=== PATIENT | male | born 1965 | race Caucasian/White ===

== ENCOUNTER 2018-08-15 11:42 | Inpatient (IN) ==
[2018-08-15] MEDS ORDERED: 0.9 % Sodium Chloride 1,000 ML IVC ONE ×3 (12:03→14:17)
[2018-08-15 13:15] LABS: Hematocrit 31.9 % (37.5-50.1); Hemoglobin 10.9 g/dL (12.9-16.9); Immature Platelets 2.4 % (1.1-6.1); Mean Corpuscular HGB Conc 34.2 g/dL (31.6-35.5); Mean Corpuscular Hemoglobin 30.7 pg (28.0-33.3); Mean Corpuscular Volume 89.9 fL (83.0-100.0); Mean Platelet Volume 9.6 fL (9.4-12.4); Platelet Count 105 K/mcL (140-400); Red Blood Count 3.55 M/mcL (4.19-5.50); Red Cell Distribution Width 13.9 % (11.5-14.5)
[2018-08-15 13:25] LABS: INR 1.1; Prothrombin Time 12.7 Seconds (9.4-12.1)
[2018-08-15 13:28] LABS: Activated Partial Thrombo Time 27.2 Seconds (26.0-36.0)
[2018-08-15 14:13] LABS: Alanine Aminotransferase 22 Units/L (7-52); Albumin 3.8 g/dL (3.5-5.7); Albumin/Globulin Ratio 1.4 (1.1-2.2); Alkaline Phosphatase 72 Units/L (34-104); Aspartate Amino Transferase 79 Units/L (13-39); BUN/Creatinine Ratio 25 (6-26); Bilirubin,Direct 0.1 mg/dL (0.0-0.2); Bilirubin,Indirect 0.3 mg/dL (0.0-1.2); Bilirubin,Total 0.4 mg/dL (0.3-1.0); Blood Urea Nitrogen 37 mg/dL (6-20); Calcium 8.8 mg/dL (8.6-10.3); Carbon Dioxide 23 mEq/L (23-29); Chloride 94 mEq/L (98-107); Creatine Kinase 2552 Units/L (30-223); Ethanol < 10 mg/dL (Less than 10); Globulin 2.7 g/dL (2.4-3.5); Glucose 90 mg/dL (70-105); Osmolality,Calculated 274 (280-300); Potassium 4.5 mEq/L (3.5-5.1); Sodium 128 mEq/L (136-145); Total Protein 6.5 g/dL (6.4-8.9); Troponin I 0.03 ng/mL (< 0.04); eGFR For Non-African Americans 50 (> 60)
[2018-08-15 14:19] LABS: Bilirubin,Urine Negative (Negative); Blood,Urine Large (Negative); Clarity,Urine Clear (Clear); Color,Urine Yellow (Yellow); Glucose,Urine (UA) Normal (Normal); Ketones,Urine 15 mg/dL (Negative); Leukocyte Esterase,Urine Negative (Negative); Nitrite,Urine Negative (Negative); PH,Urine 5.5 pH Units (5.0-8.0); Protein,Urine 30 mg/dL (Neg-Trace); Specific Gravity,Urine 1.014 (1.010-1.025); Urobilinogen,Urine Normal (Normal)
[2018-08-15 14:21] LABS: Bacteria,Urine None Seen per hpf (None-Few); Hyaline Casts,Urine None Seen per lpf (None-Few); RBC,Urine 0-3 per hpf (0-3); Squamous Epithelial Cell,Urine Many per lpf (None-Few); WBC,Urine 0-3 per hpf (0-3)
[2018-08-15 14:29] LABS: Amphetamine Screen,Urine Negative ng/mL (Cutoff=1000); Barbiturate Screen,Urine Negative ng/mL (Cutoff=200); Benzodiazepines Screen,Urine Negative ng/mL (Cutoff=200); Cannabinoid Screen,Urine Negative ng/mL (Cutoff = 50); Cocaine Screen,Urine Negative ng/mL (Cutoff= 300); Opiate Screen,Urine Negative ng/mL (Cutoff=300); Phencyclidine Screen,Urine Negative ng/mL (Cutoff=25)
[2018-08-15 14:48] LABS: Lymphocytes # 0.4 K/mcL (0.6-4.6); Monocytes # 0.2 K/mcL (0.0-1.3); Neutrophils # 9.5 K/mcL (1.6-8.9); Platelet Estimate Decreased (Normal)
[2018-08-15] MEDS ORDERED: Naloxone 0.4 MG/ML INJ IVP PRN (16:05)
[2018-08-15] MEDS ORDERED: Acetaminophen 325 MG TABLET PO PRN (16:05)
[2018-08-15] MEDS ORDERED: Ondansetron 4 MG/2 ML VIAL IVP PRN (16:05)
--- NOTE | 2018-08-15 16:08 | Internal Med History&Physical ---
Date of Encounter: 08/15/18 Time of Encounter: 15:59 Internal Medicine - H&P: HPI Chief complaint: Acute metabolic encephalopathy Admitted From: Emergency Dept History of present illness: Gino Dougherty is a 52 M w hx HTN, HLD, DM2, COPD, remote prescription drug abuse, who p/w AMS. Pt's stepmother last saw patient on Tuesday in usual state of health (normal functioning). She went to stay with her daughter for a few days, but this morning realized she had forgotten socks and so drove back to her home that she shares with her , the patient's father, who is on a trip visiting family at the moment. When stepmother got home, she found the patient lying naked on the bathroom floor, and the house was a mess. Several boxes of shoes were open and strewn about, a bottle of fingernail portuguese decorated the floor and pt's clothes, the sink's hot water knob was broken and thus the faucet was running, and several other abnormalities. This is unlike him, and stepmother, who is new to family since january 2018, called her and the patient's brother, both of whom reportedly state he has never had an episode like this. She found him lying on the ground moaning, not responding to any commands. She called EMS. She says he has well controlled diabetes and does not take insulin, unknown other history except for chronic neck and back pain for which he was previously addicted to PO narcotics and has been weaned down to percocet and bee n doing much better. She does report a white powder found on the patient's bed which she thought was baby powder, but is unsure. In the ED, pt HR 110, RR 20s, SBP 160s. Labs remarkable for Hb 11, Plt 110, Na 128, Cl 94, Cr 1.5, BUN 37, AST 80, CK 2500, UA w blood and ketones but no RBCs. CXR and CT head both without any acute changes. Past medical, surgical, social, and family histories reviewed and updated as below. Past Med Surg Social Fam HX - Past Medical History Medical history: diabetes, hyperlipidemia, hypertension Psychiatric history: depression, schizophrenia - Past Surgical History Surgical History: orthopedic, other Additional surgical history: neck surgery - Social History Smoking Status: Never smoker Smokeless Tobacco Status: No Alcohol use: none Drug use: none Internal Medicine - H&P: Meds Albuterol Sulfate [Albuterol Inhaler] 2 puff IH Q4HR PRN 08/15/18 [History] Alogliptin Benzoate [Alogliptin] 25 mg PO DAILY 08/15/18 [History] Atorvastatin [Lipitor] 20 mg PO HS 08/15/18 [History] Buspirone HCl [Buspar] 10 mg PO TID 08/15/18 [History] Cholecalciferol (Vitamin D3) [Vitamin D] 400 unit PO BID 08/15/18 [History] Cyclobenzaprine [Flexeril] 10 mg PO TID 08/15/18 [History] Divalproex (24 HR) [Depakote ER (24 HR)] 750 mg PO HS 08/15/18 [History] Docusate Sodium [Dulcolax Stool Softener] 100 mg PO DAILY 08/15/18 [History] FLUoxetine HCl [Fluoxetine HCl] 40 mg PO DAILY 08/15/18 [History] Ferrous Sulfate [Iron] 325 mg PO BID 08/15/18 [History] Glimepiride [Amaryl] 1 mg PO DAILY 08/15/18 [History] Haloperidol 15 mg PO DAILY 08/15/18 [History] Ipratropium/Albuterol Neb [Duoneb] 3 ml IH Q4HR PRN 08/15/18 [History] Loratadine [Allergy Relief] 10 mg PO DAILY 08/15/18 [History] Losartan [Cozaar] 50 mg PO DAILY 08/15/18 [History] Melatonin 10 mg PO HS 08/15/18 [History] Metaxalone [Skelaxin] 800 mg PO TID 08/15/18 [History] Metoprolol [Lopressor] 50 mg PO BID 08/15/18 [History] Mometasone/Formoterol [Dulera 100 Mcg/5 Mcg Inhaler] 2 inh IH BID 08/15/18 [History] Omeprazole [PriLOSEC] 40 mg PO DAILY 08/15/18 [History] Oxycodone HCl 10 mg PO Q8H PRN 08/15/18 [History] Prazosin HCl [Minipress] 5 mg PO HS 08/15/18 [History] Pregabalin [Lyrica] 150 mg PO BID 08/15/18 [History] RisperiDONE [Risperdal] 0.5 mg PO DAILY 08/15/18 [History] amLODIPine [Norvasc] 10 mg PO DAILY 08/15/18 [History] metFORMIN [Glucophage] 1,000 mg PO BIDWM 08/15/18 [History] Allergy/AdvReac Type Severity Reaction Status Date / Time NSAIDS (Non-Steroidal Allergy See Verified 05/10/17 13:26 Anti-Inflamma Comments Penicillins Allergy See Verified 05/10/17 13:26 Comments All Systems PM: A 10-system review of systems was performed and is negative for pertinent findings except as documented above in the HPI. - Constitutional Vitals: Temp Pulse Resp BP Pulse Ox 97.8 F 112 26 165/91 95 08/15/18 11:45 08/15/18 13:49 08/15/18 13:49 08/15/18 13:49 08/15/18 13:49 Exam: General: lying in bed mumbling/moaning same sound repetitively without intention. Forehead with mild sweat Head: Atraumatic, normocephalic. Face symmetric Eyes: EOMI, sclerae anicteric ENT: Mucous membranes dry. Normal oral mucosa and poor dentition. Trachea midline. Thoracic: No visible chest wall deformities. Normal breath sounds b/l, no wheezing or crackles Cardio: Normal S1 and S2, regular rhythm, tachycardic Abdomen: Soft, nontender, nondistended. Bowel sounds present. Extremities: Warm, well perfused. DP pulses 2+ b/l. Does have mild pitting edema in b/l legs to knees Skin: Intact. No rashes, bruises, or ulcers Neuro: Awake, completely disoriented, continuously moaning but does not appear in pain, does not follow commands, will look and reach slowly in direction of my voice, moving all extremities spontaneously Internal Med - H&P Results - Labs CBC & Chem 7: 08/15/18 13:00 08/15/18 13:00 Labs: Short CBC 08/15/18 Range/Units 13:00 WBC 10.1 (4.3-11.1) K/mcL Hgb 10.9 L (12.9-16.9) g/dL Hct 31.9 L (37.5-50.1) % Plt Count 105 L (140-400) K/mcL Neutrophils # 9.5 H (1.6-8.9) K/mcL BMP 08/15/18 13:00 Sodium 128 L Potassium 4.5 Chloride 94 L Carbon Dioxide 23 BUN 37 H Creatinine 1.48 H Glucose 90 Calcium 8.8 Cardiac Enzymes 08/15/18 Range/Units 13:00 Troponin I 0.03 (< 0.04) ng/mL Liver Function 08/15/18 Range/Units 13:00 Total Bilirubin 0.4 (0.3-1.0) mg/dL Direct Bilirubin 0.1 (0.0-0.2) mg/dL AST 79 H (13-39) Units/L ALT 22 (7-52) Units/L Alkaline Phosphatase 72 (34-104) Units/L Albumin 3.8 (3.5-5.7) g/dL Urine 08/15/18 Range/Units 14:05 Urine Color Yellow (Yellow) Urine Clarity Clear (Clear) Urine pH 5.5 (5.0-8.0) pH Units Ur Specific [place] 1.014 (1.010-1.025) Urine Protein 30 H (Neg-Trace) mg/dL Urine Glucose (UA) Normal (Normal) mg/dL - Impressions ITS Impressions Chest X-Ray 08/15/18 12:03 IMPRESSION: COPD with no acute cardiopulmonary process seen. D/ / 08/15/2018 13:58:06 Juan Pablo Bullock MD / [facility] Interpreting Provider: Juan Pablo Bullock MD Head CT 08/15/18 12:04 IMPRESSION: No acute intracranial abnormality. D/ / 08/15/2018 13:06:35 Akira Waddell MD / [facility] Interpreting Provider: Akira Waddell MD - Summary of Assessment and Plan Summary of Assessment and Plan: Gino dougherty is a 52 M w hx HTN, HLD, DM2, COPD, who p/w AMS, tachycardia and hypertension but negative Utox, sodium 128, CK 2500 and UA w blood but no RBC, concerning for acute metabolic encephalopathy 2/2 hypovolemic hyponatremia and complicated by rhabdomyolysis. Acute encephalopathy: at this time it is unclear; very possibly due to dehydration and hyponatremia. Head CT unremarkable. However, is very suspicious that this could be tox-related despite negative Utox. Does have JERMAIN and gabapentin could build up in system. Could have also ingested or snorted something, and with hx drug abuse and both parents taking mini-vacation could have used something; tachycardia and tachypnea and elevated SBP suggest stimulant, and does have pupils wider than expected in bright ED exam room that don't respond as well as should. ECG sinus tachy, read as minimal ST depression inferiorly but not significant and trop undetectable. - precautions - treat underlying causes as below - fluids and supportive care - close monitoring of blood glucose - check ketones, lactic acid Hypovolemic hyponatremia: w hypochloremia and JERMAIN, fluids and monitor - if does not improve w fluids, check Uosm and Ulytes Rhabdomyolysis: CK 2500, UA w blood but no RBCs, elevated AST. S/p NS 3L in ED. - trend CK daily - MIVF NS@150 - pain control w tylenol JERMAIN: baseline Cr ~0.9, likely 2/2 dehydration and rhabdo, fluids as above and monitor HTN: awaiting med rec, will use labetalol prn HLD: awaiting med rec DM2: glucose 90s here, will keep above 100 due to altered mental status, holding gabapentin COPD: CXR showing emphysematous changes bilaterally Obesity: BMI 31 PPx: lovenox FEN: NPO while still confused and if improves can have regular diet, MIVF as above Lines: PIV Consults: Code: Full Dispo: patient requires inpatient eval and management at this time. Anticipate 2-3 days. Will be homegoing
[2018-08-15] MEDS ORDERED: Dextrose Gel 15 GM/37.5 ML TUBE PO PRN ×2 (16:11)
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
[2018-08-15] MEDS: 0.9 % Sodium Chloride 1,000 ML IVC SCH (17:51)
[2018-08-15 17:54] LABS: Magnesium 2.1 mg/dL (1.6-2.6); Phosphorous 3.1 mg/dL (2.7-4.5)
[2018-08-16] MEDS: *HR* Dextrose 50 % in Water (Syg) 50 ML SYRINGE IVP PRN (00:05)
[2018-08-16] MEDS: 0.9 % Sodium Chloride 1,000 ML IVC SCH (00:07)
[2018-08-16] MEDS: D5% in Water 1,000 ML IVC PRN ×2 (06:08→15:50)
[2018-08-16] MEDS: *HR* Enoxaparin 40 MG/0.4 ML SYRINGE SQ SCH (06:08)
[2018-08-16 06:54] LABS: Mean Corpuscular HGB Conc 33.6 g/dL (31.6-35.5); Mean Platelet Volume 9.9 fL (9.4-12.4)
[2018-08-16 06:56] LABS: Hematocrit 30.7 % (37.5-50.1); Hemoglobin 10.3 g/dL (12.9-16.9); Immature Platelets 2.4 % (1.1-6.1); Mean Corpuscular Hemoglobin 30.3 pg (28.0-33.3); Mean Corpuscular Volume 90.3 fL (83.0-100.0); Red Blood Count 3.4 M/mcL (4.19-5.50); Red Cell Distribution Width 14.1 % (11.5-14.5)
[2018-08-16 07:34] LABS: BUN/Creatinine Ratio 22 (6-26); Blood Urea Nitrogen 24 mg/dL (6-20); Calcium 7.7 mg/dL (8.6-10.3); Carbon Dioxide 16 mEq/L (23-29); Chloride 101 mEq/L (98-107); Creatine Kinase 3986 Units/L (30-223); Glucose 61 mg/dL (70-105); Osmolality,Calculated 278 (280-300); Phosphorous 3.2 mg/dL (2.7-4.5); Potassium 4.3 mEq/L (3.5-5.1); Sodium 133 mEq/L (136-145); eGFR For Non-African Americans > 60 (> 60)
--- NOTE | 2018-08-16 10:15 | Internal Med Progress Note ---
Hospitalist Progress Note - Encounter Date of Encounter: 08/16/18 Time of Encounter: 10:10 - Subjective Interval History: Patient was seen and examined. Continues to be encephalopathic. Not following commands. He has had hypoglycemic episodes overnight and started on D5W. Admitted with altered mental status of unclear etiology. CT head unremarkable on admission. - Exam Vitals: Temp Pulse Resp BP Pulse Ox 98.4 F 122 16 176/94 92 08/16/18 09:58 08/16/18 09:58 08/16/18 09:58 08/16/18 09:58 08/16/18 09:58 Exam: GEN: NAD CVS: RRR. S1, S2, No m/r/g RESP: CTAB ABD: Soft, NT, ND, +BS EXT: No edema. 2+ DP. No rashes NEURO: Moves extremities spontaneously. Not following commands. Pupils dilated and reactive. - Assessment and Plan (1) Altered mental status Current Visit: Yes Status: Acute Assessment and Plan: see below (2) Metabolic encephalopathy Current Visit: Yes Status: Acute Assessment and Plan: Unclear if he ingested something with history of drug abuse in the past or if due to hypoglycemia (unlikely). His glucose was not low on admission ad it is improving now. CT head neg. Takes flexeril, buspar, fluoxetine, haldol, met axalone, lyrica, and oxycodone. will hold for now and I think some of those drugs needs to be looked at as they all can cause mental status issues. Will ask neurology to see. (3) Rhabdomyolysis Current Visit: Yes Status: Acute Assessment and Plan: c/w IV fluids. (4) JERMAIN (acute kidney injury) Current Visit: Yes Status: Acute Assessment and Plan: Improving with IV fluids. Avoid nephrotoxins (5) Diabetes mellitus Current Visit: Yes Status: Acute Assessment and Plan: Has hypoglycemia. will place on SSI. c/w accucheks. check A1c (6) Hypoglycemia Current Visit: Yes Status: Acute Assessment and Plan: c/w D5W. c/w accucheks. A1c Pending (7) HTN (hypertension) Current Visit: Yes Status: Acute Assessment and Plan: c/w home meds (8) HLD (hyperlipidemia) Current Visit: Yes Status: Acute Assessment and Plan: c/w home meds (9) DVT prophylaxis Current Visit: Yes Status: Acute Assessment and Plan: lovenox SQ - Time Spent with Patient Total time spent is greater than 50% in coordination of care (as documented) at patient's floor/unit and/or counseling patient: Internal Medicine: Result - Labs CBC & Chem 7: 08/16/18 06:05 08/16/18 06:05 Labs: Short CBC 08/15/18 08/16/18 Range/Units 13:00 06:05 WBC 10.1 11.0 (4.3-11.1) K/mcL Hgb 10.9 L 10.3 L (12.9-16.9) g/dL Hct 31.9 L 30.7 L (37.5-50.1) % Plt Count 105 L 91 L (140-400) K/mcL Neutrophils # 9.5 H (1.6-8.9) K/mcL BMP 08/15/18 08/16/18 13:00 06:05 Sodium 128 L 133 L Potassium 4.5 4.3 Chloride 94 L 101 Carbon Dioxide 23 16 L BUN 37 H 24 H Creatinine 1.48 H 1.07 Glucose 90 61 L Calcium 8.8 7.7 L Cardiac Enzymes 08/15/18 Range/Units 13:00 Troponin I 0.03 (< 0.04) ng/mL Liver Function 08/15/18 Range/Units 13:00 Total Bilirubin 0.4 (0.3-1.0) mg/dL Direct Bilirubin 0.1 (0.0-0.2) mg/dL AST 79 H (13-39) Units/L ALT 22 (7-52) Units/L Alkaline Phosphatase 72 (34-104) Units/L Albumin 3.8 (3.5-5.7) g/dL Urine 08/15/18 Range/Units 14:05 Urine Color Yellow (Yellow) Urine Clarity Clear (Clear) Urine pH 5.5 (5.0-8.0) pH Units Ur Specific [place] 1.014 (1.010-1.025) Urine Protein 30 H (Neg-Trace) mg/dL Urine Glucose (UA) Normal (Normal) mg/dL - ABG Interpretation ABG results: PT/INR, D-dimer PT 12.7 Seconds (9.4-12.1) H 08/15/18 13:00 - Impressions Impressions Chest X-Ray 08/15/18 12:03 IMPRESSION: COPD with no acute cardiopulmonary process seen. D/ / 08/15/2018 13:58:06 Juan Pablo Bullock MD / [facility] Interpreting Provider: Juan Pablo Bullock MD Head CT 08/15/18 12:04 IMPRESSION: No acute intracranial abnormality. 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
[2018-08-16 10:53] LABS: Estimated Average Glucose 131 mg/dl; Hemoglobin A1C 6.2 %
[2018-08-16] MEDS ORDERED: amLODIPine 5 MG TABLET PO SCH (11:30)
[2018-08-16] MEDS: Loratadine 10 MG TABLET PO SCH (11:59)
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
[2018-08-16 13:45] LABS: Alanine Aminotransferase 36 Units/L (7-52); Albumin 3.4 g/dL (3.5-5.7); Albumin/Globulin Ratio 1.3 (1.1-2.2); Alkaline Phosphatase 68 Units/L (34-104); Aspartate Amino Transferase 132 Units/L (13-39); Bilirubin,Direct 0.1 mg/dL (0.0-0.2); Bilirubin,Indirect 0.3 mg/dL (0.0-1.2); Bilirubin,Total 0.4 mg/dL (0.3-1.0); Globulin 2.6 g/dL (2.4-3.5)
[2018-08-16] MEDS ORDERED: DANTROLENE SODIUM IVP ONE ×2 (17:00→17:30)
[2018-08-16] MEDS ORDERED: WATER FOR INJ IVP ONE ×2 (17:00→17:30)
[2018-08-16] MEDS ORDERED: *HR* LORazepam 2 MG/ML VIAL IVP ONE (17:59)
--- NOTE | 2018-08-16 17:59 | Electrocardiograph Report ---
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
[2018-08-16] MEDS ORDERED: Furosemide 20 MG/2 ML VIAL IVP ONE (19:08)
[2018-08-16] MEDS: Budesonide/Formoterol 80/4.5 MDI IH SCH (20:41)
[2018-08-16] MEDS: Divalproex (24 HR) 250 MG TABLET PO SCH (21:36)
[2018-08-17] MEDS ORDERED: Furosemide 20 MG/2 ML VIAL IVP ONE ×2 (00:45→08:56)
[2018-08-17] MEDS: DANTROLENE SODIUM IVPB SCH ×5 (00:59→23:33)
[2018-08-17] MEDS: D5% in Water 1,000 ML IVC PRN (05:46)
[2018-08-17 06:10] LABS: Basophils # 0.1 K/mcL (0.0-0.2); Basophils % 0.5 %; Eosinophils # 0.1 K/mcL (0.0-0.6); Eosinophils % 0.4 %; Hematocrit 36.5 % (37.5-50.1); Immature Granulocytes % 2.1 % (0-4); Lymphocytes # 1.3 K/mcL (0.6-4.6); Lymphocytes % 9.8 %; Mean Corpuscular Hemoglobin 30.2 pg (28.0-33.3); Mean Corpuscular Volume 88.8 fL (83.0-100.0); Mean Platelet Volume 9.5 fL (9.4-12.4); Monocytes # 1.1 K/mcL (0.0-1.3); Monocytes % 8.8 %; Platelet Count 114 K/mcL (140-400); Red Blood Count 4.11 M/mcL (4.19-5.50); Red Cell Distribution Width 14.6 % (11.5-14.5); Segmented Neutrophils % 78.4 %
[2018-08-17 06:12] LABS: Hemoglobin 12.4 g/dL (12.9-16.9)
[2018-08-17 06:27] LABS: BUN/Creatinine Ratio 15 (6-26); Blood Urea Nitrogen 17 mg/dL (6-20); Calcium 8.7 mg/dL (8.6-10.3); Carbon Dioxide 20 mEq/L (23-29); Chloride 94 mEq/L (98-107); Creatine Kinase 1632 Units/L (30-223); Glucose 120 mg/dL (70-105); Magnesium 1.9 mg/dL (1.6-2.6); Osmolality,Calculated 271 (280-300); Potassium 4.6 mEq/L (3.5-5.1); Sodium 129 mEq/L (136-145); eGFR For Non-African Americans > 60 (> 60)
[2018-08-17] MEDS: *HR* Enoxaparin 40 MG/0.4 ML SYRINGE SQ SCH (06:37)
[2018-08-17] MEDS: Budesonide/Formoterol 80/4.5 MDI IH SCH ×3 (08:01→20:18)
[2018-08-17] MEDS: Loratadine 10 MG TABLET PO SCH (08:29)
--- NOTE | 2018-08-17 08:40 | EEG/EMG/Oth Biometrics Report ---
EEG Procedure Report Date of procedure: 08/17/18 EEG Procedure: Routine EEG Procedure Note: This is a report of a 21 channel bipolar and referential montage EEG. From the outset there is significant technical and myogenic artifact present. This presides throughout the entire recording. Occasionally 6 Hz to 7 Hz theta frequencies are identified in the frontal and occipital regions symmetrically. However overall the study is poorly organized and poorly sustained. There is no normal sleep architecture present. Hyperventilation is not performed in recording. Photic stimulations performed and no photic response is identified. The EKG rhythm strip is technically marred and I am unable to interpret. Impressions: Difficult technical study. There is significant myogenic and technical artifact present throughout the entirety of the recording. I am able to identify theta frequencies bilaterally. This suggests a mild to moderate generalized encephalopathy. There is no evidence of seizure activity identified during the study however again it is a study marred by technical and muscle artifact. Please correlate clinically.
--- NOTE | 2018-08-17 08:46 | Internal Med Progress Note ---
Hospitalist Progress Note - Encounter Date of Encounter: 08/17/18 Time of Encounter: 08:44 - Subjective Interval History: Patient was seen and examined. Yesterday I asked neurology to see him and they believe his presentation is consistent with neuroleptic malignant syndrome. Patient was started on dantrolene and bromocriptine. Psych were consulted and have not seen the patient. He underwent an EEG which was a difficult study yesterday. Yesterday also I was called by his nurse stating that he is requiring 2 L of oxygen mask oxygen order a chest x-ray which showed mild interstitial edema I gave her 20 mg of IV Lasix. He remains on 2 L this mor [place]. He remains on D5W due to hypoglycemic episodes but this seems to be improving. Still encephalopathic. - Exam Vitals: Temp Pulse Resp BP Pulse Ox 98.5 F 114 28 159/99 97 08/17/18 07:14 08/17/18 07:14 08/17/18 07:14 08/17/18 07:14 08/17/18 07:14 Exam: GEN: NAD CVS: RRR. S1, S2, No m/r/g RESP: Crackles bibasilar ABD: Soft, NT, ND, +BS EXT: No edema. 2+ DP. No rashes NEURO: Moves extremities spontaneously but rigidity is felt throughout extremities. Not following commands. Pupils dilated and reactive. - Assessment and Plan (1) Altered mental status Current Visit: Yes Status: Acute Assessment and Plan: see below (2) Metabolic encephalopathy Current Visit: Yes Status: Acute Assessment and Plan: I have asked neurology to see him and they believed that the patient is encep halopathic due to neuroleptic malignant syndrome. He was started on dantrolene and bromocriptine. EEG was done and was difficult study. He is to be seen by psychiatry regarding his multiple psychiatric meds as those need to be adjusted. Hypoglycemia is improving and unlikely to be the cause of his encephalopathy. CT head neg. Takes flexeril, buspar, fluoxetine, haldol, metaxalone, lyrica, and oxycodone. will continue to hold for now and I think some of those drugs needs to be looked at before discharge. (3) Rhabdomyolysis Current Visit: Yes Status: Acute Assessment and Plan: c/w IV fluids. Improving (4) Acute hypoxemic respiratory failure Current Visit: Yes Status: Acute Assessment and Plan: Repeat chest x-rays morning. He is only on about 2 L of oxygen. I would rather not stop his IV fluids given his rhabdomyolysis, tachycardia, jermain, hyponatremia, but I hear crackles on exam. Will stop IV fluids and get a chest x-ray. Will dose another 20 mg IV lasix. (5) JERMAIN (acute kidney injury) Current Visit: Yes Status: Acute Assessment and Plan: Stable. Improved since admission. Avoid nephrotoxins (6) Diabetes mellitus Current Visit: Yes Status: Acute Assessment and Plan: Has hypoglycemia which improved. During the with SSI. c/w accucheks. A1c 6.2 (7) Hypoglycemia Current Visit: Yes Status: Acute Assessment and Plan: We will stop D5 W in place were normal saline. c/w accucheks (8) HTN (hypertension) Current Visit: Yes Status: Acute Assessment and Plan: c/w home meds (9) HLD (hyperlipidemia) Current Visit: Yes Status: Acute Assessment and Plan: c/w home meds (10) DVT prophylaxis Current Visit: Yes Status: Acute Assessment and Plan: lovenox SQ - Time Spent with Patient Total time spent is greater than 50% in coordination of care (as documented) at patient's floor/unit and/or counseling patient: Internal Medicine: Result - Labs CBC & Chem 7: 08/17/18 05:29 08/17/18 05:29 Labs: Short CBC 08/17/18 Range/Units 05:29 WBC 12.8 H (4.3-11.1) K/mcL Hgb 12.4 L D (12.9-16.9) g/dL Hct 36.5 L (37.5-50.1) % Plt Count 114 L (140-400) K/mcL Neutrophils # 10.0 H (1.6-8.9) K/mcL BMP 08/16/18 08/17/18 06:05 05:29 Sodium 133 L 129 L Potassium 4.3 4.6 Chloride 101 94 L Carbon Dioxide 16 L 20 L BUN 24 H 17 Creatinine 1.07 1.15 Glucose 61 L 120 H Calcium 7.7 L 8.7 Liver Function 08/16/18 Range/Units 06:05 Total Bilirubin 0.4 (0.3-1.0) mg/dL Direct Bilirubin 0.1 (0.0-0.2) mg/dL AST 132 H (13-39) Units/L ALT 36 (7-52) Units/L Alkaline Phosphatase 68 (34-104) Units/L Albumin 3.4 L (3.5-5.7) g/dL - ABG Interpretation ABG results: PT/INR, D-dimer PT 12.7 Seconds (9.4-12.1) H 08/15/18 13:00 - Impressions Impressions Chest X-Ray 08/15/18 12:03 IMPRESSION: COPD with no acute cardiopulmonary process seen. D/ / 08/15/2018 13:58:06 Juan Pablo Bullock MD / [facility] Interpreting Provider: Juan Pablo Bullock MD Head CT 08/15/18 12:04 IMPRESSION: No acute intracranial abnormality. D/ / 08/15/2018 13:06:35 Akira Waddell MD / [facility] Interpreting Provider: Akira Waddell MD Chest X-Ray 08/16/18 18:06 IMPRESSION: 1. No lines or tubes. 2. Stable cardiopulmonary status with COPD and reticular opacities which may represent mild interstitial edema. D/ / 08/16/2018 18:39:07 Ivanna Cruz MD / [facility] Interpreting Provider: Ivanna Cruz MD Consult Discharge Plan - Plan Referrals: Gabriella Simon [Advanced Practice Nurse] - 09/06/18 9:00 am __ (1) Altered mental status Qualifiers: Altered mental status type: unspecified Qualified Code(s): R41.82 - Altered mental status, unspecified (3) Rhabdomyolysis Qualifiers: Rhabdomyolysis type: traumatic Encounter type: initial encounter Qualified Code(s): T79.6XXA - Traumatic ischemia of muscle, initial encounter (6) Diabetes mellitus Qualifiers: Diabetes mellitus type: type 2 Diabetes mellitus terminal gauger insulin use: [facility] terminal gauger use Diabetes mellitus complication status: without complication Qualified Code(s): E11.9 - Type 2 diabetes mellitus without complications (8) HTN (hypertension) Qualifiers: Hypertension type: essential hypertension Qualified Code(s): I10 - Essential (primary) hypertension (9) HLD (hyperlipidemia) Qualifiers: Hyperlipidemia type: unspecified Qualified Code(s): E78.5 - Hyperlipidemia, unspecified
[2018-08-17] MEDS ORDERED: *HR* Etomidate 40 MG/20 ML VIAL IVP ONE (09:17)
--- NOTE | 2018-08-17 10:47 | Neurology Progress Note ---
<Elias Quintero - Last Filed: 08/17/18 10:44> Date of Encounter: 08/17/18 Time of Encounter: 10:44 Assessment and Plan (1) Rhabdomyolysis Current Visit: Yes Status: Acute Qualifiers: Rhabdomyolysis type: traumatic Encounter type: initial encounter Qualified Code(s): T79.6XXA - Traumatic ischemia of muscle, initial encounter (2) JERMAIN (acute kidney injury) Current Visit: Yes Status: Acute (3) Metabolic encephalopathy Current Visit: Yes Status: Acute Patient continues to be encephalopathic today. Multiple etiologies for encephalopathy including metabolic, concerns for toxic, medication induced, other Given her presentation, we strongly feel the patient has neuroleptic malignant syndrome. Yesterday he was started on dantrolene IV at 2.5 mg/kg with a max 10 MG/kg daily dose CT HEAD 08/15- unremarkable EEG- mild to moderate generalized encephalopathy, no evidence of seizure activity; technically limited study CXR 08/15- COPD no acute process; 08/16-stable no acute process, 08/17-prominent peribronchial thickening; suspect bronchitis UA negative for acute infection Clinically, again as noted above the patient continues to be encephalopathic today. However, he does not P her to be as anxious or in acute distress when evaluating him yesterday. Yesterday on exam the patient was extremely rigid in all 4 extremities and neck. It should be noted that the rigidity today has improved. Overnight he does not appear to have had any significant temperature elevations and his blood pressure while remaining high is also improved. Serial creatinine kinase trending down at 1632 PLAN: Recommend repeat CK in the morning C/S Psych with concerns for NMS and acute AMS; recommendations appreciated Frequent neurological assessments Start Bromocriptine 2.5mg PO when patient able to take and discontinue dantrolene. However we will continue dantrolene in the interim Recommend Lorazepam 2mg IV Q6hrs Recommend closely monitoring renal function, electrolytes and replete as necessary, rehydrate, continue tele, continue seizure precautions Continuing holding CCB d/t risks associated with dantrolene and CCB use. Consider blood cultures with meeting SIRS criteria Given findings of bronchitis on todays repeat CXR consider adding ABX; defer to IM team Continue medical and supportive care Subjective Principal diagnosis: Patient seen in/U for AMS and Susp. Neuroleptic malignant syndrome Interval history: The patient was seen in follow-up this morning. Neurology was consulted for altered mental state. Exam findings yesterday reveal a diagnosis of neuroleptic malignant syndrome. Today, the patient continues to be encephalopathic and is not conversational or engaging when this provider is present. Clinically, he does not appear to have had any declining condition overnight. In regards to his rigidity this appears to have improved. I did not see any significant temperature elevation and hemodynamically he is hypertensive but stable. There is no family present to further discuss plan of care. Objective - Constitutional Vitals: Temp Pulse Resp BP Pulse Ox 98.5 F 114 28 159/99 97 08/17/18 07:14 08/17/18 07:14 08/17/18 07:14 08/17/18 07:14 08/17/18 07:14 Exam: Examination: General Examination: *CONSTITUTIONAL: He does not appear anxious or agitated or in any acute distress this morning. He is alert to self and it does appear he will make eye contact when addressing in by his name. *GENERAL APPEARANCE OF PATIENT ill appearing male, appears older than stated age *EYES: pupils equal, round, reactive to light and accommodation, conjunctiva clear *CARDIOVASCULAR tachycardic, no peripheral edema, distal temperature normal, dorsalis pedis pulses normal. see vital signs Musculoskeletal: *GAIT AND STATION no assessed *ASSESSMENT OF MUSCLE STRENGTH IN THE UPPER AND LOWER EXTREMITIES he continues to move all four limbs spontaneously *MUSCLE TONE IN THE UPPER AND LOWER EXTREMITIES are rigid x4 extremities however the rigidity is improving. Continues to have neck rigidity *ORIENTATION to person, disoriented otherwise *RECURRENT AND REMOTE MEMORY mentally altered, unable to assess *ATTENTION AND CONCENTRATION altered *LANGUAGE FUNCTION he is not verbalizing *FUND OF KNOWLEDGE is difficult to assess given mental status changes *MENTAL attention span and concentration abnormal 2/2 mental status alterations, episodes of inattention and does not follow commands *CN II optic fundi were normal, no papilledema noted. *CN III,IV, PERRLA but are large 4mm , no dolls eyes, no nystagmus and no ptosis noted. He does make eye contact when addressed by anemia and follows this provider to each side of the bed when spoken to. *CN V does not follow commands *CN VII unable to assess, does not follow commands *CN VIII shows no significant hearing loss on exam; will respond basic yes and no answers to questioning *CN IX,,X unable to assess d/t altered mental state *CN XI he is not moving his head today *CN XII unable to assess *SENSORY EXAMINATION difficult to assess but moves extremities to noxious stimuli *REFLEXES: deep tendon reflexes were normal and symmetrical , grade 1/4 diffusely, no pathological reflexes were noted. *CEREBELLAR TESTING not assessed *PAIN LEVEL not assessed Results - Laboratory Findings CBC and BMP: 08/17/18 05:29 08/17/18 05:29 Abnormal lab findings: Abnormal lab results WBC 12.8 K/mcL (4.3-11.1) H 08/17/18 05:29 RBC 4.11 M/mcL (4.19-5.50) L 08/17/18 05:29 Hgb 12.4 g/dL (12.9-16.9) L D 08/17/18 05:29 Hct 36.5 % (37.5-50.1) L 08/17/18 05:29 RDW 14.6 % (11.5-14.5) H 08/17/18 05:29 Plt Count 114 K/mcL (140-400) L 08/17/18 05:29 Neutrophils # 10.0 K/mcL (1.6-8.9) H 08/17/18 05:29 Platelet Estimate Decreased (Normal) L 08/15/18 13:00 PT 12.7 Seconds (9.4-12.1) H 08/15/18 13:00 Sodium 129 mEq/L (136-145) L 08/17/18 05:29 Chloride 94 mEq/L (98-107) L 08/17/18 05:29 Carbon Dioxide 20 mEq/L (23-29) L 08/17/18 05:29 Glucose 120 mg/dL (70-105) H 08/17/18 05:29 POC Glucose 110 mg/dL (70-99) H 08/17/18 07:17 Hemoglobin A1c 6.2 % (-5.6) H 08/16/18 06:05 Calculated Osmolality 271 (280-300) L 08/17/18 05:29 AST 132 Units/L (13-39) H 08/16/18 06:05 Creatine Kinase 1632 Units/L (30-223) H 08/17/18 05:29 Serum Total Protein 6.0 g/dL (6.4-8.9) L 08/16/18 06:05 Albumin 3.4 g/dL (3.5-5.7) L 08/16/18 06:05 Beta-Hydroxybutyric Acd > 2.00 mmol/L (0.02-0.27) H 08/15/18 13:00 Urine Protein 30 mg/dL (Neg-Trace) H 08/15/18 14:05 Urine Ketones 15 mg/dL (Negative) H 08/15/18 14:05 Urine Blood Large (Negative) H 08/15/18 14:05 Ur Squamous Epith Cells Many per lpf (None-Few) H 08/15/18 14:05 Consult Discharge Plan - Plan Referrals: Gabriella Simon [Advanced Practice Nurse] - 09/06/18 9:00 am <Neftali Oropeza - Last Filed: 08/17/18 12:21> Date of Encounter: 08/17/18 Assessment and Plan (1) Rhabdomyolysis Current Visit: Yes Status: Acute Qualifiers: Rhabdomyolysis type: traumatic Encounter type: initial encounter Qualified Code(s): T79.6XXA - Traumatic ischemia of muscle, initial encounter (2) JERMAIN (acute kidney injury) Current Visit: Yes Status: Acute (3) Metabolic encephalopathy Current Visit: Yes Status: Acute I have personally performed a [id number] assessment of the patient and have reviewed the PA/UNIX ADMINISTRATOR note. My impressions are as follows: Patient was seen and examined independently. The case was discussed with the DISTRICT ATTORNEY. I agree with his assessment as stated above. At the moment I am highly suspicious of neuroleptic malignant syndrome. We will anticipate continuing to dantrolene at least until midday tomorrow at which time she received a total of 10 mg/kg. If he is improved clinically may discontinue however. We will likely continue to dantrolene. Psychiatry's assessment was seen and appreciated. We will continue to follow. We will need to check daily electrolyte panel and CPK levels. Subjective Interval history: The chart was reviewed, the patient was seen and examined independently. The case was discussed with the DISTRICT ATTORNEY.I have personally performed a [id number] assessment of the patient and have reviewed the PA/UNIX ADMINISTRATOR note. My impressions are as follows: I agree with the DISTRICT ATTORNEY's documentation as stated above. Since withholding the neuroleptic since starting dantrolene CPK levels are trending downward. He also has less muscle rigidity today. However his mental status is unchanged he remains encephalopathic. Objective - Constitutional Vitals: Temp Pulse Resp BP Pulse Ox 98.5 F 113 20 153/95 94 08/17/18 11:53 08/17/18 11:53 08/17/18 11:53 08/17/18 11:53 08/17/18 11:53 Exam: I did perform a complete independent neurologic examination of this patient.I have personally performed a [id number] assessment of the patient and have reviewed the PA/UNIX ADMINISTRATOR note. My impressions are as follows: I agree with the neurologic examination documented by the DISTRICT ATTORNEY above. Results - Laboratory Findings CBC and BMP: 08/17/18 05:29 08/17/18 05:29 Abnormal lab findings: Abnormal lab results WBC 12.8 K/mcL (4.3-11.1) H 08/17/18 05:29 RBC 4.11 M/mcL (4.19-5.50) L 08/17/18 05:29 Hgb 12.4 g/dL (12.9-16.9) L D 08/17/18 05:29 Hct 36.5 % (37.5-50.1) L 08/17/18 05:29 RDW 14.6 % (11.5-14.5) H 08/17/18 05:29 Plt Count 114 K/mcL (140-400) L 08/17/18 05:29 Neutrophils # 10.0 K/mcL (1.6-8.9) H 08/17/18 05:29 Platelet Estimate Decreased (Normal) L 08/15/18 13:00 PT 12.7 Seconds (9.4-12.1) H 08/15/18 13:00 Sodium 129 mEq/L (136-145) L 08/17/18 05:29 Chloride 94 mEq/L (98-107) L 08/17/18 05:29 Carbon Dioxide 20 mEq/L (23-29) L 08/17/18 05:29 Glucose 120 mg/dL (70-105) H 08/17/18 05:29 POC Glucose 110 mg/dL (70-99) H 08/17/18 07:17 Hemoglobin A1c 6.2 % (-5.6) H 08/16/18 06:05 Calculated Osmolality 271 (280-300) L 08/17/18 05:29 AST 132 Units/L (13-39) H 08/16/18 06:05 Creatine Kinase 1632 Units/L (30-223) H 08/17/18 05:29 Serum Total Protein 6.0 g/dL (6.4-8.9) L 08/16/18 06:05 Albumin 3.4 g/dL (3.5-5.7) L 08/16/18 06:05 Beta-Hydroxybutyric Acd > 2.00 mmol/L (0.02-0.27) H 08/15/18 13:00 Urine Protein 30 mg/dL (Neg-Trace) H 08/15/18 14:05 Urine Ketones 15 mg/dL (Negative) H 08/15/18 14:05 Urine Blood Large (Negative) H 08/15/18 14:05 Ur Squamous Epith Cells Many per lpf (None-Few) H 08/15/18 14:05
--- NOTE | 2018-08-17 11:47 | Consult Note ---
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 08/15/18 14:05 Urine Blood Large (Negative) H 08/15/18 14:05 Urine Nitrite Negative (Negative) 08/15/18 14:05 Urine Bilirubin Negative (Negative) 08/15/18 14:05 Urine Urobilinogen Normal mg/dL (Normal) 08/15/18 14:05 Ur Leukocyte Esterase Negative (Negative) 08/15/18 14:05 Urine Microscopic RBC 0-3 per hpf (0-3) 08/15/18 14:05 Urine Microscopic WBC 0-3 per hpf (0-3) 08/15/18 14:05 Ur Squamous Epith Cells Many per lpf (None-Few) H 08/15/18 14:05 Urine Bacteria None Seen per hpf (None-Few) 08/15/18 14:05 Hyaline Casts None Seen per lpf (None-Few) 08/15/18 14:05 Ur Culture Indicated? NO (NO) 08/15/18 14:05 Urine Opiates Screen Negative ng/mL (Pcqsfl=219) 08/15/18 14:05 Ur Barbiturates Screen Negative ng/mL (Xfaotu=786) 08/15/18 14:05 Ur Phencyclidine Scrn Negative ng/mL (Cutoff=25) 08/15/18 14:05 Ur Amphetamines Screen Negative ng/mL (Zivygd=1329) 08/15/18 14:05 U Benzodiazepines Scrn Negative ng/mL (Tkgyzm=225) 08/15/18 14:05 Urine Cocaine Screen Negative ng/mL (Cutoff= 300) 08/15/18 14:05 U Marijuana (THC) Screen Negative ng/mL (Cutoff = 50) 08/15/18 14:05 Ur Drug Screen Interp See Below 08/15/18 14:05 Ethyl Alcohol < 10 mg/dL (Less than 10) 08/15/18 13:00 - Impressions Impressions Head CT 08/15/18 12:04 IMPRESSION: No acute intracranial abnormality. D/ / 08/15/2018 13:06:35 Akira Waddell MD / darrell Interpreting Provider: Akira Waddell MD Chest X-Ray 08/16/18 18:06 IMPRESSION: 1. No lines or tubes. 2. Stable cardiopulmonary status with COPD and reticular opacities which may represent mild interstitial edema. D/ / 08/16/2018 18:39:07 Ivanna Cruz MD / herbert Interpreting Provider: Ivanna Cruz MD Chest X-Ray 08/17/18 08:42 IMPRESSION: Prominent interstitium suspicious for underlying COPD, with prominent perihilar bronchial thickening more so on the left which may be related to superimposed acute bronchitis. Suspected minimal left basilar atelectasis. D/ / Deep Maravilla MD / Deep Maravilla MD Interpreting Provider: Deep Maravilla MD Consult Discharge Plan - Plan Referrals: Gabriella Simon [Advanced Practice Nurse] - 09/06/18 9:00 am
--- NOTE | 2018-08-17 14:44 | Event Note ---
Date of Encounter: 08/17/18 Time of Encounter: 14:40 Patient's respiratory status has deteriorated this afternoon. I went to evaluate him and he was on 15L via facemask. He was satting well on that but he was only on 2 L earlier. He is still very lethargic and not following commands. I did give him lasix 20 mg earlier and I stopped his IV fluids. I also started him on IV zosyn for his CXR findings as I could not start him on Levaquin or azithromax due to NMS. Due to significant tachypnea and shallow breathing, I elected to intubate him as I felt the patient was deteriorating fast. A 7.5 ET tube was placed with the help of respiratory. A laryngoscope was passed. A total of 30 mg of IV etomidate were given. The patient will be transferred to the ICU with a consult to pulmonary. The patient will be put on propofol for sedation. Discussed with pharmacy regarding with sedation we can give given the NMS diagnosis. Will get a CXR and ABG in 15-20 min. Patient is on lovenox for DVT ppx. Will get a CTA chest as well to rule out a PE as per H&P on admission was found on the floor in the bathroom and it is unknown for how long he was laying there. He has been on DVT ppx here, however.
[2018-08-17] MEDS ORDERED: Isovue-370 500 ML BOTTLE IVP ONE (14:48)
[2018-08-17 14:59] LABS: ABG Base Excess -6 mEq/L (-2 to 3); ABG HCO3 19 mEq/L (21-27); ABG Oxygen Saturation 98 % (95-98); ABG PCO2 36 mmHg (35-45); ABG PH 7.34 pH Units (7.32-7.45); ABG PO2 105 mmHg (85-104); ABG TCO2 21 mEq/L (20-26); Blood Gas Modality VC; Blood Gas PEEP 5 cm H2O; Blood Gas Respiration Rate 12; Blood Gas VT 550 cc
[2018-08-17] MEDS: Piperacillin/Tazobactam 3.375 GM in 0.9 % Sodium Chloride Mini Bag 100 ML IVPB SCH ×2 (15:28→23:05)
--- NOTE | 2018-08-17 16:13 | Pulmonology Consult Note ---
<Sophia Dinh - Last Filed: 08/17/18 16:13> Date of Encounter: 08/17/18 Time of Encounter: 16:13 Past Med Surg Social Fam HX - Past Medical History Medical history: diabetes, hyperlipidemia, hypertension Psychiatric history: schizophrenia - Past Surgical History Surgical History: orthopedic, other Additional surgical history: back and neck surgeries, plate in back - Social History Smoking Status: Never smoker Smokeless Tobacco Status: No Alcohol use: none Drug use: none Medications and Allergies Albuterol Sulfate [Albuterol Inhaler] 2 puff IH Q4HR PRN 08/15/18 [History] Alogliptin Benzoate [Alogliptin] 25 mg PO DAILY 08/15/18 [History] Atorvastatin [Lipitor] 20 mg PO HS 08/15/18 [History] Buspirone HCl [Buspar] 10 mg PO TID 08/15/18 [History] Cholecalciferol (Vitamin D3) [Vitamin D] 400 unit PO BID 08/15/18 [History] Cyclobenzaprine [Flexeril] 10 mg PO TID 08/15/18 [History] Divalproex (24 HR) [Depakote ER (24 HR)] 750 mg PO HS 08/15/18 [History] Docusate Sodium [Dulcolax Stool Softener] 100 mg PO DAILY 08/15/18 [History] FLUoxetine HCl [Fluoxetine HCl] 40 mg PO DAILY 08/15/18 [History] Ferrous Sulfate [Iron] 325 mg PO BID 08/15/18 [History] Glimepiride [Amaryl] 1 mg PO DAILY 08/15/18 [History] Haloperidol 15 mg PO DAILY 08/15/18 [History] Ipratropium/Albuterol Neb [Duoneb] 3 ml IH Q4HR PRN 08/15/18 [History] Loratadine [Allergy Relief] 10 mg PO DAILY 08/15/18 [History] Losartan [Cozaar] 50 mg PO DAILY 08/15/18 [History] Melatonin 10 mg PO HS 08/15/18 [History] Metaxalone [Skelaxin] 800 mg PO TID 08/15/18 [History] Metoprolol [Lopressor] 50 mg PO BID 08/15/18 [History] Mometasone/Formoterol [Dulera 100 Mcg/5 Mcg Inhaler] 2 inh IH BID 04/16/19 [History] Omeprazole [PriLOSEC] 40 mg PO DAILY 08/15/18 [History] Oxycodone HCl 10 mg PO Q8H PRN 08/15/18 [History] Prazosin HCl [Minipress] 5 mg PO HS 08/15/18 [History] Pregabalin [Lyrica] 150 mg PO BID 08/15/18 [History] RisperiDONE [Risperdal] 0.5 mg PO DAILY 08/15/18 [History] amLODIPine [Norvasc] 10 mg PO DAILY 08/15/18 [History] metFORMIN [Glucophage] 1,000 mg PO BIDWM 08/15/18 [History] Allergy/AdvReac Type Severity Reaction Status Date / Time NSAIDS (Non-Steroidal Allergy See Verified 05/10/17 13:26 Anti-Inflamma Comments Penicillins Allergy See Verified 05/10/17 13:26 Comments All Systems: The remainder of the systems were reviewed and are negative Physical Examination Vital Signs: Vital Signs, Last 4 Hours Resp BP Pulse Ox 08/17/18 14:30 25 146/81 92 Ventilator Settings Ventilator Settings: Ventilator Settings, Last 8 Hours Ventilator Tidal Volume 55 Setting Ventilator Respiratory Rate 12 Setting Actual Respiratory Rate 25 Positive End Expiratory 5 Pressure Peak Inspiratory Airway 31 Pressure Results - Laboratory Findings CBC and BMP: 08/17/18 05:29 08/17/18 05:29 ABG ABG pH 7.34 pH Units (7.32-7.45) 08/17/18 14:54 ABG pCO2 36 mmHg (35-45) 08/17/18 14:54 ABG pO2 105 mmHg (85-104) H 08/17/18 14:54 ABG O2 Saturation 98 % (95-98) 08/17/18 14:54 PT/INR, D-dimer PT 12.7 Seconds (9.4-12.1) H 08/15/18 13:00 Abnormal lab findings: Abnormal lab results WBC 12.8 K/mcL (4.3-11.1) H 08/17/18 05:29 RBC 4.11 M/mcL (4.19-5.50) L 08/17/18 05:29 Hgb 12.4 g/dL (12.9-16.9) L D 08/17/18 05:29 Hct 36.5 % (37.5-50.1) L 08/17/18 05:29 RDW 14.6 % (11.5-14.5) H 08/17/18 05:29 Plt Count 114 K/mcL (140-400) L 08/17/18 05:29 Neutrophils # 10.0 K/mcL (1.6-8.9) H 08/17/18 05:29 Platelet Estimate Decreased (Normal) L 08/15/18 13:00 PT 12.7 Seconds (9.4-12.1) H 08/15/18 13:00 ABG pO2 105 mmHg (85-104) H 08/17/18 14:54 ABG HCO3 19 mEq/L (21-27) L 08/17/18 14:54 ABG Base Excess -6 mEq/L (-2 to 3) L 08/17/18 14:54 Sodium 129 mEq/L (136-145) L 08/17/18 05:29 Chloride 94 mEq/L (98-107) L 08/17/18 05:29 Carbon Dioxide 20 mEq/L (23-29) L 08/17/18 05:29 Glucose 120 mg/dL (70-105) H 08/17/18 05:29 POC Glucose 116 mg/dL (70-99) H 08/17/18 15:11 Hemoglobin A1c 6.2 % (-5.6) H 08/16/18 06:05 Calculated Osmolality 271 (280-300) L 08/17/18 05:29 AST 132 Units/L (13-39) H 08/16/18 06:05 Creatine Kinase 1632 Units/L (30-223) H 08/17/18 05:29 Serum Total Protein 6.0 g/dL (6.4-8.9) L 08/16/18 06:05 Albumin 3.4 g/dL (3.5-5.7) L 08/16/18 06:05 Beta-Hydroxybutyric Acd > 2.00 mmol/L (0.02-0.27) H 08/15/18 13:00 Urine Protein 30 mg/dL (Neg-Trace) H 08/15/18 14:05 Urine Ketones 15 mg/dL (Negative) H 08/15/18 14:05 Urine Blood Large (Negative) H 08/15/18 14:05 Ur Squamous Epith Cells Many per lpf (None-Few) H 08/15/18 14:05 - Clinical Findings Intake & Output: Intake & Output 08/17/18 08/17/18 08/17/18 07:59 15:59 23:59 Intake Total 1000 / 1000 Balance 1000 / 1000 Weight 93.2 kg Consult Discharge Plan - Plan Referrals: Gabriella Simon [Advanced Practice Nurse] - 09/06/18 9:00 am <Zack Díaz - Last Filed: 08/17/18 16:49> Date of Encounter: 08/17/18 All Systems: The remainder of the systems were reviewed and are negative Physical Examination Vital Signs: Vital Signs, Last 4 Hours Temp Pulse Resp BP Pulse Ox 08/17/18 15:00 98.7 F 116 18 99/77 97 08/17/18 14:30 25 146/81 92 Ventilator Settings Ventilator Settings: Ventilator Settings, Last 8 Hours Ventilator Tidal Volume 55 Setting Ventilator Respiratory Rate 12 Setting Actual Respiratory Rate 25 Positive End Expiratory 5 Pressure Peak Inspiratory Airway 31 Pressure Results - Laboratory Findings CBC and BMP: 08/17/18 05:29 08/17/18 05:29 ABG ABG pH 7.34 pH Units (7.32-7.45) 08/17/18 14:54 ABG pCO2 36 mmHg (35-45) 08/17/18 14:54 ABG pO2 105 mmHg (85-104) H 08/17/18 14:54 ABG O2 Saturation 98 % (95-98) 08/17/18 14:54 PT/INR, D-dimer PT 12.7 Seconds (9.4-12.1) H 08/15/18 13:00 Abnormal lab findings: Abnormal lab results WBC 12.8 K/mcL (4.3-11.1) H 08/17/18 05:29 RBC 4.11 M/mcL (4.19-5.50) L 08/17/18 05:29 Hgb 12.4 g/dL (12.9-16.9) L D 08/17/18 05:29 Hct 36.5 % (37.5-50.1) L 08/17/18 05:29 RDW 14.6 % (11.5-14.5) H 08/17/18 05:29 Plt Count 114 K/mcL (140-400) L 08/17/18 05:29 Neutrophils # 10.0 K/mcL (1.6-8.9) H 08/17/18 05:29 Platelet Estimate Decreased (Normal) L 08/15/18 13:00 PT 12.7 Seconds (9.4-12.1) H 08/15/18 13:00 ABG pO2 105 mmHg (85-104) H 08/17/18 14:54 ABG HCO3 19 mEq/L (21-27) L 08/17/18 14:54 ABG Base Excess -6 mEq/L (-2 to 3) L 08/17/18 14:54 Sodium 129 mEq/L (136-145) L 08/17/18 05:29 Chloride 94 mEq/L (98-107) L 08/17/18 05:29 Carbon Dioxide 20 mEq/L (23-29) L 08/17/18 05:29 Glucose 120 mg/dL (70-105) H 08/17/18 05:29 POC Glucose 116 mg/dL (70-99) H 08/17/18 15:11 Hemoglobin A1c 6.2 % (-5.6) H 08/16/18 06:05 Calculated Osmolality 271 (280-300) L 08/17/18 05:29 AST 132 Units/L (13-39) H 08/16/18 06:05 Creatine Kinase 1632 Units/L (30-223) H 08/17/18 05:29 Serum Total Protein 6.0 g/dL (6.4-8.9) L 08/16/18 06:05 Albumin 3.4 g/dL (3.5-5.7) L 08/16/18 06:05 Beta-Hydroxybutyric Acd > 2.00 mmol/L (0.02-0.27) H 08/15/18 13:00 Urine Protein 30 mg/dL (Neg-Trace) H 08/15/18 14:05 Urine Ketones 15 mg/dL (Negative) H 08/15/18 14:05 Urine Blood Large (Negative) H 08/15/18 14:05 Ur Squamous Epith Cells Many per lpf (None-Few) H 08/15/18 14:05 - Clinical Findings Intake & Output: Intake & Output 08/17/18 08/17/18 08/17/18 07:59 15:59 23:59 Intake Total 1000 / 1000 Balance 1000 / 1000 Weight 93.2 kg - Attending Attestation I examined this patient and my medical decision-making was reviewed with the Resident Physician. I agree with the documented findings, disposition and treatment plan as described except to the extent set forth below. Patient seen and examined. Labs, radiology, chart personally reviewed. 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 I have changed vent setting Cardiovascular: stable GI: Nutrition per dietary and GI prophylaxis per routine Heme: DVT prophylaxis per routine ID: Continue antibiotics and plan to de-escalation Renal; urine out put and renal funtion reviewed Endorcine: blood glucose is monitored Lines: all lines checked and no evidence of infections Skin: skin care to prevent pressure ulcers per nursing routine care I spent 40 min of Critical Care time with this patient. It involved decision making of high complexity to assess, manipulate, and support vital organ system failure and/or to prevent further life threatening deterioration of the patient's condition. The time involved in the performance of separately reportable procedures was not counted toward critical care time.
[2018-08-17] MEDS: FentaNYL (PF) 1,000 MCG in 0.9 % Sodium Chloride 80 ML IVC SCH (16:28)
[2018-08-17] MEDS ORDERED: 0.9 % Sodium Chloride 1,000 ML IVC SCH (17:15)
[2018-08-17] MEDS ORDERED: 0.9 % Sodium Chloride 1,000 ML IVC ONE (17:21)
[2018-08-17] MEDS ORDERED: Ringers Solution, Lactated 1,000 ML IVC SCH (17:30)
[2018-08-17] MEDS ORDERED: 0.9 % Sodium Chloride 1,000 ML ONE (17:39)
[2018-08-17] MEDS ORDERED: Artificial Tears SOLN 15 ML BOTTLE BOTH EYES PRN (21:39)
[2018-08-17] MEDS: Divalproex (24 HR) 250 MG TABLET PO SCH (21:55)
[2018-08-17] MEDS: Ringers Solution, Lactated 1,000 ML IVC SCH (21:55)
[2018-08-17] MEDS: Artificial Tears SOLN 15 ML BOTTLE BOTH EYES SCH (23:05)
[2018-08-18] MEDS: FentaNYL (PF) 1,000 MCG in 0.9 % Sodium Chloride 80 ML IVC SCH ×3 (00:24→19:20)
[2018-08-18] MEDS: Ringers Solution, Lactated 1,000 ML IVC SCH ×4 (02:40→22:56)
[2018-08-18] MEDS: *HR* Enoxaparin 40 MG/0.4 ML SYRINGE SQ SCH (04:45)
[2018-08-18] MEDS: DANTROLENE SODIUM IVPB SCH ×2 (04:45→12:54)
[2018-08-18] MEDS: Artificial Tears SOLN 15 ML BOTTLE BOTH EYES SCH ×6 (04:45→23:32)
[2018-08-18 05:19] LABS: ABG Base Excess -2 mEq/L (-2 to 3); ABG HCO3 26 mEq/L (21-27); ABG Oxygen Saturation 85 % (95-98); ABG PCO2 57 mmHg (35-45); ABG PH 7.26 pH Units (7.32-7.45); ABG PO2 58 mmHg (85-104); ABG TCO2 27 mEq/L (20-26); Blood Gas PEEP 5 cm H2O; Blood Gas Respiration Rate 12; Blood Gas VT 550 cc
[2018-08-18 06:05] LABS: Immature Granulocytes % 1.6 % (0-4); Mean Corpuscular Volume 93.2 fL (83.0-100.0); Red Cell Distribution Width 15.1 % (11.5-14.5)
[2018-08-18 06:07] LABS: Hematocrit 32.9 % (37.5-50.1); Hemoglobin 10.5 g/dL (12.9-16.9); Immature Platelets 1.8 % (1.1-6.1); Lymphocytes % 12.2 %; Mean Corpuscular HGB Conc 31.9 g/dL (31.6-35.5); Mean Corpuscular Hemoglobin 29.7 pg (28.0-33.3); Mean Platelet Volume 8.8 fL (9.4-12.4); Monocytes % 7.7 %; Platelet Count 100 K/mcL (140-400); Red Blood Count 3.53 M/mcL (4.19-5.50); Segmented Neutrophils % 76.8 %
[2018-08-18 06:08] LABS: Basophils % 0.3 %; Eosinophils # 0.1 K/mcL (0.0-0.6); Eosinophils % 1.4 %; Lymphocytes # 1.2 K/mcL (0.6-4.6); Monocytes # 0.8 K/mcL (0.0-1.3); Neutrophils # 7.5 K/mcL (1.6-8.9)
[2018-08-18 06:31] LABS: Alanine Aminotransferase 32 Units/L (7-52); Albumin 2.9 g/dL (3.5-5.7); Albumin/Globulin Ratio 1.3 (1.1-2.2); Alkaline Phosphatase 62 Units/L (34-104); Aspartate Amino Transferase 35 Units/L (13-39); BUN/Creatinine Ratio 14 (6-26); Bilirubin,Total 0.6 mg/dL (0.3-1.0); Blood Urea Nitrogen 20 mg/dL (6-20); Calcium 8.2 mg/dL (8.6-10.3); Carbon Dioxide 23 mEq/L (23-29); Chloride 97 mEq/L (98-107); Creatine Kinase 305 Units/L (30-223); Globulin 2.3 g/dL (2.4-3.5); Glucose 105 mg/dL (70-105); Magnesium 1.8 mg/dL (1.6-2.6); Osmolality,Calculated 277 (280-300); Potassium 4.3 mEq/L (3.5-5.1); Sodium 132 mEq/L (136-145); Total Protein 5.2 g/dL (6.4-8.9); eGFR For Non-African Americans 54 (> 60)
[2018-08-18] MEDS: Loratadine 10 MG TABLET PO SCH (07:38)
[2018-08-18] MEDS: Piperacillin/Tazobactam 3.375 GM in 0.9 % Sodium Chloride Mini Bag 100 ML IVPB SCH ×3 (07:38→23:32)
[2018-08-18] MEDS: Chlorhexidine Rinse 15 ML MOUTHWASH MM SCH ×2 (07:38→21:23)
[2018-08-18] MEDS: Budesonide/Formoterol 80/4.5 MDI IH SCH ×2 (07:59→19:35)
--- NOTE | 2018-08-18 10:14 | Neurology Progress Note ---
<Elias Quintero - Last Filed: 08/18/18 10:11> Date of Encounter: 08/18/18 Time of Encounter: 10:11 Assessment and Plan (1) Metabolic encephalopathy Current Visit: Yes Status: Acute (2) Rhabdomyolysis Current Visit: Yes Status: Acute Qualifiers: Rhabdomyolysis type: traumatic Encounter type: initial encounter Qualified Code(s): T79.6XXA - Traumatic ischemia of muscle, initial encounter (3) JERMAIN (acute kidney injury) Current Visit: Yes Status: Acute (4) Neuroleptic malignant syndrome Current Visit: Yes Status: Acute Neurology is seeing in follow-up for neuroleptic malignant syndrome. Unfortunately, yesterday the patient decompensated and suffered acute respiratory failure secondary to complications of NMS with increased work of breathing and poor effort. Currently, he is sedated and requiring mechanical ventilatory support. His neurological exam is compromised due to this. However, in regards to his rigidity this appears to continue to improve overnight. At this juncture he is expected to receive 2 more doses of dantrolene. Given the improvements in his symptoms we recommend that this could be discontinued after these last 2 doses. We do not feel the need to transition to Bromocriptine upon discontinuation of dantrolene. I would continue with PRN Ativan however. Again, in the absence of meningeal signs, hyperthermia or leukocytosis do not feel that this is a ROLLED GOLD PLATER infection. Neurology will continue to follow. Currently receiving dantrolene IV at 2.5 mg/kg with a max 10 MG/kg daily dose; to receive #2 more doses total then D/C CT HEAD 08/15- unremarkable EEG- mild to moderate generalized encephalopathy, no evidence of seizure activity; technically limited study CXR 08/15- COPD no acute process; 08/16-stable no acute process, 08/17-prominent peribronchial thickening; suspect bronchitis UA negative for acute infection Subjective Principal diagnosis: Patient seen in F/U for Neuroleptic malignant syndrome Interval history: The patient was seen in follow-up this morning in the ICU for a diagnosis of neuroleptic malignant syndrome. He is currently sedated and intubated and unable to respond to questioning. His clinical course was uneventful overnight and he remains stable. No episodes of hyperthermia overnight per review of his vitalS trend. The lead pipe rigidity continues to improve. No family at bedside at this time to further discuss treatment plan. Objective - Constitutional Vitals: Temp Pulse Resp BP Pulse Ox 97.4 F L 105 18 76/64 96 08/18/18 08:30 08/18/18 09:00 08/18/18 09:00 08/18/18 09:00 08/18/18 09:00 Exam: Examination: Neurological exam is limited due to sedation and mechanical ventilation General Examination: *CONSTITUTIONAL: Sedated in no acute distress. *GENERAL APPEARANCE OF PATIENT ill appearing male, appears older than stated age *EYES: pupils equal, round, reactive to light and accommodation, conjunctiva clear *CARDIOVASCULAR tachycardic, no peripheral edema, distal temperature normal, dorsalis pedis pulses normal. see vital signs Musculoskeletal: *GAIT AND STATION no assessed; sedated on mechanical ventilation *ASSESSMENT OF MUSCLE STRENGTH IN THE UPPER AND LOWER EXTREMITIES he continues to move all four limbs spontaneously *MUSCLE TONE IN THE UPPER AND LOWER EXTREMITIES rigidity improving and all 4 extremities. Neck rigidity also improving. No pain with head or neck manipulation. *OTHER: No meningeal signs identified *MENTAL sedated on mechanical ventilation *CN II optic fundi were normal, no papilledema noted. *CN III,IV, PERRLA but are large 4mm , no dolls eyes *SENSORY EXAMINATION difficult to assess but moves extremities to noxious stimuli *REFLEXES: deep tendon reflexes were normal and symmetrical , grade 1/4 diffusely, no pathological reflexes were noted. *CEREBELLAR TESTING not assessed *PAIN LEVEL sedated; unable to assess Results - Laboratory Findings CBC and BMP: 08/18/18 05:38 08/18/18 05:38 Abnormal lab findings: Abnormal lab results RBC 3.53 M/mcL (4.19-5.50) L 08/18/18 05:38 Hgb 10.5 g/dL (12.9-16.9) L D 08/18/18 05:38 Hct 32.9 % (37.5-50.1) L 08/18/18 05:38 RDW 15.1 % (11.5-14.5) H 08/18/18 05:38 Plt Count 100 K/mcL (140-400) L 08/18/18 05:38 MPV 8.8 fL (9.4-12.4) L 08/18/18 05:38 Platelet Estimate Decreased (Normal) L 08/15/18 13:00 PT 12.7 Seconds (9.4-12.1) H 08/15/18 13:00 ABG pH 7.26 pH Units (7.32-7.45) L 08/18/18 05:15 ABG pCO2 57 mmHg (35-45) H 08/18/18 05:15 ABG pO2 58 mmHg (85-104) L 08/18/18 05:15 ABG Total CO2 27 mEq/L (20-26) H 08/18/18 05:15 ABG O2 Saturation 85 % (95-98) L 08/18/18 05:15 Sodium 132 mEq/L (136-145) L 08/18/18 05:38 Chloride 97 mEq/L (98-107) L 08/18/18 05:38 Creatinine 1.38 mg/dL (0.70-1.30) H 08/18/18 05:38 Est GFR (Non-Af Amer) 54 (> 60) L 08/18/18 05:38 POC Glucose 104 mg/dL (70-99) H 08/18/18 07:45 Hemoglobin A1c 6.2 % (-5.6) H 08/16/18 06:05 Calculated Osmolality 277 (280-300) L 08/18/18 05:38 Calcium 8.2 mg/dL (8.6-10.3) L 08/18/18 05:38 Creatine Kinase 305 Units/L (30-223) H 08/18/18 05:38 Serum Total Protein 5.2 g/dL (6.4-8.9) L 08/18/18 05:38 Albumin 2.9 g/dL (3.5-5.7) L 08/18/18 05:38 Globulin 2.3 g/dL (2.4-3.5) L 08/18/18 05:38 Beta-Hydroxybutyric Acd > 2.00 mmol/L (0.02-0.27) H 08/15/18 13:00 Urine Protein 30 mg/dL (Neg-Trace) H 08/15/18 14:05 Urine Ketones 15 mg/dL (Negative) H 08/15/18 14:05 Urine Blood Large (Negative) H 08/15/18 14:05 Ur Squamous Epith Cells Many per lpf (None-Few) H 08/15/18 14:05 Consult Discharge Plan - Plan Referrals: Aurora,Gabriella [Advanced Practice Nurse] - 09/06/18 9:00 am <Neftali Oropeza - Last Filed: 08/18/18 15:51> Date of Encounter: 08/18/18 Assessment and Plan (1) Rhabdomyolysis Current Visit: Yes Status: Acute Qualifiers: Rhabdomyolysis type: traumatic Encounter type: initial encounter Qualified Code(s): T79.6XXA - Traumatic ischemia of muscle, initial encounter (2) JERMAIN (acute kidney injury) Current Visit: Yes Status: Acute (3) Metabolic encephalopathy Current Visit: Yes Status: Acute (4) Neuroleptic malignant syndrome Current Visit: Yes Status: Acute I have personally performed a [id number] assessment of the patient and have r eviewed the PA/TOOLS AND PARTS ATTENDANT note. My impressions are as follows: I agree with the assessment and plan stated above by the NETWORK SUPPORT TECHNICIAN. Patient is clinically improved on the dantrolene and it can now be discontinued. His rigidity and CPK levels are improved. At this point however his respiratory status needs to be stabilized. We will continue to follow until he regains consciousness. Case was signed out to Dr. Tamayo. Subjective Interval history: Chart was reviewed, patient was seen and examined independently. Case was discussed with the NETWORK SUPPORT TECHNICIAN.I have personally performed a [id number] assessment of the patient and have reviewed the PA/TOOLS AND PARTS ATTENDANT note. My impressions are as follows: I agree with the assessment NETWORK SUPPORT TECHNICIAN as stated above. Patient although is not able to verbalize and follow commands, appears more comfortable, less agitated less diaphoretic. CPKs are down now to the low 300s, rigidity has decreased substantially. Objective - Constitutional Vitals: Temp Pulse Resp BP Pulse Ox 99.1 F 97 18 104/62 96 08/18/18 12:19 08/18/18 15:24 08/18/18 15:00 08/18/18 15:00 08/18/18 15:00 Exam: I have personally performed a [id number] assessment of the patient and have reviewed the PA/TOOLS AND PARTS ATTENDANT note. My impressions are as follows: I did perform a complete neurologic examination independently. I agree with the examination documented above by the NETWORK SUPPORT TECHNICIAN. Results - Laboratory Findings CBC and BMP: 08/18/18 05:38 08/18/18 05:38 Abnormal lab findings: Abnormal lab results RBC 3.53 M/mcL (4.19-5.50) L 08/18/18 05:38 Hgb 10.5 g/dL (12.9-16.9) L D 08/18/18 05:38 Hct 32.9 % (37.5-50.1) L 08/18/18 05:38 RDW 15.1 % (11.5-14.5) H 08/18/18 05:38 Plt Count 100 K/mcL (140-400) L 08/18/18 05:38 MPV 8.8 fL (9.4-12.4) L 08/18/18 05:38 Platelet Estimate Decreased (Normal) L 08/15/18 13:00 PT 12.7 Seconds (9.4-12.1) H 08/15/18 13:00 ABG pH 7.26 pH Units (7.32-7.45) L 08/18/18 05:15 ABG pCO2 57 mmHg (35-45) H 08/18/18 05:15 ABG pO2 58 mmHg (85-104) L 08/18/18 05:15 ABG Total CO2 27 mEq/L (20-26) H 08/18/18 05:15 ABG O2 Saturation 85 % (95-98) L 08/18/18 05:15 Sodium 132 mEq/L (136-145) L 08/18/18 05:38 Chloride 97 mEq/L (98-107) L 08/18/18 05:38 Creatinine 1.38 mg/dL (0.70-1.30) H 08/18/18 05:38 Est GFR (Non-Af Amer) 54 (> 60) L 08/18/18 05:38 Hemoglobin A1c 6.2 % (-5.6) H 08/16/18 06:05 Calculated Osmolality 277 (280-300) L 08/18/18 05:38 Calcium 8.2 mg/dL (8.6-10.3) L 08/18/18 05:38 Creatine Kinase 305 Units/L (30-223) H 08/18/18 05:38 Serum Total Protein 5.2 g/dL (6.4-8.9) L 08/18/18 05:38 Albumin 2.9 g/dL (3.5-5.7) L 08/18/18 05:38 Globulin 2.3 g/dL (2.4-3.5) L 08/18/18 05:38 Beta-Hydroxybutyric Acd > 2.00 mmol/L (0.02-0.27) H 08/15/18 13:00 Urine Protein 30 mg/dL (Neg-Trace) H 08/15/18 14:05 Urine Ketones 15 mg/dL (Negative) H 08/15/18 14:05 Urine Blood Large (Negative) H 08/15/18 14:05 Ur Squamous Epith Cells Many per lpf (None-Few) H 08/15/18 14:05
--- NOTE | 2018-08-18 12:45 | Pulmonology Progress Note ---
Date of Encounter: 08/18/18 Time of Encounter: 08:00 Assessment and Plan (1) Rhabdomyolysis Current Visit: Yes Status: Acute Patient presented with elevated creatinine kinase can be secondary to neuroleptic malignant syndrome creatinine kinase Trending down. Qualifiers: Rhabdomyolysis type: traumatic Encounter type: initial encounter Qualified Code(s): T79.6XXA - Traumatic ischemia of muscle, initial encounter (2) JERMAIN (acute kidney injury) Current Visit: Yes Status: Acute Patient acute kidney injury with some worsening creatinine continue trending to avoid nephrotoxins. (3) Metabolic encephalopathy Current Visit: Yes Status: Acute Patient has metabolic encephalopathy EEG one third was not a great study showed possible metabolic encephalopathy secondary to first initially diabetic ketoacidosis can be due to atypical neuroleptic malignant syndrome (4) Acute hypoxemic respiratory failure Current Visit: Yes Status: Acute Secondary to fluid resuscitation while he presented with DKA complicated by diastolic dysfunction. Patient blood pressure is borderline will not diuresis now we will give another 24 hours before we start diuresing. (5) Diabetes mellitus Current Visit: Yes Status: Acute Blood glucose adequate control. Qualifiers: Diabetes mellitus type: type 2 Diabetes mellitus termite control servicer insulin use: without termite control servicer use Diabetes mellitus complication status: without complication Qualified Code(s): E11.9 - Type 2 diabetes mellitus without complications (6) DVT prophylaxis Current Visit: Yes Status: Acute To continue the current regimen. 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 Since his creatinine kinase is trending down Dantrolene was stopped . Psychiatry recommended oral bromocriptine when he gets extubated. Subjective Principal diagnosis: Patient seen in F/U for Neuroleptic malignant syndrome Interval history: Patient did not have acute events overnight patient presently with atypical neurolept malignant syndrome Objective PUL Vital signs: Last Vital Signs Temp 99.1 F 08/18/18 12:19 Pulse 110 08/18/18 12:00 Resp 18 08/18/18 12:00 BP 97/62 08/18/18 12:00 Pulse Ox 96 08/18/18 12:00 General appearance: asleep, other (Waking up to commands) Auscultation: bilateral: diminished breath sounds (basilar diminished breadth sounds ) Cardiovascular: regular rate and rhythm Gastrointestinal: normoactive bowel sounds unable to assess due to mental status Ventilator Settings Ventilator Settings: Ventilator Settings, Last 8 Hours Ventilator Tidal Volume 550 Setting Ventilator Tidal Volume 550 Setting Ventilator Tidal Volume 550 Setting Ventilator Tidal Volume 550 Setting Ventilator Tidal Volume 550 Setting Ventilator Tidal Volume 550 Setting Ventilator Tidal Volume 550 Setting Ventilator Tidal Volume 550 Setting Ventilator Tidal Volume 550 Setting Ventilator Tidal Volume 550 Setting Ventilator Tidal Volume 550 Setting Ventilator Respiratory Rate 12 Setting Ventilator Respiratory Rate 12 Setting Ventilator Respiratory Rate 12 Setting Ventilator Respiratory Rate 12 Setting Ventilator Respiratory Rate 12 Setting Ventilator Respiratory Rate 18 Setting Ventilator Respiratory Rate 12 Setting Ventilator Respiratory Rate 12 Setting Ventilator Respiratory Rate 12 Setting Ventilator Respiratory Rate 12 Setting Ventilator Respiratory Rate 12 Setting Actual Respiratory Rate 12 Actual Respiratory Rate 18 Actual Respiratory Rate 12 Actual Respiratory Rate 12 Actual Respiratory Rate 12 Actual Respiratory Rate 18 Actual Respiratory Rate 12 Actual Respiratory Rate 12 Actual Respiratory Rate 12 Actual Respiratory Rate 12 Positive End Expiratory 5 Pressure Positive End Expiratory 5 Pressure Positive End Expiratory 5 Pressure Positive End Expiratory 5 Pressure Positive End Expiratory 5 Pressure Positive End Expiratory 5 Pressure Positive End Expiratory 5 Pressure Positive End Expiratory 5 Pressure Positive End Expiratory 5 Pressure Positive End Expiratory 5 Pressure Positive End Expiratory 5 Pressure Peak Inspiratory Airway 21 Pressure Peak Inspiratory Airway 25 Pressure Peak Inspiratory Airway 21 Pressure Peak Inspiratory Airway 21 Pressure Peak Inspiratory Airway 21 Pressure Peak Inspiratory Airway 27 Pressure Peak Inspiratory Airway 21 Pressure Peak Inspiratory Airway 24 Pressure Peak Inspiratory Airway 21 Pressure Peak Inspiratory Airway 22 Pressure Results - Laboratory Findings CBC and BMP: 08/18/18 05:38 08/18/18 05:38 ABG ABG pH 7.26 pH Units (7.32-7.45) L 08/18/18 05:15 ABG pCO2 57 mmHg (35-45) H 08/18/18 05:15 ABG pO2 58 mmHg (85-104) L 08/18/18 05:15 ABG O2 Saturation 85 % (95-98) L 08/18/18 05:15 PT/INR, D-dimer PT 12.7 Seconds (9.4-12.1) H 08/15/18 13:00 Abnormal lab findings: Abnormal lab results RBC 3.53 M/mcL (4.19-5.50) L 08/18/18 05:38 Hgb 10.5 g/dL (12.9-16.9) L D 08/18/18 05:38 Hct 32.9 % (37.5-50.1) L 08/18/18 05:38 RDW 15.1 % (11.5-14.5) H 08/18/18 05:38 Plt Count 100 K/mcL (140-400) L 08/18/18 05:38 MPV 8.8 fL (9.4-12.4) L 08/18/18 05:38 Platelet Estimate Decreased (Normal) L 08/15/18 13:00 PT 12.7 Seconds (9.4-12.1) H 08/15/18 13:00 ABG pH 7.26 pH Units (7.32-7.45) L 08/18/18 05:15 ABG pCO2 57 mmHg (35-45) H 08/18/18 05:15 ABG pO2 58 mmHg (85-104) L 08/18/18 05:15 ABG Total CO2 27 mEq/L (20-26) H 08/18/18 05:15 ABG O2 Saturation 85 % (95-98) L 08/18/18 05:15 Sodium 132 mEq/L (136-145) L 08/18/18 05:38 Chloride 97 mEq/L (98-107) L 08/18/18 05:38 Creatinine 1.38 mg/dL (0.70-1.30) H 08/18/18 05:38 Est GFR (Non-Af Amer) 54 (> 60) L 08/18/18 05:38 Hemoglobin A1c 6.2 % (-5.6) H 08/16/18 06:05 Calculated Osmolality 277 (280-300) L 08/18/18 05:38 Calcium 8.2 mg/dL (8.6-10.3) L 08/18/18 05:38 Creatine Kinase 305 Units/L (30-223) H 08/18/18 05:38 Serum Total Protein 5.2 g/dL (6.4-8.9) L 08/18/18 05:38 Albumin 2.9 g/dL (3.5-5.7) L 08/18/18 05:38 Globulin 2.3 g/dL (2.4-3.5) L 08/18/18 05:38 Beta-Hydroxybutyric Acd > 2.00 mmol/L (0.02-0.27) H 08/15/18 13:00 Urine Protein 30 mg/dL (Neg-Trace) H 08/15/18 14:05 Urine Ketones 15 mg/dL (Negative) H 08/15/18 14:05 Urine Blood Large (Negative) H 08/15/18 14:05 Ur Squamous Epith Cells Many per lpf (None-Few) H 08/15/18 14:05 - Clinical Findings Intake & Output: Intake & Output 08/17/18 08/18/18 08/18/18 23:59 07:59 15:59 Intake Total 205 / 205 1195 / 1195 1100 / 1100 Output Total 350 / 350 370 / 370 420 / 420 Balance -145 / -145 825 / 825 680 / 680 Weight 87.2 kg 88 kg Consult Discharge Plan - Plan Referrals: Gabriella Simon [Advanced Practice Nurse] - 09/06/18 9:00 am
[2018-08-18] MEDS: Divalproex (24 HR) 250 MG TABLET PO SCH (21:24)
[2018-08-18] MEDS: *HR* Dextrose 50 % in Water (Syg) 50 ML SYRINGE IVP PRN (23:41)
[2018-08-19] MEDS: Artificial Tears SOLN 15 ML BOTTLE BOTH EYES SCH ×6 (03:07→23:21)
[2018-08-19] MEDS: *HR* Dextrose 50 % in Water (Syg) 50 ML SYRINGE IVP PRN (04:09)
[2018-08-19] MEDS: *HR* Enoxaparin 40 MG/0.4 ML SYRINGE SQ SCH (05:05)
[2018-08-19] MEDS: Ringers Solution, Lactated 1,000 ML IVC SCH ×4 (05:05→23:21)
[2018-08-19] MEDS ORDERED: *HR* Metoprolol 5 MG/5 ML VIAL IVP ONE ×2 (05:37→05:42)
[2018-08-19 05:39] LABS: ABG Base Excess -1 mEq/L (-2 to 3); ABG HCO3 25 mEq/L (21-27); ABG Oxygen Saturation 98 % (95-98); ABG PCO2 42 mmHg (35-45); ABG PH 7.38 pH Units (7.32-7.45); ABG PO2 99 mmHg (85-104); ABG TCO2 26 mEq/L (20-26); Blood Gas PEEP 5 cm H2O; Blood Gas Respiration Rate 18; Blood Gas VT 550 cc
[2018-08-19] MEDS: FentaNYL (PF) 1,000 MCG in 0.9 % Sodium Chloride 80 ML IVC SCH ×3 (05:49→21:41)
[2018-08-19] MEDS: Budesonide/Formoterol 80/4.5 MDI IH SCH ×2 (07:43→19:38)
[2018-08-19] MEDS: Piperacillin/Tazobactam 3.375 GM in 0.9 % Sodium Chloride Mini Bag 100 ML IVPB SCH ×3 (08:51→23:20)
[2018-08-19] MEDS: Chlorhexidine Rinse 15 ML MOUTHWASH MM SCH ×2 (08:51→19:51)
[2018-08-19 08:57] LABS: VBG Ionized Calcium 1.19 mmol/L (1.15-1.35)
[2018-08-19 08:58] LABS: Hemoglobin 9.6 g/dL (12.9-16.9); Monocytes % 9.7 %; Red Cell Distribution Width 14.9 % (11.5-14.5)
[2018-08-19 09:00] LABS: Basophils % 0.4 %; Eosinophils # 0.1 K/mcL (0.0-0.6); Eosinophils % 1.1 %; Immature Granulocytes % 1.2 % (0-4); Immature Platelets 1.6 % (1.1-6.1); Lymphocytes # 1.4 K/mcL (0.6-4.6); Lymphocytes % 14.2 %; Mean Corpuscular HGB Conc 33.1 g/dL (31.6-35.5); Mean Corpuscular Hemoglobin 30.8 pg (28.0-33.3); Mean Corpuscular Volume 92.9 fL (83.0-100.0); Mean Platelet Volume 9.6 fL (9.4-12.4); Monocytes # 0.9 K/mcL (0.0-1.3); Neutrophils # 7.1 K/mcL (1.6-8.9); Red Blood Count 3.12 M/mcL (4.19-5.50); Segmented Neutrophils % 73.4 %
[2018-08-19 09:07] LABS: Platelet Count 89 K/mcL (140-400)
[2018-08-19 09:13] LABS: BUN/Creatinine Ratio 13 (6-26); Blood Urea Nitrogen 16 mg/dL (6-20); Calcium 8.4 mg/dL (8.6-10.3); Carbon Dioxide 23 mEq/L (23-29); Chloride 102 mEq/L (98-107); Glucose 92 mg/dL (70-105); Magnesium 1.7 mg/dL (1.6-2.6); Osmolality,Calculated 279 (280-300); Potassium 3.6 mEq/L (3.5-5.1); Sodium 134 mEq/L (136-145); eGFR For Non-African Americans > 60 (> 60)
--- NOTE | 2018-08-19 10:45 | Pulmonology Progress Note ---
Date of Encounter: 08/19/18 Time of Encounter: 10:00 Assessment and Plan (1) Rhabdomyolysis Current Visit: Yes Status: Acute Patient presented with elevated creatinine kinase can be secondary to neuroleptic malignant syndrome creatinine kinase Trending down to normal levels today Qualifiers: Rhabdomyolysis type: traumatic Encounter type: initial encounter Qualified Code(s): T79.6XXA - Traumatic ischemia of muscle, initial encounter (2) JERMAIN (acute kidney injury) Current Visit: Yes Status: Acute Patient acute kidney injury with improving creatinine to continue to monitor.. (3) Metabolic encephalopathy Current Visit: Yes Status: Acute Patient has metabolic encephalopathy EEG one third was not a great study showed possible metabolic encephalopathy secondary to first initially diabetic ketoacidosis can be due to atypical neuroleptic malignant syndrome (4) Acute hypoxemic respiratory failure Current Visit: Yes Status: Acute Secondary to fluid resuscitation while he presented with DKA complicated by diastolic dysfunction. Patient blood pressure is borderline will not diuresis now we will give another 24 hours before we start diuresing. 08/19 patient was complicated by atrial fibrillation with rapid ventricular response. Could not do diuresis. (5) Diabetes mellitus Current Visit: Yes Status: Acute Blood glucose adequate control. Qualifiers: Diabetes mellitus type: type 2 Diabetes mellitus nursing home insulin use: without nursing home use Diabetes mellitus complication status: without complica tion Qualified Code(s): E11.9 - Type 2 diabetes mellitus without complications (6) DVT prophylaxis Current Visit: Yes Status: Acute To continue the current regimen. 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 Since his creatinine kinase is trending down Dantrolene was stopped . Psychiatry recommended oral bromocriptine when he gets extubated. 08/19Looks like it is resolved now Subjective Principal diagnosis: Patient seen in F/U for Neuroleptic malignant syndrome Interval history: Patient did not have acute events overnight patient presently with atypical neurolept malignant syndrome . Now toxic/metabolic encephalopathy acute respiratory failure Objective PUL Vital signs: Last Vital Signs Temp 98.6 F 08/19/18 08:30 Pulse 142 08/19/18 08:03 Resp 18 08/19/18 09:51 BP 93/68 08/19/18 09:51 Pulse Ox 96 08/19/18 09:51 General appearance: lethargic (Follows commands) Auscultation: bilateral: diminished breath sounds, wheezes Cardiovascular: irregular rhythm Gastrointestinal: normoactive bowel sounds non-focal exam, pupils equal and round Ventilator Settings Ventilator Settings: Ventilator Settings, Last 8 Hours Ventilator Tidal Volume 550 Setting Ventilator Tidal Volume 550 Setting Ventilator Tidal Volume 550 Setting Ventilator Tidal Volume 550 Setting Ventilator Tidal Volume 550 Setting Ventilator Tidal Volume 550 Setting Ventilator Tidal Volume 550 Setting Ventilator Tidal Volume 550 Setting Ventilator Tidal Volume 550 Setting Ventilator Tidal Volume 550 Setting Ventilator Tidal Volume 550 Setting Ventilator Respiratory Rate 18 Setting Ventilator Respiratory Rate 18 Setting Ventilator Respiratory Rate 18 Setting Ventilator Respiratory Rate 18 Setting Ventilator Respiratory Rate 18 Setting Ventilator Respiratory Rate 18 Setting Ventilator Respiratory Rate 18 Setting Ventilator Respiratory Rate 18 Setting Ventilator Respiratory Rate 18 Setting Ventilator Respiratory Rate 18 Setting Ventilator Respiratory Rate 18 Setting Actual Respiratory Rate 18 Actual Respiratory Rate 18 Actual Respiratory Rate 18 Actual Respiratory Rate 18 Actual Respiratory Rate 18 Actual Respiratory Rate 18 Actual Respiratory Rate 18 Actual Respiratory Rate 18 Actual Respiratory Rate 18 Actual Respiratory Rate 21 Positive End Expiratory 5 Pressure Positive End Expiratory 5 Pressure Positive End Expiratory 5 Pressure Positive End Expiratory 5 Pressure Positive End Expiratory 5 Pressure Positive End Expiratory 5 Pressure Positive End Expiratory 5 Pressure Positive End Expiratory 5 Pressure Positive End Expiratory 5 Pressure Positive End Expiratory 5 Pressure Positive End Expiratory 5 Pressure Peak Inspiratory Airway 26 Pressure Peak Inspiratory Airway 35 Pressure Peak Inspiratory Airway 40 Pressure Peak Inspiratory Airway 37 Pressure Peak Inspiratory Airway 45 Pressure Peak Inspiratory Airway 36 Pressure Peak Inspiratory Airway 31 Pressure Peak Inspiratory Airway 31 Pressure Peak Inspiratory Airway 33 Pressure Peak Inspiratory Airway 28 Pressure Results - Laboratory Findings CBC and BMP: 08/19/18 08:42 08/19/18 08:42 ABG ABG pH 7.38 pH Units (7.32-7.45) 08/19/18 05:36 ABG pCO2 42 mmHg (35-45) 08/19/18 05:36 ABG pO2 99 mmHg (85-104) 08/19/18 05:36 ABG O2 Saturation 98 % (95-98) 08/19/18 05:36 PT/INR, D-dimer PT 12.7 Seconds (9.4-12.1) H 08/15/18 13:00 Abnormal lab findings: Abnormal lab results RBC 3.12 M/mcL (4.19-5.50) L 08/19/18 08:42 Hgb 9.6 g/dL (12.9-16.9) L 08/19/18 08:42 Hct 29.0 % (37.5-50.1) L 08/19/18 08:42 RDW 14.9 % (11.5-14.5) H 08/19/18 08:42 Plt Count 89 K/mcL (140-400) L 08/19/18 08:42 Platelet Estimate Decreased (Normal) L 08/15/18 13:00 PT 12.7 Seconds (9.4-12.1) H 08/15/18 13:00 Sodium 134 mEq/L (136-145) L 08/19/18 08:42 Hemoglobin A1c 6.2 % (-5.6) H 08/16/18 06:05 Calculated Osmolality 279 (280-300) L 08/19/18 08:42 Calcium 8.4 mg/dL (8.6-10.3) L 08/19/18 08:42 Creatine Kinase 305 Units/L (30-223) H 08/18/18 05:38 Serum Total Protein 5.2 g/dL (6.4-8.9) L 08/18/18 05:38 Albumin 2.9 g/dL (3.5-5.7) L 08/18/18 05:38 Globulin 2.3 g/dL (2.4-3.5) L 08/18/18 05:38 Beta-Hydroxybutyric Acd > 2.00 mmol/L (0.02-0.27) H 08/15/18 13:00 Urine Protein 30 mg/dL (Neg-Trace) H 08/15/18 14:05 Urine Ketones 15 mg/dL (Negative) H 08/15/18 14:05 Urine Blood Large (Negative) H 08/15/18 14:05 Ur Squamous Epith Cells Many per lpf (None-Few) H 08/15/18 14:05 - Clinical Findings Intake & Output: Intake & Output 08/18/18 08/19/18 08/19/18 23:59 07:59 15:59 Intake Total 1300 / 1300 1300 / 1300 Output Total 225 / 225 100 / 100 215 / 215 Balance 1075 / 1075 1200 / 1200 -215 / -215 Weight 95.4 kg Consult Discharge Plan - Plan Referrals: Gabriella Simon [Advanced Practice Nurse] - 09/06/18 9:00 am
[2018-08-19] MEDS ORDERED: Amiodarone Premix 150 MG/100 ML BAG IVPB ONE (11:24)
[2018-08-19] MEDS ORDERED: Amiodarone Premix 360 MG/200 ML BAG IVC ONE (11:24)
--- NOTE | 2018-08-19 11:33 | Neurology Progress Note ---
Date of Encounter: 08/19/18 Time of Encounter: 11:32 Assessment and Plan (1) Rhabdomyolysis Current Visit: Yes Status: Acute CK leve reduced significantly. However mental statu unable to assess due to sedation Qualifiers: Rhabdomyolysis type: traumatic Encounter type: initial encounter Qualified Code(s): T79.6XXA - Traumatic ischemia of muscle, initial encounter (2) JERMAIN (acute kidney injury) Current Visit: Yes Status: Acute Improving per medical treatment (3) Metabolic encephalopathy Current Visit: Yes Status: Acute Respiratory status, electrolyte imbalance and renal function all appear improving. However, mental status difficult to assess due to sedation. Please continue medical and supportive care (4) Neuroleptic malignant syndrome Current Visit: Yes Status: Acute Patient's CK serially improving and he no longer has significant muscle rigidity. Currently off dantrolene. Treatment is largely supportive at this time. Subjective Principal diagnosis: Patient seen in F/U for Neuroleptic malignant syndrome Interval history: Patient seen and examined. Patient is still on sedation and pain meds on propfol and fentanyl and mental status can not be assessed accurately. Nursing staff reported some spontaneous movements involving his right leg but patient is seen to be able to move both legs and feet withdrawal to painful stimuli. Patient overnight was found to have atrial fibrillation and currently being treated for that. No fever observed overnight. No seizure like activity. Muscle rigidity appears improved. Objective - Constitutional Vitals: Temp Pulse Resp BP Pulse Ox 98.6 F 125 18 88/65 97 08/19/18 08:30 08/19/18 10:00 08/19/18 10:00 08/19/18 10:00 08/19/18 10:00 - Neurological Exam Sensorimotor examination: Present: intact (Unable to assess due to reduced consciousness patient currently sedated) Motor Examination: Present: other (Arms restrained. Legs: some withdrawal both side when given painful stimuli) Sensation intact: Present: intact (Unable to assess due to reduced level of consciounsess) Posture: Present: other (None) Reflex and gait examination: other (Unable to assess) Reflexes: Biceps: 1+, Triceps: 1+, Brachioradialis: 1+, Patella: 1+, Achilles: 1+ Mental Status Examination: Present: coma (Patient currently sedated) Cranial nerve examination: Present: PERRL (size 4mm bilaterally, symmetrical. Brisk eyelid closing), visual rios intact (Unable to assess), corneal reflexes brisk symmetrically, sensory to face intact (Unable to assess), mastication intact (Unable to assess), no facial asymmetry is present, no dysarthria (Unable to assess), hearing is intact symmetrically (Unable to assess), soft palate elevates bilaterally upon phonation (Unable to assess), gag reflex intact, tongue protrudes midline (Unable to assess) Results - Laboratory Findings CBC and BMP: 08/19/18 08:42 08/19/18 08:42 Abnormal lab findings: Abnormal lab results RBC 3.12 M/mcL (4.19-5.50) L 08/19/18 08:42 Hgb 9.6 g/dL (12.9-16.9) L 08/19/18 08:42 Hct 29.0 % (37.5-50.1) L 08/19/18 08:42 RDW 14.9 % (11.5-14.5) H 08/19/18 08:42 Plt Count 89 K/mcL (140-400) L 08/19/18 08:42 Platelet Estimate Decreased (Normal) L 08/15/18 13:00 PT 12.7 Seconds (9.4-12.1) H 08/15/18 13:00 Sodium 134 mEq/L (136-145) L 08/19/18 08:42 Hemoglobin A1c 6.2 % (-5.6) H 08/16/18 06:05 Calculated Osmolality 279 (280-300) L 08/19/18 08:42 Calcium 8.4 mg/dL (8.6-10.3) L 08/19/18 08:42 Creatine Kinase 305 Units/L (30-223) H 08/18/18 05:38 Serum Total Protein 5.2 g/dL (6.4-8.9) L 08/18/18 05:38 Albumin 2.9 g/dL (3.5-5.7) L 08/18/18 05:38 Globulin 2.3 g/dL (2.4-3.5) L 08/18/18 05:38 Beta-Hydroxybutyric Acd > 2.00 mmol/L (0.02-0.27) H 08/15/18 13:00 Urine Protein 30 mg/dL (Neg-Trace) H 08/15/18 14:05 Urine Ketones 15 mg/dL (Negative) H 08/15/18 14:05 Urine Blood Large (Negative) H 08/15/18 14:05 Ur Squamous Epith Cells Many per lpf (None-Few) H 08/15/18 14:05 Consult Discharge Plan - Plan Referrals: Gabriella Simon [Advanced Practice Nurse] - 09/06/18 9:00 am
[2018-08-19] MEDS ORDERED: Perflutren Lipid Microsphere 1.3 ML in 0.9 % Sodium Chloride 8.7 ML IVP ONE (11:56)
[2018-08-19] MEDS ORDERED: Perflutren Lipid Microsphere 2 ML VIAL ONE (12:01)
[2018-08-19 12:02] LABS: Creatine Kinase 78 Units/L (30-223)
[2018-08-19] MEDS: Amiodarone Premix 360 MG/200 ML BAG IVC SCH (18:26)
[2018-08-19] MEDS: Loratadine 10 MG TABLET PO SCH (19:46)
[2018-08-20] MEDS: FentaNYL (PF) 1,000 MCG in 0.9 % Sodium Chloride 80 ML IVC SCH ×4 (01:26→19:38)
[2018-08-20] MEDS: Artificial Tears SOLN 15 ML BOTTLE BOTH EYES SCH ×6 (04:24→23:41)
[2018-08-20] MEDS: *HR* Enoxaparin 40 MG/0.4 ML SYRINGE SQ SCH (05:02)
[2018-08-20 05:11] LABS: ABG Base Excess -2 mEq/L (-2 to 3); ABG HCO3 23 mEq/L (21-27); ABG Oxygen Saturation 96 % (95-98); ABG PCO2 39 mmHg (35-45); ABG PH 7.38 pH Units (7.32-7.45); ABG PO2 82 mmHg (85-104); ABG TCO2 24 mEq/L (20-26); Blood Gas PEEP 5 cm H2O; Blood Gas Respiration Rate 18; Blood Gas VT 550 cc
[2018-08-20] MEDS: Amiodarone Premix 360 MG/200 ML BAG IVC SCH ×2 (05:24→16:30)
[2018-08-20] MEDS: Piperacillin/Tazobactam 3.375 GM in 0.9 % Sodium Chloride Mini Bag 100 ML IVPB SCH ×3 (08:04→23:44)
[2018-08-20] MEDS: Chlorhexidine Rinse 15 ML MOUTHWASH MM SCH ×2 (08:04→21:00)
[2018-08-20] MEDS: Budesonide/Formoterol 80/4.5 MDI IH SCH ×2 (08:08→20:27)
[2018-08-20 08:14] LABS: Basophils % 0.3 %; Mean Corpuscular HGB Conc 32.5 g/dL (31.6-35.5); Mean Corpuscular Hemoglobin 30.7 pg (28.0-33.3); Monocytes % 8.5 %
[2018-08-20] MEDS: Ringers Solution, Lactated 1,000 ML IVC SCH ×3 (08:14→23:41)
[2018-08-20 08:15] LABS: Eosinophils # 0.1 K/mcL (0.0-0.6); Eosinophils % 1.6 %; Hematocrit 27.7 % (37.5-50.1); Immature Granulocytes % 1.7 % (0-4); Immature Platelets 1.7 % (1.1-6.1); Lymphocytes % 13.5 %; Mean Corpuscular Volume 94.5 fL (83.0-100.0); Mean Platelet Volume 9.7 fL (9.4-12.4); Monocytes # 0.7 K/mcL (0.0-1.3); Neutrophils # 5.7 K/mcL (1.6-8.9); Red Blood Count 2.93 M/mcL (4.19-5.50); Red Cell Distribution Width 14.7 % (11.5-14.5); Segmented Neutrophils % 74.4 %
[2018-08-20 08:26] LABS: Platelet Count 96 K/mcL (140-400)
[2018-08-20 08:27] LABS: Platelet Estimate Decreased (Normal)
[2018-08-20 08:29] LABS: BUN/Creatinine Ratio 13 (6-26); Blood Urea Nitrogen 16 mg/dL (6-20); Calcium 8.4 mg/dL (8.6-10.3); Carbon Dioxide 22 mEq/L (23-29); Chloride 104 mEq/L (98-107); Glucose 92 mg/dL (70-105); Osmolality,Calculated 287 (280-300); Potassium 2.9 mEq/L (3.5-5.1); Sodium 138 mEq/L (136-145); eGFR For Non-African Americans > 60 (> 60)
--- NOTE | 2018-08-20 09:59 | Electrocardiograph Report ---
[address] [address] Test Date: 2018-08-19 Pat Name: Gino Means Department: 109 Room: [facility] Gender: M Tax Manager: : [id number] Requested By: Lam Murray Order Number: [id number] Reading MD: Kamlesh Meek Measurements Intervals [place] Rate: 170 P: [place]: 0 QRS: 59 QRSD: 89 T: 74 QT: 260 QTc: 352 Interpretive Statements ATRIAL FIBRILLATION WITH RAPID VENTRICULAR RESPONSE MODERATE VOLTAGE CRITERIA FOR LVH, CONSIDER NORMAL VARIANT NONSPECIFIC ST & T-WAVE ABNORMALITY ABNORMAL RHYTHM ECG Electronically Signed On 08-20-2018 9:57:38 EDT by Kamlesh Meek
[2018-08-20] MEDS ORDERED: Furosemide 20 MG/2 ML VIAL IVP ONE (11:39)
--- NOTE | 2018-08-20 12:33 | Pulmonology Progress Note ---
Date of Encounter: 08/20/18 Time of Encounter: 08:00 Assessment and Plan (1) Rhabdomyolysis Current Visit: Yes Status: Acute Patient presented with elevated creatinine kinase can be secondary to neuroleptic malignant syndrome creatinine kinase Trending down to normal levels today 08/20 rhabdomyolysis resolved Qualifiers: Rhabdomyolysis type: traumatic Encounter type: initial encounter Qualified Code(s): T79.6XXA - Traumatic ischemia of muscle, initial encounter (2) JERMAIN (acute kidney injury) Current Visit: Yes Status: Acute Patient acute kidney injury with improving creatinine to continue to monitor.. 08/20 creatinine has come into normal limits (3) Metabolic encephalopathy Current Visit: Yes Status: Acute Patient has metabolic encephalopathy EEG one third was not a great study showed possible metabolic encephalopathy secondary to first initially diabetic ketoacidosis can be due to atypical neuroleptic malignant syndrome 08/20 toxic/metabolic encephalopathy getting better (4) Acute hypoxemic respiratory failure Current Visit: Yes Status: Acute Secondary to fluid resuscitation while he presented with DKA complicated by diastolic dysfunction. Patient blood pressure is borderline will not diuresis now we will give another 24 hours before we start diuresing. 08/19 patient was complicated by atrial fibrillation with rapid ventricular response. Could not do diuresis. 08/20 patient V/Q mismatch stable we will continue diuresis most likely will be extubated tomorrow. (5) Diabetes mellitus Current Visit: Yes Status: Acute Blood glucose adequate control. Qualifiers: Diabetes mellitus type: type 2 Diabetes mellitus custodial insulin use: without custodial use Diabetes mellitus complication status: without complication Qualified Code(s): E11.9 - Type 2 diabetes mellitus without complications (6) DVT prophylaxis Current Visit: Yes Status: Acute To continue the current regimen. 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 Since his creatinine kinase is trending down Dantrolene was stopped . Psychiatry recommended oral bromocriptine when he gets extubated. 08/19Looks like it is resolved now Subjective Principal diagnosis: Patient seen in F/U for Neuroleptic malignant syndrome Interval history: Patient did not have acute events overnight patient presently with atypical neurolept malignant syndrome . Now toxic/metabolic encephalopathy acute respiratory failure Patient did not have any acute events overnight Objective PUL Vital signs: Last Vital Signs Temp 98.2 F 08/20/18 08:43 Pulse 83 08/20/18 09:00 Resp 21 08/20/18 11:26 BP 112/53 08/20/18 11:26 Pulse Ox 97 08/20/18 11:26 General appearance: other (awake following simple commands ) Auscultation: bilateral: diminished breath sounds (diminished basilar breadth sounds ) Cardiovascular: regular rate and rhythm Gastrointestinal: normoactive bowel sounds non-focal exam, other (following commands ) Ventilator Settings Ventilator Settings: Ventilator Settings, Last 8 Hours Ventilator Tidal Volume 550 Setting Ventilator Tidal Volume 550 Setting Ventilator Tidal Volume 550 Setting Ventilator Tidal Volume 550 Setting Ventilator Tidal Volume 550 Setting Ventilator Tidal Volume 550 Setting Ventilator Tidal Volume 550 Setting Ventilator Tidal Volume 550 Setting Ventilator Tidal Volume 550 Setting Ventilator Tidal Volume 550 Setting Ventilator Respiratory Rate 18 Setting Ventilator Respiratory Rate 18 Setting Ventilator Respiratory Rate 18 Setting Ventilator Respiratory Rate 18 Setting Ventilator Respiratory Rate 18 Setting Ventilator Respiratory Rate 18 Setting Ventilator Respiratory Rate 18 Setting Ventilator Respiratory Rate 18 Setting Ventilator Respiratory Rate 18 Setting Ventilator Respiratory Rate 18 Setting Actual Respiratory Rate 21 Actual Respiratory Rate 18 Actual Respiratory Rate 18 Actual Respiratory Rate 18 Actual Respiratory Rate 18 Actual Respiratory Rate 18 Actual Respiratory Rate 18 Actual Respiratory Rate 18 Actual Respiratory Rate 18 Positive End Expiratory 5 Pressure Positive End Expiratory 5 Pressure Positive End Expiratory 5 Pressure Positive End Expiratory 5 Pressure Positive End Expiratory 5 Pressure Positive End Expiratory 5 Pressure Positive End Expiratory 5 Pressure Positive End Expiratory 5 Pressure Positive End Expiratory 5 Pressure Positive End Expiratory 5 Pressure Peak Inspiratory Airway 30 Pressure Peak Inspiratory Airway 34 Pressure Peak Inspiratory Airway 31 Pressure Peak Inspiratory Airway 25 Pressure Peak Inspiratory Airway 29 Pressure Peak Inspiratory Airway 26 Pressure Peak Inspiratory Airway 25 Pressure Peak Inspiratory Airway 25 Pressure Peak Inspiratory Airway 25 Pressure Results - Laboratory Findings CBC and BMP: 08/20/18 07:58 08/20/18 20:51 ABG ABG pH 7.38 pH Units (7.32-7.45) 08/20/18 05:08 ABG pCO2 39 mmHg (35-45) 08/20/18 05:08 ABG pO2 82 mmHg (85-104) L 08/20/18 05:08 ABG O2 Saturation 96 % (95-98) 08/20/18 05:08 PT/INR, D-dimer PT 12.7 Seconds (9.4-12.1) H 08/15/18 13:00 Abnormal lab findings: Abnormal lab results RBC 2.93 M/mcL (4.19-5.50) L 08/20/18 07:58 Hgb 9.0 g/dL (12.9-16.9) L 08/20/18 07:58 Hct 27.7 % (37.5-50.1) L 08/20/18 07:58 RDW 14.7 % (11.5-14.5) H 08/20/18 07:58 Plt Count 96 K/mcL (140-400) L 08/20/18 07:58 Platelet Estimate Decreased (Normal) L 08/20/18 07:58 PT 12.7 Seconds (9.4-12.1) H 08/15/18 13:00 ABG pO2 82 mmHg (85-104) L 08/20/18 05:08 Potassium 2.9 mEq/L (3.5-5.1) L 08/20/18 07:58 Carbon Dioxide 22 mEq/L (23-29) L 08/20/18 07:58 Hemoglobin A1c 6.2 % (-5.6) H 08/16/18 06:05 Calcium 8.4 mg/dL (8.6-10.3) L 08/20/18 07:58 Serum Total Protein 5.2 g/dL (6.4-8.9) L 08/18/18 05:38 Albumin 2.9 g/dL (3.5-5.7) L 08/18/18 05:38 Globulin 2.3 g/dL (2.4-3.5) L 08/18/18 05:38 Beta-Hydroxybutyric Acd > 2.00 mmol/L (0.02-0.27) H 08/15/18 13:00 Urine Protein 30 mg/dL (Neg-Trace) H 08/15/18 14:05 Urine Ketones 15 mg/dL (Negative) H 08/15/18 14:05 Urine Blood Large (Negative) H 08/15/18 14:05 Ur Squamous Epith Cells Many per lpf (None-Few) H 08/15/18 14:05 - Clinical Findings Intake & Output: Intake & Output 08/19/18 08/20/18 08/20/18 23:59 07:59 15:59 Intake Total 595 / 595 700 / 700 160 / 160 Output Total 355 / 355 450 / 450 Balance 240 / 240 700 / 700 -290 / -290 Weight 96.4 kg 96.4 kg Consult Discharge Plan - Plan Referrals: Gabriella Simon [Advanced Practice Nurse] - 09/06/18 9:00 am Critical Care Time Critical Care Time: Yes Total Critical Care Time: 32 Attestation: I spent 32 of Critical Care time with this patient. It involved decision making of high complexity to assess, manipulate, and support vital organ system failure and/or to prevent further life threatening deterioration of the patient's condition. The time involved in the performance of separately reportable procedures was not counted toward critical care time.
--- NOTE | 2018-08-20 12:33 | Neurology Progress Note ---
Date of Encounter: 08/20/18 Time of Encounter: 12:30 Assessment and Plan (1) Rhabdomyolysis Current Visit: Yes Status: Acute CK level normalized. Qualifiers: Rhabdomyolysis type: traumatic Encounter type: initial encounter Qualified Code(s): T79.6XXA - Traumatic ischemia of muscle, initial encounter (2) JERMAIN (acute kidney injury) Current Visit: Yes Status: Acute Improved with current medical treatment (3) Metabolic encephalopathy Current Visit: Yes Status: Acute Patient's mental status has been improving. Initial CT of head was reported no acute intracranial abnormality. medical conditions are improving as evidenced by normalization of renal function, CK and no leukocytosis. If expecting his mental status continue to improve. If not, then repeat CT of head and MRI of brain can be considered. Will follow in AM (4) Neuroleptic malignant syndrome Current Visit: Yes Status: Acute Patient's clinical status and lab results related to NMS all appear improved. Treatment for NMS at this point is largely medical and supportive in nature. No fever and no longer having leukocytosis. Subjective Principal diagnosis: Patient seen in F/U for Neuroleptic malignant syndrome Interval history: Patient seen and examined. Patient is more alert and awake today than yesterday. overnight, no fever, no seizure like activity reported. He appears more alert a dn responsive in terms of his mental status. Arms still in restraint. No tremors but sill has increased muscle tone. Objective - Constitutional Vitals: Temp Pulse Resp BP Pulse Ox 98.2 F 83 21 112/53 97 08/20/18 08:43 08/20/18 09:00 08/20/18 11:26 08/20/18 11:26 08/20/18 11:26 - Neurological Exam Sensorimotor examination: Present: intact (Unable to assess due to reduced consciousness patient currently sedated) Motor Examination: Present: other (Arms restrained. Legs: some withdrawal both side when given painful stimuli) Sensation intact: Present: intact (Unable to assess due to reduced level of consciounsess) Posture: Present: other (None) Reflex and gait examination: other (Unable to assess) Reflexes: Biceps: 2+, Triceps: 2+, Brachioradialis: 2+, Patella: 2+, Achilles: 2+ Mental Status Examination: Present: coma (Patient is more responsive today although no purposeful movement noted withdrawal to painful stimuli) Cranial nerve examination: Present: PERRL (size 4mm bilaterally, symmetrical. Brisk eyelid closing), visual rios intact (Unable to assess), corneal reflexes brisk symmetrically, sensory to face intact (Unable to assess), mastication intact (Unable to assess), no facial asymmetry is present, no dysarthria (Unable to assess), hearing is intact symmetrically (Unable to assess), soft palate elevates bilaterally upon phonation (Unable to assess), gag reflex intact, tongue protrudes midline (Unable to assess) Results - Laboratory Findings CBC and BMP: 08/20/18 07:58 08/20/18 07:58 Abnormal lab findings: Abnormal lab results RBC 2.93 M/mcL (4.19-5.50) L 08/20/18 07:58 Hgb 9.0 g/dL (12.9-16.9) L 08/20/18 07:58 Hct 27.7 % (37.5-50.1) L 08/20/18 07:58 RDW 14.7 % (11.5-14.5) H 08/20/18 07:58 Plt Count 96 K/mcL (140-400) L 08/20/18 07:58 Platelet Estimate Decreased (Normal) L 08/20/18 07:58 PT 12.7 Seconds (9.4-12.1) H 08/15/18 13:00 ABG pO2 82 mmHg (85-104) L 08/20/18 05:08 Potassium 2.9 mEq/L (3.5-5.1) L 08/20/18 07:58 Carbon Dioxide 22 mEq/L (23-29) L 08/20/18 07:58 Hemoglobin A1c 6.2 % (-5.6) H 08/16/18 06:05 Calcium 8.4 mg/dL (8.6-10.3) L 08/20/18 07:58 Serum Total Protein 5.2 g/dL (6.4-8.9) L 08/18/18 05:38 Albumin 2.9 g/dL (3.5-5.7) L 08/18/18 05:38 Globulin 2.3 g/dL (2.4-3.5) L 08/18/18 05:38 Beta-Hydroxybutyric Acd > 2.00 mmol/L (0.02-0.27) H 08/15/18 13:00 Urine Protein 30 mg/dL (Neg-Trace) H 08/15/18 14:05 Urine Ketones 15 mg/dL (Negative) H 08/15/18 14:05 Urine Blood Large (Negative) H 08/15/18 14:05 Ur Squamous Epith Cells Many per lpf (None-Few) H 08/15/18 14:05 Consult Discharge Plan - Plan Referrals: Gabriella Simon [Advanced Practice Nurse] - 09/06/18 9:00 am
[2018-08-20 21:19] LABS: BUN/Creatinine Ratio 11 (6-26); Blood Urea Nitrogen 12 mg/dL (6-20); Calcium 8.5 mg/dL (8.6-10.3); Carbon Dioxide 21 mEq/L (23-29); Chloride 107 mEq/L (98-107); Glucose 109 mg/dL (70-105); Osmolality,Calculated 292 (280-300); Potassium 3.3 mEq/L (3.5-5.1); Sodium 141 mEq/L (136-145); eGFR For Non-African Americans > 60 (> 60)
[2018-08-21] MEDS: FentaNYL (PF) 2,500 MCG in EMPTY BAG 1 EACH IVC SCH ×3 (01:16→21:13)
[2018-08-21] MEDS: Artificial Tears SOLN 15 ML BOTTLE BOTH EYES SCH ×5 (03:19→20:21)
[2018-08-21] MEDS: *HR* Enoxaparin 40 MG/0.4 ML SYRINGE SQ SCH (06:17)
[2018-08-21] MEDS: Amiodarone Premix 360 MG/200 ML BAG IVC SCH ×2 (06:17→18:35)
[2018-08-21 06:26] LABS: ABG Base Excess 1 mEq/L (-2 to 3); ABG HCO3 28 mEq/L (21-27); ABG Oxygen Saturation 95 % (95-98); ABG PCO2 53 mmHg (35-45); ABG PH 7.33 pH Units (7.32-7.45); ABG PO2 82 mmHg (85-104); ABG TCO2 29 mEq/L (20-26); Blood Gas Modality ASSIST CONTROL; Blood Gas PEEP 5 cm H2O; Blood Gas Respiration Rate 18; Blood Gas VT 550 cc
[2018-08-21 07:36] LABS: Basophils % 0.3 %; Eosinophils # 0.1 K/mcL (0.0-0.6); Eosinophils % 1.4 %; Hematocrit 27.7 % (37.5-50.1); Hemoglobin 9.2 g/dL (12.9-16.9); Immature Granulocytes % 1.2 % (0-4); Lymphocytes # 1.5 K/mcL (0.6-4.6); Lymphocytes % 15.3 %; Mean Corpuscular HGB Conc 33.2 g/dL (31.6-35.5); Mean Corpuscular Hemoglobin 30.5 pg (28.0-33.3); Mean Corpuscular Volume 91.7 fL (83.0-100.0); Mean Platelet Volume 9.6 fL (9.4-12.4); Neutrophils # 6.9 K/mcL (1.6-8.9); Platelet Count 129 K/mcL (140-400); Red Blood Count 3.02 M/mcL (4.19-5.50); Segmented Neutrophils % 71.8 %
[2018-08-21 07:55] LABS: BUN/Creatinine Ratio 10 (6-26); Blood Urea Nitrogen 11 mg/dL (6-20); Calcium 8.7 mg/dL (8.6-10.3); Carbon Dioxide 25 mEq/L (23-29); Chloride 107 mEq/L (98-107); Glucose 88 mg/dL (70-105); Osmolality,Calculated 295 (280-300); Potassium 3.6 mEq/L (3.5-5.1); Sodium 143 mEq/L (136-145); eGFR For Non-African Americans > 60 (> 60)
[2018-08-21] MEDS: Budesonide/Formoterol 80/4.5 MDI IH SCH ×2 (07:57→20:30)
[2018-08-21] MEDS: Ringers Solution, Lactated 1,000 ML IVC SCH ×2 (08:05→08:52)
[2018-08-21] MEDS: Chlorhexidine Rinse 15 ML MOUTHWASH MM SCH ×2 (08:47→21:11)
[2018-08-21] MEDS: Piperacillin/Tazobactam 3.375 GM in 0.9 % Sodium Chloride Mini Bag 100 ML IVPB SCH ×2 (08:47→16:05)
--- NOTE | 2018-08-21 11:39 | Neurology Progress Note ---
Date of Encounter: 08/21/18 Time of Encounter: 11:39 Assessment and Plan (1) Rhabdomyolysis Current Visit: Yes Status: Acute CK level normalized. Qualifiers: Rhabdomyolysis type: traumatic Encounter type: initial encounter Qualified Code(s): T79.6XXA - Traumatic ischemia of muscle, initial encounter (2) JERMAIN (acute kidney injury) Current Visit: Yes Status: Acute Improved with current medical treatment (3) Metabolic encephalopathy Current Visit: Yes Status: Acute Patient's mental status has been improving. Initial CT of head was reported no acute intracranial abnormality. medical conditions are improving as evidenced by normalization of renal function, CK and no leukocytosis. Treatment at this time is largely medical and supportive. (4) Neuroleptic malignant syndrome Current Visit: Yes Status: Resolved Subjective Principal diagnosis: Patient seen in F/U for Neuroleptic malignant syndrome Interval history: Patient seen and examined. Patient is currently intubated and sedated therefore neurological examination cannot be accurately assessed. Overnight, no reports of fever, tremors, or seizure like activity. Laboratory studies show no evidence of leukocytosis, basic metabolic panel shows no significant abnormality. Patient's CK was already normalized yesterday. Objective - Constitutional Vitals: Temp Pulse Resp BP Pulse Ox 98.9 F 71 18 93/46 100 08/21/18 07:50 08/21/18 10:00 08/21/18 11:20 08/21/18 11:20 08/21/18 11:20 - Neurological Exam Sensorimotor examination: Present: intact (Unable to assess due to reduced consciousness patient currently sedated) Motor Examination: Present: other (Arms restrained. Legs: some withdrawal both side when given painful stimuli) Sensation intact: Present: intact (Unable to assess due to reduced level of consciounsess) Posture: Present: other (None) Reflex and gait examination: other (Unable to assess) Mental Status Examination: Present: coma (Patient is more responsive today although no purposeful movement noted withdrawal to painful stimuli) Cranial nerve examination: Present: PERRL (size 4mm bilaterally, symmetrical. Brisk eyelid closing), visual rios intact (Unable to assess), corneal reflexes brisk symmetrically, sensory to face intact (Unable to assess), mastication intact (Unable to assess), no facial asymmetry is present, no dysarthria (Unable to assess), hearing is intact symmetrically (Unable to assess), soft palate elevates bilaterally upon phonation (Unable to assess), gag reflex intact, tongue protrudes midline (Unable to assess) Results - Laboratory Findings CBC and BMP: 08/21/18 06:31 08/21/18 06:31 Abnormal lab findings: Abnormal lab results RBC 3.02 M/mcL (4.19-5.50) L 08/21/18 06:31 Hgb 9.2 g/dL (12.9-16.9) L 08/21/18 06:31 Hct 27.7 % (37.5-50.1) L 08/21/18 06:31 RDW 15.0 % (11.5-14.5) H 08/21/18 06:31 Plt Count 129 K/mcL (140-400) L 08/21/18 06:31 Platelet Estimate Decreased (Normal) L 08/20/18 07:58 PT 12.7 Seconds (9.4-12.1) H 08/15/18 13:00 ABG pCO2 53 mmHg (35-45) H 08/21/18 06:23 ABG pO2 82 mmHg (85-104) L 08/21/18 06:23 ABG HCO3 28 mEq/L (21-27) H 08/21/18 06:23 ABG Total CO2 29 mEq/L (20-26) H 08/21/18 06:23 Hemoglobin A1c 6.2 % (-5.6) H 08/16/18 06:05 Serum Total Protein 5.2 g/dL (6.4-8.9) L 08/18/18 05:38 Albumin 2.9 g/dL (3.5-5.7) L 08/18/18 05:38 Globulin 2.3 g/dL (2.4-3.5) L 08/18/18 05:38 Beta-Hydroxybutyric Acd > 2.00 mmol/L (0.02-0.27) H 08/15/18 13:00 Urine Protein 30 mg/dL (Neg-Trace) H 08/15/18 14:05 Urine Ketones 15 mg/dL (Negative) H 08/15/18 14:05 Urine Blood Large (Negative) H 08/15/18 14:05 Ur Squamous Epith Cells Many per lpf (None-Few) H 08/15/18 14:05 Consult Discharge Plan - Plan Referrals: Aurora,Gabriella [Advanced Practice Nurse] - 09/06/18 9:00 am
[2018-08-21] MEDS: Pantoprazole 40 MG VIAL IVP SCH (12:10)
--- NOTE | 2018-08-21 12:15 | Psychiatry Progress Note ---
Date of Encounter: 08/21/18 Time of Encounter: 10:00 Subjective Interval history: Patient was seen today sedated. He was responsive to verbal stimuli. Upon manipulation of his extremities, he did not move. He demonstrated moderate rigidity in his extremities. Inducible and ocular clonus were not present. Nursing staff and medical provider state that patient, when taken off sedation, will sit straight up and stare blankly. There report that he will not respond to verbal stimuli or follow commands at this time. They deny that he becomes agitated or pulls at lines at this time. They also report that his vitals will become unstable when sedated. Written reports in nursing reports both state that patient is high functioning at baseline. Review of Systems Respiratory: Reports: other (Using mechanical ventilation due to being currently sedated) Psychiatric: Reports: other (Currently sedated) Results - Vital Signs Vital Signs: Temp Pulse Resp BP Pulse Ox 97.8 F 71 18 93/46 100 08/21/18 11:52 08/21/18 10:00 08/21/18 11:20 08/21/18 11:20 08/21/18 11:20 - Drug Levels and Toxicology Drug Levels and Toxicology: None noted this a.m. - Labs Labs: Laboratory Results - last 24 hr 08/20/18 08/20/18 08/20/18 13:03 16:02 19:29 WBC RBC Hgb Hct MCV MCH MCHC RDW Plt Count MPV Immature Gran % Seg Neutrophils % Lymphocytes % Monocytes % Eosinophils % Basophils % Neutrophils # Lymphocytes # Monocytes # Eosinophils # Basophils # Sample Site ABG pH ABG pCO2 ABG pO2 ABG HCO3 ABG Total CO2 ABG O2 Saturation ABG Base Excess Reese Test Respiration Rate O2 Delivery Device Blood Gas Modality Inspired O2 Tidal Volume PEEP Sodium Potassium Chloride Carbon Dioxide BUN Creatinine Est GFR ( Amer) Est GFR (Non-Af Amer) BUN/Creatinine Ratio Glucose POC Glucose 102 H 93 104 H Calculated Osmolality Calcium 08/20/18 08/21/18 08/21/18 20:51 00:00 03:28 WBC RBC Hgb Hct MCV MCH MCHC RDW Plt Count MPV Immature Gran % Seg Neutrophils % Lymphocytes % Monocytes % Eosinophils % Basophils % Neutrophils # Lymphocytes # Monocytes # Eosinophils # Basophils # Sample Site ABG pH ABG pCO2 ABG pO2 ABG HCO3 ABG Total CO2 ABG O2 Saturation ABG Base Excess Reese Test Respiration Rate O2 Delivery Device Blood Gas Modality Inspired O2 Tidal Volume PEEP Sodium 141 Potassium 3.3 L Chloride 107 Carbon Dioxide 21 L BUN 12 Creatinine 1.08 Est GFR ( Amer) > 60 Est GFR (Non-Af Amer) > 60 BUN/Creatinine Ratio 11 Glucose 109 H POC Glucose 88 88 Calculated Osmolality 292 Calcium 8.5 L 08/21/18 08/21/18 08/21/18 06:23 06:31 06:31 WBC 9.6 RBC 3.02 L Hgb 9.2 L Hct 27.7 L MCV 91.7 MCH 30.5 MCHC 33.2 RDW 15.0 H Plt Count 129 L MPV 9.6 Immature Gran % 1.2 Seg Neutrophils % 71.8 Lymphocytes % 15.3 Monocytes % 10.0 Eosinophils % 1.4 Basophils % 0.3 Neutrophils # 6.9 Lymphocytes # 1.5 Monocytes # 1.0 Eosinophils # 0.1 Basophils # 0.0 Sample Site R Radial ABG pH 7.33 ABG pCO2 53 H ABG pO2 82 L ABG HCO3 28 H ABG Total CO2 29 H ABG O2 Saturation 95 ABG Base Excess 1 Reese Test N/A Respiration Rate 18 O2 Delivery Device Adult Vent Blood Gas Modality ASSIST CONTROL Inspired O2 40.0 Tidal Volume 550 PEEP 5 Sodium 143 Potassium 3.6 Chloride 107 Carbon Dioxide 25 BUN 11 Creatinine 1.10 Est GFR ( Amer) > 60 Est GFR (Non-Af Amer) > 60 BUN/Creatinine Ratio 10 Glucose 88 POC Glucose Calculated Osmolality 295 Calcium 8.7 08/21/18 08/21/18 07:24 11:42 WBC RBC Hgb Hct MCV MCH MCHC RDW Plt Count MPV Immature Gran % Seg Neutrophils % Lymphocytes % Monocytes % Eosinophils % Basophils % Neutrophils # Lymphocytes # Monocytes # Eosinophils # Basophils # Sample Site ABG pH ABG pCO2 ABG pO2 ABG HCO3 ABG Total CO2 ABG O2 Saturation ABG Base Excess Reese Test Respiration Rate O2 Delivery Device Blood Gas Modality Inspired O2 Tidal Volume PEEP Sodium Potassium Chloride Carbon Dioxide BUN Creatinine Est GFR ( Amer) Est GFR (Non-Af Amer) BUN/Creatinine Ratio Glucose POC Glucose 76 70 Calculated Osmolality Calcium - Impressions ITS Impressions Chest X-Ray 08/15/18 12:03 IMPRESSION: COPD with no acute cardiopulmonary process seen. D/ / 08/15/2018 13:58:06 Juan Pablo Bullock MD / [facility] Interpreting Provider: Juan Pablo Bullock MD Head CT 08/15/18 12:04 IMPRESSION: No acute intracranial abnormality. D/ /15/2018 13:06:35 Akira Waddell MD / [facility] Interpreting Provider: Akira Waddell MD Chest X-Ray 08/16/18 18:06 IMPRESSION: 1. No lines or tubes. 2. Stable cardiopulmonary status with COPD and reticular opacities which may represent mild interstitial edema. D/ / 08/16/2018 18:39:07 Ivanna Cruz MD / [facility] Interpreting Provider: Ivanna Cruz MD Chest X-Ray 08/17/18 08:42 IMPRESSION: Prominent interstitium suspicious for underlying COPD, with prominent perihilar bronchial thickening more so on the left which may be related to superimposed acute bronchitis. Suspected minimal left basilar atelectasis. D/ / Deep Maravilla MD / Deep Maravilla MD Interpreting Provider: Deep Maravilla MD Chest X-Ray 08/17/18 14:31 IMPRESSION: There are two images provided, the 1st with time stamp 1440 hours and the second with time stamp 1444 hours, both on 08/17/2018. Initial image fails to demonstrate any lines or tubes. Second image demonstrates an endotracheal tube with tip 2.5 cm from the matt. No evidence for acute cardiopulmonary process is seen on either image. D/ / 08/17/2018 15:24:26 Dino Clinton MD / [facility] Interpreting Provider: Dino Clinton MD Echocardiogram 08/19/18 07:52 Impressions: Technically sub-optimal due to poor echocardiographic windows. LVEF 60-65%. Normal LV chamber size, wall thickness and function. Grossly normal right ventricular structure and function. Indeterminate diastolic function. Unable to estimate RVSP due to lack of adequate TR jet. No obvious significant valvular dysfunction. Left Ventricular Wall Motion: Rest Echo Findings All wall segments showed normal motion. Findings: Study Quality * Technically sub-optimal due to poor echocardiographic windows. ECG Findings * Atrial fibrillation. Left Ventricle * LVEF 60-65%. * Normal LV chamber size, wall thickness and function. * Indeterminate diastolic function. Right Ventricle * Grossly normal right ventricular structure and function. Left Atrium * Normal left atrial size. Right Atrium * Normal right atrial size. Aortic Valve * Aortic valve not well visualized. * No aortic regurgitation. * No aortic stenosis. Mitral Valve * Normal mitral valve structure and function. * No mitral regurgitation. * No mitral stenosis. Tricuspid Valve * Normal tricuspid valve structure and function. * Trace tricuspid regurgitation. * Unable to estimate RVSP due to lack of adequate TR jet. Pulmonic Valve * Pulmonic valve not well visualized. Aorta * Normally sized aortic root. Pericardium * The pericardium appears normal. IVC * Normal IVC dimensions and inspiratory collapse. Pulmonary Artery * Pulmonary artery not well visualized. Assessment and Plan (1) Neuroleptic malignant syndrome Current visit: Yes Status: Resolved Plan: Continue hospitalization, Close observation, Monitor sleep, Monitor appetite Additional Plan: -Due to patient's recent issue with neuroleptic malignant syndrome, it is not recommended to restart antipsychotics at this time. Due to patient's high functioning status prior to recent medical decompensation, it is unlikely that patient is suffering from severe psychotic symptoms upon discontinuation of sedation. However, if medical feels medication is needed, quetiapine would have the lowest risk of neuroleptic malignant syndrome. -Consider discontinuing risperidone permanently, as he is on a low dose and is at risk for increased side effects with multiple antipsychotic medications chronically -Continue holding other psychiatric medications -Will continue to follow while inpatient Risks, benefits, side effects, alternatives discussed w/pt: No (Patient is sedated) Consult Discharge Plan - Plan Referrals: Gabriella Simon [Advanced Practice Nurse] - 09/06/18 9:00 am - Attending Attestation I discussed this patient and my medical decision-making was reviewed with the Resident Physician. I agree with the documented findings, disposition and treatment plan as described. Psychiatry Exam - Constitutional Vitals: Temp Pulse Resp BP Pulse Ox 97.8 F 71 18 93/46 100 08/21/18 11:52 08/21/18 10:00 08/21/18 11:20 08/21/18 11:20 08/21/18 11:20 General appearance: well-groomed, well-nourished Additional observations: Sedated - Musculoskeletal Gait: other (Not assessed due to sedation) Station: stiff (Moderate stiffness noted) Strength & Tone: rigid (Moderately) - Psychiatric Patient Orientation: Yes Other (Could not be assessed due to sedation) Level of alertness: Sedated, Responds to painful stimuli Behavior: calm, other (Sedated) Psychomotor activity: Slowed (Due to sedation) Eye Contact: No Eye Contact (Due to sedation) Mood Description: Other (Not assessed due to sedation) Affect description: flat (Due to sedation) Speech Volume: No speech (Due to the sedation) Speech pattern: non-verbal Language & Vocabulary: other (Could not be assessed due to sedation) Thought Process: Intact (Could not be assessed due to sedation) Thought Content: Yes Intact (Cannot be assessed due to sedation) Perceptual Disturbances: No Reacting to internal stimuli Attention Span Ability: Unable to Focus, Unable to Sustain Attention Memory Description: Immediate Impaired, Recent Impaired, Remote Impaired Patient Reliability: Not Reliable Historian (Due to sedation) Fund of knowledge: No aware of current events (Due to sedation) Intelligence Estimate: Average Judgment: Poor Insight: None
--- NOTE | 2018-08-21 15:53 | EEG/EMG/Oth Biometrics Report ---
EEG Procedure Report Date of procedure: 08/21/18 EEG Procedure: Routine EEG Procedure Note: Report: This EEG was acquired with standard international 10-20 electrode placement system with EKG recording. The background activity during this EEG was replaced by a mixture of theta and delta activity with best frequency up to 6- 6.5Hz. The background activity was reactive. Sleep stages not definitively recognized. There are no electrographic seizures identified during this tracing. There are no epileptiform discharges or focal slowing noted during this recording. Photic stimulation produced no abnormalities. HV not performed during this study. EKG tracing showed no significant cardiac dysarrhythmia. Impression: This is an abnormal EEG due to presence of moderate to severe diffuse background slowing. No electrographic seizures, no EDs, no focal slowing. EEG activity was reactive. Clinical Correlation: This EEG is consistent with moderate to severe diffuse cerebral dysfunction that can be seen in patients with encephalopathy, metabolic/toxic, electrolyte derangements, ischemic/hypoxic or effects of sedatives. Clinical correlation suggested.
--- NOTE | 2018-08-21 16:59 | Pulmonology Progress Note ---
Date of Encounter: 08/21/18 Time of Encounter: 08:00 Assessment and Plan (1) Rhabdomyolysis Current Visit: Yes Status: Resolved Patient presented with elevated creatinine kinase can be secondary to neuroleptic malignant syndrome creatinine kinase Trending down to normal levels today 08/20 rhabdomyolysis resolved 08/21 resolved we will start back on some antipsychotics psychiatry recommended seroquel Qualifiers: Rhabdomyolysis type: traumatic Encounter type: initial encounter Qu alified Code(s): T79.6XXA - Traumatic ischemia of muscle, initial encounter (2) JERMAIN (acute kidney injury) Current Visit: Yes Status: Acute Patient acute kidney injury with improving creatinine to continue to monitor.. 08/20 creatinine has come into normal limits 08/21 labs and urine output were reviewed (3) Acute hypoxemic respiratory failure Current Visit: Yes Status: Acute Secondary to fluid resuscitation while he presented with DKA complicated by diastolic dysfunction. Patient blood pressure is borderline will not diuresis now we will give another 24 hours before we start diuresing. 08/19 patient was complicated by atrial fibrillation with rapid ventricular response. Could not do diuresis. 08/20 patient V/Q mismatch stable we will continue diuresis most likely will be extubated tomorrow. 08/21 tried spontaneous breathing trial. Patient got some agitation tachycardia will try after adequate antipsychotic regimen. (4) Metabolic encephalopathy Current Visit: Yes Status: Acute Patient has metabolic encephalopathy EEG one third was not a great study showed possible metabolic encephalopathy secondary to first initially diabetic ketoacidosis can be due to atypical neuroleptic malignant syndrome 08/20 toxic/metabolic encephalopathy getting better 08/21 got a new EEG which did not show any evidence of seizure activity suggestive of diffuse metabolic encephalopathy (5) Diabetes mellitus Current Visit: Yes Status: Acute Blood glucose adequate control. 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 Since his creatinine kinase is trending down Dantrolene was stopped . Psychiatry recommended oral bromocriptine when he gets extubated. 08/19Looks like it is resolved now 08/21 psychiatry recommended seroquel Subjective Principal diagnosis: Patient seen in F/U for Neuroleptic malignant syndrome Interval history: Patient did not have acute events overnight patient presently with atypical neurolept malignant syndrome . Now toxic/metabolic encephalopathy acute respiratory failure Patient did not have any acute events overnight 08/21 patient did not have any acute events overnight Objective PUL Vital signs: Last Vital Signs Temp 98.1 F 08/21/18 16:00 Pulse 76 08/21/18 16:12 Resp 18 08/21/18 16:00 BP 117/53 08/21/18 16:00 Pulse Ox 98 08/21/18 16:00 General appearance: lethargic Auscultation: bilateral: rales Cardiovascular: regular rate and rhythm Extremities: no edema unable to assess due to mental status Ventilator Settings Ventilator Settings: Ventilator Settings, Last 8 Hours Ventilator Tidal Volume 550 Setting Ventilator Tidal Volume 550 Setting Ventilator Tidal Volume 550 Setting Ventilator Tidal Volume 550 Setting Ventilator Tidal Volume 550 Setting Ventilator Tidal Volume 550 Setting Ventilator Respiratory Rate 18 Setting Ventilator Respiratory Rate 18 Setting Ventilator Respiratory Rate 18 Setting Ventilator Respiratory Rate 18 Setting Ventilator Respiratory Rate 18 Setting Ventilator Respiratory Rate 18 Setting Actual Respiratory Rate 18 Actual Respiratory Rate 19 Actual Respiratory Rate 18 Actual Respiratory Rate 18 Actual Respiratory Rate 18 Actual Respiratory Rate 18 Positive End Expiratory 5 Pressure Positive End Expiratory 5 Pressure Positive End Expiratory 5 Pressure Positive End Expiratory 5 Pressure Positive End Expiratory 5 Pressure Peak Inspiratory Airway 28 Pressure Peak Inspiratory Airway 27 Pressure Peak Inspiratory Airway 27 Pressure Peak Inspiratory Airway 28 Pressure Peak Inspiratory Airway 27 Pressure Peak Inspiratory Airway 28 Pressure Results - Laboratory Findings CBC and BMP: 08/21/18 06:31 08/21/18 06:31 ABG ABG pH 7.33 pH Units (7.32-7.45) 08/21/18 06:23 ABG pCO2 53 mmHg (35-45) H 08/21/18 06:23 ABG pO2 82 mmHg (85-104) L 08/21/18 06:23 ABG O2 Saturation 95 % (95-98) 08/21/18 06:23 PT/INR, D-dimer PT 12.7 Seconds (9.4-12.1) H 08/15/18 13:00 Abnormal lab findings: Abnormal lab results RBC 3.02 M/mcL (4.19-5.50) L 08/21/18 06:31 Hgb 9.2 g/dL (12.9-16.9) L 08/21/18 06:31 Hct 27.7 % (37.5-50.1) L 08/21/18 06:31 RDW 15.0 % (11.5-14.5) H 08/21/18 06:31 Plt Count 129 K/mcL (140-400) L 08/21/18 06:31 Platelet Estimate Decreased (Normal) L 08/20/18 07:58 PT 12.7 Seconds (9.4-12.1) H 08/15/18 13:00 ABG pCO2 53 mmHg (35-45) H 08/21/18 06:23 ABG pO2 82 mmHg (85-104) L 08/21/18 06:23 ABG HCO3 28 mEq/L (21-27) H 08/21/18 06:23 ABG Total CO2 29 mEq/L (20-26) H 08/21/18 06:23 Hemoglobin A1c 6.2 % (-5.6) H 08/16/18 06:05 Serum Total Protein 5.2 g/dL (6.4-8.9) L 08/18/18 05:38 Albumin 2.9 g/dL (3.5-5.7) L 08/18/18 05:38 Globulin 2.3 g/dL (2.4-3.5) L 08/18/18 05:38 Beta-Hydroxybutyric Acd > 2.00 mmol/L (0.02-0.27) H 08/15/18 13:00 Urine Protein 30 mg/dL (Neg-Trace) H 08/15/18 14:05 Urine Ketones 15 mg/dL (Negative) H 08/15/18 14:05 Urine Blood Large (Negative) H 08/15/18 14:05 Ur Squamous Epith Cells Many per lpf (None-Few) H 08/15/18 14:05 - Clinical Findings Intake & Output: Intake & Output 08/21/18 08/21/18 08/21/18 07:59 15:59 23:59 Intake Total 580 / 580 635 / 635 77 / 77 Output Total 950 / 950 225 / 225 200 / 200 Balance -370 / -370 410 / 410 -123 / -123 Weight 94.2 kg Consult Discharge Plan - Plan Referrals: Gabriella Simon [Advanced Practice Nurse] - 09/06/18 9:00 am
[2018-08-22] MEDS: Piperacillin/Tazobactam 3.375 GM in 0.9 % Sodium Chloride Mini Bag 100 ML IVPB SCH ×2 (00:04→07:48)
[2018-08-22] MEDS: Artificial Tears SOLN 15 ML BOTTLE BOTH EYES SCH ×6 (00:04→20:34)
[2018-08-22 05:36] LABS: ABG Base Excess 2 mEq/L (-2 to 3); ABG HCO3 26 mEq/L (21-27); ABG Oxygen Saturation 97 % (95-98); ABG PCO2 37 mmHg (35-45); ABG PH 7.45 pH Units (7.32-7.45); ABG PO2 91 mmHg (85-104); ABG TCO2 27 mEq/L (20-26); Blood Gas Modality ASSIST CONTROL; Blood Gas PEEP 5 cm H2O; Blood Gas Respiration Rate 18; Blood Gas VT 550 cc
[2018-08-22] MEDS: Pantoprazole 40 MG VIAL IVP SCH (05:45)
[2018-08-22] MEDS: *HR* Enoxaparin 40 MG/0.4 ML SYRINGE SQ SCH (05:45)
[2018-08-22 06:12] LABS: Basophils % 0.2 %; Eosinophils # 0.1 K/mcL (0.0-0.6); Eosinophils % 2.4 %; Hematocrit 24.4 % (37.5-50.1); Hemoglobin 8.1 g/dL (12.9-16.9); Immature Granulocytes % 1.7 % (0-4); Lymphocytes % 16.9 %; Mean Corpuscular HGB Conc 33.2 g/dL (31.6-35.5); Mean Corpuscular Hemoglobin 30.9 pg (28.0-33.3); Mean Corpuscular Volume 93.1 fL (83.0-100.0); Mean Platelet Volume 9.5 fL (9.4-12.4); Monocytes # 0.5 K/mcL (0.0-1.3); Monocytes % 7.6 %; Neutrophils # 4.2 K/mcL (1.6-8.9); Platelet Count 133 K/mcL (140-400); Red Blood Count 2.62 M/mcL (4.19-5.50); Red Cell Distribution Width 15.3 % (11.5-14.5); Segmented Neutrophils % 71.2 %
[2018-08-22 06:32] LABS: BUN/Creatinine Ratio 9 (6-26); Blood Urea Nitrogen 10 mg/dL (6-20); Calcium 8.2 mg/dL (8.6-10.3); Carbon Dioxide 23 mEq/L (23-29); Chloride 108 mEq/L (98-107); Glucose 116 mg/dL (70-105); Osmolality,Calculated 298 (280-300); Potassium 3.1 mEq/L (3.5-5.1); Sodium 144 mEq/L (136-145); eGFR For Non-African Americans > 60 (> 60)
[2018-08-22] MEDS: Budesonide/Formoterol 80/4.5 MDI IH SCH ×2 (07:31→20:08)
[2018-08-22] MEDS: Chlorhexidine Rinse 15 ML MOUTHWASH MM SCH ×2 (07:48→20:34)
[2018-08-22] MEDS: Amiodarone Premix 360 MG/200 ML BAG IVC SCH ×2 (08:15→21:21)
[2018-08-22] MEDS: FentaNYL (PF) 2,500 MCG in EMPTY BAG 1 EACH IVC SCH ×2 (09:48→22:31)
[2018-08-22] MEDS ORDERED: Potassium Phosphate 44 MEQ in 0.9 % Sodium Chloride 250 ML IVPB PRN (11:25)
[2018-08-22] MEDS: Furosemide 40 MG/4 ML VIAL IVP SCH (12:33)
[2018-08-22 12:37] LABS: VBG Ionized Calcium 1.15 mmol/L (1.15-1.35)
--- NOTE | 2018-08-22 12:57 | Psychiatry Progress Note ---
Addendum entered and electronically signed by Meena Coyne MD 08/23/18 09:22: I discussed this patient and my medical decision-making was reviewed with the Resident Physician. I agree with the documented findings, disposition and treatment plan as described. Addendum entered and electronically signed by Beatrice Vickers 08/22/18 15:59: Please see updated Recommendations: Additionally would recommend starting Lorazepam 2mg IV TID for 2-3 days to see if patient improves, as the initiation of response to his name is a positive indicator of response. Also recommend repeat Head CT Addendum entered and electronically signed by Beatrice Vickers 08/22/18 15:55: Additionally would recommend starting Lorazepam 2mg PO TID for 2-3 days to see if patient improves, as the initiation of response to his name is a positive indicator of response. Also recommend repeat Head CT Addendum entered and electronically signed by Beatrice Vickers 08/22/18 15:45: This provider witnessed the Ativan challenge test. Ativan was given at approximately 1435. This provider stayed with the patient for one hour. At 1443, patient started blinking his eyes to his name, which was reproducible approximately 75% of the time. This action was not seen previously by this provider. At 1510, patient appeared to be moving his head and body more than before. About this time, patient appeared to squeeze my hand on command, but this movement was not reproducible in any subsequent test. Patient eyes did not track this provider or move significantly throughout the witnessed time. Patient may improve after the 1 hour marked. Please continue to monitor for increased responsiveness or purposeful movements. If patient does improve and then declines after about 24 hours, catatonia is suspected. This service will continue to monitor while inpatient Original Note: Date of Encounter: 08/22/18 Time of Encounter: 09:50 Subjective Interval history: Patient was seen intubated today. He continues to be moderately rigid but mildly responsive when this provider would move his extremities. Inducible ocular clonus were not present today. When speaking with this patient's medical providers, they report no improvement with the addition of quetiapine. They explained that patient will sit up at times even on sedating medications and will stare forward. Reports also state that patient will also stare up. At this time, he will not be responsive to verbal stimuli and will not follow commands. Providers also report that in the emergency department, patient ap peared to be tremulous and appeared to be trying to speak but was not able to. Review of Systems Respiratory: Reports: other (Currently sedated and intubated) Psychiatric: Reports: other (Currently sedated) Results - Vital Signs Vital Signs: Temp Pulse Resp BP Pulse Ox 98.0 F 96 18 118/62 96 08/22/18 10:45 08/22/18 12:00 08/22/18 12:00 08/22/18 12:00 08/22/18 12:00 - Drug Levels and Toxicology Drug Levels and Toxicology: None noted this a.m. - Labs Labs: Laboratory Results - last 24 hr 08/21/18 08/21/18 08/21/18 15:41 19:55 23:48 WBC RBC Hgb Hct MCV MCH MCHC RDW Plt Count MPV Immature Gran % Seg Neutrophils % Lymphocytes % Monocytes % Eosinophils % Basophils % Neutrophils # Lymphocytes # Monocytes # Eosinophils # Basophils # Sample Site ABG pH ABG pCO2 ABG pO2 ABG HCO3 ABG Total CO2 ABG O2 Saturation ABG Base Excess Reese Test Respiration Rate O2 Delivery Device Blood Gas Modality Inspired O2 Tidal Volume PEEP Sodium Potassium Chloride Carbon Dioxide BUN Creatinine Est GFR ( Amer) Est GFR (Non-Af Amer) BUN/Creatinine Ratio Glucose POC Glucose 76 90 94 Calculated Osmolality Calcium Venous Ioniz Calcium 08/22/18 08/22/18 08/22/18 03:23 05:33 06:02 WBC 5.9 RBC 2.62 L Hgb 8.1 L Hct 24.4 L MCV 93.1 MCH 30.9 MCHC 33.2 RDW 15.3 H Plt Count 133 L MPV 9.5 Immature Gran % 1.7 Seg Neutrophils % 71.2 Lymphocytes % 16.9 Monocytes % 7.6 Eosinophils % 2.4 Basophils % 0.2 Neutrophils # 4.2 Lymphocytes # 1.0 Monocytes # 0.5 Eosinophils # 0.1 Basophils # 0.0 Sample Site R Radial ABG pH 7.45 ABG pCO2 37 ABG pO2 91 ABG HCO3 26 ABG Total CO2 27 H ABG O2 Saturation 97 ABG Base Excess 2 Reese Test N/A Respiration Rate 18 O2 Delivery Device Adult Vent Blood Gas Modality ASSIST CONTROL Inspired O2 40.0 Tidal Volume 550 PEEP 5 Sodium Potassium Chloride Carbon Dioxide BUN Creatinine Est GFR ( Amer) Est GFR (Non-Af Amer) BUN/Creatinine Ratio Glucose POC Glucose 113 H Calculated Osmolality Calcium Venous Ioniz Calcium 08/22/18 08/22/18 08/22/18 06:02 07:30 10:44 WBC RBC Hgb Hct MCV MCH MCHC RDW Plt Count MPV Immature Gran % Seg Neutrophils % Lymphocytes % Monocytes % Eosinophils % Basophils % Neutrophils # Lymphocytes # Monocytes # Eosinophils # Basophils # Sample Site ABG pH ABG pCO2 ABG pO2 ABG HCO3 ABG Total CO2 ABG O2 Saturation ABG Base Excess Reese Test Respiration Rate O2 Delivery Device Blood Gas Modality Inspired O2 Tidal Volume PEEP Sodium 144 Potassium 3.1 L Chloride 108 H Carbon Dioxide 23 BUN 10 Creatinine 1.06 Est GFR ( Amer) > 60 Est GFR (Non-Af Amer) > 60 BUN/Creatinine Ratio 9 Glucose 116 H POC Glucose 110 H 102 H Calculated Osmolality 298 Calcium 8.2 L Venous Ioniz Calcium 08/22/18 12:34 WBC RBC Hgb Hct MCV MCH MCHC RDW Plt Count MPV Immature Gran % Seg Neutrophils % Lymphocytes % Monocytes % Eosinophils % Basophils % Neutrophils # Lymphocytes # Monocytes # Eosinophils # Basophils # Sample Site ABG pH ABG pCO2 ABG pO2 ABG HCO3 ABG Total CO2 ABG O2 Saturation ABG Base Excess Reese Test Respiration Rate O2 Delivery Device Blood Gas Modality Inspired O2 Tidal Volume PEEP Sodium Potassium Chloride Carbon Dioxide BUN Creatinine Est GFR ( Amer) Est GFR (Non-Af Amer) BUN/Creatinine Ratio Glucose POC Glucose Calculated Osmolality Calcium Venous Ioniz Calcium 1.15 - Impressions ITS Impressions Chest X-Ray 08/15/18 12:03 IMPRESSION: COPD with no acute cardiopulmonary process seen. D/ / 08/15/2018 13:58:06 Juan Pablo Bullock MD / [facility] Interpreting Provider: Juan Pablo Bullock MD Head CT 08/15/18 12:04 IMPRESSION: No acute intracranial abnormality. D/ / 08/15/2018 13:06:35 Akira Waddell MD / formerly [facility] Interpreting Provider: Akira Waddell MD Chest X-Ray 08/16/18 18:06 IMPRESSION: 1. No lines or tubes. 2. Stable cardiopulmonary status with COPD and reticular opacities which may represent mild interstitial edema. D/ / 08/16/2018 18:39:07 Ivanna Cruz MD / [facility] Interpreting Provider: Ivanna Cruz MD Chest X-Ray 08/17/18 08:42 IMPRESSION: Prominent interstitium suspicious for underlying COPD, with prominent perihilar bronchial thickening more so on the left which may be related to superimposed acute bronchitis. Suspected minimal left basilar atelectasis. D/ / Deep Maravilla MD / Deep Mraavilla MD Interpreting Provider: Deep Maravilla MD Chest X-Ray 08/17/18 14:31 IMPRESSION: There are two images provided, the 1st with time stamp 1440 hours and the second with time stamp 1444 hours, both on 08/17/2018. Initial image fails to demonstrate any lines or tubes. Second image demonstrates an endotracheal tube with tip 2.5 cm from the matt. No evidence for acute cardiopulmonary process is seen on either image. D/ / 08/17/2018 15:24:26 Dino Clinton MD / [facility] Interpreting Provider: Dino Clinton MD Echocardiogram 08/19/18 07:52 Impressions: Technically sub-optimal due to poor echocardiographic windows. LVEF 60-65%. Normal LV chamber size, wall thickness and function. Grossly normal right ventricular structure and function. Indeterminate diastolic function. Unable to estimate RVSP due to lack of adequate TR jet. No obvious significant valvular dysfunction. Left Ventricular Wall Motion: Rest Echo Findings All wall segments showed normal motion. Findings: Study Quality * Technically sub-optimal due to poor echocardiographic windows. ECG Findings * Atrial fibrillation. Left Ventricle * LVEF 60-65%. * Normal LV chamber size, wall thickness and function. * Indeterminate diastolic function. Right Ventricle * Grossly normal right ventricular structure and function. Left Atrium * Normal left atrial size. Right Atrium * Normal right atrial size. Aortic Valve * Aortic valve not well visualized. * No aortic regurgitation. * No aortic stenosis. Mitral Valve * Normal mitral valve structure and function. * No mitral regurgitation. * No mitral stenosis. Tricuspid Valve * Normal tricuspid valve structure and function. * Trace tricuspid regurgitation. * Unable to estimate RVSP due to lack of adequate TR jet. Pulmonic Valve * Pulmonic valve not well visualized. Aorta * Normally sized aortic root. Pericardium * The pericardium appears normal. IVC * Normal IVC dimensions and inspiratory collapse. Pulmonary Artery * Pulmonary artery not well visualized. Assessment and Plan (1) Neuroleptic malignant syndrome Current visit: Yes Status: Resolved Plan: Continue hospitalization, Monitor sleep, Monitor appetite Additional Plan: -With the current nonresponse to commands and stimuli when awake, there is concern for possible catatonia, which can look like a neuroleptic malignant syndrome or can be associated with NMS. As such, we recommend an Ativan challenge test. While the patient is more awake, administered 2 mg Ativan IV. Monitor patient for increased responsiveness, which will be temporary in nature. If patient becomes more responsive with the Ativan administration, it is likely that patient has catatonia. -Recommend discontinuing quetiapine at this time -Consider discontinuing risperidone permanently, as he is on a low dose and is at risk for increased side effects with multiple antipsychotic medications chronically -Continue holding other psychiatric medications -Will continue to follow while inpatient Risks, benefits, side effects, alternatives discussed w/pt: No (Patient is sedated) Consult Discharge Plan - Plan Referrals: Gabriella Simon [Advanced Practice Nurse] - 09/06/18 9:00 am - Attending Attestation I discussed this patient and my medical decision-making was reviewed with the Resident Physician. I agree with the documented findings, disposition and treatment plan as described. Psychiatry Exam - Constitutional Vitals: Temp Pulse Resp BP Pulse Ox 98.0 F 96 18 118/62 96 08/22/18 10:45 08/22/18 12:00 08/22/18 12:00 08/22/18 12:08/22/18 12:00 General appearance: age & developmentally appropriate, well-groomed, well- nourished, average Additional observations: Currently intubated - Musculoskeletal Gait: other (Not assessed) Station: stiff (Current rigidity to all extremities noted, with ability for flexion) Strength & Tone: rigid - Psychiatric Patient Orientation: Yes Other (Cannot be assessed due to sedation) Level of alertness: Sedated Behavior: calm, other (Really sedated) Psychomotor activity: Normal Eye Contact: No Eye Contact (Due to sedation) Mood Description: Other (Cannot be assessed due to sedation) Affect description: flat (Due to sedation) Speech Volume: No speech Speech pattern: non-verbal Language & Vocabulary: other (Cannot be assessed due to sedation) Thought Process: Intact (Nonverbal at this time) Thought Content: Yes Intact (Nonverbal at this time) Perceptual Disturbances: No Reacting to internal stimuli (Due to sedation) Attention Span Ability: Unable to Focus, Unable to Sustain Attention Memory Description: Immediate Impaired, Recent Impaired, Remote Impaired Patient Reliability: Not Reliable Historian Fund of knowledge: Yes average (Cannot be assessed due to sedation) Intelligence Estimate: Average (Cannot be assessed due to sedation) Judgment: Limited (Cannot be fully assessed due to sedation) Insight: None
[2018-08-22 13:06] LABS: Magnesium 1.9 mg/dL (1.6-2.6); Phosphorous 4.5 mg/dL (2.7-4.5)
[2018-08-22] MEDS ORDERED: *HR* LORazepam 2 MG/ML VIAL IVP STA (13:40)
--- NOTE | 2018-08-22 15:18 | Neurology Progress Note ---
Date of Encounter: 08/22/18 Time of Encounter: 15:16 Assessment and Plan (1) Rhabdomyolysis Current Visit: Yes Status: Resolved Improved Qualifiers: Rhabdomyolysis type: traumatic Encounter type: subsequent encounter Qualified Code(s): T79.6XXD - Traumatic ischemia of muscle, subsequent encounter (2) JERMAIN (acute kidney injury) Current Visit: Yes Status: Acute Resolved (3) Metabolic encephalopathy Current Visit: Yes Status: Acute (4) Neuroleptic malignant syndrome Current Visit: Yes Status: Resolved Patient's clinical status and lab results related to NMS all appear improved. however, patient still has altered mental status and diffuse muscle rigidity but no tremors. Is able to maintain posture and looks catatonic, with perserved eye blinking to visual threat. Repeat EET reported mild background slowing consistent with encephalopathy Treatment for NMS at this point is largely medical and supportive in nature. No fever and no longer having leukocytosis. Subjective Principal diagnosis: Patient seen in F/U for Neuroleptic malignant syndrome Interval history: Patient seen and examined. Patient is now now on any sedatives except fentanyl and the patient is still not responding to verbal commands but he has his eye opening without scarce eye blinking. Responds to visual threat with eye blinking bilaterally. When holding his right hand into the air he is able to maintain his right arm in the air not dropping. No fever over night. no seizure activity. Psychiatry is doing ativan challenge test currently Objective - Constitutional Vitals: Temp Pulse Resp BP Pulse Ox 98.0 F 102 18 114/68 94 08/22/18 10:45 08/22/18 14:00 08/22/18 15:07 08/22/18 15:07 08/22/18 15:07 - Neurological Exam Sensorimotor examination: Present: intact (Unable to assess) Motor Examination: Present: other (Arms restrained. Legs: some withdrawal both side when given painful stimuli) Sensation intact: Present: intact (Unable to assess due to reduced level of consciounsess) Posture: Present: other (None) Reflex and gait examination: other (Unable to assess) Reflexes: Biceps: 2+, Triceps: 2+, Brachioradialis: 2+, Patella: 2+, Achilles: 2+ Mental Status Examination: Present: awake (Appears awake with eye opening wide with scarce eyeblinking but not responding to verbal commands. Respond to visual threat by rapid eye blinking), alert (Symptoms to be alert but not responding to verbal commands), does not follow commands Cranial nerve examination: Present: PERRL (size 4mm bilaterally, symmetrical. Brisk eyelid closing), visual rios intact (Unable to assess), corneal reflexes brisk symmetrically, sensory to face intact (Unable to assess), mastication intact (Unable to assess), no facial asymmetry is present, no dysarthria (Unable to assess), hearing is intact symmetrically (Unable to assess), soft palate elevates bilaterally upon phonation (Unable to assess), gag reflex intact, tongue protrudes midline (Unable to assess) Results - Laboratory Findings CBC and BMP: 08/22/18 06:02 08/22/18 06:02 Abnormal lab findings: Abnormal lab results RBC 2.62 M/mcL (4.19-5.50) L 08/22/18 06:02 Hgb 8.1 g/dL (12.9-16.9) L 08/22/18 06:02 Hct 24.4 % (37.5-50.1) L 08/22/18 06:02 RDW 15.3 % (11.5-14.5) H 08/22/18 06:02 Plt Count 133 K/mcL (140-400) L 08/22/18 06:02 Platelet Estimate Decreased (Normal) L 08/20/18 07:58 PT 12.7 Seconds (9.4-12.1) H 08/15/18 13:00 ABG Total CO2 27 mEq/L (20-26) H 08/22/18 05:33 Potassium 3.1 mEq/L (3.5-5.1) L 08/22/18 06:02 Chloride 108 mEq/L (98-107) H 08/22/18 06:02 Glucose 116 mg/dL (70-105) H 08/22/18 06:02 POC Glucose 102 mg/dL (70-99) H 08/22/18 10:44 Hemoglobin A1c 6.2 % (-5.6) H 08/16/18 06:05 Calcium 8.2 mg/dL (8.6-10.3) L 08/22/18 06:02 Serum Total Protein 5.2 g/dL (6.4-8.9) L 08/18/18 05:38 Albumin 2.9 g/dL (3.5-5.7) L 08/18/18 05:38 Globulin 2.3 g/dL (2.4-3.5) L 08/18/18 05:38 Beta-Hydroxybutyric Acd > 2.00 mmol/L (0.02-0.27) H 08/15/18 13:00 Urine Protein 30 mg/dL (Neg-Trace) H 08/15/18 14:05 Urine Ketones 15 mg/dL (Negative) H 08/15/18 14:05 Urine Blood Large (Negative) H 08/15/18 14:05 Ur Squamous Epith Cells Many per lpf (None-Few) H 08/15/18 14:05 Consult Discharge Plan - Plan Referrals: Gabriella Simon [Advanced Practice Nurse] - 09/06/18 9:00 am
[2018-08-22] MEDS ORDERED: Dexmedetomidine HCl 400 MCG/100 ML MLS IVC ONE (18:45)
[2018-08-22] MEDS: Dexmedetomidine HCl 400 MCG/100 ML MLS IVC SCH (18:53)
--- NOTE | 2018-08-22 19:09 | Pulmonology Progress Note ---
Date of Encounter: 08/22/18 Time of Encounter: 15:00 Assessment and Plan (1) Rhabdomyolysis Current Visit: Yes Status: Resolved Patient presented with elevated creatinine kinase can be secondary to neuroleptic malignant syndrome creatinine kinase Trending down to normal levels today 08/20 rhabdomyolysis resolved 08/21 resolved we will start back on some antipsychotics psychiatry recommended seroquel 08/22 we will check creatinine kinase. Qualifiers: Rhabdomyolysis type: traumatic Encounter type: subsequent encounter Qualified Code(s): T79.6XXD - Traumatic ischemia of muscle, subsequent encounter (2) JERMAIN (acute kidney injury) Current Visit: Yes Status: Acute Patient acute kidney injury with improving creatinine to continue to monitor.. 08/20 creatinine has come into normal limits 08/21 labs and urine output were reviewed 08/22 labs and output were reviewed (3) Acute hypoxemic respiratory failure Current Visit: Yes Status: Acute Secondary to fluid resuscitation while he presented with DKA complicated by diastolic dysfunction. Patient blood pressure is borderline will not diuresis now we will give another 24 hours before we start diuresing. 08/19 patient was complicated by atrial fibrillation with rapid ventricular response. Could not do diuresis. 08/20 patient V/Q mismatch stable we will continue diuresis most likely will be extubated tomorrow. 08/21 tried spontaneous breathing trial. Patient got some agitation tachycardia will try after adequate antipsychotic regimen. 08/22 patient still has encephalopathy secondary started on Symbicort. The spontaneous breathing trial patient increased work of breathing most likely due to was compliance of the lung. To keep diuresing. As tolerated (4) Metabolic encephalopathy Current Visit: Yes Status: Acute Patient has metabolic encephalopathy EEG one third was not a great study showed possible metabolic encephalopathy secondary to first initially diabetic ketoacidosis can be due to atypical neuroleptic malignant syndrome 08/20 toxic/metabolic encephalopathy getting better 08/21 got a new EEG which did not show any evidence of seizure activity suggestive of diffuse metabolic encephalopathy (5) Diabetes mellitus Current Visit: Yes Status: Acute Blood glucose adequate control. Qualifiers: Diabetes mellitus type: type 2 Diabetes mellitus usp insulin use: without usp use Diabetes mellitus complication status: without complication Qualified Code(s): E11.9 - Type 2 diabetes mellitus without complications (6) DVT prophylaxis Current Visit: Yes Status: Acute To continue the current regimen. 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 Since his creatinine kinase is trending down Dantrolene was stopped . Psychiatry recommended oral bromocriptine when he gets extubated. 08/19Looks like it is resolved now 08/21 psychiatry recommended seroquel Subjective Principal diagnosis: Patient seen in F/U for Neuroleptic malignant syndrome Interval history: Patient did not have acute events overnight patient presently with atypical neurolept malignant syndrome . Now toxic/metabolic encephalopathy acute respiratory failure Patient did not have any acute events overnight 08/21 patient did not have any acute events overnight 08/22 patient did not have any acute events overnight psychiatry following. Will retry ativan challenge and will help him Because of Family. Objective PUL Vital signs: Last Vital Signs Temp 98.8 F 08/22/18 16:00 Pulse 113 08/22/18 18:00 Resp 18 08/22/18 18:00 BP 116/71 08/22/18 18:00 Pulse Ox 91 08/22/18 18:00 General appearance: no acute distress Auscultation: bilateral: diminished breath sounds (The bases.) Extremities: no cyanosis unable to assess due to mental status Ventilator Settings Ventilator Settings: Ventilator Settings, Last 8 Hours Ventilator Tidal Volume 550 Setting Ventilator Tidal Volume 550 Setting Ventilator Tidal Volume 550 Setting Ventilator Tidal Volume 550 Setting Ventilator Tidal Volume 550 Setting Ventilator Respiratory Rate 18 Setting Ventilator Respiratory Rate 18 Setting Ventilator Respiratory Rate 18 Setting Ventilator Respiratory Rate 18 Setting Ventilator Respiratory Rate 18 Setting Actual Respiratory Rate 18 Actual Respiratory Rate 18 Actual Respiratory Rate 18 Actual Respiratory Rate 18 Actual Respiratory Rate 18 Positive End Expiratory 5 Pressure Positive End Expiratory 5 Pressure Positive End Expiratory 5 Pressure Positive End Expiratory 5 Pressure Positive End Expiratory 5 Pressure Peak Inspiratory Airway 33 Pressure Peak Inspiratory Airway 25 Pressure Peak Inspiratory Airway 27 Pressure Peak Inspiratory Airway 30 Pressure Peak Inspiratory Airway 28 Pressure Results - Laboratory Findings CBC and BMP: 08/22/18 06:02 08/22/18 22:00 ABG ABG pH 7.45 pH Units (7.32-7.45) 08/22/18 05:33 ABG pCO2 37 mmHg (35-45) 08/22/18 05:33 ABG pO2 91 mmHg (85-104) 08/22/18 05:33 ABG O2 Saturation 97 % (95-98) 08/22/18 05:33 PT/INR, D-dimer PT 12.7 Seconds (9.4-12.1) H 08/15/18 13:00 Abnormal lab findings: Abnormal lab results RBC 2.62 M/mcL (4.19-5.50) L 08/22/18 06:02 Hgb 8.1 g/dL (12.9-16.9) L 08/22/18 06:02 Hct 24.4 % (37.5-50.1) L 08/22/18 06:02 RDW 15.3 % (11.5-14.5) H 08/22/18 06:02 Plt Count 133 K/mcL (140-400) L 08/22/18 06:02 Platelet Estimate Decreased (Normal) L 08/20/18 07:58 PT 12.7 Seconds (9.4-12.1) H 08/15/18 13:00 ABG Total CO2 27 mEq/L (20-26) H 08/22/18 05:33 Potassium 3.1 mEq/L (3.5-5.1) L 08/22/18 06:02 Chloride 108 mEq/L (98-107) H 08/22/18 06:02 Glucose 116 mg/dL (70-105) H 08/22/18 06:02 POC Glucose 102 mg/dL (70-99) H 08/22/18 10:44 Hemoglobin A1c 6.2 % (-5.6) H 08/16/18 06:05 Calcium 8.2 mg/dL (8.6-10.3) L 08/22/18 06:02 Serum Total Protein 5.2 g/dL (6.4-8.9) L 08/18/18 05:38 Albumin 2.9 g/dL (3.5-5.7) L 08/18/18 05:38 Globulin 2.3 g/dL (2.4-3.5) L 08/18/18 05:38 Beta-Hydroxybutyric Acd > 2.00 mmol/L (0.02-0.27) H 08/15/18 13:00 Urine Protein 30 mg/dL (Neg-Trace) H 08/15/18 14:05 Urine Ketones 15 mg/dL (Negative) H 08/15/18 14:05 Urine Blood Large (Negative) H 08/15/18 14:05 Ur Squamous Epith Cells Many per lpf (None-Few) H 08/15/18 14:05 - Clinical Findings Intake & Output: Intake & Output 08/22/18 08/22/18 08/22/18 07:59 15:59 23:59 Intake Total 915 / 915 739 / 739 414 / 414 Output Total 850 / 850 250 / 250 2200 / 2200 Balance 65 / 65 489 / 489 -1786 / -1786 Weight 96 kg Consult Discharge Plan - Plan Referrals: Gabriella Simon [Advanced Practice Nurse] - 09/06/18 9:00 am
--- NOTE | 2018-08-22 23:28 | Electrocardiograph Report ---
[facility] Test Date: 2018-08-21 Pat Name: Gino Means Department: 109 Room: 07 Gender: M Executor Of Estate: : 1965 Requested By: Wilbert Ramos Order Number: [id number] Reading MD: Fred Piper Measurements Intervals [place] Rate: 82 P: 98 [place]: 174 QRS: 47 QRSD: 101 T: 56 QT: 384 QTc: 423 Interpretive Statements SINUS RHYTHM Electronically Signed On 08-22-2018 23:27:09 EDT by Fred Piper
[2018-08-23] MEDS: Artificial Tears SOLN 15 ML BOTTLE BOTH EYES SCH ×6 (00:12→21:37)
[2018-08-23] MEDS: Dexmedetomidine HCl 400 MCG/100 ML MLS IVC SCH ×3 (02:40→17:29)
[2018-08-23 04:22] LABS: Basophils % 0.3 %; Eosinophils # 0.1 K/mcL (0.0-0.6); Eosinophils % 1.8 %; Hemoglobin 8.8 g/dL (12.9-16.9); Immature Granulocytes % 1.2 % (0-4); Lymphocytes # 0.9 K/mcL (0.6-4.6); Lymphocytes % 12.8 %; Mean Corpuscular HGB Conc 32.6 g/dL (31.6-35.5); Mean Corpuscular Hemoglobin 30.3 pg (28.0-33.3); Mean Corpuscular Volume 93.1 fL (83.0-100.0); Mean Platelet Volume 8.6 fL (9.4-12.4); Monocytes # 0.7 K/mcL (0.0-1.3); Monocytes % 9.5 %; Neutrophils # 5.4 K/mcL (1.6-8.9); Platelet Count 147 K/mcL (140-400); Red Cell Distribution Width 15.5 % (11.5-14.5); Segmented Neutrophils % 74.4 %
[2018-08-23 04:27] LABS: VBG Ionized Calcium 1.22 mmol/L (1.15-1.35)
[2018-08-23 04:40] LABS: ABG Base Excess 3 mEq/L (-2 to 3); ABG HCO3 30 mEq/L (21-27); ABG Oxygen Saturation 91 % (95-98); ABG PCO2 54 mmHg (35-45); ABG PH 7.35 pH Units (7.32-7.45); ABG PO2 65 mmHg (85-104); ABG TCO2 31 mEq/L (20-26); Blood Gas Modality ASSIST CONTROL; Blood Gas PEEP 5 cm H2O; Blood Gas Respiration Rate 18; Blood Gas VT 550 cc
[2018-08-23 04:41] LABS: BUN/Creatinine Ratio 13 (6-26); Blood Urea Nitrogen 15 mg/dL (6-20); Calcium 8.6 mg/dL (8.6-10.3); Carbon Dioxide 28 mEq/L (23-29); Chloride 108 mEq/L (98-107); Glucose 148 mg/dL (70-105); Osmolality,Calculated 300 (280-300); Potassium 4.2 mEq/L (3.5-5.1); Sodium 143 mEq/L (136-145); eGFR For Non-African Americans > 60 (> 60)
[2018-08-23 04:43] LABS: Magnesium 1.9 mg/dL (1.6-2.6); Phosphorous 4.3 mg/dL (2.7-4.5)
[2018-08-23] MEDS: *HR* Enoxaparin 40 MG/0.4 ML SYRINGE SQ SCH (06:06)
[2018-08-23] MEDS: Pantoprazole 40 MG VIAL IVP SCH (06:06)
[2018-08-23] MEDS: Budesonide/Formoterol 80/4.5 MDI IH SCH ×2 (07:22→23:00)
--- NOTE | 2018-08-23 08:06 | Pulmonology Progress Note ---
<Mehdi Toney W - Last Filed: 08/23/18 10:42> Date of Encounter: 08/23/18 Objective PUL Vital signs: Last Vital Signs Temp 98.7 F 08/23/18 07:58 Pulse 101 08/23/18 09:00 Resp 21 08/23/18 09:25 BP 107/63 08/23/18 09:00 Pulse Ox 92 08/23/18 09:25 Ventilator Settings Ventilator Settings: Ventilator Settings, Last 8 Hours Ventilator Tidal Volume 550 Setting Ventilator Tidal Volume 550 Setting Ventilator Tidal Volume 550 Setting Ventilator Tidal Volume 550 Setting Ventilator Tidal Volume 550 Setting Ventilator Tidal Volume 550 Setting Ventilator Tidal Volume 550 Setting Ventilator Tidal Volume 550 Setting Ventilator Tidal Volume 550 Setting Ventilator Tidal Volume 550 Setting Ventilator Respiratory Rate 18 Setting Ventilator Respiratory Rate 18 Setting Ventilator Respiratory Rate 18 Setting Ventilator Respiratory Rate 18 Setting Ventilator Respiratory Rate 18 Setting Ventilator Respiratory Rate 18 Setting Ventilator Respiratory Rate 18 Setting Ventilator Respiratory Rate 18 Setting Ventilator Respiratory Rate 18 Setting Ventilator Respiratory Rate 18 Setting Actual Respiratory Rate 19 Actual Respiratory Rate 16 Actual Respiratory Rate 18 Actual Respiratory Rate 20 Actual Respiratory Rate 25 Actual Respiratory Rate 20 Actual Respiratory Rate 22 Actual Respiratory Rate 18 Actual Respiratory Rate 18 Actual Respiratory Rate 18 Actual Respiratory Rate 18 Actual Respiratory Rate 18 Positive End Expiratory 5 Pressure Positive End Expiratory 5 Pressure Positive End Expiratory 5 Pressure Positive End Expiratory 5 Pressure Positive End Expiratory 5 Pressure Positive End Expiratory 5 Pressure Positive End Expiratory 5 Pressure Positive End Expiratory 5 Pressure Positive End Expiratory 5 Pressure Positive End Expiratory 5 Pressure Positive End Expiratory 5 Pressure Positive End Expiratory 5 Pressure Positive End Expiratory 5 Pressure Peak Inspiratory Airway 16 Pressure Peak Inspiratory Airway 16 Pressure Peak Inspiratory Airway 16 Pressure Peak Inspiratory Airway 25 Pressure Peak Inspiratory Airway 28 Pressure Peak Inspiratory Airway 32 Pressure Peak Inspiratory Airway 35 Pressure Peak Inspiratory Airway 30 Pressure Peak Inspiratory Airway 31 Pressure Peak Inspiratory Airway 32 Pressure Peak Inspiratory Airway 32 Pressure Peak Inspiratory Airway 32 Pressure Results - Laboratory Findings CBC and BMP: 08/23/18 04:12 08/23/18 04:12 ABG ABG pH 7.35 pH Units (7.32-7.45) 08/23/18 04:37 ABG pCO2 54 mmHg (35-45) H 08/23/18 04:37 ABG pO2 65 mmHg (85-104) L 08/23/18 04:37 ABG O2 Saturation 91 % (95-98) L 08/23/18 04:37 PT/INR, D-dimer PT 12.7 Seconds (9.4-12.1) H 08/15/18 13:00 Abnormal lab findings: Abnormal lab results RBC 2.90 M/mcL (4.19-5.50) L 08/23/18 04:12 Hgb 8.8 g/dL (12.9-16.9) L 08/23/18 04:12 Hct 27.0 % (37.5-50.1) L 08/23/18 04:12 RDW 15.5 % (11.5-14.5) H 08/23/18 04:12 MPV 8.6 fL (9.4-12.4) L 08/23/18 04:12 Platelet Estimate Decreased (Normal) L 08/20/18 07:58 PT 12.7 Seconds (9.4-12.1) H 08/15/18 13:00 ABG pCO2 54 mmHg (35-45) H 08/23/18 04:37 ABG pO2 65 mmHg (85-104) L 08/23/18 04:37 ABG HCO3 30 mEq/L (21-27) H 08/23/18 04:37 ABG Total CO2 31 mEq/L (20-26) H 08/23/18 04:37 ABG O2 Saturation 91 % (95-98) L 08/23/18 04:37 Chloride 108 mEq/L (98-107) H 08/23/18 04:12 Glucose 148 mg/dL (70-105) H 08/23/18 04:12 POC Glucose 127 mg/dL (70-99) H 08/23/18 07:29 Hemoglobin A1c 6.2 % (-5.6) H 08/16/18 06:05 Serum Total Protein 5.2 g/dL (6.4-8.9) L 08/18/18 05:38 Albumin 2.9 g/dL (3.5-5.7) L 08/18/18 05:38 Globulin 2.3 g/dL (2.4-3.5) L 08/18/18 05:38 Beta-Hydroxybutyric Acd > 2.00 mmol/L (0.02-0.27) H 08/15/18 13:00 Urine Protein 30 mg/dL (Neg-Trace) H 08/15/18 14:05 Urine Ketones 15 mg/dL (Negative) H 08/15/18 14:05 Urine Blood Large (Negative) H 08/15/18 14:05 Ur Squamous Epith Cells Many per lpf (None-Few) H 08/15/18 14:05 - Clinical Findings Intake & Output: Intake & Output 08/22/18 08/23/18 08/23/18 23:59 07:59 15:59 Intake Total 756.5 / 756.5 688.1 / 688.1 31.3 / 31.3 Output Total 2850 / 2850 175 / 175 Balance -2093.5 / -2093.5 513.1 / 513.1 31.3 / 31.3 Weight 92.1 kg Consult Discharge Plan - Plan Referrals: Gabriella Simon [Advanced Practice Nurse] - 09/06/18 9:00 am - Attending Attestation I examined this patient and my medical decision-making was reviewed with the Resident Physician. I agree with the documented findings, disposition and treatment plan as described except to the extent set forth below. We independently had [id number] contact with the patient I spent 32min of Critical Care time with this patient. It involved decision making of high complexity to assess, manipulate, and support vital organ system failure and/or to prevent further life threatening deterioration of the patient's condition. The time involved in the performance of separately reportable procedures was not counted toward critical care time. Patient seen and examined at bedside Labs, radiology, chart personally reviewed. Management was reviewed during multidisciplinary critical care rounds. 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: Likely catatonia/schizophrenia psychiatry following recent diagnosis of neuroleptic malignant syndrome we will defer to psychiatry for management of an tipsychotic medications; he remains agitated and we will use Precedex for this reason, neurologically he is unable to follow commands but is noted to move all extremities spontaneously without clear evidence of focal weakness Pulm: Patient remains hypoxic and intubated worsening hypercarbia although this is compensated concerned about liberation because we cannot do a full weaning parameters because of his mental status we will attempt CPAP trial today however Cards: Blood pressure monitored and stable; he remains on amiodarone for atrial fibrillation which is rate controlled also will continue beta kristen GI: GI prophylaxis given Nutrition: He is receiving intravenous nutrition which can be transitioned to oral once liberated Renal: Acute kidney injury secondary to rhabdomyolysis which is improving UOP Monitored, Cont to Trend sCr and monitor Electrolytes. We will continue to diurese ID: No clear evidence of infection Heme/Onc: Continue Lovenox for anticoagulation Endo: Glucose Monitored Integ/MSK: Skin Care per routine ICU Nursing Protocol to prevent ulcers. Lines: All lines examined without evidence of infection : Dispo: Monitor in ICU for critical illness CODE: Full <Greg Paula - Last Filed: 08/23/18 12:31> Date of Encounter: 08/23/18 Time of Encounter: 08:06 Assessment and Plan (1) Acute hypoxemic respiratory failure Current Visit: Yes Status: Acute Patient had acute hypoxic respiratory failure likely secondary to fluid resuscitation due to the patient being in DKA as well as rhabdomyolysis. Patient's rhabdomyolysis is significantly improved and resolved. Current crit and kinase is 180. Patient is still requiring intubation and sedation. Patient's most recent ABG was pH of 7.35, PCO2 54, PO2 65, bicarbonate 30, total CO2 31. Patient has been in CPAP with FiO2 of 40 and a PEEP of 5. We will continue to work on decreasing the patient's respiratory assistance and work towards potential extubation. We will likely extubate today (2) Metabolic encephalopathy Current Visit: Yes Status: Acute Psychiatry has recommended yesterday to do a trial of 2 mg of Ativan. They felt that this was beneficial and recommended giving the patient 2 mg IV 3 times a day as well as getting a repeat head CT. The repeat head CT has been ordered. The order for the abdomen has been placed. We will also speak to psychiatry about potentially restarting any other his home medications. (3) Rhabdomyolysis Current Visit: Yes Status: Resolved Patient was found to be in rhabdomyolysis. Patient received aggressive fluid hydration. Patient's CK level has normalized and is currently 180. Patient renal function has improved. At this time feel the patient rhabdomyolysis has resolved. Qualifiers: Rhabdomyolysis type: traumatic Encounter type: subsequent encounter Qualified Code(s): T79.6XXD - Traumatic ischemia of muscle, subsequent encounter (4) Neuroleptic malignant syndrome Current Visit: Yes Status: Resolved Patient was thought to be in neuroleptic malignant syndrome due to Haldol and Levaquin. The patient's symptoms started after receiving the Levaquin. This could potentially be the cause of the elevated malignant syndrome. Patient's creatinine kinase has trended down and normalized. Dantrolene had been given but has been stopped. Psychiatry is following the patient. (5) JERMAIN (acute kidney injury) Current Visit: Yes Status: Acute Patient's acute kidney injury has improved. Patient's current creatinine today is 1.18. With a GFR greater than 60. (6) DVT prophylaxis Current Visit: Yes Status: Acute Patient is currently on lovenox Subjective Principal diagnosis: Patient seen in F/U for Neuroleptic malignant syndrome Interval history: No acute events were noted over night. Patient is intubated and is unable to provide any additional history at this time. Objective PUL Vital signs: Last Vital Signs Temp 98.7 F 08/23/18 07:58 Pulse 119 08/23/18 07:00 Resp 20 08/23/18 07:23 BP 122/76 08/23/18 07:23 Pulse Ox 96 08/23/18 07:23 General appearance: agitated, other (Intubated with sedation.) Eyes: nonicteric ENT: other (ET tube in place ) Effort: normal Auscultation: bilateral: other (Course breath sounds bilaterally) Cardiovascular: regular rate and rhythm Gastrointestinal: normoactive bowel sounds, soft, non-tender Extremities: no edema pupils equal and round, other (Patient moves all 4 tremors but does not follow commands. Complete and detailed neuro exam is difficult to obtain due to the patient being under sedation and intubated.) other (Difficult to assess due to the patient being sedated and intubated.) Ventilator Settings Ventilator Settings: Ventilator Settings, Last 8 Hours Ventilator Tidal Volume 550 Setting Ventilator Tidal Volume 550 Setting Ventilator Tidal Volume 550 Setting Ventilator Tidal Volume 550 Setting Ventilator Tidal Volume 550 Setting Ventilator Tidal Volume 550 Setting Ventilator Tidal Volume 550 Setting Ventilator Tidal Volume 550 Setting Ventilator Tidal Volume 550 Setting Ventilator Tidal Volume 550 Setting Ventilator Tidal Volume 550 Setting Ventilator Tidal Volume 550 Setting Ventilator Respiratory Rate 18 Setting Ventilator Respiratory Rate 18 Setting Ventilator Respiratory Rate 18 Setting Ventilator Respiratory Rate 18 Setting Ventilator Respiratory Rate 18 Setting Ventilator Respiratory Rate 18 Setting Ventilator Respiratory Rate 18 Setting Ventilator Respiratory Rate 18 Setting Ventilator Respiratory Rate 18 Setting Ventilator Respiratory Rate 18 Setting Ventilator Respiratory Rate 18 Setting Ventilator Respiratory Rate 18 Setting Actual Respiratory Rate 20 Actual Respiratory Rate 25 Actual Respiratory Rate 20 Actual Respiratory Rate 22 Actual Respiratory Rate 18 Actual Respiratory Rate 18 Actual Respiratory Rate 18 Actual Respiratory Rate 18 Actual Respiratory Rate 18 Actual Respiratory Rate 18 Actual Respiratory Rate 18 Positive End Expiratory 5 Pressure Positive End Expiratory 5 Pressure Positive End Expiratory 5 Pressure Positive End Expiratory 5 Pressure Positive End Expiratory 5 Pressure Positive End Expiratory 5 Pressure Positive End Expiratory 5 Pressure Positive End Expiratory 5 Pressure Positive End Expiratory 5 Pressure Positive End Expiratory 5 Pressure Positive End Expiratory 5 Pressure Positive End Expiratory 5 Pressure Peak Inspiratory Airway 25 Pressure Peak Inspiratory Airway 28 Pressure Peak Inspiratory Airway 32 Pressure Peak Inspiratory Airway 35 Pressure Peak Inspiratory Airway 30 Pressure Peak Inspiratory Airway 31 Pressure Peak Inspiratory Airway 32 Pressure Peak Inspiratory Airway 32 Pressure Peak Inspiratory Airway 32 Pressure Peak Inspiratory Airway 30 Pressure Peak Inspiratory Airway 30 Pressure Results - Laboratory Findings CBC and BMP: 08/23/18 04:12 08/23/18 04:12 ABG ABG pH 7.35 pH Units (7.32-7.45) 08/23/18 04:37 ABG pCO2 54 mmHg (35-45) H 08/23/18 04:37 ABG pO2 65 mmHg (85-104) L 08/23/18 04:37 ABG O2 Saturation 91 % (95-98) L 08/23/18 04:37 PT/INR, D-dimer PT 12.7 Seconds (9.4-12.1) H 08/15/18 13:00 Abnormal lab findings: Abnormal lab results RBC 2.90 M/mcL (4.19-5.50) L 08/23/18 04:12 Hgb 8.8 g/dL (12.9-16.9) L 08/23/18 04:12 Hct 27.0 % (37.5-50.1) L 08/23/18 04:12 RDW 15.5 % (11.5-14.5) H 08/23/18 04:12 MPV 8.6 fL (9.4-12.4) L 08/23/18 04:12 Platelet Estimate Decreased (Normal) L 08/20/18 07:58 PT 12.7 Seconds (9.4-12.1) H 08/15/18 13:00 ABG pCO2 54 mmHg (35-45) H 08/23/18 04:37 ABG pO2 65 mmHg (85-104) L 08/23/18 04:37 ABG HCO3 30 mEq/L (21-27) H 08/23/18 04:37 ABG Total CO2 31 mEq/L (20-26) H 08/23/18 04:37 ABG O2 Saturation 91 % (95-98) L 08/23/18 04:37 Chloride 108 mEq/L (98-107) H 08/23/18 04:12 Glucose 148 mg/dL (70-105) H 08/23/18 04:12 POC Glucose 127 mg/dL (70-99) H 08/23/18 07:29 Hemoglobin A1c 6.2 % (-5.6) H 08/16/18 06:05 Serum Total Protein 5.2 g/dL (6.4-8.9) L 08/18/18 05:38 Albumin 2.9 g/dL (3.5-5.7) L 08/18/18 05:38 Globulin 2.3 g/dL (2.4-3.5) L 08/18/18 05:38 Beta-Hydroxybutyric Acd > 2.00 mmol/L (0.02-0.27) H 08/15/18 13:00 Urine Protein 30 mg/dL (Neg-Trace) H 08/15/18 14:05 Urine Ketones 15 mg/dL (Negative) H 08/15/18 14:05 Urine Blood Large (Negative) H 08/15/18 14:05 Ur Squamous Epith Cells Many per lpf (None-Few) H 08/15/18 14:05 - Clinical Findings Intake & Output: Intake & Output 08/22/18 08/23/18 08/23/18 23:59 07:59 15:59 Intake Total 756.5 / 756.5 688.1 / 688.1 Output Total 2850 / 2850 175 / 175 Balance -2093.5 / -2093.5 513.1 / 513.1 Weight 92.1 kg
[2018-08-23] MEDS: Furosemide 40 MG/4 ML VIAL IVP SCH (09:02)
[2018-08-23] MEDS: Chlorhexidine Rinse 15 ML MOUTHWASH MM SCH ×2 (09:02→21:37)
[2018-08-23] MEDS: Amiodarone Premix 360 MG/200 ML BAG IVC SCH (10:56)
[2018-08-23] MEDS ORDERED: Furosemide 40 MG/4 ML VIAL IVP ONE (12:00)
[2018-08-23] MEDS: FentaNYL (PF) 2,500 MCG in EMPTY BAG 1 EACH IVC SCH (13:08)
--- NOTE | 2018-08-23 15:22 | Psychiatry Progress Note ---
Date of Encounter: 08/23/18 Time of Encounter: 09:50 Subjective Interval history: Patient was seen today with his eyes initially closed. He continues to be responsive to his name, opening his eyes upon its verbalization. He was staring blankly, not tracking this provider's movements with his eyes. He moved around significantly more today than this provider had seen in the past. However, it is not known if this movement has improved. He continues not to follow any commands. He would not squeeze my hand upon my request. He would not close his eyes upon my request. He would not speak upon my request. Review of Systems Neurological: Reports: confusion Psychiatric: Reports: confusion, other (Currently sedated) Results - Vital Signs Vital Signs: Temp Pulse Resp BP Pulse Ox 98.2 F 90 20 117/65 94 08/23/18 12:04 08/23/18 12:00 08/23/18 13:38 08/23/18 12:00 08/23/18 13:38 - Drug Levels and Toxicology Drug Levels and Toxicology: None noted this a.m. - Labs Labs: Laboratory Results - last 24 hr 08/22/18 08/22/18 08/22/18 16:05 19:39 22:00 WBC RBC Hgb Hct MCV MCH MCHC RDW Plt Count MPV Immature Gran % Seg Neutrophils % Lymphocytes % Monocytes % Eosinophils % Basophils % Neutrophils # Lymphocytes # Monocytes # Eosinophils # Basophils # Sample Site ABG pH ABG pCO2 ABG pO2 ABG HCO3 ABG Total CO2 ABG O2 Saturation ABG Base Excess Respiration Rate O2 Delivery Device Blood Gas Modality Inspired O2 Tidal Volume PEEP Sodium Potassium Chloride Carbon Dioxide BUN Creatinine Est GFR ( Amer) Est GFR (Non-Af Amer) BUN/Creatinine Ratio Glucose POC Glucose 105 H 109 H Calculated Osmolality Calcium Venous Ioniz Calcium Phosphorus Magnesium 2.0 08/22/18 08/22/18 08/23/18 22:00 23:36 03:28 WBC RBC Hgb Hct MCV MCH MCHC RDW Plt Count MPV Immature Gran % Seg Neutrophils % Lymphocytes % Monocytes % Eosinophils % Basophils % Neutrophils # Lymphocytes # Monocytes # Eosinophils # Basophils # Sample Site ABG pH ABG pCO2 ABG pO2 ABG HCO3 ABG Total CO2 ABG O2 Saturation ABG Base Excess Respiration Rate O2 Delivery Device Blood Gas Modality Inspired O2 Tidal Volume PEEP Sodium Potassium 3.7 Chloride Carbon Dioxide BUN Creatinine Est GFR ( Amer) Est GFR (Non-Af Amer) BUN/Creatinine Ratio Glucose POC Glucose 104 H 132 H Calculated Osmolality Calcium Venous Ioniz Calcium Phosphorus Magnesium 08/23/18 08/23/18 08/23/18 04:12 04:12 04:12 WBC 7.3 RBC 2.90 L Hgb 8.8 L Hct 27.0 L MCV 93.1 MCH 30.3 MCHC 32.6 RDW 15.5 H Plt Count 147 MPV 8.6 L Immature Gran % 1.2 Seg Neutrophils % 74.4 Lymphocytes % 12.8 Monocytes % 9.5 Eosinophils % 1.8 Basophils % 0.3 Neutrophils # 5.4 Lymphocytes # 0.9 Monocytes # 0.7 Eosinophils # 0.1 Basophils # 0.0 Sample Site ABG pH ABG pCO2 ABG pO2 ABG HCO3 ABG Total CO2 ABG O2 Saturation ABG Base Excess Respiration Rate O2 Delivery Device Blood Gas Modality Inspired O2 Tidal Volume PEEP Sodium 143 Potassium 4.2 Chloride 108 H Carbon Dioxide 28 BUN 15 Creatinine 1.18 Est GFR ( Amer) > 60 Est GFR (Non-Af Amer) > 60 BUN/Creatinine Ratio 13 Glucose 148 H POC Glucose Calculated Osmolality 300 Calcium 8.6 Venous Ioniz Calcium Phosphorus 4.3 Magnesium 1.9 08/23/18 08/23/18 08/23/18 04:24 04:37 07:29 WBC RBC Hgb Hct MCV MCH MCHC RDW Plt Count MPV Immature Gran % Seg Neutrophils % Lymphocytes % Monocytes % Eosinophils % Basophils % Neutrophils # Lymphocytes # Monocytes # Eosinophils # Basophils # Sample Site R Radial ABG pH 7.35 ABG pCO2 54 H ABG pO2 65 L ABG HCO3 30 H ABG Total CO2 31 H ABG O2 Saturation 91 L ABG Base Excess 3 Respiration Rate 18 O2 Delivery Device Adult Vent Blood Gas Modality ASSIST CONTROL Inspired O2 30.0 Tidal Volume 550 PEEP 5 Sodium Potassium Chloride Carbon Dioxide BUN Creatinine Est GFR ( Amer) Est GFR (Non-Af Amer) BUN/Creatinine Ratio Glucose POC Glucose 127 H Calculated Osmolality Calcium Venous Ioniz Calcium 1.22 Phosphorus Magnesium 08/23/18 11:46 WBC RBC Hgb Hct MCV MCH MCHC RDW Plt Count MPV Immature Gran % Seg Neutrophils % Lymphocytes % Monocytes % Eosinophils % Basophils % Neutrophils # Lymphocytes # Monocytes # Eosinophils # Basophils # Sample Site ABG pH ABG pCO2 ABG pO2 ABG HCO3 ABG Total CO2 ABG O2 Saturation ABG Base Excess Respiration Rate O2 Delivery Device Blood Gas Modality Inspired O2 Tidal Volume PEEP Sodium Potassium Chloride Carbon Dioxide BUN Creatinine Est GFR ( Amer) Est GFR (Non-Af Amer) BUN/Creatinine Ratio Glucose POC Glucose 129 H Calculated Osmolality Calcium Venous Ioniz Calcium Phosphorus Magnesium - Impressions ITS Impressions Chest X-Ray 08/15/18 12:03 IMPRESSION: COPD with no acute cardiopulmonary process seen. D/ / 08/15/2018 13:58:06 Juan Pablo Bullock MD / [facility] Interpreting Provider: Juan Pablo Bullock MD Head CT 08/15/18 12:04 IMPRESSION: No acute intracranial abnormality. D/ / 08/15/2018 13:06:35 Akira Waddell MD / [facility] Interpreting Provider: Akira Waddell MD Chest X-Ray 08/16/18 18:06 IMPRESSION: 1. No lines or tubes. 2. Stable cardiopulmonary status with COPD and reticular opacities which may represent mild interstitial edema. D/ / 08/16/2018 18:39:07 Ivanna Cruz MD / [facility] Interpreting Provider: Ivanna Cruz MD Chest X-Ray 08/17/18 08:42 IMPRESSION: Prominent interstitium suspicious for underlying COPD, with prominent perihilar bronchial thickening more so on the left which may be related to superimposed acute bronchitis. Suspected minimal left basilar atelectasis. D/ / Deep Maravilla MD / Deep Maravilla MD Interpreting Provider: Deep Maravilla MD Chest X-Ray 08/17/18 14:31 IMPRESSION: There are two images provided, the 1st with time stamp 1440 hours and the second with time stamp 1444 hours, both on 08/17/2018. Initial image fails to demonstrate any lines or tubes. Second image demonstrates an endotracheal tube with tip 2.5 cm from the matt. No evidence for acute cardiopulmonary process is seen on either image. D/ / 08/17/2018 15:24:26 Dino Clinton MD / [facility] Interpreting Provider: Dino Clinton MD Echocardiogram 08/19/18 07:52 Impressions: Technically sub-optimal due to poor echocardiographic windows. LVEF 60-65%. Normal LV chamber size, wall thickness and function. Grossly normal right ventricular structure and function. Indeterminate diastolic function. Unable to estimate RVSP due to lack of adequate TR jet. No obvious significant valvular dysfunction. Left Ventricular Wall Motion: Rest Echo Findings All wall segments showed normal motion. Findings: Study Quality * Technically sub-optimal due to poor echocardiographic windows. ECG Findings * Atrial fibrillation. Left Ventricle * LVEF 60-65%. * Normal LV chamber size, wall thickness and function. * Indeterminate diastolic function. Right Ventricle * Grossly normal right ventricular structure and function. Left Atrium * Normal left atrial size. Right Atrium * Normal right atrial size. Aortic Valve * Aortic valve not well visualized. * No aortic regurgitation. * No aortic stenosis. Mitral Valve * Normal mitral valve structure and function. * No mitral regurgitation. * No mitral stenosis. Tricuspid Valve * Normal tricuspid valve structure and function. * Trace tricuspid regurgitation. * Unable to estimate RVSP due to lack of adequate TR jet. Pulmonic Valve * Pulmonic valve not well visualized. Aorta * Normally sized aortic root. Pericardium * The pericardium appears normal. IVC * Normal IVC dimensions and inspiratory collapse. Pulmonary Artery * Pulmonary artery not well visualized. Chest X-Ray 08/23/18 04:00 IMPRESSION: 1. Endotracheal tube tip is obscured by spinal fixation hardware. 2. Bilateral airspace disease could represent edema or pneumonia. D/ / Davis Bean MD / Davis Bean MD Interpreting Provider: Davis Bean MD Assessment and Plan (1) Neuroleptic malignant syndrome Current visit: Yes Status: Resolved Plan: Continue hospitalization, Monitor sleep, Monitor appetite Additional Plan: -Patient currently does have symptoms of catatonia, including stupor, mutism, staring, rigidity, waxy flexibility, and withdrawal. Patient did appear to have some increased responsiveness to the Ativan challenge test yesterday. Patient has been initiated on Ativan 2 mg IV every 8 hours, which will likely be helpful if this current decrease in response is due to catatonia. Please continue to monitor for further improvement -Consider discontinuing risperidone permanently, as he is on a low dose and is at risk for increased side effects with multiple antipsychotic medications chronically -Continue holding other psychiatric medications -Will continue to follow while inpatient Risks, benefits, side effects, alternatives discussed w/pt: No (Patient is currently not able to communicate) Patient agreeable to treatment: No (Patient is currently not able to communicate) Consult Discharge Plan - Plan Referrals: Gabriella Simon [Advanced Practice Nurse] - 09/06/18 9:00 am - Attending Attestation I discussed this patient and my medical decision-making was reviewed with the Resident Physician. I agree with the documented findings, disposition and treatment plan as described. Psychiatry Exam - Constitutional Vitals: Temp Pulse Resp BP Pulse Ox 98.2 F 90 20 117/65 94 08/23/18 12:04 08/23/18 12:00 08/23/18 13:38 08/23/18 12:00 08/23/18 13:38 General appearance: age & developmentally appropriate, well-groomed, well- nourished, average - Musculoskeletal Gait: other (Currently confused and not ambulating) Station: stiff (Difficult reposition, with patient fighting against my attempts to flex and extend his extremities) Strength & Tone: rigid (Continues to have moderate rigidity) - Psychiatric Patient Orientation: Yes Other (Could not assess due to patient being confused) Level of alertness: Alert (But not responding to commands) Behavior: calm (Currently confused) Psychomotor activity: Catatonic (Possibly) Eye Contact: No Eye Contact Mood Description: Other (Could not be assessed due to confusion) Affect description: flat (Due to confusion) Speech Volume: No speech (Due to infusion) Speech pattern: non-verbal Language & Vocabulary: other (Could not be assessed due to confusion) Thought Process: Intact (Could not be assessed due to confusion) Thought Content: Yes Intact (Cannot be assessed due to confusion) Perceptual Disturbances: No Reacting to internal stimuli Attention Span Ability: Unable to Focus, Unable to Sustain Attention Memory Description: Immediate Impaired, Recent Impaired, Remote Impaired Patient Reliability: Not Reliable Historian Fund of knowledge: Yes average (Not be assessed due to confusion) Intelligence Estimate: Average (Cannot be assessed due to confusion) Judgment: Poor (Could not be adequate assessed due to confusion) Insight: None
--- NOTE | 2018-08-23 15:24 | Neurology Progress Note ---
Date of Encounter: 08/23/18 Time of Encounter: 09:00 Assessment and Plan (1) Rhabdomyolysis Current Visit: Yes Status: Resolved Improved Qualifiers: Qualified Code(s): T79.6XXD - Traumatic ischemia of muscle, subsequent encou nter (2) JERMAIN (acute kidney injury) Current Visit: Yes Status: Acute Resolved (3) Metabolic encephalopathy Current Visit: Yes Status: Acute Patient's mental status has been improving. Initial CT of head was reported no acute intracranial abnormality. medical conditions are improving as evidenced by normalization of renal function, CK and no leukocytosis. EEG showed mild background slowing. Treatment at this time is largely medical and supportive. (4) Neuroleptic malignant syndrome Current Visit: Yes Status: Resolved Patient's clinical status and lab results related to NMS all appear improved. however, patient still has altered mental status and diffuse muscle rigidity but no tremors. Is able to maintain posture and looks catatonic, with perserved eye blinking to visual threat. The muscle rigidity may be related to [facility]p antipsychotic use and may be a baseline condition Repeat EET reported mild background slowing consistent with encephalopathy Treatment for NMS at this point is largely medical and supportive in nature. Subjective Principal diagnosis: Patient seen in F/U for Neuroleptic malignant syndrome Interval history: Patient seen and examined. patient is currently off sedation and is only on fentanyl. overnight no fever and no seizure like activity. EEG completed and no mild to moderate diffuse slowing, no seizure, no EDs. Patient is able to move both legs to stimulation. eyes still reactive to visual threat by brisk blinking but no response to verbal commands. Patient still has diffuse muscle rigidity but no tremors. Patient is on seroquel per psychiatry Objective - Constitutional Vitals: Temp Pulse Resp BP Pulse Ox 98.2 F 90 20 117/65 94 08/23/18 12:04 08/23/18 12:00 08/23/18 13:38 08/23/18 12:00 08/23/18 13:38 - Neurological Exam Sensorimotor examination: Present: intact (Unable to assess) Motor Examination: Present: other (Arms restrained. Legs: some withdrawal both side when given painful stimuli) Sensation intact: Present: intact (Unable to assess due to reduced level of consciounsess) Posture: Present: other (None) Reflex and gait examination: other (Unable to assess) Mental Status Examination: Present: awake (Appears awake with eye opening wide with scarce eyeblinking but not responding to verbal commands. Respond to visual threat by rapid eye blinking), alert (Symptoms to be alert but not responding to verbal commands), does not follow commands Cranial nerve examination: Present: PERRL (size 4mm bilaterally, symmetrical. Brisk eyelid closing), visual rios intact (Unable to assess), corneal reflexes brisk symmetrically, sensory to face intact (Unable to assess), mastication intact (Unable to assess), no facial asymmetry is present, no dysarthria (Unable to assess), hearing is intact symmetrically (Unable to assess), soft palate elevates bilaterally upon phonation (Unable to assess), gag reflex intact, tongue protrudes midline (Unable to assess) Results - Laboratory Findings CBC and BMP: 08/23/18 04:12 08/23/18 04:12 Abnormal lab findings: Abnormal lab results RBC 2.90 M/mcL (4.19-5.50) L 08/23/18 04:12 Hgb 8.8 g/dL (12.9-16.9) L 08/23/18 04:12 Hct 27.0 % (37.5-50.1) L 08/23/18 04:12 RDW 15.5 % (11.5-14.5) H 08/23/18 04:12 MPV 8.6 fL (9.4-12.4) L 08/23/18 04:12 Platelet Estimate Decreased (Normal) L 08/20/18 07:58 PT 12.7 Seconds (9.4-12.1) H 08/15/18 13:00 ABG pCO2 54 mmHg (35-45) H 08/23/18 04:37 ABG pO2 65 mmHg (85-104) L 08/23/18 04:37 ABG HCO3 30 mEq/L (21-27) H 08/23/18 04:37 ABG Total CO2 31 mEq/L (20-26) H 08/23/18 04:37 ABG O2 Saturation 91 % (95-98) L 08/23/18 04:37 Chloride 108 mEq/L (98-107) H 08/23/18 04:12 Glucose 148 mg/dL (70-105) H 08/23/18 04:12 POC Glucose 129 mg/dL (70-99) H 08/23/18 11:46 Hemoglobin A1c 6.2 % (-5.6) H 08/16/18 06:05 Serum Total Protein 5.2 g/dL (6.4-8.9) L 08/18/18 05:38 Albumin 2.9 g/dL (3.5-5.7) L 08/18/18 05:38 Globulin 2.3 g/dL (2.4-3.5) L 08/18/18 05:38 Beta-Hydroxybutyric Acd > 2.00 mmol/L (0.02-0.27) H 08/15/18 13:00 Urine Protein 30 mg/dL (Neg-Trace) H 08/15/18 14:05 Urine Ketones 15 mg/dL (Negative) H 08/15/18 14:05 Urine Blood Large (Negative) H 08/15/18 14:05 Ur Squamous Epith Cells Many per lpf (None-Few) H 08/15/18 14:05 Consult Discharge Plan - Plan Referrals: Gabriella Simon [Advanced Practice Nurse] - 09/06/18 9:00 am
[2018-08-23] MEDS ORDERED: Valproic Acid INJ 250 MG in 0.9 % Sodium Chloride 100 ML IVPB SCH (16:00)
[2018-08-23] MEDS: *HR* Metoprolol 5 MG/5 ML VIAL IVP PRN (16:10)
[2018-08-23] MEDS: *HR* LORazepam 2 MG/ML VIAL IVP SCH (16:18)
[2018-08-23] MEDS ORDERED: Levalbuterol Neb 0.63 MG/3 ML ONE (16:24)
[2018-08-23] MEDS: Levalbuterol Neb 0.63 MG/3 ML IH SCH ×2 (16:26→23:00)
[2018-08-23] MEDS ORDERED: *HR* LORazepam 2 MG/ML VIAL IVP ONE (19:09)
[2018-08-24] MEDS: Dexmedetomidine HCl 400 MCG/100 ML MLS IVC SCH ×5 (00:24→22:31)
[2018-08-24] MEDS: Artificial Tears SOLN 15 ML BOTTLE BOTH EYES SCH ×7 (00:24→23:29)
[2018-08-24] MEDS: *HR* LORazepam 2 MG/ML VIAL IVP SCH ×5 (00:27→23:29)
[2018-08-24] MEDS: Amiodarone Premix 360 MG/200 ML BAG IVC SCH ×2 (02:00→16:43)
[2018-08-24] MEDS: Levalbuterol Neb 0.63 MG/3 ML IH SCH ×4 (03:32→21:38)
[2018-08-24 03:50] LABS: Basophils % 0.2 %; Eosinophils # 0.1 K/mcL (0.0-0.6); Eosinophils % 0.9 %; Hematocrit 31.4 % (37.5-50.1); Hemoglobin 10.1 g/dL (12.9-16.9); Immature Granulocytes % 1.2 % (0-4); Lymphocytes # 1.2 K/mcL (0.6-4.6); Lymphocytes % 13.2 %; Mean Corpuscular HGB Conc 32.2 g/dL (31.6-35.5); Mean Corpuscular Hemoglobin 30.2 pg (28.0-33.3); Mean Platelet Volume 8.8 fL (9.4-12.4); Monocytes # 0.8 K/mcL (0.0-1.3); Monocytes % 8.8 %; Platelet Count 176 K/mcL (140-400); Red Blood Count 3.34 M/mcL (4.19-5.50); Red Cell Distribution Width 14.9 % (11.5-14.5); Segmented Neutrophils % 75.7 %
[2018-08-24 04:10] LABS: BUN/Creatinine Ratio 18 (6-26); Blood Urea Nitrogen 23 mg/dL (6-20); Carbon Dioxide 31 mEq/L (23-29); Chloride 104 mEq/L (98-107); Glucose 163 mg/dL (70-105); Osmolality,Calculated 305 (280-300); Potassium 4.3 mEq/L (3.5-5.1); Sodium 144 mEq/L (136-145); eGFR For Non-African Americans > 60 (> 60)
[2018-08-24 05:11] LABS: ABG Base Excess 7 mEq/L (-2 to 3); ABG HCO3 34 mEq/L (21-27); ABG Oxygen Saturation 99 % (95-98); ABG PCO2 64 mmHg (35-45); ABG PH 7.33 pH Units (7.32-7.45); ABG PO2 145 mmHg (85-104); ABG TCO2 36 mEq/L (20-26); Blood Gas Modality ST
[2018-08-24] MEDS: *HR* Enoxaparin 40 MG/0.4 ML SYRINGE SQ SCH (05:24)
--- NOTE | 2018-08-24 07:25 | Pulmonology Progress Note ---
<Greg Paula - Last Filed: 08/24/18 11:47> Date of Encounter: 08/24/18 Time of Encounter: 07:25 Assessment and Plan (1) Acute hypoxemic respiratory failure Current Visit: Yes Status: Acute Patient had acute hypoxic respiratory failure likely secondary to fluid resuscitation due to the patient being in rhabdomyolysis. Patient's rhabdomy olysis is significantly improved and resolved. Last creatinine kinase 180. Patient was asked. On 08/23/18. Patient was put on BiPAP overnight. Patient has had increased respiratory rate and work of breathing the patient require reintubation today. (2) Metabolic encephalopathy Current Visit: Yes Status: Acute Psychiatry has recommended yesterday to do a trial of 2 mg of Ativan. Patient was on Ativan 2 mg every 8 hours however he still continued to have some agitation so we have changed his Ativan to every 6 hours. (3) Rhabdomyolysis Current Visit: Yes Status: Resolved Patient was found to be in rhabdomyolysis. Patient received aggressive fluid hy dration. Patient's CK level has normalized and last ck was 180. Patient renal function has improved. At this time feel the patient rhabdomyolysis has resolved. Qualifiers: Rhabdomyolysis type: traumatic Encounter type: subsequent encounter Qualified Code(s): T79.6XXD - Traumatic ischemia of muscle, subsequent encounter (4) Neuroleptic malignant syndrome Current Visit: Yes Status: Resolved Patient was thought to be in neuroleptic malignant syndrome due to Haldol and Levaquin. The patient's symptoms started after receiving the Levaquin. This could potentially be the cause of the elevated malignant syndrome. Patient's creatinine kinase has trended down and normalized. Dantrolene had been given but has been stopped. Psychiatry is following the patient. (5) JERMAIN (acute kidney injury) Current Visit: Yes Status: Acute Patient's acute kidney injury has improved. Patient's current creatinine today is 1.18. With a GFR greater than 60. (6) DVT prophylaxis Current Visit: Yes Status: Acute Patient is currently on lovenox Subjective Principal diagnosis: Patient seen in F/U for Neuroleptic malignant syndrome Interval history: Patient required being placed on BiPAP last night. This morning the patient did have to be reintubated due to increased respiratory rate and work of breathing. Objective PUL Vital signs: Last Vital Signs Temp 98.4 F 08/24/18 04:00 Pulse 124 08/24/18 06:00 Resp 36 08/24/18 06:00 BP 126/83 08/24/18 06:00 Pulse Ox 95 08/24/18 06:00 General appearance: other (Patient is minimally responsive to verbal stimuli.) Eyes: nonicteric Neck: supple Effort: mildly labored (Tachypnea) Auscultation: bilateral: other (Course breath sounds bilaterally.) Cardiovascular: irregular rhythm, other (Tachycardia) Gastrointestinal: normoactive bowel sounds, soft, non-tender Extremities: no edema, pink and warm Musculoskeletal: other (Patient has increased muscle rigidity.) unable to assess due to mental status other (Unable to assess due to patient's current medical condition.) Results - Laboratory Findings CBC and BMP: 08/24/18 03:35 08/24/18 03:35 ABG ABG pH 7.33 pH Units (7.32-7.45) 08/24/18 05:09 ABG pCO2 64 mmHg (35-45) H 08/24/18 05:09 ABG pO2 145 mmHg (85-104) H 08/24/18 05:09 ABG O2 Saturation 99 % (95-98) H 08/24/18 05:09 PT/INR, D-dimer PT 12.7 Seconds (9.4-12.1) H 08/15/18 13:00 Abnormal lab findings: Abnormal lab results RBC 3.34 M/mcL (4.19-5.50) L 08/24/18 03:35 Hgb 10.1 g/dL (12.9-16.9) L 08/24/18 03:35 Hct 31.4 % (37.5-50.1) L 08/24/18 03:35 RDW 14.9 % (11.5-14.5) H 08/24/18 03:35 MPV 8.8 fL (9.4-12.4) L 08/24/18 03:35 Platelet Estimate Decreased (Normal) L 08/20/18 07:58 PT 12.7 Seconds (9.4-12.1) H 08/15/18 13:00 ABG pCO2 64 mmHg (35-45) H 08/24/18 05:09 ABG pO2 145 mmHg (85-104) H 08/24/18 05:09 ABG HCO3 34 mEq/L (21-27) H 08/24/18 05:09 ABG Total CO2 36 mEq/L (20-26) H 08/24/18 05:09 ABG O2 Saturation 99 % (95-98) H 08/24/18 05:09 ABG Base Excess 7 mEq/L (-2 to 3) H 08/24/18 05:09 Carbon Dioxide 31 mEq/L (23-29) H 08/24/18 03:35 BUN 23 mg/dL (6-20) H 08/24/18 03:35 Glucose 163 mg/dL (70-105) H 08/24/18 03:35 POC Glucose 116 mg/dL (70-99) H 08/24/18 04:22 Hemoglobin A1c 6.2 % (-5.6) H 08/16/18 06:05 Calculated Osmolality 305 (280-300) H 08/24/18 03:35 Serum Total Protein 5.2 g/dL (6.4-8.9) L 08/18/18 05:38 Albumin 2.9 g/dL (3.5-5.7) L 08/18/18 05:38 Globulin 2.3 g/dL (2.4-3.5) L 08/18/18 05:38 Beta-Hydroxybutyric Acd > 2.00 mmol/L (0.02-0.27) H 08/15/18 13:00 Urine Protein 30 mg/dL (Neg-Trace) H 08/15/18 14:05 Urine Ketones 15 mg/dL (Negative) H 08/15/18 14:05 Urine Blood Large (Negative) H 08/15/18 14:05 Ur Squamous Epith Cells Many per lpf (None-Few) H 08/15/18 14:05 - Clinical Findings Intake & Output: Intake & Output 08/23/18 08/23/18 08/24/18 15:59 23:59 07:59 Intake Total 414.4 / 414.4 200 / 200 300 / 300 Output Total 1275 / 1275 1800 / 1800 225 / 225 Balance -860.6 / -860.6 -1600 / -1600 75 / 75 Weight 88.2 kg Consult Discharge Plan - Plan Referrals: Gabriella Simon [Advanced Practice Nurse] - 09/06/18 9:00 am Procedures - Intubation sedative: Etomidate Mg Given: 30 paralytic: Rocuronium Mg Given: 70 Laryngoscope: fiber optic video scope ET Tube Size: 7.5 ET Tube Uncuffed: No Tube Secured Depth (cm): 22 Tube Secured Location: lips Tube Placement Confirmation: visualized tube passing through cords, equal breath sounds bilaterally, no breath sounds over epigastrium Patient Tolerated Procedure: well Intubation Complications: none <Mehdi Toney W - Last Filed: 08/24/18 14:46> Date of Encounter: 08/24/18 Objective PUL Vital signs: Last Vital Signs Temp 98.5 F 08/24/18 12:21 Pulse 84 08/24/18 14:00 Resp 18 08/24/18 14:00 BP 74/51 08/24/18 14:00 Pulse Ox 95 08/24/18 14:00 Ventilator Settings Ventilator Settings: Ventilator Settings, Last 8 Hours Ventilator Tidal Volume 550 Setting Ventilator Tidal Volume 550 Setting Ventilator Tidal Volume 55 Setting Ventilator Tidal Volume 550 Setting Ventilator Tidal Volume 550 Setting Ventilator Tidal Volume 550 Setting Ventilator Respiratory Rate 18 Setting Ventilator Respiratory Rate 18 Setting Ventilator Respiratory Rate 18 Setting Ventilator Respiratory Rate 18 Setting Ventilator Respiratory Rate 18 Setting Actual Respiratory Rate 18 Actual Respiratory Rate 18 Actual Respiratory Rate 18 Actual Respiratory Rate 18 Actual Respiratory Rate 18 Positive End Expiratory 5 Pressure Positive End Expiratory 5 Pressure Positive End Expiratory 5 Pressure Positive End Expiratory 5 Pressure Positive End Expiratory 5 Pressure Peak Inspiratory Airway 23 Pressure Peak Inspiratory Airway 22 Pressure Peak Inspiratory Airway 31 Pressure Peak Inspiratory Airway 31 Pressure Peak Inspiratory Airway 28 Pressure Results - Laboratory Findings CBC and BMP: 08/24/18 03:35 08/24/18 03:35 ABG ABG pH 7.38 pH Units (7.32-7.45) 08/24/18 11:19 ABG pCO2 49 mmHg (35-45) H 08/24/18 11:19 ABG pO2 97 mmHg (85-104) 08/24/18 11:19 ABG O2 Saturation 97 % (95-98) 08/24/18 11:19 PT/INR, D-dimer PT 12.7 Seconds (9.4-12.1) H 08/15/18 13:00 Abnormal lab findings: Abnormal lab results RBC 3.34 M/mcL (4.19-5.50) L 08/24/18 03:35 Hgb 10.1 g/dL (12.9-16.9) L 08/24/18 03:35 Hct 31.4 % (37.5-50.1) L 08/24/18 03:35 RDW 14.9 % (11.5-14.5) H 08/24/18 03:35 MPV 8.8 fL (9.4-12.4) L 08/24/18 03:35 Platelet Estimate Decreased (Normal) L 08/20/18 07:58 PT 12.7 Seconds (9.4-12.1) H 08/15/18 13:00 ABG pCO2 49 mmHg (35-45) H 08/24/18 11:19 ABG HCO3 29 mEq/L (21-27) H 08/24/18 11:19 ABG Total CO2 30 mEq/L (20-26) H 08/24/18 11:19 ABG Hematocrit 35.0 % (37.5-50.1) L 08/24/18 11:19 Glucose 150 mg/dL (60-95) H 08/24/18 11:19 Lactate 0.5 mmol/L (0.7-2.1) L 08/24/18 11:19 Carbon Dioxide 31 mEq/L (23-29) H 08/24/18 03:35 BUN 23 mg/dL (6-20) H 08/24/18 03:35 Glucose 163 mg/dL (70-105) H 08/24/18 03:35 POC Glucose 137 mg/dL (70-99) H 08/24/18 11:35 Hemoglobin A1c 6.2 % (-5.6) H 08/16/18 06:05 Calculated Osmolality 305 (280-300) H 08/24/18 03:35 Serum Total Protein 5.2 g/dL (6.4-8.9) L 08/18/18 05:38 Albumin 2.9 g/dL (3.5-5.7) L 08/18/18 05:38 Globulin 2.3 g/dL (2.4-3.5) L 08/18/18 05:38 Beta-Hydroxybutyric Acd > 2.00 mmol/L (0.02-0.27) H 08/15/18 13:00 Urine Protein 30 mg/dL (Neg-Trace) H 08/15/18 14:05 Urine Ketones 15 mg/dL (Negative) H 08/15/18 14:05 Urine Blood Large (Negative) H 08/15/18 14:05 Ur Squamous Epith Cells Many per lpf (None-Few) H 08/15/18 14:05 - Clinical Findings Intake & Output: Intake & Output 08/23/18 08/24/18 08/24/18 23:59 07:59 15:59 Intake Total 300 / 300 300 / 300 229.0 / 229.0 Output Total 1800 / 1800 225 / 225 1475 / 1475 Balance -1500 / -1500 75 / 75 -1246.0 / -1246.0 Weight 88.2 kg - Attending Attestation I examined this patient and my medical decision-making was reviewed with the Resident Physician. I agree with the documented findings, disposition and treatment plan as described except to the extent set forth below. We independently had [id number] contact with the patient I spent 45min of Critical Care time with this patient. It involved decision making of high complexity to assess, manipulate, and support vital organ system failure and/or to prevent further life threatening deterioration of the patient's condition. The time involved in the performance of separately rep ortable procedures was not counted toward critical care time. Patient seen and examined at bedside Labs, radiology, chart personally reviewed. Management was reviewed during multidisciplinary critical care rounds. 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 fib with RVR rate was not controlled continue amiodarone and diltiazem infusion was started diuresis as tolerated GI: Ppi prophylaxis given Nutrition: Nothing by mouth for now Renal: UOP Monitored, Cont to Trend sCr and monitor Electrolytes. ID: Continue to monitor Heme/Onc: Prophylaxis given Endo: Glucose Monitored Integ/MSK: Skin Care per routine ICU Nursing Protocol to prevent ulcers. Lines: All lines examined without evidence of infection : Dispo: Continue to monitor in ICU for critical illness CODE: Full code family updated at bedside overall prognosis is guarded and given severe agitation leading to recurrent respiratory failure discussed with family and palliative care team has been consulted to discuss goals of care and further management
[2018-08-24] MEDS: *HR* Metoprolol 5 MG/5 ML VIAL IVP PRN (07:28)
[2018-08-24] MEDS ORDERED: Furosemide 40 MG/4 ML VIAL IVP ONE (07:30)
[2018-08-24] MEDS ORDERED: Furosemide 40 MG/4 ML VIAL ONE (07:30)
[2018-08-24 08:08] LABS: VBG Ionized Calcium 1.16 mmol/L (1.15-1.35)
[2018-08-24] MEDS: Pantoprazole 40 MG VIAL IVP SCH (08:18)
[2018-08-24] MEDS: Chlorhexidine Rinse 15 ML MOUTHWASH MM SCH ×2 (08:44→20:05)
[2018-08-24] MEDS: Furosemide 40 MG/4 ML VIAL IVP SCH (08:44)
[2018-08-24] MEDS: Budesonide Neb 0.5 MG/2 ML IH SCH ×2 (09:56→21:38)
[2018-08-24 11:22] LABS: ABG Base Excess 3 mEq/L (-2 to 3); ABG Chloride 106 mEq/L (98-107); ABG Glucose 150 mg/dL (60-95); ABG HCO3 29 mEq/L (21-27); ABG Ionized Calcium 1.16 mmol/L (1.15-1.35); ABG Oxygen Saturation 97 % (95-98); ABG PCO2 49 mmHg (35-45); ABG PH 7.38 pH Units (7.32-7.45); ABG PO2 97 mmHg (85-104); ABG TCO2 30 mEq/L (20-26); Blood Gas Modality ASSIST CONTROL
[2018-08-24] MEDS ORDERED: *HR* Midazolam HCl 5 MG/5 ML VIAL IVP ONE (14:04)
[2018-08-24] MEDS ORDERED: *HR* Rocuronium Bromide 100 MG/10 ML VIAL IVC ONE (14:04)
[2018-08-24] MEDS ORDERED: *HR* Etomidate 20 MG/10 ML AMPUL IVP ONE (14:04)
--- NOTE | 2018-08-24 14:34 | Procedure Note ---
<Greg Paula - Last Filed: 08/24/18 14:30> Date of procedure: 08/24/18 Pre-op diagnosis: Respiratory failure Post-op diagnosis: same Procedure: Patient is in respiratory distress. Respiratory was called. The patient was on BiPAP with increased work of breathing. Patient was preoxygenated to 100%. Patient was given 30 mg of etomidate and 70 mg of rocuronium. Respiratory was at bedside. The patient was intubated with a CMAC video laryngoscopy. A 7.5 ET tube was passed through the cords and was visualized on the monitor. The balloon was inflated. It was secured at 22 cm at the lip. Tube placement was visualized passing through the cords, there was equal breath sounds bilaterally and there was no breath sounds over the epigastrium. The chest x-ray was ordered and showed appropriate placement. The patient tolerated the procedure well. There were no complications with the procedure. Anesthesia: IV sedation Surgeon: Greg Paula Was there an behavioral health assistant present: No Estimated blood loss (cc): 0 Specimen: none <Mehdi Toney - Last Filed: 08/24/18 14:39> - Attending Attestation I was present for the entire procedure and supervised the resident physician Dr. Paula who performed the procedure skillfully there were no immediate complications
--- NOTE | 2018-08-24 23:24 | Electrocardiograph Report ---
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
[2018-08-25] MEDS: *HR* Metoprolol 5 MG/5 ML VIAL IVP PRN ×2 (02:01→07:05)
[2018-08-25] MEDS: Levalbuterol Neb 0.63 MG/3 ML IH SCH ×4 (03:54→21:27)
[2018-08-25] MEDS: Dexmedetomidine HCl 400 MCG/100 ML MLS IVC SCH ×3 (04:21→20:11)
[2018-08-25] MEDS: Amiodarone Premix 360 MG/200 ML BAG IVC SCH ×2 (04:22→16:39)
[2018-08-25 04:41] LABS: Basophils % 0.3 %; Eosinophils # 0.1 K/mcL (0.0-0.6); Eosinophils % 1.1 %; Hematocrit 33.3 % (37.5-50.1); Hemoglobin 10.9 g/dL (12.9-16.9); Immature Granulocytes % 0.7 % (0-4); Lymphocytes # 1.7 K/mcL (0.6-4.6); Mean Corpuscular HGB Conc 32.7 g/dL (31.6-35.5); Mean Corpuscular Hemoglobin 30.3 pg (28.0-33.3); Mean Corpuscular Volume 92.5 fL (83.0-100.0); Mean Platelet Volume 8.9 fL (9.4-12.4); Monocytes # 1.1 K/mcL (0.0-1.3); Monocytes % 9.4 %; Neutrophils # 8.9 K/mcL (1.6-8.9); Platelet Count 251 K/mcL (140-400); Red Cell Distribution Width 14.5 % (11.5-14.5); Segmented Neutrophils % 74.5 %
[2018-08-25 05:00] LABS: Calcium 9.5 mg/dL (8.6-10.3); Potassium 4.2 mEq/L (3.5-5.1)
[2018-08-25] MEDS: Artificial Tears SOLN 15 ML BOTTLE BOTH EYES SCH ×4 (05:06→16:37)
[2018-08-25 05:37] LABS: ABG Base Excess 6 mEq/L (-2 to 3); ABG HCO3 32 mEq/L (21-27); ABG Oxygen Saturation 99 % (95-98); ABG PCO2 49 mmHg (35-45); ABG PH 7.42 pH Units (7.32-7.45); ABG PO2 149 mmHg (85-104); ABG TCO2 33 mEq/L (20-26); Blood Gas Modality PRVC; Blood Gas PEEP 8 cm H2O; Blood Gas Respiration Rate 18; Blood Gas VT 550 cc
[2018-08-25] MEDS: *HR* LORazepam 2 MG/ML VIAL IVP SCH ×3 (06:15→22:05)
[2018-08-25] MEDS: *HR* Enoxaparin 40 MG/0.4 ML SYRINGE SQ SCH (06:15)
[2018-08-25] MEDS: Pantoprazole 40 MG VIAL IVP SCH ×2 (07:43→09:01)
[2018-08-25 08:36] LABS: VBG Ionized Calcium 1.15 mmol/L (1.15-1.35)
[2018-08-25 08:50] LABS: Magnesium 2.2 mg/dL (1.6-2.6)
--- NOTE | 2018-08-25 08:58 | Pulmonology Progress Note ---
<Greg Paula - Last Filed: 08/25/18 11:46> Date of Encounter: 08/25/18 Time of Encounter: 08:55 Assessment and Plan (1) Acute hypoxemic respiratory failure Current Visit: Yes Status: Acute Patient had acute hypoxic respiratory failure likely secondary to fluid resuscitation due to the patient being in rhabdomyolysis. Patient's rhabdomy olysis is significantly improved and resolved. Last creatinine kinase 180. We will reorder a CK today due to the a patient Patient was extubated On 08/23/18. Patient has had increased respiratory rate and work of breathing the patient require reintubation 08/24/18. (2) Metabolic encephalopathy Current Visit: Yes Status: Acute Psychiatry has recommended yesterday to do a trial of 2 mg of Ativan. Patient was on Ativan 2 mg every 8 hours however he still continued to have some agitation so we have changed his Ativan to every 6 hours. (3) Rhabdomyolysis Current Visit: Yes Status: Resolved Patient was found to be in rhabdomyolysis. Patient received aggressive fluid hydration. Patient's CK level has normalized and last ck was 180. The patients renal functioned has worsened overnight. Prior to today the patients rhabomyolsis had improved and resolved. However today the patient did have increased muscle rigidity on exam so we will repeat a CK level. Qualifiers: Rhabdomyolysis type: traumatic Encounter type: subsequent encounter Qualified Code(s): T79.6XXD - Traumatic ischemia of muscle, subsequent encounter (4) Neuroleptic malignant syndrome Current Visit: Yes Status: Resolved Patient was thought to be in neuroleptic malignant syndrome due to Haldol and Levaquin. The patient's symptoms started after receiving the Levaquin. This could potentially be the cause of the elevated malignant syndrome. Patient's creatinine kinase has trended down and normalized. Dantrolene had been given but has been stopped. Psychiatry is following the patient. Patient had increased muscle rigidity this morning on my exam. Patient has not been febrile. We will obtain a repeat CK level. (5) JERMAIN (acute kidney injury) Current Visit: Yes Status: Acute Patient has a worsening of his renal function and repeat acute kidney injury. His creatinine has increased to 1.69 with a GFR of 43. We will continue to monitor the patient's renal function. (6) DVT prophylaxis Current Visit: Yes Status: Acute Patient is currently on lovenox Subjective Principal diagnosis: Patient seen in F/U for Neuroleptic malignant syndrome Interval history: No acute events reported from overnight. The patient remains intubated and sent to provide any additional history at this time. Objective PUL Vital signs: Last Vital Signs Temp 99.2 F 08/25/18 07:42 Pulse 97 08/25/18 08:00 Resp 18 08/25/18 08:14 BP 95/65 08/25/18 08:14 Pulse Ox 100 08/25/18 08:14 General appearance: other (Patient is intubated and sedated.) Eyes: nonicteric ENT: oropharynx moist Neck: supple Effort: mildly labored Auscultation: bilateral: other (Course breath sounds bilaterally) Cardiovascular: regular rate and rhythm Gastrointestinal: hypoactive bowel sounds, soft, non-distended Extremities: no cyanosis Musculoskeletal: no deformities, other (Increased muscle rigidity from yesterday.) other (Unable to assess due to the patient being sedated and intubated.) other (Unable to assess due to the patient being intubated and sedated.) Ventilator Settings Ventilator Settings: Ventilator Settings, Last 8 Hours Ventilator Tidal Volume 550 Setting Ventilator Tidal Volume 550 Setting Ventilator Tidal Volume 550 Setting Ventilator Tidal Volume 550 Setting Ventilator Tidal Volume 550 Setting Ventilator Tidal Volume 550 Setting Ventilator Tidal Volume 550 Setting Ventilator Tidal Volume 550 Setting Ventilator Tidal Volume 550 Setting Ventilator Tidal Volume 550 Setting Ventilator Respiratory Rate 18 Setting Ventilator Respiratory Rate 18 Setting Ventilator Respiratory Rate 18 Setting Ventilator Respiratory Rate 18 Setting Ventilator Respiratory Rate 18 Setting Ventilator Respiratory Rate 18 Setting Ventilator Respiratory Rate 18 Setting Ventilator Respiratory Rate 18 Setting Ventilator Respiratory Rate 18 Setting Ventilator Respiratory Rate 18 Setting Actual Respiratory Rate 18 Actual Respiratory Rate 18 Actual Respiratory Rate 18 Actual Respiratory Rate 18 Actual Respiratory Rate 27 Actual Respiratory Rate 30 Actual Respiratory Rate 22 Actual Respiratory Rate 18 Actual Respiratory Rate 18 Positive End Expiratory 8 Pressure Positive End Expiratory 8 Pressure Positive End Expiratory 8 Pressure Positive End Expiratory 8 Pressure Positive End Expiratory 8 Pressure Positive End Expiratory 8 Pressure Positive End Expiratory 8 Pressure Positive End Expiratory 8 Pressure Positive End Expiratory 8 Pressure Positive End Expiratory 8 Pressure Peak Inspiratory Airway 24 Pressure Peak Inspiratory Airway 26 Pressure Peak Inspiratory Airway 24 Pressure Peak Inspiratory Airway 24 Pressure Peak Inspiratory Airway 27 Pressure Peak Inspiratory Airway 26 Pressure Peak Inspiratory Airway 30 Pressure Peak Inspiratory Airway 30 Pressure Peak Inspiratory Airway 34 Pressure Results - Laboratory Findings CBC and BMP: 08/25/18 04:25 08/25/18 04:25 ABG ABG pH 7.42 pH Units (7.32-7.45) 08/25/18 05:34 ABG pCO2 49 mmHg (35-45) H 08/25/18 05:34 ABG pO2 149 mmHg (85-104) H 08/25/18 05:34 ABG O2 Saturation 99 % (95-98) H 08/25/18 05:34 PT/INR, D-dimer PT 12.7 Seconds (9.4-12.1) H 08/15/18 13:00 Abnormal lab findings: Abnormal lab results WBC 12.0 K/mcL (4.3-11.1) H 08/25/18 04:25 RBC 3.60 M/mcL (4.19-5.50) L 08/25/18 04:25 Hgb 10.9 g/dL (12.9-16.9) L 08/25/18 04:25 Hct 33.3 % (37.5-50.1) L 08/25/18 04:25 MPV 8.9 fL (9.4-12.4) L 08/25/18 04:25 Platelet Estimate Decreased (Normal) L 08/20/18 07:58 PT 12.7 Seconds (9.4-12.1) H 08/15/18 13:00 ABG pCO2 49 mmHg (35-45) H 08/25/18 05:34 ABG pO2 149 mmHg (85-104) H 08/25/18 05:34 ABG HCO3 32 mEq/L (21-27) H 08/25/18 05:34 ABG Total CO2 33 mEq/L (20-26) H 08/25/18 05:34 ABG O2 Saturation 99 % (95-98) H 08/25/18 05:34 ABG Base Excess 6 mEq/L (-2 to 3) H 08/25/18 05:34 ABG Hematocrit 35.0 % (37.5-50.1) L 08/24/18 11:19 Glucose 150 mg/dL (60-95) H 08/24/18 11:19 Lactate 0.5 mmol/L (0.7-2.1) L 08/24/18 11:19 Sodium 146 mEq/L (136-145) H 08/25/18 04:25 Carbon Dioxide 31 mEq/L (23-29) H 08/25/18 04:25 BUN 43 mg/dL (6-20) H 08/25/18 04:25 Creatinine 1.69 mg/dL (0.70-1.30) H 08/25/18 04:25 Est GFR ( Amer) 52 (> 60) L 08/25/18 04:25 Est GFR (Non-Af Amer) 43 (> 60) L 08/25/18 04:25 Glucose 162 mg/dL (70-105) H 08/25/18 04:25 POC Glucose 167 mg/dL (70-99) H 08/25/18 07:45 Hemoglobin A1c 6.2 % (-5.6) H 08/16/18 06:05 Calculated Osmolality 316 (280-300) H 08/25/18 04:25 Serum Total Protein 5.2 g/dL (6.4-8.9) L 08/18/18 05:38 Albumin 2.9 g/dL (3.5-5.7) L 08/18/18 05:38 Globulin 2.3 g/dL (2.4-3.5) L 08/18/18 05:38 Beta-Hydroxybutyric Acd > 2.00 mmol/L (0.02-0.27) H 08/15/18 13:00 Urine Protein 30 mg/dL (Neg-Trace) H 08/15/18 14:05 Urine Ketones 15 mg/dL (Negative) H 08/15/18 14:05 Urine Blood Large (Negative) H 08/15/18 14:05 Ur Squamous Epith Cells Many per lpf (None-Few) H 08/15/18 14:05 - Clinical Findings Intake & Output: Intake & Output 08/24/18 08/25/18 08/25/18 23:59 07:59 15:59 Intake Total 962 / 962 620 / 620 Output Total 350 / 350 300 / 300 Balance 612 / 612 320 / 320 Weight 85.2 kg Consult Discharge Plan - Plan Referrals: Gabriella Simon [Advanced Practice Nurse] - 09/06/18 9:00 am <Mehdi Toney - Last Filed: 08/25/18 17:43> Date of Encounter: 08/25/18 Objective PUL Vital signs: Last Vital Signs Temp 99.4 F 08/25/18 16:25 Pulse 100 04/26/19 17:00 Resp 18 08/25/18 17:08 BP 91/64 08/25/18 17:08 Pulse Ox 100 08/25/18 17:08 Ventilator Settings Ventilator Settings: Ventilator Settings, Last 8 Hours Ventilator Tidal Volume 550 Setting Ventilator Tidal Volume 550 Setting Ventilator Respiratory Rate 18 Setting Ventilator Respiratory Rate 18 Setting Actual Respiratory Rate 18 Actual Respiratory Rate 18 Positive End Expiratory 8 Pressure Positive End Expiratory 8 Pressure Peak Inspiratory Airway 24 Pressure Peak Inspiratory Airway 24 Pressure Results - Laboratory Findings CBC and BMP: 08/25/18 04:25 08/25/18 16:52 ABG ABG pH 7.42 pH Units (7.32-7.45) 08/25/18 05:34 ABG pCO2 49 mmHg (35-45) H 08/25/18 05:34 ABG pO2 149 mmHg (85-104) H 08/25/18 05:34 ABG O2 Saturation 99 % (95-98) H 08/25/18 05:34 PT/INR, D-dimer PT 12.7 Seconds (9.4-12.1) H 08/15/18 13:00 Abnormal lab findings: Abnormal lab results WBC 12.0 K/mcL (4.3-11.1) H 08/25/18 04:25 RBC 3.60 M/mcL (4.19-5.50) L 08/25/18 04:25 Hgb 10.9 g/dL (12.9-16.9) L 08/25/18 04:25 Hct 33.3 % (37.5-50.1) L 08/25/18 04:25 MPV 8.9 fL (9.4-12.4) L 08/25/18 04:25 Platelet Estimate Decreased (Normal) L 08/20/18 07:58 PT 12.7 Seconds (9.4-12.1) H 08/15/18 13:00 ABG pCO2 49 mmHg (35-45) H 08/25/18 05:34 ABG pO2 149 mmHg (85-104) H 08/25/18 05:34 ABG HCO3 32 mEq/L (21-27) H 08/25/18 05:34 ABG Total CO2 33 mEq/L (20-26) H 08/25/18 05:34 ABG O2 Saturation 99 % (95-98) H 08/25/18 05:34 ABG Base Excess 6 mEq/L (-2 to 3) H 08/25/18 05:34 ABG Hematocrit 35.0 % (37.5-50.1) L 08/24/18 11:19 Glucose 150 mg/dL (60-95) H 08/24/18 11:19 Lactate 0.5 mmol/L (0.7-2.1) L 08/24/18 11:19 Potassium 3.2 mEq/L (3.5-5.1) L 08/25/18 16:52 Carbon Dioxide 31 mEq/L (23-29) H 08/25/18 16:52 BUN 43 mg/dL (6-20) H 08/25/18 16:52 Creatinine 1.53 mg/dL (0.70-1.30) H 08/25/18 16:52 Est GFR ( Amer) 58 (> 60) L 08/25/18 16:52 Est GFR (Non-Af Amer) 48 (> 60) L 08/25/18 16:52 BUN/Creatinine Ratio 28 (6-26) H 08/25/18 16:52 Glucose 150 mg/dL (70-105) H 08/25/18 16:52 POC Glucose 141 mg/dL (70-99) H 08/25/18 16:27 Hemoglobin A1c 6.2 % (-5.6) H 08/16/18 06:05 Calculated Osmolality 312 (280-300) H 08/25/18 16:52 Calcium 8.4 mg/dL (8.6-10.3) L 08/25/18 16:52 Creatine Kinase 337 Units/L (30-223) H 08/25/18 08:21 Albumin 3.1 g/dL (3.5-5.7) L 08/25/18 16:52 Albumin/Globulin Ratio 0.9 (1.1-2.2) L 08/25/18 16:52 Beta-Hydroxybutyric Acd > 2.00 mmol/L (0.02-0.27) H 08/15/18 13:00 Urine Protein 30 mg/dL (Neg-Trace) H 08/15/18 14:05 Urine Ketones 15 mg/dL (Negative) H 08/15/18 14:05 Urine Blood Large (Negative) H 08/15/18 14:05 Ur Squamous Epith Cells Many per lpf (None-Few) H 08/15/18 14:05 - Microbiology Findings Microbiology Findings: Microbiology, Last 48 Hours 08/25/18 12:05 Blood Culture - Preliminary Peripheral Venipuncture Culture is incubating and being continuously monitored for growth. Final report to follow. 08/25/18 12:10 Blood Culture - Preliminary Peripheral Venipuncture Culture is incubating and being continuously monitored for growth. Final report to follow. - Clinical Findings Intake & Output: Intake & Output 08/25/18 08/25/18 08/25/18 07:59 15:59 23:59 Intake Total 620 / 620 220 / 220 300 / 300 Output Total 300 / 300 600 / 600 400 / 400 Balance 320 / 320 -380 / -380 -100 / -100 Weight 85.2 kg - Attending Attestation I examined this patient and my medical decision-making was reviewed with the Resident Physician. I agree with the documented findings, disposition and treatment plan as described except to the extent set forth below. We independently had [id number] contact with the patient I spent 31min of Critical Care time with this patient. It involved decision making of high complexity to assess, manipulate, and support vital organ system failure and/or to prevent further life threatening deterioration of the patient's condition. The time involved in the performance of separately reportable procedures was not counted toward critical care time. Patient seen and examined at bedside Labs, radiology, chart personally reviewed. Management was reviewed during multidisciplinary critical care rounds. CHEMICAL PROCESSOR: Metabolic encephalopathy with Intense agitation more rigid today but no evidence of NMS continue propofol and Precedex and benzodiazepine patient neurology and psychiatry evaluation Pulm: Hypoxic respiratory failure remains intubated is not a candidate for spontaneous breathing trial because of degree of agitation. Otherwise acceptable gas exchange today Cards: A. fib with RVR which is mediated by agitation he is still having periods where his rapid ventricular responses as high as 150-180 despite use of amiodarone and kristopher blocking agent of these periods are associated with agitation which we are trying to control GI: GI prophylaxis while on vent Nutrition: We will start enteral nutrition per dietary recommendations Renal: Slight elevation in urine creatinine this may have been from ov eraggressive diuresis also has mild hyponatremia we will get him back some fluid today in the form of crystalloid infusion . UOP Monitored, Cont to Trend sCr and monitor Electrolytes. ID: [id number] today with low-grade temperature we will start with reculturing the patient if clinical fevers worsening or white count increasing would have a low threshold for initiating broad-spectrum antibiotics as he is at increased risk for hospital associated pneumonia Heme/Onc: DVT prophylaxix given (lovenox) Endo: Glucose Monitored and acceptable cont bolus dosing Integ/MSK: Skin Care per routine ICU Nursing Protocol to prevent ulcers. Lines: All lines examined without evidence of infection : Dispo: Monitor in ICU for critical illness CODE: Full.
[2018-08-25] MEDS: Chlorhexidine Rinse 15 ML MOUTHWASH MM SCH ×2 (09:01→20:00)
[2018-08-25] MEDS: Furosemide 40 MG/4 ML VIAL IVP SCH (09:14)
[2018-08-25] MEDS: Budesonide Neb 0.5 MG/2 ML IH SCH ×2 (09:32→21:27)
[2018-08-25] MEDS ORDERED: Ringers Solution, Lactated 500 ML IVC ONE (10:41)
--- NOTE | 2018-08-25 12:51 | Neurology Progress Note ---
Date of Encounter: 08/25/18 Time of Encounter: 12:49 Assessment and Plan (1) Rhabdomyolysis Current Visit: Yes Status: Resolved Improved in the last few days however, creatinine today increased again along with elevated CK of >300 and elevated WBC. Patient is still slightly rigid but do not believe the changes are from NMS or the use of seroquel Qualifiers: Rhabdomyolysis type: traumatic Encounter type: subsequent encounter Qualified Code(s): T79.6XXD - Traumatic ischemia of muscle, subsequent encounter (2) JERMAIN (acute kidney injury) Current Visit: Yes Status: Acute (3) Metabolic encephalopathy Current Visit: Yes Status: Acute Patient's mental status has not been improving and patient has never become responsive even without sedation likely secondary to ongoing encephalopathy. Patient is developed elevated WBC and worsening renal function, and respiratory distress. Repeat CT of head showed no acute intracranial abnormality. EEG 08/21/2018 showed mild background slowing which would be expected from a patient with ongoing medical problems and the use of sedatives. At present time, i would recommend continuing medical and supportive care. Will sign off at this time and would re-evaluate the patient at your request (4) Neuroleptic malignant syndrome Current Visit: Yes Status: Resolved CK is elevated again while not on antipsychotic except seroquel and at this time would not considering NMS as the contributing factor for his persistent mental status change Subjective Principal diagnosis: Patient seen in F/U for Neuroleptic malignant syndrome Interval history: Patient seen and examined. Again patient is on propofol sedation now for garcia culture procedure to be completed. Per nursing staff, overnight no seizure no fever and patient had to be reintubated due to respiratory distresss. No focal weakness noted. Objective - Constitutional Vitals: Temp Pulse Resp BP Pulse Ox 100.4 F H 93 18 92/60 100 08/25/18 11:16 08/25/18 12:00 08/25/18 12:00 08/25/18 12:00 08/25/18 12:00 - Neurological Exam Sensorimotor examination: Present: intact (Unable to assess) Motor Examination: Present: other (Arms restrained. Legs: some withdrawal both side when given painful stimuli) Sensation intact: Present: intact (Unable to assess due to reduced level of consciounsess) Posture: Present: other (None) Reflex and gait examination: other (Unable to assess) Mental Status Examination: Present: awake (Appears awake with eye opening wide with scarce eyeblinking but not responding to verbal commands. Respond to vis ual threat by rapid eye blinking), alert (Symptoms to be alert but not responding to verbal commands), does not follow commands Cranial nerve examination: Present: PERRL (size 4mm bilaterally, symmetrical. Brisk eyelid closing), visual rios intact (Unable to assess), corneal reflexes brisk symmetrically, sensory to face intact (Unable to assess), mastication intact (Unable to assess), no facial asymmetry is present, no dysarthria (Unable to assess), hearing is intact symmetrically (Unable to assess), soft palate elevates bilaterally upon phonation (Unable to assess), gag reflex intact, tongue protrudes midline (Unable to assess) Results - Laboratory Findings CBC and BMP: 08/25/18 04:25 08/25/18 04:25 Abnormal lab findings: Abnormal lab results WBC 12.0 K/mcL (4.3-11.1) H 08/25/18 04:25 RBC 3.60 M/mcL (4.19-5.50) L 08/25/18 04:25 Hgb 10.9 g/dL (12.9-16.9) L 08/25/18 04:25 Hct 33.3 % (37.5-50.1) L 08/25/18 04:25 MPV 8.9 fL (9.4-12.4) L 08/25/18 04:25 Platelet Estimate Decreased (Normal) L 08/20/18 07:58 PT 12.7 Seconds (9.4-12.1) H 08/15/18 13:00 ABG pCO2 49 mmHg (35-45) H 08/25/18 05:34 ABG pO2 149 mmHg (85-104) H 08/25/18 05:34 ABG HCO3 32 mEq/L (21-27) H 08/25/18 05:34 ABG Total CO2 33 mEq/L (20-26) H 08/25/18 05:34 ABG O2 Saturation 99 % (95-98) H 08/25/18 05:34 ABG Base Excess 6 mEq/L (-2 to 3) H 08/25/18 05:34 ABG Hematocrit 35.0 % (37.5-50.1) L 08/24/18 11:19 Glucose 150 mg/dL (60-95) H 08/24/18 11:19 Lactate 0.5 mmol/L (0.7-2.1) L 08/24/18 11:19 Sodium 146 mEq/L (136-145) H 08/25/18 04:25 Carbon Dioxide 31 mEq/L (23-29) H 08/25/18 04:25 BUN 43 mg/dL (6-20) H 08/25/18 04:25 Creatinine 1.69 mg/dL (0.70-1.30) H 08/25/18 04:25 Est GFR ( Amer) 52 (> 60) L 08/25/18 04:25 Est GFR (Non-Af Amer) 43 (> 60) L 08/25/18 04:25 Glucose 162 mg/dL (70-105) H 08/25/18 04:25 POC Glucose 158 mg/dL (70-99) H 08/25/18 11:18 Hemoglobin A1c 6.2 % (-5.6) H 08/16/18 06:05 Calculated Osmolality 316 (280-300) H 08/25/18 04:25 Creatine Kinase 337 Units/L (30-223) H 08/25/18 08:21 Serum Total Protein 5.2 g/dL (6.4-8.9) L 08/18/18 05:38 Albumin 2.9 g/dL (3.5-5.7) L 08/18/18 05:38 Globulin 2.3 g/dL (2.4-3.5) L 08/18/18 05:38 Beta-Hydroxybutyric Acd > 2.00 mmol/L (0.02-0.27) H 08/15/18 13:00 Urine Protein 30 mg/dL (Neg-Trace) H 08/15/18 14:05 Urine Ketones 15 mg/dL (Negative) H 08/15/18 14:05 Urine Blood Large (Negative) H 08/15/18 14:05 Ur Squamous Epith Cells Many per lpf (None-Few) H 08/15/18 14:05 Consult Discharge Plan - Plan Referrals: Gabriella Simon [Advanced Practice Nurse] - 09/06/18 9:00 am
[2018-08-25 17:25] LABS: Albumin 3.1 g/dL (3.5-5.7); Albumin/Globulin Ratio 0.9 (1.1-2.2); Bilirubin,Total 0.4 mg/dL (0.3-1.0); Calcium 8.4 mg/dL (8.6-10.3); Globulin 3.4 g/dL (2.4-3.5); Potassium 3.2 mEq/L (3.5-5.1); Total Protein 6.5 g/dL (6.4-8.9)
[2018-08-26] MEDS: Dexmedetomidine HCl 400 MCG/100 ML MLS IVC SCH ×5 (00:20→19:53)
[2018-08-26] MEDS: Artificial Tears SOLN 15 ML BOTTLE BOTH EYES SCH ×7 (00:40→19:57)
[2018-08-26] MEDS: *HR* Metoprolol 5 MG/5 ML VIAL IVP PRN (00:41)
[2018-08-26] MEDS: *HR* LORazepam 2 MG/ML VIAL IVP SCH ×5 (00:41→19:56)
[2018-08-26 05:18] LABS: ABG Base Excess 8 mEq/L (-2 to 3); ABG HCO3 33 mEq/L (21-27); ABG Oxygen Saturation 99 % (95-98); ABG PCO2 47 mmHg (35-45); ABG PH 7.46 pH Units (7.32-7.45); ABG PO2 114 mmHg (85-104); ABG TCO2 35 mEq/L (20-26); Blood Gas PEEP 8 cm H2O; Blood Gas Respiration Rate 18; Blood Gas VT 550 cc
[2018-08-26] MEDS: Levalbuterol Neb 0.63 MG/3 ML IH SCH ×4 (07:35→21:51)
[2018-08-26] MEDS: Chlorhexidine Rinse 15 ML MOUTHWASH MM SCH ×2 (07:40→19:53)
[2018-08-26] MEDS: Pantoprazole 40 MG VIAL IVP SCH (07:40)
[2018-08-26] MEDS: Furosemide 40 MG/4 ML VIAL IVP SCH (07:40)
[2018-08-26] MEDS: *HR* Enoxaparin 40 MG/0.4 ML SYRINGE SQ SCH (07:43)
--- NOTE | 2018-08-26 08:29 | Pulmonology Progress Note ---
Date of Encounter: 08/26/18 Time of Encounter: 08:29 Subjective Principal diagnosis: Patient seen in F/U for Neuroleptic malignant syndrome Objective PUL Vital signs: Last Vital Signs Temp 98.3 F 08/25/18 23:51 Pulse 94 08/26/18 08:00 Resp 28 08/26/18 08:00 BP 87/58 08/26/18 08:00 Pulse Ox 100 08/26/18 08:00 Ventilator Settings Ventilator Settings: Ventilator Settings, Last 8 Hours Ventilator Tidal Volume 550 Setting Ventilator Tidal Volume 550 Setting Ventilator Tidal Volume 550 Setting Ventilator Tidal Volume 550 Setting Ventilator Tidal Volume 550 Setting Ventilator Tidal Volume 550 Setting Ventilator Tidal Volume 550 Setting Ventilator Respiratory Rate 18 Setting Ventilator Respiratory Rate 18 Setting Ventilator Respiratory Rate 18 Setting Ventilator Respiratory Rate 18 Setting Ventilator Respiratory Rate 18 Setting Ventilator Respiratory Rate 18 Setting Ventilator Respiratory Rate 18 Setting Actual Respiratory Rate 18 Actual Respiratory Rate 18 Actual Respiratory Rate 18 Actual Respiratory Rate 18 Actual Respiratory Rate 18 Actual Respiratory Rate 18 Actual Respiratory Rate 18 Positive End Expiratory 8 Pressure Positive End Expiratory 8 Pressure Positive End Expiratory 8 Pressure Positive End Expiratory 8 Pressure Positive End Expiratory 8 Pressure Positive End Expiratory 8 Pressure Positive End Expiratory 8 Pressure Peak Inspiratory Airway 27 Pressure Peak Inspiratory Airway 25 Pressure Peak Inspiratory Airway 27 Pressure Peak Inspiratory Airway 27 Pressure Peak Inspiratory Airway 27 Pressure Peak Inspiratory Airway 30 Pressure Peak Inspiratory Airway 26 Pressure Results - Laboratory Findings CBC and BMP: 08/25/18 04:25 08/25/18 16:52 ABG ABG pH 7.46 pH Units (7.32-7.45) H 08/26/18 05:14 ABG pCO2 47 mmHg (35-45) H 08/26/18 05:14 ABG pO2 114 mmHg (85-104) H 08/26/18 05:14 ABG O2 Saturation 99 % (95-98) H 08/26/18 05:14 PT/INR, D-dimer PT 12.7 Seconds (9.4-12.1) H 08/15/18 13:00 Abnormal lab findings: Abnormal lab results WBC 12.0 K/mcL (4.3-11.1) H 08/25/18 04:25 RBC 3.60 M/mcL (4.19-5.50) L 08/25/18 04:25 Hgb 10.9 g/dL (12.9-16.9) L 08/25/18 04:25 Hct 33.3 % (37.5-50.1) L 08/25/18 04:25 RDW 14.9 % (11.5-14.5) H 08/24/18 03:35 Plt Count 133 K/mcL (140-400) L 08/22/18 06:02 MPV 8.9 fL (9.4-12.4) L 08/25/18 04:25 10.0 K/mcL (1.6-8.9) H 08/17/18 05:29 0.4 K/mcL (0.6-4.6) L 08/15/18 13:00 Decreased (Normal) L 08/20/18 07:58 PT 12.7 Seconds (9.4-12.1) H 08/15/18 13:00 ABG pH 7.46 pH Units (7.32-7.45) H 08/26/18 05:14 ABG pCO2 47 mmHg (35-45) H 08/26/18 05:14 ABG pO2 114 mmHg (85-104) H 08/26/18 05:14 ABG HCO3 33 mEq/L (21-27) H 08/26/18 05:14 ABG Total CO2 35 mEq/L (20-26) H 08/26/18 05:14 ABG O2 Saturation 99 % (95-98) H 08/26/18 05:14 ABG Base Excess 8 mEq/L (-2 to 3) H 08/26/18 05:14 ABG Hematocrit 35.0 % (37.5-50.1) L 08/24/18 11:19 Glucose 150 mg/dL (60-95) H 08/24/18 11:19 Lactate 0.5 mmol/L (0.7-2.1) L 08/24/18 11:19 Sodium 146 mEq/L (136-145) H 08/25/18 04:25 Potassium 3.2 mEq/L (3.5-5.1) L 08/25/18 16:52 Chloride 108 mEq/L (98-107) H 08/23/18 04:12 Carbon Dioxide 31 mEq/L (23-29) H 08/25/18 16:52 BUN 43 mg/dL (6-20) H 08/25/18 16:52 1.53 mg/dL (0.70-1.30) H 08/25/18 16:52 Est GFR ( Amer) 58 (> 60) L 08/25/18 16:52 Est GFR (Non-Af Amer) 48 (> 60) L 08/25/18 16:52 28 (6-26) H 08/25/18 16:52 Glucose 150 mg/dL (70-105) H 08/25/18 16:52 POC Glucose 166 mg/dL (70-99) H 08/26/18 07:15 6.2 % (-5.6) H 08/16/18 06:05 312 (280-300) H 08/25/18 16:52 Calcium 8.4 mg/dL (8.6-10.3) L 08/25/18 16:52 AST 132 Units/L (13-39) H 08/16/18 06:05 337 Units/L (30-223) H 08/25/18 08:21 5.2 g/dL (6.4-8.9) L 08/18/18 05:38 3.1 g/dL (3.5-5.7) L 08/25/18 16:52 2.3 g/dL (2.4-3.5) L 08/18/18 05:38 0.9 (1.1-2.2) L 08/25/18 16:52 Beta-Hydroxybutyric Acd > 2.00 mmol/L (0.02-0.27) H 08/15/18 13:00 30 mg/dL (Neg-Trace) H 08/15/18 14:05 15 mg/dL (Negative) H 08/15/18 14:05 Large (Negative) H 08/15/18 14:05 Ur Squamous Epith Cells Many per lpf (None-Few) H 08/15/18 14:05 - Microbiology Findings Microbiology Findings: Microbiology, Last 48 Hours 08/25/18 13:46 Sputum Culture - Preliminary Trachea 08/25/18 16:57 Urine Culture - Preliminary Urine,[place] Culture is incubating. 08/25/18 12:05 Blood Culture - Preliminary Peripheral Venipuncture Culture is incubating and being continuously monitored for growth. Final report to follow. 08/25/18 12:10 Blood Culture - Preliminary Peripheral Venipuncture Culture is incubating and being continuously monitored for growth. Final report to follow. - Clinical Findings Intake & Output: Intake & Output 08/25/18 08/26/18 08/26/18 23:59 07:59 15:59 Intake Total 1072 / 1912 953 / 953 Output Total 600 / 1500 250 / 250 Balance 472 / 412 703 / 703 Weight 84.6 kg 84.9 kg Consult Discharge Plan - Plan Referrals: Gabriella Simon [Advanced Practice Nurse] - 09/06/18 9:00 am
[2018-08-26 08:47] LABS: Hematocrit 27.3 % (37.5-50.1); Immature Granulocytes % 0.9 % (0-4); Mean Corpuscular HGB Conc 31.9 g/dL (31.6-35.5); Mean Corpuscular Hemoglobin 29.9 pg (28.0-33.3); Mean Corpuscular Volume 93.8 fL (83.0-100.0); Mean Platelet Volume 9.3 fL (9.4-12.4); Monocytes % 8.5 %; Platelet Count 179 K/mcL (140-400); Red Blood Count 2.91 M/mcL (4.19-5.50); Red Cell Distribution Width 14.5 % (11.5-14.5)
[2018-08-26 08:48] LABS: Basophils % 0.3 %; Eosinophils # 0.2 K/mcL (0.0-0.6); Eosinophils % 2.3 %; Lymphocytes # 1.4 K/mcL (0.6-4.6); Monocytes # 0.8 K/mcL (0.0-1.3); Neutrophils # 6.7 K/mcL (1.6-8.9)
[2018-08-26 08:51] LABS: VBG Ionized Calcium 1.07 mmol/L (1.15-1.35)
[2018-08-26 08:56] LABS: Hemoglobin 8.7 g/dL (12.9-16.9)
[2018-08-26 08:58] LABS: Calcium 8.7 mg/dL (8.6-10.3); Potassium 3.6 mEq/L (3.5-5.1)
[2018-08-26] MEDS: Budesonide Neb 0.5 MG/2 ML IH SCH ×2 (09:16→21:51)
--- NOTE | 2018-08-26 10:13 | Pulmonology Progress Note ---
<Greg Paula - Last Filed: 08/26/18 11:32> Date of Encounter: 08/26/18 Time of Encounter: 10:13 Assessment and Plan (1) Acute hypoxemic respiratory failure Current Visit: Yes Status: Acute Patient had acute hypoxic respiratory failure likely secondary to fluid resuscitation due to the patient being in rhabdomyolysis. Patient's rhabdomy olysis is significantly improved and resolved. Last creatinine kinase 337. We will reorder a CK today. Patient was extubated On 08/23/18. Patient has had increased respiratory rate and work of breathing the patient require reintubation 08/24/18. Patient's most recent ABG is pH of 7.46, PCO2 of 47, PO2 14, HCO3 33. (2) Metabolic encephalopathy Current Visit: Yes Status: Acute Psychiatry has recommended yesterday to do a trial of 2 mg of Ativan. Patient was on Ativan 2 mg every 6 hours however he still continued to have some agitation so we have changed his Ativan to every 4 hours. (3) Rhabdomyolysis Current Visit: Yes Status: Resolved Patient was found to be in rhabdomyolysis. Patient received aggressive fluid hydration. Patient's CK level has normalized and last ck was 337. The patients renal functioned was stable overnight. We will continue to follow patient's renal function. We will repeat a CK level today due to yesterday's being eleva howie at 337. Qualifiers: Rhabdomyolysis type: traumatic Encounter type: subsequent encounter Qualified Code(s): T79.6XXD - Traumatic ischemia of muscle, subsequent encounter (4) Neuroleptic malignant syndrome Current Visit: Yes Status: Resolved Patient was thought to be in neuroleptic malignant syndrome due to Haldol and Levaquin. The patient's symptoms started after receiving the Levaquin. This could potentially be the cause of the elevated malignant syndrome. Patient's creatinine kinase had trended down and normalized. Dantrolene had been given but has been stopped. Psychiatry is following the patient. Patient had decreased muscle rigidity this morning on my exam from yesterday. Patient was afebrile overnight. We will obtain a repeat CK level due to yesterdays CK level being elevated at 337 (5) JERMAIN (acute kidney injury) Current Visit: Yes Status: Acute Patient has a worsening of his renal function and repeat acute kidney injury. His creatinine has increased to 1.69 with a GFR of 43. We will continue to monitor the patient's renal function. (6) DVT prophylaxis Current Visit: Yes Status: Acute Patient is currently on lovenox Subjective Principal diagnosis: Patient seen in F/U for Neuroleptic malignant syndrome Interval history: No acute events reported from overnight. The patient remains intubated and darin howie and is unable to provide any additional history at this time. Objective PUL Vital signs: Last Vital Signs Temp 98.3 F 08/25/18 23:51 Pulse 101 08/26/18 09:00 Resp 18 08/26/18 09:17 BP 134/105 08/26/18 09:00 Pulse Ox 100 08/26/18 09:17 General appearance: other (Intubated and sedated) Eyes: nonicteric Neck: supple Effort: mildly labored Auscultation: bilateral: other (Course breath sounds) Cardiovascular: regular rate and rhythm Gastrointestinal: hypoactive bowel sounds, soft, non-tender, non-distended Musculoskeletal: other (Patient still has muscle rigidity however is improved from yesterday.) unable to assess due to mental status other (Unable to assess due to the patient being intubated and sedated.) Ventilator Settings Ventilator Settings: Ventilator Settings, Last 8 Hours Ventilator Tidal Volume 550 Setting Ventilator Tidal Volume 550 Setting Ventilator Tidal Volume 550 Setting Ventilator Tidal Volume 550 Setting Ventilator Tidal Volume 550 Setting Ventilator Respiratory Rate 18 Setting Ventilator Respiratory Rate 18 Setting Ventilator Respiratory Rate 18 Setting Ventilator Respiratory Rate 18 Setting Ventilator Respiratory Rate 18 Setting Actual Respiratory Rate 18 Actual Respiratory Rate 18 Actual Respiratory Rate 18 Actual Respiratory Rate 18 Actual Respiratory Rate 18 Positive End Expiratory 8 Pressure Positive End Expiratory 8 Pressure Positive End Expiratory 8 Pressure Positive End Expiratory 8 Pressure Positive End Expiratory 8 Pressure Peak Inspiratory Airway 24 Pressure Peak Inspiratory Airway 27 Pressure Peak Inspiratory Airway 25 Pressure Peak Inspiratory Airway 27 Pressure Peak Inspiratory Airway 27 Pressure Results - Laboratory Findings CBC and BMP: 08/26/18 08:20 08/26/18 08:20 ABG ABG pH 7.46 pH Units (7.32-7.45) H 08/26/18 05:14 ABG pCO2 47 mmHg (35-45) H 08/26/18 05:14 ABG pO2 114 mmHg (85-104) H 08/26/18 05:14 ABG O2 Saturation 99 % (95-98) H 08/26/18 05:14 PT/INR, D-dimer PT 12.7 Seconds (9.4-12.1) H 08/15/18 13:00 Abnormal lab findings: Abnormal lab results WBC 12.0 K/mcL (4.3-11.1) H 08/25/18 04:25 RBC 2.91 M/mcL (4.19-5.50) L 08/26/18 08:20 Hgb 8.7 g/dL (12.9-16.9) L D 08/26/18 08:20 Hct 27.3 % (37.5-50.1) L 08/26/18 08:20 RDW 14.9 % (11.5-14.5) H 08/24/18 03:35 Plt Count 133 K/mcL (140-400) L 08/22/18 06:02 MPV 9.3 fL (9.4-12.4) L 08/26/18 08:20 10.0 K/mcL (1.6-8.9) H 08/17/18 05:29 0.4 K/mcL (0.6-4.6) L 08/15/18 13:00 Decreased (Normal) L 08/20/18 07:58 PT 12.7 Seconds (9.4-12.1) H 08/15/18 13:00 ABG pH 7.46 pH Units (7.32-7.45) H 08/26/18 05:14 ABG pCO2 47 mmHg (35-45) H 08/26/18 05:14 ABG pO2 114 mmHg (85-104) H 08/26/18 05:14 ABG HCO3 33 mEq/L (21-27) H 08/26/18 05:14 ABG Total CO2 35 mEq/L (20-26) H 08/26/18 05:14 ABG O2 Saturation 99 % (95-98) H 08/26/18 05:14 ABG Base Excess 8 mEq/L (-2 to 3) H 08/26/18 05:14 ABG Hematocrit 35.0 % (37.5-50.1) L 08/24/18 11:19 Glucose 150 mg/dL (60-95) H 08/24/18 11:19 Lactate 0.5 mmol/L (0.7-2.1) L 08/24/18 11:19 Sodium 146 mEq/L (136-145) H 08/26/18 08:20 Potassium 3.2 mEq/L (3.5-5.1) L 08/25/18 16:52 Chloride 108 mEq/L (98-107) H 08/23/18 04:12 Carbon Dioxide 33 mEq/L (23-29) H 08/26/18 08:20 BUN 51 mg/dL (6-20) H 08/26/18 08:20 1.52 mg/dL (0.70-1.30) H 08/26/18 08:20 Est GFR ( Amer) 59 (> 60) L 08/26/18 08:20 Est GFR (Non-Af Amer) 49 (> 60) L 08/26/18 08:20 34 (6-26) H 08/26/18 08:20 Glucose 205 mg/dL (70-105) H 08/26/18 08:20 POC Glucose 166 mg/dL (70-99) H 08/26/18 07:15 6.2 % (-5.6) H 08/16/18 06:05 322 (280-300) H 08/26/18 08:20 Calcium 8.4 mg/dL (8.6-10.3) L 08/25/18 16:52 Venous Ioniz Calcium 1.07 mmol/L (1.15-1.35) L 08/26/18 08:48 AST 132 Units/L (13-39) H 08/16/18 06:05 337 Units/L (30-223) H 08/25/18 08:21 5.2 g/dL (6.4-8.9) L 08/18/18 05:38 3.1 g/dL (3.5-5.7) L 08/25/18 16:52 2.3 g/dL (2.4-3.5) L 08/18/18 05:38 0.9 (1.1-2.2) L 08/25/18 16:52 Beta-Hydroxybutyric Acd > 2.00 mmol/L (0.02-0.27) H 08/15/18 13:00 30 mg/dL (Neg-Trace) H 08/15/18 14:05 15 mg/dL (Negative) H 08/15/18 14:05 Large (Negative) H 08/15/18 14:05 Ur Squamous Epith Cells Many per lpf (None-Few) H 08/15/18 14:05 - Microbiology Findings Microbiology Findings: Microbiology, Last 48 Hours 08/25/18 13:46 Sputum Culture - Preliminary Trachea 08/25/18 16:57 Urine Culture - Preliminary Urine,[place] Culture is incubating. 08/25/18 12:05 Blood Culture - Preliminary Peripheral Venipuncture Culture is incubating and being continuously monitored for growth. Final report to follow. 08/25/18 12:10 Blood Culture - Preliminary Peripheral Venipuncture Culture is incubating and being continuously monitored for growth. Final report to follow. - Clinical Findings Intake & Output: Intake & Output 08/25/18 08/26/18 08/26/18 23:59 07:59 15:59 Intake Total 1072 / 1912 1053 / 1053 Output Total 600 / 1500 250 / 250 Balance 472 / 412 803 / 803 Weight 84.6 kg 84.9 kg Consult Discharge Plan - Plan Referrals: Gabriella Simon [Advanced Practice Nurse] - 09/06/18 9:00 am <Mehdi Toney - Last Filed: 08/26/18 14:00> Date of Encounter: 08/26/18 Objective PUL Vital signs: Last Vital Signs Temp 98.9 F 08/26/18 11:00 Pulse 71 08/26/18 13:00 Resp 18 08/26/18 13:00 BP 85/45 08/26/18 13:00 Pulse Ox 99 08/26/18 13:00 Ventilator Settings Ventilator Settings: Ventilator Settings, Last 8 Hours Ventilator Tidal Volume 550 Setting Ventilator Tidal Volume 550 Setting Ventilator Tidal Volume 550 Setting Ventilator Respiratory Rate 18 Setting Ventilator Respiratory Rate 18 Setting Ventilator Respiratory Rate 18 Setting Actual Respiratory Rate 26 Actual Respiratory Rate 18 Actual Respiratory Rate 18 Positive End Expiratory 8 Pressure Positive End Expiratory 8 Pressure Positive End Expiratory 8 Pressure Peak Inspiratory Airway 29 Pressure Peak Inspiratory Airway 24 Pressure Peak Inspiratory Airway 27 Pressure Results - Laboratory Findings CBC and BMP: 08/26/18 08:20 08/26/18 08:20 ABG ABG pH 7.46 pH Units (7.32-7.45) H 08/26/18 05:14 ABG pCO2 47 mmHg (35-45) H 08/26/18 05:14 ABG pO2 114 mmHg (85-104) H 08/26/18 05:14 ABG O2 Saturation 99 % (95-98) H 08/26/18 05:14 PT/INR, D-dimer PT 12.7 Seconds (9.4-12.1) H 08/15/18 13:00 Abnormal lab findings: Abnormal lab results WBC 12.0 K/mcL (4.3-11.1) H 08/25/18 04:25 RBC 2.91 M/mcL (4.19-5.50) L 08/26/18 08:20 Hgb 8.7 g/dL (12.9-16.9) L D 08/26/18 08:20 Hct 27.3 % (37.5-50.1) L 08/26/18 08:20 RDW 14.9 % (11.5-14.5) H 08/24/18 03:35 Plt Count 133 K/mcL (140-400) L 08/22/18 06:02 MPV 9.3 fL (9.4-12.4) L 08/26/18 08:20 10.0 K/mcL (1.6-8.9) H 08/17/18 05:29 0.4 K/mcL (0.6-4.6) L 08/15/18 13:00 Decreased (Normal) L 08/20/18 07:58 PT 12.7 Seconds (9.4-12.1) H 08/15/18 13:00 ABG pH 7.46 pH Units (7.32-7.45) H 08/26/18 05:14 ABG pCO2 47 mmHg (35-45) H 08/26/18 05:14 ABG pO2 114 mmHg (85-104) H 08/26/18 05:14 ABG HCO3 33 mEq/L (21-27) H 08/26/18 05:14 ABG Total CO2 35 mEq/L (20-26) H 08/26/18 05:14 ABG O2 Saturation 99 % (95-98) H 08/26/18 05:14 ABG Base Excess 8 mEq/L (-2 to 3) H 08/26/18 05:14 ABG Hematocrit 35.0 % (37.5-50.1) L 08/24/18 11:19 Glucose 150 mg/dL (60-95) H 08/24/18 11:19 Lactate 0.5 mmol/L (0.7-2.1) L 08/24/18 11:19 Sodium 146 mEq/L (136-145) H 08/26/18 08:20 Potassium 3.2 mEq/L (3.5-5.1) L 08/25/18 16:52 Chloride 108 mEq/L (98-107) H 08/23/18 04:12 Carbon Dioxide 33 mEq/L (23-29) H 08/26/18 08:20 BUN 51 mg/dL (6-20) H 08/26/18 08:20 1.52 mg/dL (0.70-1.30) H 08/26/18 08:20 Est GFR ( Amer) 59 (> 60) L 08/26/18 08:20 Est GFR (Non-Af Amer) 49 (> 60) L 08/26/18 08:20 34 (6-26) H 08/26/18 08:20 Glucose 205 mg/dL (70-105) H 08/26/18 08:20 POC Glucose 166 mg/dL (70-99) H 08/26/18 07:15 6.2 % (-5.6) H 08/16/18 06:05 322 (280-300) H 08/26/18 08:20 Calcium 8.4 mg/dL (8.6-10.3) L 08/25/18 16:52 Venous Ioniz Calcium 1.07 mmol/L (1.15-1.35) L 08/26/18 08:48 AST 132 Units/L (13-39) H 08/16/18 06:05 337 Units/L (30-223) H 08/25/18 08:21 5.2 g/dL (6.4-8.9) L 08/18/18 05:38 3.1 g/dL (3.5-5.7) L 08/25/18 16:52 2.3 g/dL (2.4-3.5) L 08/18/18 05:38 0.9 (1.1-2.2) L 08/25/18 16:52 Beta-Hydroxybutyric Acd > 2.00 mmol/L (0.02-0.27) H 08/15/18 13:00 30 mg/dL (Neg-Trace) H 08/15/18 14:05 15 mg/dL (Negative) H 08/15/18 14:05 Large (Negative) H 08/15/18 14:05 Ur Squamous Epith Cells Many per lpf (None-Few) H 08/15/18 14:05 - Microbiology Findings Microbiology Findings: Microbiology, Last 48 Hours 08/25/18 13:46 Sputum Culture - Preliminary Trachea 08/25/18 16:57 Urine Culture - Preliminary Urine,[place] Culture is incubating. 08/25/18 12:05 Blood Culture - Preliminary Peripheral Venipuncture Culture is incubating and being continuously monitored for growth. Final report to follow. 08/25/18 12:10 Blood Culture - Preliminary Peripheral Venipuncture Culture is incubating and being continuously monitored for growth. Final report to follow. - Clinical Findings Intake & Output: Intake & Output 08/25/18 08/26/18 08/26/18 23:59 07:59 15:59 Intake Total 1072 / 1912 1153 / 1555 402 / 1555 Output Total 600 / 1500 250 / 600 350 / 600 Balance 472 / 412 903 / 955 52 / 955 Weight 84.6 kg 84.9 kg - Attending Attestation I examined this patient and my medical decision-making was reviewed with the Resident Physician. I agree with the documented findings, disposition and treatment plan as described except to the extent set forth below. We independently had [id number] contact with the patient Patient seen and examined at bedside Labs, radiology, chart personally reviewed. Management was reviewed during multidisciplinary critical care rounds. 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 fib with RVR rate controlled generally however during the periods of agitation but this becomes uncontrolled and leads to pulmonary edema GI: GI prophylaxis given while on vent Nutrition: Enteral nutrition per dietary recommendations Renal: UOP Monitored, Cont to Trend sCr and monitor Electrolytes. ID: Qm Nurse leukocytosis with the frequent diarrhea rule out C. difficile p laced in contact precautions until this is ruled out Heme/Onc: DVT prophylaxis given Endo: Glucose Monitored Integ/MSK: Skin Care per routine ICU Nursing Protocol to prevent ulcers. Lines: All lines examined without evidence of infection : Dispo: Monitor in ICU CODE: Full code palliative care is been consulted to address goals of care
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
--- NOTE | 2018-08-26 17:03 | Consult Note ---
Date of Encounter: 08/26/18 Time of Encounter: 16:30 Assessment & Recommendation (1) Neuroleptic malignant syndrome Current visit: Yes Status: Resolved History of Present Illness Patient: known to practice within the last 3 years Requesting Physician: Kaley Ordonez Reason for consult: follow-up NMS / AMS History of present illness: Mr. Means is a 52 year old male Chief complaints: Patient did not speak but concerns over blood pressure and pulse History of present illness: I have been asked to follow up for this patient. The diagnosis of neuroleptic malignant syndrome was given at the time of his presentation. The home medicines included haloperidol and risperidone. The patient's presentation was consistent with neuroleptic malignant syndrome although other causes could have contributed to the presentation. I spoke to the patient's stepmother and father regarding the patient's health. They were unaware of a diagnosis of schizophrenia or other psychiatric disorder. There were unaware of the medications that he was on. They were aware of multiple physical problems difficulty holding a job and financial difficulties that lead him to live in the house the past 3 years. Nonetheless his presentation changed dramatically from 1 his father spoke to him on the phone on Tuesday to when he was on Tuesday. CC: Kaley Ordonez Past Med Surg Social Fam HX - Past Medical History Medical history: diabetes, hyperlipidemia, hypertension - Past Psychiatric History Psychiatric history: Reports: other Family psychiatric history: Unknown Family History of Suicide: Unknown - Past Surgical History Surgical History: orthopedic, other - Social History Smoking Status: Never smoker Smokeless Tobacco Status: No Alcohol use: none Drug use: none Occupational status: previously employed Current living situation: With Family Activity Level: Bed bound Recent Out of Country Travel Within the Last 8 Weeks: No Exposure or Possible Exposure to Illness During Travel: No Medications & Allergies Albuterol Sulfate [Albuterol Inhaler] 2 puff IH Q4HR PRN 08/15/18 [History] Alogliptin Benzoate [Alogliptin] 25 mg PO DAILY 08/15/18 [History] Atorvastatin [Lipitor] 20 mg PO HS 08/15/18 [History] Buspirone HCl [Buspar] 10 mg PO TID 08/15/18 [History] Cholecalciferol (Vitamin D3) [Vitamin D] 400 unit PO BID 08/15/18 [History] Cyclobenzaprine [Flexeril] 10 mg PO TID 08/15/18 [History] Divalproex (24 HR) [Depakote ER (24 HR)] 750 mg PO HS 08/15/18 [History] Docusate Sodium [Dulcolax Stool Softener] 100 mg PO DAILY 08/15/18 [History] FLUoxetine HCl [Fluoxetine HCl] 40 mg PO DAILY 08/15/18 [History] Ferrous Sulfate [Iron] 325 mg PO BID 08/15/18 [History] Glimepiride [Amaryl] 1 mg PO DAILY 08/15/18 [History] Haloperidol 15 mg PO DAILY 08/15/18 [History] Ipratropium/Albuterol Neb [Duoneb] 3 ml IH Q4HR PRN 08/15/18 [History] Loratadine [Allergy Relief] 10 mg PO DAILY 08/15/18 [History] Losartan [Cozaar] 50 mg PO DAILY 08/15/18 [History] Melatonin 10 mg PO HS 08/15/18 [History] Metaxalone [Skelaxin] 800 mg PO TID 08/15/18 [History] Metoprolol [Lopressor] 50 mg PO BID 08/15/18 [History] Mometasone/Formoterol [Dulera 100 Mcg/5 Mcg Inhaler] 2 inh IH BID 08/15/18 [History] Omeprazole [PriLOSEC] 40 mg PO DAILY 08/15/18 [History] Oxycodone HCl 10 mg PO Q8H PRN 08/15/18 [History] Prazosin HCl [Minipress] 5 mg PO HS 08/15/18 [History] Pregabalin [Lyrica] 150 mg PO BID 08/15/18 [History] RisperiDONE [Risperdal] 0.5 mg PO DAILY 08/15/18 [History] amLODIPine [Norvasc] 10 mg PO DAILY 08/15/18 [History] metFORMIN [Glucophage] 1,000 mg PO BIDWM 08/15/18 [History] Allergy/AdvReac Type Severity Reaction Status Date / Time NSAIDS (Non-Steroidal Allergy See Verified 05/10/17 13:26 Anti-Inflamma Comments Penicillins Allergy See Verified 05/10/17 13:26 Comments Review of Systems Psychiatric: Reports: confusion, other (Currently sedated) Psychiatry Exam - Constitutional Vitals: Temp Pulse Resp BP Pulse Ox 98.7 F 107 24 114/73 100 08/26/18 15:00 08/26/18 16:00 08/26/18 16:00 08/26/18 16:00 08/26/18 16:00 General appearance: age & developmentally appropriate - Musculoskeletal Station: relaxed - Psychiatric Level of alertness: Does not respond to painful stimuli Speech Volume: No speech Judgment: Poor Insight: None Results - Labs Labs: Laboratory Last Values WBC 9.2 K/mcL (4.3-11.1) 08/26/18 08:20 RBC 2.91 M/mcL (4.19-5.50) L 08/26/18 08:20 Hgb 8.7 g/dL (12.9-16.9) L D 08/26/18 08:20 Hct 27.3 % (37.5-50.1) L 08/26/18 08:20 MCV 93.8 fL (83.0-100.0) 08/26/18 08:20 MCH 29.9 pg (28.0-33.3) 08/26/18 08:20 MCHC 31.9 g/dL (31.6-35.5) 08/26/18 08:20 RDW 14.5 % (11.5-14.5) 08/26/18 08:20 Plt Count 179 K/mcL (140-400) 08/26/18 08:20 MPV 9.3 fL (9.4-12.4) L 08/26/18 08:20 Immature Gran % 0.9 % (0-4) 08/26/18 08:20 Seg Neutrophils % 73.0 % 08/26/18 08:20 2.0 % (0-4) 08/15/18 13:00 15.0 % 08/26/18 08:20 8.5 % 08/26/18 08:20 2.3 % 08/26/18 08:20 0.3 % 08/26/18 08:20 6.7 K/mcL (1.6-8.9) 08/26/18 08:20 1.4 K/mcL (0.6-4.6) 08/26/18 08:20 0.8 K/mcL (0.0-1.3) 08/26/18 08:20 0.2 K/mcL (0.0-0.6) 08/26/18 08:20 0.0 K/mcL (0.0-0.2) 08/26/18 08:20 Decreased (Normal) L 08/20/18 07:58 Immature Plt Fraction 1.7 % (1.1-6.1) 08/20/18 07:58 PT 12.7 Seconds (9.4-12.1) H 08/15/18 13:00 INR 1.1 08/15/18 13:00 APTT 27.2 Seconds (26.0-36.0) 08/15/18 13:00 Sample Site R Radial 08/25/18 05:34 ABG pH 7.46 pH Units (7.32-7.45) H 08/26/18 05:14 ABG pCO2 47 mmHg (35-45) H 08/26/18 05:14 ABG pO2 114 mmHg (85-104) H 08/26/18 05:14 ABG HCO3 33 mEq/L (21-27) H 08/26/18 05:14 ABG Total CO2 35 mEq/L (20-26) H 08/26/18 05:14 ABG O2 Saturation 99 % (95-98) H 08/26/18 05:14 ABG Base Excess 8 mEq/L (-2 to 3) H 08/26/18 05:14 ABG Hematocrit 35.0 % (37.5-50.1) L 08/24/18 11:19 Positive 08/25/18 05:34 ABG Chloride 106 mEq/L (98-107) 08/24/18 11:19 Sodium 144 mEq/L (135-148) 08/24/18 11:19 Potassium 3.5 mEq/L (3.5-5.3) 08/24/18 11:19 Glucose 150 mg/dL (60-95) H 08/24/18 11:19 Lactate 0.5 mmol/L (0.7-2.1) L 08/24/18 11:19 Respiration Rate 18 08/26/18 05:14 O2 Delivery Device Adult Vent 08/26/18 05:14 PRVC 08/25/18 05:34 Inspired O2 50.0 (1-15=lpm [id number]=%) 08/26/18 05:14 Tidal Volume 550 cc 08/26/18 05:14 PEEP 8 cm H2O 08/26/18 05:14 Sodium 146 mEq/L (136-145) H 08/26/18 08:20 Potassium 3.6 mEq/L (3.5-5.1) 08/26/18 08:20 Chloride 103 mEq/L (98-107) 08/26/18 08:20 Carbon Dioxide 33 mEq/L (23-29) H 08/26/18 08:20 BUN 51 mg/dL (6-20) H 08/26/18 08:20 1.52 mg/dL (0.70-1.30) H 08/26/18 08:20 Est GFR ( Amer) 59 (> 60) L 08/26/18 08:20 Est GFR (Non-Af Amer) 49 (> 60) L 08/26/18 08:20 34 (6-26) H 08/26/18 08:20 Glucose 205 mg/dL (70-105) H 08/26/18 08:20 POC Glucose 166 mg/dL (70-99) H 08/26/18 07:15 Est Mean Plasma Glucose 131 mg/dl 08/16/18 06:05 6.2 % (-5.6) H 08/16/18 06:05 322 (280-300) H 08/26/18 08:20 Lactic Acid 0.6 mmol/L (0.5-2.2) 08/15/18 17:25 Calcium 8.7 mg/dL (8.6-10.3) 08/26/18 08:20 Venous Ioniz Calcium 1.07 mmol/L (1.15-1.35) L 08/26/18 08:48 Phosphorus 4.3 mg/dL (2.7-4.5) 08/23/18 04:12 Magnesium 2.5 mg/dL (1.6-2.6) 08/26/18 08:20 0.4 mg/dL (0.3-1.0) 08/25/18 16:52 0.1 mg/dL (0.0-0.2) 08/16/18 06:05 0.3 mg/dL (0.0-1.2) 08/16/18 06:05 AST 24 Units/L (13-39) 08/25/18 16:52 ALT 21 Units/L (7-52) 08/25/18 16:52 55 Units/L (34-104) 08/25/18 16:52 36 mcmol/L (16-53) 08/15/18 13:00 153 Units/L (30-223) 08/26/18 14:15 0.03 ng/mL (< 0.04) 08/15/18 13:00 B-Natriuretic Peptide 29 pg/mL (Less than 100) 08/18/18 05:38 6.5 g/dL (6.4-8.9) 08/25/18 16:52 3.1 g/dL (3.5-5.7) L 08/25/18 16:52 3.4 g/dL (2.4-3.5) 08/25/18 16:52 0.9 (1.1-2.2) L 08/25/18 16:52 Beta-Hydroxybutyric Acd > 2.00 mmol/L (0.02-0.27) H 08/15/18 13:00 1.16 mmol/L (1.15-1.35) 08/24/18 11:19 Yellow (Yellow) 08/15/18 14:05 Clear (Clear) 08/15/18 14:05 5.5 pH Units (5.0-8.0) 08/15/18 14:05 Ur Specific [place]ney 1.014 (1.010-1.025) 08/15/18 14:05 30 mg/dL (Neg-Trace) H 08/15/18 14:05 Normal mg/dL (Normal) 08/15/18 14:05 15 mg/dL (Negative) H 08/15/18 14:05 Large (Negative) H 08/15/18 14:05 Negative (Negative) 08/15/18 14:05 Negative (Negative) 08/15/18 14:05 Normal mg/dL (Normal) 08/15/18 14:05 Ur Leukocyte Esterase Negative (Negative) 08/15/18 14:05 0-3 per hpf (0-3) 08/15/18 14:05 0-3 per hpf (0-3) 08/15/18 14:05 Ur Squamous Epith Cells Many per lpf (None-Few) H 08/15/18 14:05 None Seen per hpf (None-Few) 08/15/18 14:05 Hyaline Casts None Seen per lpf (None-Few) 08/15/18 14:05 Ur Culture Indicated? NO (NO) 08/15/18 14:05 Negative ng/mL (Pheixt=570) 08/15/18 14:05 Ur Barbiturates Screen Negative ng/mL (Hntggk=003) 08/15/18 14:05 Ur Phencyclidine Scrn Negative ng/mL (Cutoff=25) 08/15/18 14:05 Ur Amphetamines Screen Negative ng/mL (Sgygao=6930) 08/15/18 14:05 U Benzodiazepines Scrn Negative ng/mL (Atzasd=742) 08/15/18 14:05 Negative ng/mL (Cutoff= 300) 08/15/18 14:05 U Marijuana (THC) Screen Negative ng/mL (Cutoff = 50) 08/15/18 14:05 Ur Drug Screen Interp See Below 08/15/18 14:05 Ethyl Alcohol < 10 mg/dL (Less than 10) 08/15/18 13:00 Consult Discharge Plan - Plan Referrals: Gabriella Simon [Advanced Practice Nurse] - 09/06/18 9:00 am
[2018-08-26] MEDS: Amiodarone Premix 360 MG/200 ML BAG IVC SCH (17:16)
[2018-08-26] MEDS ORDERED: *HR* LORazepam 2 MG/ML VIAL IVP ONE (18:15)
[2018-08-27] MEDS: FentaNYL (PF) 2,500 MCG in EMPTY BAG 1 EACH IVC SCH ×2 (00:13→20:06)
[2018-08-27] MEDS: Artificial Tears SOLN 15 ML BOTTLE BOTH EYES SCH ×7 (00:13→23:07)
[2018-08-27] MEDS: *HR* LORazepam 2 MG/ML VIAL IVP SCH ×7 (00:13→23:11)
[2018-08-27] MEDS: Levalbuterol Neb 0.63 MG/3 ML IH SCH ×4 (03:42→21:17)
[2018-08-27 04:03] LABS: Basophils % 0.1 %; Eosinophils # 0.2 K/mcL (0.0-0.6); Eosinophils % 2.8 %; Hematocrit 27.4 % (37.5-50.1); Hemoglobin 8.8 g/dL (12.9-16.9); Immature Granulocytes % 0.4 % (0-4); Lymphocytes # 0.9 K/mcL (0.6-4.6); Lymphocytes % 12.5 %; Mean Corpuscular HGB Conc 32.1 g/dL (31.6-35.5); Mean Corpuscular Hemoglobin 30.3 pg (28.0-33.3); Mean Corpuscular Volume 94.5 fL (83.0-100.0); Mean Platelet Volume 9.4 fL (9.4-12.4); Monocytes # 0.4 K/mcL (0.0-1.3); Monocytes % 6.1 %; Neutrophils # 5.6 K/mcL (1.6-8.9); Platelet Count 176 K/mcL (140-400); Red Cell Distribution Width 14.3 % (11.5-14.5); Segmented Neutrophils % 78.1 %
[2018-08-27 04:11] LABS: INR 1.1; Prothrombin Time 12.3 Seconds (9.4-12.1)
[2018-08-27 04:14] LABS: Activated Partial Thrombo Time 28.2 Seconds (26.0-36.0)
[2018-08-27 04:22] LABS: BUN/Creatinine Ratio 35 (6-26); Blood Urea Nitrogen 52 mg/dL (6-20); Calcium 8.8 mg/dL (8.6-10.3); Carbon Dioxide 31 mEq/L (23-29); Chloride 105 mEq/L (98-107); Glucose 190 mg/dL (70-105); Magnesium 2.4 mg/dL (1.6-2.6); Osmolality,Calculated 309 (280-300); Sodium 140 mEq/L (136-145); eGFR For Non-African Americans 50 (> 60)
[2018-08-27 04:25] LABS: VBG Ionized Calcium 1.11 mmol/L (1.15-1.35)
[2018-08-27 05:28] LABS: ABG Base Excess 8 mEq/L (-2 to 3); ABG HCO3 35 mEq/L (21-27); ABG Oxygen Saturation 99 % (95-98); ABG PCO2 56 mmHg (35-45); ABG PO2 146 mmHg (85-104); ABG TCO2 37 mEq/L (20-26); Blood Gas Modality ASSIST CONTROL; Blood Gas PEEP 8 cm H2O; Blood Gas Respiration Rate 18; Blood Gas VT 500 cc
[2018-08-27] MEDS: *HR* Enoxaparin 40 MG/0.4 ML SYRINGE SQ SCH (05:51)
[2018-08-27] MEDS: Amiodarone Premix 360 MG/200 ML BAG IVC SCH ×2 (05:51→17:17)
[2018-08-27 06:36] LABS: Phosphorous 3.9 mg/dL (2.7-4.5)
[2018-08-27] MEDS: Furosemide 40 MG/4 ML VIAL IVP SCH (08:27)
[2018-08-27] MEDS: Chlorhexidine Rinse 15 ML MOUTHWASH MM SCH ×2 (08:27→20:06)
[2018-08-27] MEDS: Pantoprazole 40 MG VIAL IVP SCH (08:27)
--- NOTE | 2018-08-27 08:37 | Pulmonology Progress Note ---
<Greg Paula - Last Filed: 08/27/18 11:01> Date of Encounter: 08/27/18 Time of Encounter: 08:36 Assessment and Plan (1) Acute hypoxemic respiratory failure Current Visit: Yes Status: Acute Patient had acute hypoxic respiratory failure likely secondary to fluid resuscitation due to the patient being in rhabdomyolysis. Patient's rhabdomy olysis is significantly improved and resolved. Last creatinine kinase 153. Patient was extubated On 08/23/18. Patient has had increased respiratory rate and work of breathing the patient require reintubation 08/24/18. Patient's most recent ABG is pH of 7.40, PCO2 56, PO2 146, HCO3 35. (2) Metabolic encephalopathy Current Visit: Yes Status: Acute We will continue with the Ativan every 4 hours scheduled to help with the zakiya ent's agitation. The benzodiazepine does seem to be helping the patient's state of anxiety and agitation. (3) Rhabdomyolysis Current Visit: Yes Status: Resolved Patient was found to be in rhabdomyolysis. Patient received aggressive fluid hydration. Patient's CK level has normalized and last ck was 153. The patients renal functioned was stable overnight. We will continue to follow patient's renal function. Qualifiers: Rhabdomyolysis type: traumatic Encounter type: subsequent encounter Qualified Code(s): T79.6XXD - Traumatic ischemia of muscle, subsequent encounter (4) Neuroleptic malignant syndrome Current Visit: Yes Status: Resolved Patient was thought to be in neuroleptic malignant syndrome due to Haldol and Levaquin. The patient's symptoms started after receiving the Levaquin. This could potentially be the cause of the elevated malignant syndrome. Patient's creatinine kinase had trended down and normalized. Dantrolene had been given but has been stopped. Patient had decreased muscle rigidity this morning on my exam from yesterday. Patient was afebrile overnight. (5) JERMAIN (acute kidney injury) Current Visit: Yes Status: Acute Patient has been stable overnight. His creatinine is 1.49 with a GFR of 50. We will continue to monitor the patient's renal function. (6) Hypokalemia Current Visit: Yes Status: Acute Patient is a molecular protocol. Patient was also given additional 40 meq of potassium elixir. (7) DVT prophylaxis Current Visit: Yes Status: Acute Patient is currently on lovenox Subjective Principal diagnosis: Patient seen in F/U for Neuroleptic malignant syndrome Interval history: No acute events reported from overnight. The patient remains intubated and sedated and is unable to provide any additional history at this time. Objective PUL Vital signs: Last Vital Signs Temp 97.6 F 08/27/18 03:30 Pulse 102 08/27/18 08:00 Resp 30 08/27/18 08:00 BP 150/77 08/27/18 08:00 Pulse Ox 100 08/27/18 08:00 General appearance: other (Patient is intubated and sedated) Eyes: nonicteric ENT: oropharynx moist Effort: mildly labored, other (Tachypnea) Cardiovascular: regular rate and rhythm Gastrointestinal: hypoactive bowel sounds, soft, non-distended Extremities: no edema, pink and warm Musculoskeletal: no deformities other (Unable to assess due to the patient being sedated and intubated) other (Unable to assess due to the patient being sedated and intubated.) Ventilator Settings Ventilator Settings: Ventilator Settings, Last 8 Hours Ventilator Tidal Volume 500 Setting Ventilator Tidal Volume 500 Setting Ventilator Tidal Volume 500 Setting Ventilator Tidal Volume 500 Setting Ventilator Tidal Volume 500 Setting Ventilator Tidal Volume 500 Setting Ventilator Tidal Volume 500 Setting Ventilator Tidal Volume 500 Setting Ventilator Tidal Volume 500 Setting Ventilator Tidal Volume 500 Setting Ventilator Tidal Volume 500 Setting Ventilator Respiratory Rate 18 Setting Ventilator Respiratory Rate 18 Setting Ventilator Respiratory Rate 18 Setting Ventilator Respiratory Rate 18 Setting Ventilator Respiratory Rate 18 Setting Ventilator Respiratory Rate 18 Setting Ventilator Respiratory Rate 18 Setting Ventilator Respiratory Rate 18 Setting Ventilator Respiratory Rate 18 Setting Ventilator Respiratory Rate 18 Setting Ventilator Respiratory Rate 18 Setting Actual Respiratory Rate 28 Actual Respiratory Rate 19 Actual Respiratory Rate 22 Actual Respiratory Rate 20 Actual Respiratory Rate 18 Actual Respiratory Rate 18 Actual Respiratory Rate 18 Actual Respiratory Rate 24 Actual Respiratory Rate 18 Actual Respiratory Rate 18 Positive End Expiratory 8 Pressure Positive End Expiratory 8 Pressure Positive End Expiratory 8 Pressure Positive End Expiratory 8 Pressure Positive End Expiratory 8 Pressure Positive End Expiratory 8 Pressure Positive End Expiratory 8 Pressure Positive End Expiratory 8 Pressure Positive End Expiratory 8 Pressure Positive End Expiratory 8 Pressure Positive End Expiratory 8 Pressure Peak Inspiratory Airway 24 Pressure Peak Inspiratory Airway 24 Pressure Peak Inspiratory Airway 21 Pressure Peak Inspiratory Airway 22 Pressure Peak Inspiratory Airway 25 Pressure Peak Inspiratory Airway 29 Pressure Peak Inspiratory Airway 29 Pressure Peak Inspiratory Airway 26 Pressure Peak Inspiratory Airway 26 Pressure Peak Inspiratory Airway 37 Pressure Results - Laboratory Findings CBC and BMP: 08/27/18 03:40 08/27/18 03:40 ABG ABG pH 7.40 pH Units (7.32-7.45) 08/27/18 05:23 ABG pCO2 56 mmHg (35-45) H 08/27/18 05:23 ABG pO2 146 mmHg (85-104) H 08/27/18 05:23 ABG O2 Saturation 99 % (95-98) H 08/27/18 05:23 PT/INR, D-dimer PT 12.3 Seconds (9.4-12.1) H 08/27/18 03:40 Abnormal lab findings: Abnormal lab results WBC 12.0 K/mcL (4.3-11.1) H 08/25/18 04:25 RBC 2.90 M/mcL (4.19-5.50) L 08/27/18 03:40 Hgb 8.8 g/dL (12.9-16.9) L 08/27/18 03:40 Hct 27.4 % (37.5-50.1) L 08/27/18 03:40 RDW 14.9 % (11.5-14.5) H 08/24/18 03:35 Plt Count 133 K/mcL (140-400) L 08/22/18 06:02 MPV 9.3 fL (9.4-12.4) L 08/26/18 08:20 10.0 K/mcL (1.6-8.9) H 08/17/18 05:29 0.4 K/mcL (0.6-4.6) L 08/15/18 13:00 Decreased (Normal) L 08/20/18 07:58 PT 12.3 Seconds (9.4-12.1) H 08/27/18 03:40 ABG pH 7.46 pH Units (7.32-7.45) H 08/26/18 05:14 ABG pCO2 56 mmHg (35-45) H 08/27/18 05:23 ABG pO2 146 mmHg (85-104) H 08/27/18 05:23 ABG HCO3 35 mEq/L (21-27) H 08/27/18 05:23 ABG Total CO2 37 mEq/L (20-26) H 08/27/18 05:23 ABG O2 Saturation 99 % (95-98) H 08/27/18 05:23 ABG Base Excess 8 mEq/L (-2 to 3) H 08/27/18 05:23 ABG Hematocrit 35.0 % (37.5-50.1) L 08/24/18 11:19 Glucose 150 mg/dL (60-95) H 08/24/18 11:19 Lactate 0.5 mmol/L (0.7-2.1) L 08/24/18 11:19 Sodium 146 mEq/L (136-145) H 08/26/18 08:20 Potassium 3.0 mEq/L (3.5-5.1) L 08/27/18 03:40 Chloride 108 mEq/L (98-107) H 08/23/18 04:12 Carbon Dioxide 31 mEq/L (23-29) H 08/27/18 03:40 BUN 52 mg/dL (6-20) H 08/27/18 03:40 1.49 mg/dL (0.70-1.30) H 08/27/18 03:40 Est GFR ( Amer) 59 (> 60) L 08/26/18 08:20 Est GFR (Non-Af Amer) 50 (> 60) L 08/27/18 03:40 35 (6-26) H 08/27/18 03:40 Glucose 190 mg/dL (70-105) H 08/27/18 03:40 POC Glucose 135 mg/dL (70-99) H 08/27/18 08:21 6.2 % (-5.6) H 08/16/18 06:05 309 (280-300) H 08/27/18 03:40 Calcium 8.4 mg/dL (8.6-10.3) L 08/25/18 16:52 Venous Ioniz Calcium 1.11 mmol/L (1.15-1.35) L 08/27/18 04:21 AST 132 Units/L (13-39) H 08/16/18 06:05 337 Units/L (30-223) H 08/25/18 08:21 5.2 g/dL (6.4-8.9) L 08/18/18 05:38 3.1 g/dL (3.5-5.7) L 08/25/18 16:52 2.3 g/dL (2.4-3.5) L 08/18/18 05:38 0.9 (1.1-2.2) L 08/25/18 16:52 Beta-Hydroxybutyric Acd > 2.00 mmol/L (0.02-0.27) H 08/15/18 13:00 30 mg/dL (Neg-Trace) H 08/15/18 14:05 15 mg/dL (Negative) H 08/15/18 14:05 Large (Negative) H 08/15/18 14:05 Ur Squamous Epith Cells Many per lpf (None-Few) H 08/15/18 14:05 - Microbiology Findings Microbiology Findings: Microbiology, Last 48 Hours 08/25/18 16:57 Urine Culture - Final Urine,[place] No growth. 08/25/18 13:46 Sputum Culture - Preliminary Trachea 08/25/18 12:05 Blood Culture - Preliminary Peripheral Venipuncture Culture is incubating and being continuously monitored for growth. Final report to follow. 08/25/18 12:10 Blood Culture - Preliminary Peripheral Venipuncture Culture is incubating and being continuously monitored for growth. Final report to follow. - Clinical Findings Intake & Output: Intake & Output 08/26/18 08/27/18 08/27/18 23:59 07:59 15:59 Intake Total 1067.9 / 2842.9 1096.1 / 1096.1 Output Total 200 / 925 350 / 350 Balance 867.9 / 1917.9 746.1 / 746.1 Weight 81.8 kg Consult Discharge Plan - Plan Referrals: Gabriella Simon [Advanced Practice Nurse] - 09/06/18 9:00 am <Mehdi Toney - Last Filed: 08/27/18 13:09> Date of Encounter: 08/27/18 Objective PUL Vital signs: Last Vital Signs Temp 97.8 F 08/27/18 12:37 Pulse 107 08/27/18 11:00 Resp 31 08/27/18 10:00 BP 162/81 08/27/18 10:00 Pulse Ox 100 08/27/18 10:00 Ventilator Settings Ventilator Settings: Ventilator Settings, Last 8 Hours Ventilator Tidal Volume 500 Setting Ventilator Tidal Volume 500 Setting Ventilator Tidal Volume 500 Setting Ventilator Tidal Volume 500 Setting Ventilator Respiratory Rate 18 Setting Ventilator Respiratory Rate 18 Setting Ventilator Respiratory Rate 18 Setting Ventilator Respiratory Rate 18 Setting Actual Respiratory Rate 28 Actual Respiratory Rate 19 Actual Respiratory Rate 22 Positive End Expiratory 8 Pressure Positive End Expiratory 8 Pressure Positive End Expiratory 8 Pressure Positive End Expiratory 8 Pressure Peak Inspiratory Airway 24 Pressure Peak Inspiratory Airway 24 Pressure Peak Inspiratory Airway 21 Pressure Results - Laboratory Findings CBC and BMP: 08/27/18 03:40 08/27/18 03:40 ABG ABG pH 7.40 pH Units (7.32-7.45) 08/27/18 05:23 ABG pCO2 56 mmHg (35-45) H 08/27/18 05:23 ABG pO2 146 mmHg (85-104) H 08/27/18 05:23 ABG O2 Saturation 99 % (95-98) H 08/27/18 05:23 PT/INR, D-dimer PT 12.3 Seconds (9.4-12.1) H 08/27/18 03:40 Abnormal lab findings: Abnormal lab results WBC 12.0 K/mcL (4.3-11.1) H 08/25/18 04:25 RBC 2.90 M/mcL (4.19-5.50) L 08/27/18 03:40 Hgb 8.8 g/dL (12.9-16.9) L 08/27/18 03:40 Hct 27.4 % (37.5-50.1) L 08/27/18 03:40 RDW 14.9 % (11.5-14.5) H 08/24/18 03:35 Plt Count 133 K/mcL (140-400) L 08/22/18 06:02 MPV 9.3 fL (9.4-12.4) L 08/26/18 08:20 10.0 K/mcL (1.6-8.9) H 08/17/18 05:29 0.4 K/mcL (0.6-4.6) L 08/15/18 13:00 Decreased (Normal) L 08/20/18 07:58 PT 12.3 Seconds (9.4-12.1) H 08/27/18 03:40 ABG pH 7.46 pH Units (7.32-7.45) H 08/26/18 05:14 ABG pCO2 56 mmHg (35-45) H 08/27/18 05:23 ABG pO2 146 mmHg (85-104) H 08/27/18 05:23 ABG HCO3 35 mEq/L (21-27) H 08/27/18 05:23 ABG Total CO2 37 mEq/L (20-26) H 08/27/18 05:23 ABG O2 Saturation 99 % (95-98) H 08/27/18 05:23 ABG Base Excess 8 mEq/L (-2 to 3) H 08/27/18 05:23 ABG Hematocrit 35.0 % (37.5-50.1) L 08/24/18 11:19 Glucose 150 mg/dL (60-95) H 08/24/18 11:19 Lactate 0.5 mmol/L (0.7-2.1) L 08/24/18 11:19 Sodium 146 mEq/L (136-145) H 08/26/18 08:20 Potassium 3.0 mEq/L (3.5-5.1) L 08/27/18 03:40 Chloride 108 mEq/L (98-107) H 08/23/18 04:12 Carbon Dioxide 31 mEq/L (23-29) H 08/27/18 03:40 BUN 52 mg/dL (6-20) H 08/27/18 03:40 1.49 mg/dL (0.70-1.30) H 08/27/18 03:40 Est GFR ( Amer) 59 (> 60) L 08/26/18 08:20 Est GFR (Non-Af Amer) 50 (> 60) L 08/27/18 03:40 35 (6-26) H 08/27/18 03:40 Glucose 190 mg/dL (70-105) H 08/27/18 03:40 POC Glucose 142 mg/dL (70-99) H 08/27/18 11:57 6.2 % (-5.6) H 08/16/18 06:05 309 (280-300) H 08/27/18 03:40 Calcium 8.4 mg/dL (8.6-10.3) L 08/25/18 16:52 Venous Ioniz Calcium 1.11 mmol/L (1.15-1.35) L 08/27/18 04:21 AST 132 Units/L (13-39) H 08/16/18 06:05 337 Units/L (30-223) H 08/25/18 08:21 5.2 g/dL (6.4-8.9) L 08/18/18 05:38 3.1 g/dL (3.5-5.7) L 08/25/18 16:52 2.3 g/dL (2.4-3.5) L 08/18/18 05:38 0.9 (1.1-2.2) L 08/25/18 16:52 Beta-Hydroxybutyric Acd > 2.00 mmol/L (0.02-0.27) H 08/15/18 13:00 30 mg/dL (Neg-Trace) H 08/15/18 14:05 15 mg/dL (Negative) H 08/15/18 14:05 Large (Negative) H 08/15/18 14:05 Ur Squamous Epith Cells Many per lpf (None-Few) H 08/15/18 14:05 - Microbiology Findings Microbiology Findings: Microbiology, Last 48 Hours 08/25/18 13:46 Sputum Culture - Preliminary Trachea Gram Negative Jama[place] 08/25/18 16:57 Urine Culture - Final Urine,[place] No growth. 08/25/18 12:05 Blood Culture - Preliminary Peripheral Venipuncture Culture is incubating and being continuously estrada tored for growth. Final report to follow. 08/25/18 12:10 Blood Culture - Preliminary Peripheral Venipuncture Culture is incubating and being continuously monitored for growth. Final report to follow. - Clinical Findings Intake & Output: Intake & Output 08/26/18 08/27/18 08/27/18 23:59 07:59 15:59 Intake Total 1067.9 / 2842.9 1096.1 / 1156.1 60 / 1156.1 Output Total 200 / 925 350 / 1550 1200 / 1550 Balance 867.9 / 1917.9 746.1 / -393.9 -1140 / -393.9 Weight 81.8 kg - Attending Attestation I examined this patient and my medical decision-making was reviewed with the Resident Physician. I agree with the documented findings, disposition and treatment plan as described except to the extent set forth below. We independently had [id number] contact with the patient Patient seen and examined at bedside Labs, radiology, chart personally reviewed. Management was reviewed during multidisciplinary critical care rounds. 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 fib controlled unless heart rate goes up because of agitation GI: GI prophylaxis given Nutrition: Enternal nutrition per dietary recs Renal: UOP Monitored, Cont to Trend sCr and monitor Electrolytes. ID: Had been treated for pneumonia and now has gram-negative jamaal and sputum he remains afebrile and white count is normal pending speciation will start ABx Heme/Onc:DVT prophylaxis given Endo: Glucose Monitored Integ/MSK: Skin Care per routine ICU Nursing Protocol to prevent ulcers. Lines: All lines examined without evidence of infection : Dispo: Monitor in ICU for Vent mngt CODE: Full code mother and father updated at bedside son is not present fathers leading towards hospice measures indicating that he does not fill his son is can recover and to keep him in this situation medically is not beneficial palliative care is following ongoing conversations regarding goals of care have been undertaken and we will determine final decisions over the next 24-48 hours I suspect
[2018-08-27] MEDS ORDERED: Potassium Chloride Elixir 20 MEQ/15 ML UDC GTUBE ONE (08:45)
[2018-08-27] MEDS: Budesonide Neb 0.5 MG/2 ML IH SCH ×2 (09:01→21:17)
--- NOTE | 2018-08-27 16:02 | Event Note ---
Date of Encounter: 08/27/18 Time of Encounter: 13:00 Check-in with patient's primary nurse. Patient's son visited yesterday evening. Son was to present late this afternoon, requested phone call upon his arrival. No changes in plan of care at this time. Palliative will continue to follow.
[2018-08-27] MEDS: *HR* Metoprolol 5 MG/5 ML VIAL IVP PRN (23:58)
[2018-08-28 03:18] LABS: Basophils % 0.3 %; Eosinophils # 0.2 K/mcL (0.0-0.6); Eosinophils % 2.8 %; Hematocrit 33.3 % (37.5-50.1); Immature Granulocytes % 0.6 % (0-4); Immature Platelets 2.1 % (1.1-6.1); Lymphocytes # 1.4 K/mcL (0.6-4.6); Mean Corpuscular HGB Conc 32.4 g/dL (31.6-35.5); Mean Corpuscular Hemoglobin 30.9 pg (28.0-33.3); Mean Corpuscular Volume 95.1 fL (83.0-100.0); Mean Platelet Volume 9.3 fL (9.4-12.4); Monocytes # 0.6 K/mcL (0.0-1.3); Neutrophils # 5.7 K/mcL (1.6-8.9); Platelet Count 252 K/mcL (140-400); Red Cell Distribution Width 14.4 % (11.5-14.5); Segmented Neutrophils % 71.3 %
[2018-08-28 03:19] LABS: Hemoglobin 10.8 g/dL (12.9-16.9)
[2018-08-28 03:27] LABS: VBG Ionized Calcium 1.14 mmol/L (1.15-1.35)
[2018-08-28 03:41] LABS: BUN/Creatinine Ratio 31 (6-26); Blood Urea Nitrogen 41 mg/dL (6-20); Calcium 9.4 mg/dL (8.6-10.3); Carbon Dioxide 33 mEq/L (23-29); Chloride 101 mEq/L (98-107); Glucose 145 mg/dL (70-105); Osmolality,Calculated 315 (280-300); Potassium 3.7 mEq/L (3.5-5.1); Sodium 146 mEq/L (136-145); eGFR For Non-African Americans 58 (> 60)
[2018-08-28] MEDS: Artificial Tears SOLN 15 ML BOTTLE BOTH EYES SCH ×4 (03:44→16:35)
[2018-08-28] MEDS: Amiodarone Premix 360 MG/200 ML BAG IVC SCH (03:54)
[2018-08-28] MEDS: *HR* LORazepam 2 MG/ML VIAL IVP SCH ×2 (03:54→07:49)
[2018-08-28] MEDS: Levalbuterol Neb 0.63 MG/3 ML IH SCH ×4 (03:59→22:13)
[2018-08-28 05:09] LABS: ABG Base Excess 9 mEq/L (-2 to 3); ABG HCO3 34 mEq/L (21-27); ABG Oxygen Saturation 99 % (95-98); ABG PCO2 46 mmHg (35-45); ABG PH 7.48 pH Units (7.32-7.45); ABG PO2 139 mmHg (85-104); ABG TCO2 35 mEq/L (20-26); Blood Gas Modality CPAP/PS; Blood Gas PEEP 8 cm H2O; Blood Gas Pressure Support 10 cm H2O
[2018-08-28] MEDS: *HR* Enoxaparin 40 MG/0.4 ML SYRINGE SQ SCH (05:23)
[2018-08-28] MEDS: Chlorhexidine Rinse 15 ML MOUTHWASH MM SCH (07:46)
[2018-08-28] MEDS: Furosemide 40 MG/4 ML VIAL IVP SCH (07:47)
[2018-08-28] MEDS: Pantoprazole 40 MG VIAL IVP SCH (07:47)
--- NOTE | 2018-08-28 09:57 | Pulmonology Progress Note ---
<Wilbert Ramos - Last Filed: 08/28/18 19:21> Date of Encounter: 08/28/18 Time of Encounter: 09:57 Assessment and Plan (1) Acute hypoxemic respiratory failure Current Visit: Yes Status: Acute Meeting was had with family today regarding patient's lack of progress Clinical condition continued to decline, patient was unable to be extubated without severe agitation Decision was made with palliative coordination to transition to DNR/CC Patient was extubated and transitioned to BiPAP, comfort measures initiated Patient was transitioned to palliative unit (2) Rhabdomyolysis Current Visit: Yes Status: Resolved Qualifiers: Rhabdomyolysis type: traumatic Encounter type: subsequent encounter Qualified Code(s): T79.6XXD - Traumatic ischemia of muscle, subsequent encounter (3) JERMAIN (acute kidney injury) Current Visit: Yes Status: Acute (4) Metabolic encephalopathy Current Visit: Yes Status: Acute (5) Neuroleptic malignant syndrome Current Visit: Yes Status: Resolved Subjective Principal diagnosis: Patient seen in F/U for Neuroleptic malignant syndrome Interval history: Discussion with family, palliative today to change CODE STATUS to DNR/CC. Patient extubated, transition to comfort care, transferred to palliative unit Objective PUL Vital signs: Last Vital Signs Temp 98.2 F 08/28/18 08:41 Pulse 121 08/28/18 08:00 Resp 22 08/28/18 08:00 BP 144/75 08/28/18 08:00 Pulse Ox 100 08/28/18 08:00 General appearance: agitated Neck: supple Effort: very labored Auscultation: bilateral: rales Cardiovascular: other (Tachycardic rate and irregularly irregular rhythm) Gastrointestinal: absent bowel sounds, soft, non-distended Integumentary: other (Diaphoretic) Extremities: no cyanosis, no edema Musculoskeletal: no deformities unable to assess due to mental status Ventilator Settings Ventilator Settings: Ventilator Settings, Last 8 Hours Ventilator Tidal Volume 500 Setting Ventilator Tidal Volume 500 Setting Ventilator Tidal Volume 500 Setting Ventilator Tidal Volume 500 Setting Ventilator Tidal Volume 500 Setting Ventilator Tidal Volume 500 Setting Ventilator Tidal Volume 500 Setting Ventilator Tidal Volume 500 Setting Ventilator Tidal Volume 500 Setting Ventilator Respiratory Rate 18 Setting Ventilator Respiratory Rate 18 Setting Ventilator Respiratory Rate 18 Setting Ventilator Respiratory Rate 18 Setting Ventilator Respiratory Rate 18 Setting Ventilator Respiratory Rate 18 Setting Ventilator Respiratory Rate 18 Setting Ventilator Respiratory Rate 18 Setting Ventilator Respiratory Rate 18 Setting Actual Respiratory Rate 22 Actual Respiratory Rate 18 Actual Respiratory Rate 18 Actual Respiratory Rate 29 Actual Respiratory Rate 29 Actual Respiratory Rate 29 Actual Respiratory Rate 29 Actual Respiratory Rate 29 Actual Respiratory Rate 24 Actual Respiratory Rate 24 Positive End Expiratory 8 Pressure Positive End Expiratory 5 Pressure Positive End Expiratory 5 Pressure Positive End Expiratory 8 Pressure Positive End Expiratory 8 Pressure Positive End Expiratory 8 Pressure Positive End Expiratory 8 Pressure Positive End Expiratory 8 Pressure Positive End Expiratory 8 Pressure Positive End Expiratory 8 Pressure Positive End Expiratory 8 Pressure Positive End Expiratory 8 Pressure Peak Inspiratory Airway 25 Pressure Peak Inspiratory Airway 24 Pressure Peak Inspiratory Airway 24 Pressure Peak Inspiratory Airway 28 Pressure Peak Inspiratory Airway 28 Pressure Peak Inspiratory Airway 19 Pressure Peak Inspiratory Airway 19 Pressure Peak Inspiratory Airway 19 Pressure Peak Inspiratory Airway 18 Pressure Peak Inspiratory Airway 18 Pressure Results - Laboratory Findings CBC and BMP: 08/28/18 03:10 08/28/18 03:10 ABG ABG pH 7.48 pH Units (7.32-7.45) H 08/28/18 05:06 ABG pCO2 46 mmHg (35-45) H 08/28/18 05:06 ABG pO2 139 mmHg (85-104) H D 08/28/18 05:06 ABG O2 Saturation 99 % (95-98) H 08/28/18 05:06 PT/INR, D-dimer PT 12.3 Seconds (9.4-12.1) H 08/27/18 03:40 Abnormal lab findings: Abnormal lab results WBC 12.0 K/mcL (4.3-11.1) H 08/25/18 04:25 RBC 3.50 M/mcL (4.19-5.50) L 08/28/18 03:10 Hgb 10.8 g/dL (12.9-16.9) L D 08/28/18 03:10 Hct 33.3 % (37.5-50.1) L 08/28/18 03:10 RDW 14.9 % (11.5-14.5) H 08/24/18 03:35 Plt Count 133 K/mcL (140-400) L 08/22/18 06:02 MPV 9.3 fL (9.4-12.4) L 08/28/18 03:10 10.0 K/mcL (1.6-8.9) H 08/17/18 05:29 0.4 K/mcL (0.6-4.6) L 08/15/18 13:00 Decreased (Normal) L 08/20/18 07:58 PT 12.3 Seconds (9.4-12.1) H 08/27/18 03:40 ABG pH 7.48 pH Units (7.32-7.45) H 08/28/18 05:06 ABG pCO2 46 mmHg (35-45) H 08/28/18 05:06 ABG pO2 139 mmHg (85-104) H D 08/28/18 05:06 ABG HCO3 34 mEq/L (21-27) H 08/28/18 05:06 ABG Total CO2 35 mEq/L (20-26) H 08/28/18 05:06 ABG O2 Saturation 99 % (95-98) H 08/28/18 05:06 ABG Base Excess 9 mEq/L (-2 to 3) H 08/28/18 05:06 ABG Hematocrit 35.0 % (37.5-50.1) L 08/24/18 11:19 Glucose 150 mg/dL (60-95) H 08/24/18 11:19 Lactate 0.5 mmol/L (0.7-2.1) L 08/24/18 11:19 Sodium 146 mEq/L (136-145) H 08/28/18 03:10 Potassium 3.0 mEq/L (3.5-5.1) L 08/27/18 03:40 Chloride 108 mEq/L (98-107) H 08/23/18 04:12 Carbon Dioxide 33 mEq/L (23-29) H 08/28/18 03:10 BUN 41 mg/dL (6-20) H 08/28/18 03:10 1.31 mg/dL (0.70-1.30) H 08/28/18 03:10 Est GFR ( Amer) 59 (> 60) L 08/26/18 08:20 Est GFR (Non-Af Amer) 58 (> 60) L 08/28/18 03:10 31 (6-26) H 08/28/18 03:10 Glucose 145 mg/dL (70-105) H 08/28/18 03:10 POC Glucose 151 mg/dL (70-99) H 08/28/18 08:15 6.2 % (-5.6) H 08/16/18 06:05 315 (280-300) H 08/28/18 03:10 Calcium 8.4 mg/dL (8.6-10.3) L 08/25/18 16:52 Venous Ioniz Calcium 1.14 mmol/L (1.15-1.35) L 08/28/18 03:23 AST 132 Units/L (13-39) H 08/16/18 06:05 337 Units/L (30-223) H 08/25/18 08:21 5.2 g/dL (6.4-8.9) L 08/18/18 05:38 3.1 g/dL (3.5-5.7) L 08/25/18 16:52 2.3 g/dL (2.4-3.5) L 08/18/18 05:38 0.9 (1.1-2.2) L 08/25/18 16:52 Beta-Hydroxybutyric Acd > 2.00 mmol/L (0.02-0.27) H 08/15/18 13:00 30 mg/dL (Neg-Trace) H 08/15/18 14:05 15 mg/dL (Negative) H 08/15/18 14:05 Large (Negative) H 08/15/18 14:05 Ur Squamous Epith Cells Many per lpf (None-Few) H 08/15/18 14:05 - Microbiology Findings Microbiology Findings: Microbiology, Last 48 Hours 08/25/18 13:46 Sputum Culture - Final Trachea Escherichia coli Strep agalactiae - (Group B) 08/27/18 14:10 Sputum Culture - Preliminary Trachea 08/25/18 16:57 Urine Culture - Final Urine,[place] No growth. - Clinical Findings Intake & Output: Intake & Output 08/27/18 08/28/18 08/28/18 23:59 07:59 15:59 Intake Total 460 / 1876.1 700 / 760 60 / 760 Output Total 850 / 2400 100 / 250 150 / 250 Balance -390 / -523.9 600 / 510 -90 / 510 Weight 82 kg Consult Discharge Plan - Plan Referrals: Gabriella Simon [Advanced Practice Nurse] - 09/06/18 9:00 am <Zack Díaz - Last Filed: 08/28/18 21:59> Date of Encounter: 08/28/18 Objective PUL Vital signs: Last Vital Signs Temp 98.2 F 08/28/18 08:41 Pulse 121 08/28/18 08:00 Resp 18 08/28/18 10:10 BP 134/99 08/28/18 10:10 Pulse Ox 100 08/28/18 10:10 Ventilator Settings Ventilator Settings: Ventilator Settings, Last 8 Hours Ventilator Tidal Volume 500 Setting Ventilator Tidal Volume 500 Setting Ventilator Tidal Volume 500 Setting Ventilator Tidal Volume 500 Setting Ventilator Tidal Volume 500 Setting Ventilator Tidal Volume 500 Setting Ventilator Tidal Volume 500 Setting Ventilator Tidal Volume 500 Setting Ventilator Tidal Volume 500 Setting Ventilator Respiratory Rate 18 Setting Ventilator Respiratory Rate 18 Setting Ventilator Respiratory Rate 18 Setting Ventilator Respiratory Rate 18 Setting Ventilator Respiratory Rate 18 Setting Ventilator Respiratory Rate 18 Setting Ventilator Respiratory Rate 18 Setting Ventilator Respiratory Rate 18 Setting Ventilator Respiratory Rate 18 Setting Actual Respiratory Rate 18 Actual Respiratory Rate 22 Actual Respiratory Rate 18 Actual Respiratory Rate 18 Actual Respiratory Rate 29 Actual Respiratory Rate 29 Actual Respiratory Rate 29 Actual Respiratory Rate 29 Actual Respiratory Rate 29 Actual Respiratory Rate 24 Positive End Expiratory 5 Pressure Positive End Expiratory 8 Pressure Positive End Expiratory 5 Pressure Positive End Expiratory 5 Pressure Positive End Expiratory 8 Pressure Positive End Expiratory 8 Pressure Positive End Expiratory 8 Pressure Positive End Expiratory 8 Pressure Positive End Expiratory 8 Pressure Positive End Expiratory 8 Pressure Positive End Expiratory 8 Pressure Positive End Expiratory 8 Pressure Peak Inspiratory Airway 31 Pressure Peak Inspiratory Airway 25 Pressure Peak Inspiratory Airway 24 Pressure Peak Inspiratory Airway 24 Pressure Peak Inspiratory Airway 28 Pressure Peak Inspiratory Airway 28 Pressure Peak Inspiratory Airway 19 Pressure Peak Inspiratory Airway 19 Pressure Peak Inspiratory Airway 19 Pressure Peak Inspiratory Airway 18 Pressure Results - Laboratory Findings CBC and BMP: 08/28/18 03:10 08/28/18 03:10 ABG ABG pH 7.48 pH Units (7.32-7.45) H 08/28/18 05:06 ABG pCO2 46 mmHg (35-45) H 08/28/18 05:06 ABG pO2 139 mmHg (85-104) H D 08/28/18 05:06 ABG O2 Saturation 99 % (95-98) H 08/28/18 05:06 PT/INR, D-dimer PT 12.3 Seconds (9.4-12.1) H 08/27/18 03:40 Abnormal lab findings: Abnormal lab results WBC 12.0 K/mcL (4.3-11.1) H 08/25/18 04:25 RBC 3.50 M/mcL (4.19-5.50) L 08/28/18 03:10 Hgb 10.8 g/dL (12.9-16.9) L D 08/28/18 03:10 Hct 33.3 % (37.5-50.1) L 08/28/18 03:10 RDW 14.9 % (11.5-14.5) H 08/24/18 03:35 Plt Count 133 K/mcL (140-400) L 08/22/18 06:02 MPV 9.3 fL (9.4-12.4) L 08/28/18 03:10 10.0 K/mcL (1.6-8.9) H 08/17/18 05:29 0.4 K/mcL (0.6-4.6) L 08/15/18 13:00 Decreased (Normal) L 08/20/18 07:58 PT 12.3 Seconds (9.4-12.1) H 08/27/18 03:40 ABG pH 7.48 pH Units (7.32-7.45) H 08/28/18 05:06 ABG pCO2 46 mmHg (35-45) H 08/28/18 05:06 ABG pO2 139 mmHg (85-104) H D 08/28/18 05:06 ABG HCO3 34 mEq/L (21-27) H 08/28/18 05:06 ABG Total CO2 35 mEq/L (20-26) H 08/28/18 05:06 ABG O2 Saturation 99 % (95-98) H 08/28/18 05:06 ABG Base Excess 9 mEq/L (-2 to 3) H 08/28/18 05:06 ABG Hematocrit 35.0 % (37.5-50.1) L 08/24/18 11:19 Glucose 150 mg/dL (60-95) H 08/24/18 11:19 Lactate 0.5 mmol/L (0.7-2.1) L 08/24/18 11:19 Sodium 146 mEq/L (136-145) H 08/28/18 03:10 Potassium 3.0 mEq/L (3.5-5.1) L 08/27/18 03:40 Chloride 108 mEq/L (98-107) H 08/23/18 04:12 Carbon Dioxide 33 mEq/L (23-29) H 08/28/18 03:10 BUN 41 mg/dL (6-20) H 08/28/18 03:10 1.31 mg/dL (0.70-1.30) H 08/28/18 03:10 Est GFR ( Amer) 59 (> 60) L 08/26/18 08:20 Est GFR (Non-Af Amer) 58 (> 60) L 08/28/18 03:10 31 (6-26) H 08/28/18 03:10 Glucose 145 mg/dL (70-105) H 08/28/18 03:10 POC Glucose 151 mg/dL (70-99) H 08/28/18 08:15 6.2 % (-5.6) H 08/16/18 06:05 315 (280-300) H 08/28/18 03:10 Calcium 8.4 mg/dL (8.6-10.3) L 08/25/18 16:52 Venous Ioniz Calcium 1.14 mmol/L (1.15-1.35) L 08/28/18 03:23 AST 132 Units/L (13-39) H 08/16/18 06:05 337 Units/L (30-223) H 08/25/18 08:21 5.2 g/dL (6.4-8.9) L 08/18/18 05:38 3.1 g/dL (3.5-5.7) L 08/25/18 16:52 2.3 g/dL (2.4-3.5) L 08/18/18 05:38 0.9 (1.1-2.2) L 08/25/18 16:52 Beta-Hydroxybutyric Acd > 2.00 mmol/L (0.02-0.27) H 08/15/18 13:00 30 mg/dL (Neg-Trace) H 08/15/18 14:05 15 mg/dL (Negative) H 08/15/18 14:05 Large (Negative) H 08/15/18 14:05 Ur Squamous Epith Cells Many per lpf (None-Few) H 08/15/18 14:05 - Microbiology Findings Microbiology Findings: Microbiology, Last 48 Hours 08/25/18 13:46 Sputum Culture - Final Trachea Escherichia coli Strep agalactiae - (Group B) 08/27/18 14:10 Sputum Culture - Preliminary Trachea 08/25/18 16:57 Urine Culture - Final Urine,[place] No growth. - Clinical Findings Intake & Output: Intake & Output 08/27/18 08/28/18 08/28/18 23:59 07:59 15:59 Intake Total 460 / 1876.1 700 / 842.9 142.9 / 842.9 Output Total 850 / 2400 100 / 250 150 / 250 Balance -390 / -523.9 600 / 592.9 -7.1 / 592.9 Weight 82 kg - Attending Attestation I examined this patient and my medical decision-making was reviewed with the Resident Physician. I agree with the documented findings, disposition and treatment plan as described except to the extent set forth below. Patient seen and examined. Labs, radiology, chart personally reviewed. Agree with resident's history and physical, assessment, plan with following comments: FISH HEADER: Patient does not follows commands, still need sedation for vent synchrony. Start Klonipin Pulmonary: Acceptable oxygenation and he was able tolerate it, but he gets agitated. Changed vent setting. I had a family meeting in the presence of the nurse regarding his condition and he has not been passing his SBT trial. Family wants compationate extubation and they're aware that he could if he is extubated. All his sons are aware of that. All sedation stopped first and patient is breathing over the ventilator and one more time confirmed with family before extubation and they all wanted him to be extubated and that was done and goal to keep patient comfortable. Cardiovascular: Stable on current treatment GI: Nutrition per dietary and GI prophylaxis per routine Heme: DVT prophylaxis per routine Renal; urine out put and renal function reviewed Endorcine: blood glucose is monitored Lines: all lines checked and no evidence of infections Skin: skin care to prevent pressure ulcers per nursing routine care. Palliative care is following up. I spent 32 min of Critical Care time with this patient. It involved decision making of high complexity to assess, manipulate, and support vital organ system failure and/or to prevent further life threatening deterioration of the patient's condition. The time involved in the performance of separately reportable procedures was not counted toward critical care time.
[2018-08-28] MEDS: *HR* Metoprolol 5 MG/5 ML VIAL IVP PRN (10:09)
[2018-08-28] MEDS: Budesonide Neb 0.5 MG/2 ML IH SCH ×2 (10:10→22:13)
[2018-08-28] MEDS ORDERED: *HR* Morphine 2 MG/ML SYRINGE IVP PRN ×2 (11:59→14:36)
[2018-08-28] MEDS: *HR* LORazepam 2 MG/ML VIAL IVP PRN ×3 (13:30→19:24)
[2018-08-28] MEDS ORDERED: *HR* Metoprolol 5 MG/5 ML VIAL IVP PRN ×3 (13:42→18:33)
[2018-08-28] MEDS ORDERED: Atropine Sulfate 1% 40 DROP/2 ML BOTTLE SL PRN ×2 (14:08→18:33)
--- NOTE | 2018-08-28 14:21 | Palliative Progress Note ---
Date of Encounter: 08/28/18 Time of Encounter: 12:00 - Assessment and plan (1) Dyspnea Current Visit: Yes Status: Acute Assessment and plan: Patient will be extubated soon. If he does not do well and struggles with dyspnea, will have low dose MOrphine available PRN. (2) Restlessness and agitation Current Visit: Yes Status: Acute Assessment and plan: Will transition Lorazepam to 1mg IV Q2H prn and monitor (3) Respiratory failure Current Visit: Yes Status: Acute (4) Altered mental status Current Visit: Yes Status: Acute Qualifiers: Altered mental status type: unspecified Qualified Code(s): R41.82 - Altered mental status, unspecified (5) Neuroleptic malignant syndrome Current Visit: Yes Status: Resolved (6) Palliative care encounter Current Visit: Yes Status: Acute (7) Goals of care, counseling/discussion Current Visit: Yes Status: Acute Assessment and plan: D/W patient's 3 sons, father, brother, and sister regarding current clinical status and goals of care. 45 min meeting held, and Dr. Díaz also arrived and discussed with them. He tolerated CPAP trial yesterday, but today with increasing RR and heart rate. 3 sons in agreement to extubate, and not to reintubate patient. 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 Agree to transition code status to DNR/DNI and not reintubate after extubation. If patient does poorly, will transition to comfort care. Will continue to follow. - Time Spent With Patient Total time spent is greater than 50% in coordination of care (as documented) at patient's floor/unit and/or counseling patient: - Subjective Interval history: Patient remains intubated on vent. Family here at bedside, plan to extubate soon. Sedation is shut off at this time. VItals stable, Labs reviewed. Appears restless at times. - Constitutional Vitals: Abnormal lab results WBC 12.0 K/mcL (4.3-11.1) H 08/25/18 04:25 RBC 3.50 M/mcL (4.19-5.50) L 08/28/18 03:10 Hgb 10.8 g/dL (12.9-16.9) L D 08/28/18 03:10 Hct 33.3 % (37.5-50.1) L 08/28/18 03:10 RDW 14.9 % (11.5-14.5) H 08/24/18 03:35 Plt Count 133 K/mcL (140-400) L 08/22/18 06:02 MPV 9.3 fL (9.4-12.4) L 08/28/18 03:10 10.0 K/mcL (1.6-8.9) H 08/17/18 05:29 0.4 K/mcL (0.6-4.6) L 08/15/18 13:00 Decreased (Normal) L 08/20/18 07:58 PT 12.3 Seconds (9.4-12.1) H 08/27/18 03:40 ABG pH 7.48 pH Units (7.32-7.45) H 08/28/18 05:06 ABG pCO2 46 mmHg (35-45) H 08/28/18 05:06 ABG pO2 139 mmHg (85-104) H D 08/28/18 05:06 ABG HCO3 34 mEq/L (21-27) H 08/28/18 05:06 ABG Total CO2 35 mEq/L (20-26) H 08/28/18 05:06 ABG O2 Saturation 99 % (95-98) H 08/28/18 05:06 ABG Base Excess 9 mEq/L (-2 to 3) H 08/28/18 05:06 ABG Hematocrit 35.0 % (37.5-50.1) L 08/24/18 11:19 Glucose 150 mg/dL (60-95) H 08/24/18 11:19 Lactate 0.5 mmol/L (0.7-2.1) L 08/24/18 11:19 Sodium 146 mEq/L (136-145) H 08/28/18 03:10 Potassium 3.0 mEq/L (3.5-5.1) L 08/27/18 03:40 Chloride 108 mEq/L (98-107) H 08/23/18 04:12 Carbon Dioxide 33 mEq/L (23-29) H 08/28/18 03:10 BUN 41 mg/dL (6-20) H 08/28/18 03:10 1.31 mg/dL (0.70-1.30) H 08/28/18 03:10 Est GFR ( Amer) 59 (> 60) L 08/26/18 08:20 Est GFR (Non-Af Amer) 58 (> 60) L 08/28/18 03:10 31 (6-26) H 08/28/18 03:10 Glucose 145 mg/dL (70-105) H 08/28/18 03:10 POC Glucose 212 mg/dL (70-99) H 08/28/18 12:01 6.2 % (-5.6) H 08/16/18 06:05 315 (280-300) H 08/28/18 03:10 Calcium 8.4 mg/dL (8.6-10.3) L 08/25/18 16:52 Venous Ioniz Calcium 1.14 mmol/L (1.15-1.35) L 08/28/18 03:23 AST 132 Units/L (13-39) H 08/16/18 06:05 337 Units/L (30-223) H 08/25/18 08:21 5.2 g/dL (6.4-8.9) L 08/18/18 05:38 3.1 g/dL (3.5-5.7) L 08/25/18 16:52 2.3 g/dL (2.4-3.5) L 08/18/18 05:38 0.9 (1.1-2.2) L 08/25/18 16:52 Beta-Hydroxybutyric Acd > 2.00 mmol/L (0.02-0.27) H 08/15/18 13:00 30 mg/dL (Neg-Trace) H 08/15/18 14:05 15 mg/dL (Negative) H 08/15/18 14:05 Large (Negative) H 08/15/18 14:05 Ur Squamous Epith Cells Many per lpf (None-Few) H 08/15/18 14:05 General appearance: Present: mild distress - Respiratory Additional comments: Breath sounds course with occasional rhonchi. - Cardiovascular Cardiovascular exam: Present: tachycardia - GI/Abdominal GI/Abdominal exam: Present: normal bowel sounds, soft - Extremities Exam Extremities exam: Present: normal capillary refill, normal inspection - Neurological Exam Additional comments: Sedated on vent - Skin Skin exam: Present: dry, pallor, warm Palliative Quality Palliative Quality: Screen for Code Status: NA (No family present.), Screen for Goals of Care: NA (No family present.), Screen for Pain: Yes (No Nonverbal s/s of pain discomfort noted.), If Pain Regimen Started, Initiate Bowel Regimen: NA, Screen for Nausea/Vomitting: NA Code Status: 08/15/18 16:05 Resuscitation Status: Active [RES] Routine Comment: Resuscitation Status: Full Code 08/28/18 11:24 DNR [Resuscitation Status: Active] [RES] Routine Comment: Resuscitation Status: [id number] - Labs CBC & Chem 7: 08/28/18 03:10 08/28/18 03:10 Labs: Laboratory Results - last 24 hr 08/27/18 08/27/18 08/28/18 19:49 22:44 03:10 WBC 7.9 RBC 3.50 L Hgb 10.8 L D Hct 33.3 L MCV 95.1 MCH 30.9 MCHC 32.4 RDW 14.4 Plt Count 252 MPV 9.3 L Immature Gran % 0.6 Seg Neutrophils % 71.3 Lymphocytes % 18.0 Monocytes % 7.0 Eosinophils % 2.8 Basophils % 0.3 Neutrophils # 5.7 Lymphocytes # 1.4 Monocytes # 0.6 Eosinophils # 0.2 Basophils # 0.0 Immature Plt Fraction 2.1 Sample Site ABG pH ABG pCO2 ABG pO2 ABG HCO3 ABG Total CO2 ABG O2 Saturation ABG Base Excess Reese Test Respiration Rate O2 Delivery Device Blood Gas Modality Inspired O2 Tidal Volume PEEP Pressure Support Sodium Potassium Chloride Carbon Dioxide BUN Creatinine Est GFR ( Amer) Est GFR (Non-Af Amer) BUN/Creatinine Ratio Glucose POC Glucose 143 H 112 H Calculated Osmolality Calcium Venous Ioniz Calcium Magnesium 08/28/18 08/28/18 08/28/18 03:10 03:10 03:23 WBC RBC Hgb Hct MCV MCH MCHC RDW Plt Count MPV Immature Gran % Seg Neutrophils % Lymphocytes % Monocytes % Eosinophils % Basophils % Neutrophils # Lymphocytes # Monocytes # Eosinophils # Basophils # Immature Plt Fraction Sample Site ABG pH ABG pCO2 ABG pO2 ABG HCO3 ABG Total CO2 ABG O2 Saturation ABG Base Excess Reese Test Respiration Rate O2 Delivery Device Blood Gas Modality Inspired O2 Tidal Volume PEEP Pressure Support Sodium 146 H Potassium 3.7 Chloride 101 Carbon Dioxide 33 H BUN 41 H Creatinine 1.31 H Est GFR ( Amer) > 60 Est GFR (Non-Af Amer) 58 L BUN/Creatinine Ratio 31 H Glucose 145 H POC Glucose Calculated Osmolality 315 H Calcium 9.4 Venous Ioniz Calcium 1.14 L Magnesium 2.3 08/28/18 08/28/18 08/28/18 04:57 05:06 08:15 WBC RBC Hgb Hct MCV MCH MCHC RDW Plt Count MPV Immature Gran % Seg Neutrophils % Lymphocytes % Monocytes % Eosinophils % Basophils % Neutrophils # Lymphocytes # Monocytes # Eosinophils # Basophils # Immature Plt Fraction Sample Site R Radial R Radial ABG pH 7.41 7.48 H ABG pCO2 30 L 46 H ABG pO2 72 L 139 H D ABG HCO3 19 L 34 H ABG Total CO2 20 35 H ABG O2 Saturation 95 99 H ABG Base Excess -5 L 9 H Resee Test Positive Positive Respiration Rate 18 O2 Delivery Device Adult Vent Adult Vent Blood Gas Modality PRVC CPAP/PS Inspired O2 35.0 40.0 Tidal Volume 500 PEEP 5 8 Pressure Support 10 Sodium Potassium Chloride Carbon Dioxide BUN Creatinine Est GFR ( Amer) Est GFR (Non-Af Amer) BUN/Creatinine Ratio Glucose POC Glucose 151 H Calculated Osmolality Calcium Venous Ioniz Calcium Magnesium 08/28/18 12:01 WBC RBC Hgb Hct MCV MCH MCHC RDW Plt Count MPV Immature Gran % Seg Neutrophils % Lymphocytes % Monocytes % Eosinophils % Basophils % Neutrophils # Lymphocytes # Monocytes # Eosinophils # Basophils # Immature Plt Fraction Sample Site ABG pH ABG pCO2 ABG pO2 ABG HCO3 ABG Total CO2 ABG O2 Saturation ABG Base Excess Reese Test Respiration Rate O2 Delivery Device Blood Gas Modality Inspired O2 Tidal Volume PEEP Pressure Support Sodium Potassium Chloride Carbon Dioxide BUN Creatinine Est GFR ( Amer) Est GFR (Non-Af Amer) BUN/Creatinine Ratio Glucose POC Glucose 212 H Calculated Osmolality Calcium Venous Ioniz Calcium Magnesium - ABG Interpretation ABG results: ABG ABG pH 7.48 pH Units (7.32-7.45) H 08/28/18 05:06 ABG pCO2 46 mmHg (35-45) H 08/28/18 05:06 ABG pO2 139 mmHg (85-104) H D 08/28/18 05:06 ABG O2 Saturation 99 % (95-98) H 08/28/18 05:06 PT/INR, D-dimer PT 12.3 Seconds (9.4-12.1) H 08/27/18 03:40 Palliative Scale - Palliative Performance Scale How ambulatory is this patient?: Totally bed bound What is patient's level of activity and evidence of disease?: Unable to do any activity, Extensive disease How much self-care assistance does patient require?: Total care How much oral intake does the patient have?: Mouth care only What is this patient's level of consciousness?: Drowsy or coma with or without confusion Palliative Performance Score: 10 % Consult Discharge Plan - Plan Referrals: Gabriella Simon [Advanced Practice Nurse] - 09/06/18 9:00 am
[2018-08-28] MEDS ORDERED: Scopolamine Patch 1.5 MG PATCH.TD72 TD SCH (14:45)
[2018-08-28] MEDS ORDERED: clonazePAM 0.5 MG TABLET PO SCH (15:00)
[2018-08-28] MEDS ORDERED: FentaNYL (PF) 1,000 MCG in 0.9 % Sodium Chloride 80 ML IVC SCH (15:15)
[2018-08-28] MEDS ORDERED: *HR* FentaNYL (PF) 100 MCG/2 ML VIAL IVP PRN ×2 (17:20→18:33)
[2018-08-28] MEDS ORDERED: Ondansetron 4 MG/2 ML VIAL IVP PRN (18:33)
[2018-08-28] MEDS ORDERED: Acetaminophen 325 MG TABLET PO PRN (18:33)
[2018-08-28] MEDS: FentaNYL (PF) 1,000 MCG in 0.9 % Sodium Chloride 80 ML IVC SCH (19:17)
[2018-08-28] MEDS: *HR* Morphine 2 MG/ML SYRINGE IVP PRN (21:34)
[2018-08-29] MEDS: *HR* Morphine 2 MG/ML SYRINGE IVP PRN ×5 (03:07→23:28)
[2018-08-29] MEDS: *HR* LORazepam 2 MG/ML VIAL IVP PRN ×5 (03:16→19:49)
[2018-08-29] MEDS: Levalbuterol Neb 0.63 MG/3 ML IH SCH ×4 (04:15→21:56)
[2018-08-29] MEDS: FentaNYL (PF) 1,000 MCG in 0.9 % Sodium Chloride 80 ML IVC SCH ×3 (04:28→21:15)
[2018-08-29] MEDS: Pantoprazole 40 MG VIAL IVP SCH (08:04)
[2018-08-29] MEDS: Budesonide Neb 0.5 MG/2 ML IH SCH ×2 (10:45→21:56)
--- NOTE | 2018-08-29 11:06 | Palliative Progress Note ---
Date of Encounter: 08/29/18 Time of Encounter: 09:00 - Assessment and plan (1) Dyspnea Current Visit: Yes Status: Acute Assessment and plan: Oxygen currently on 15L/Min. Resp rate 28/min. Fentanyl currently at 200mcg/hr. I have asked primary nurse to try and titrate down slowly and see if he can tolerates. (2) Congestion of upper airway Current Visit: Yes Status: Acute Assessment and plan: Continue Scoplamine patch and Atropine drops. Congestion much improved today. Continue and monitor. (3) Restlessness and agitation Current Visit: Yes Status: Acute Assessment and plan: Continue Lorazepam PRN - utilized x3 since extubation. (4) Respiratory failure Current Visit: Yes Status: Acute (5) Altered mental status Current Visit: Yes Status: Acute Qualifiers: Altered mental status type: unspecified Qualified Code(s): R41.82 - Altered mental status, unspecified (6) Neuroleptic malignant syndrome Current Visit: Yes Status: Resolved (7) Palliative care encounter Current Visit: Yes Status: Acute (8) Goals of care, counseling/discussion Current Visit: Yes Status: Acute Assessment and plan: Father and aunt at bedside. Sons not here presently. He is much more alert today, but not following commands. D/W Dr. Kerr and reached out to Dr. Díaz who will continue to follow. He does not appear safe at this point with his mental status to take anything oral. Will continue to follow closely. - Time Spent With Patient Total time spent is greater than 50% in coordination of care (as documented) at patient's floor/unit and/or counseling patient: - Subjective Interval history: Patient restless, family at bedside. He is alert - follows me with his eyes. However not following any commands at this time. Vitals noted. He is on 15L oxygen at this time. He was in distress yesterday and Fentanyl drip was increased to 200mcg/hr. - Constitutional Vitals: Abnormal lab results WBC 12.0 K/mcL (4.3-11.1) H 08/25/18 04:25 RBC 3.50 M/mcL (4.19-5.50) L 08/28/18 03:10 Hgb 10.8 g/dL (12.9-16.9) L D 08/28/18 03:10 Hct 33.3 % (37.5-50.1) L 08/28/18 03:10 RDW 14.9 % (11.5-14.5) H 08/24/18 03:35 Plt Count 133 K/mcL (140-400) L 08/22/18 06:02 MPV 9.3 fL (9.4-12.4) L 08/28/18 03:10 10.0 K/mcL (1.6-8.9) H 08/17/18 05:29 0.4 K/mcL (0.6-4.6) L 08/15/18 13:00 Decreased (Normal) L 08/20/18 07:58 PT 12.3 Seconds (9.4-12.1) H 08/27/18 03:40 ABG pH 7.48 pH Units (7.32-7.45) H 08/28/18 05:06 ABG pCO2 46 mmHg (35-45) H 08/28/18 05:06 ABG pO2 139 mmHg (85-104) H 08/28/18 05:06 ABG HCO3 34 mEq/L (21-27) H 08/28/18 05:06 ABG Total CO2 35 mEq/L (20-26) H 08/28/18 05:06 ABG O2 Saturation 99 % (95-98) H 08/28/18 05:06 ABG Base Excess 9 mEq/L (-2 to 3) H 08/28/18 05:06 ABG Hematocrit 35.0 % (37.5-50.1) L 08/24/18 11:19 Glucose 150 mg/dL (60-95) H 08/24/18 11:19 Lactate 0.5 mmol/L (0.7-2.1) L 08/24/18 11:19 Sodium 146 mEq/L (136-145) H 08/28/18 03:10 Potassium 3.0 mEq/L (3.5-5.1) L 08/27/18 03:40 Chloride 108 mEq/L (98-107) H 08/23/18 04:12 Carbon Dioxide 33 mEq/L (23-29) H 08/28/18 03:10 BUN 41 mg/dL (6-20) H 08/28/18 03:10 1.31 mg/dL (0.70-1.30) H 08/28/18 03:10 Est GFR ( Amer) 59 (> 60) L 08/26/18 08:20 Est GFR (Non-Af Amer) 58 (> 60) L 08/28/18 03:10 31 (6-26) H 08/28/18 03:10 Glucose 145 mg/dL (70-105) H 08/28/18 03:10 POC Glucose 130 mg/dL (70-99) H 08/29/18 05:09 6.2 % (-5.6) H 08/16/18 06:05 315 (280-300) H 08/28/18 03:10 Calcium 8.4 mg/dL (8.6-10.3) L 08/25/18 16:52 Venous Ioniz Calcium 1.14 mmol/L (1.15-1.35) L 08/28/18 03:23 AST 132 Units/L (13-39) H 08/16/18 06:05 337 Units/L (30-223) H 08/25/18 08:21 5.2 g/dL (6.4-8.9) L 08/18/18 05:38 3.1 g/dL (3.5-5.7) L 08/25/18 16:52 2.3 g/dL (2.4-3.5) L 08/18/18 05:38 0.9 (1.1-2.2) L 08/25/18 16:52 Beta-Hydroxybutyric Acd > 2.00 mmol/L (0.02-0.27) H 08/15/18 13:00 30 mg/dL (Neg-Trace) H 08/15/18 14:05 15 mg/dL (Negative) H 08/15/18 14:05 Large (Negative) H 08/15/18 14:05 Ur Squamous Epith Cells Many per lpf (None-Few) H 08/15/18 14:05 General appearance: Present: no acute distress - Respiratory Respiratory exam: Present: decreased breath sounds, CTAB - Cardiovascular Cardiovascular exam: Present: tachycardia - GI/Abdominal GI/Abdominal exam: Present: normal bowel sounds, soft - Extremities Exam Extremities exam: Present: normal capillary refill, normal inspection - Neurological Exam Neurological exam: Present: alert, altered Additional comments: Nonverbal. Does not follow commands, restless - Skin Skin exam: Present: dry, pallor, warm Palliative Quality Palliative Quality: Screen for Code Status: NA (No family present.), Screen for Goals of Care: NA (No family present.), Screen for Pain: Yes (No Nonverbal s/s of pain discomfort noted.), If Pain Regimen Started, Initiate Bowel Regimen: NA, Screen for Nausea/Vomitting: NA Code Status: 08/15/18 16:05 Resuscitation Status: Active [RES] Routine Comment: Resuscitation Status: Full Code 08/28/18 11:24 DNR [Resuscitation Status: Active] [RES] Routine Comment: Resuscitation Status: [id number] 08/28/18 15:18 DNR [Resuscitation Status: Active] [RES] Routine Comment: Resuscitation Status: DNR-Comfort Care - Labs CBC & Chem 7: 08/28/18 03:10 08/28/18 03:10 Labs: Laboratory Results - last 24 hr 08/28/18 08/28/18 08/28/18 04:57 05:06 12:01 Sample Site ABG pH 7.48 H ABG pCO2 46 H ABG pO2 139 H ABG HCO3 ABG Total CO2 ABG O2 Saturation ABG Base Excess Reese Test Respiration Rate O2 Delivery Device Blood Gas Modality Inspired O2 Tidal Volume PEEP POC Glucose 212 H 08/28/18 08/29/18 23:33 05:09 Sample Site ABG pH ABG pCO2 ABG pO2 ABG HCO3 ABG Total CO2 ABG O2 Saturation ABG Base Excess Reese Test Respiration Rate O2 Delivery Device Blood Gas Modality Inspired O2 Tidal Volume PEEP POC Glucose 113 H 130 H - ABG Interpretation ABG results: ABG ABG pH 7.48 pH Units (7.32-7.45) H 08/28/18 05:06 ABG pCO2 46 mmHg (35-45) H 08/28/18 05:06 ABG pO2 139 mmHg (85-104) H 08/28/18 05:06 ABG O2 Saturation 99 % (95-98) H 08/28/18 05:06 PT/INR, D-dimer PT 12.3 Seconds (9.4-12.1) H 08/27/18 03:40 Palliative Scale - Palliative Performance Scale How ambulatory is this patient?: Totally bed bound What is patient's level of activity and evidence of disease?: Unable to do any activity, Extensive disease How much self-care assistance does patient require?: Total care How much oral intake does the patient have?: Mouth care only What is this patient's level of consciousness?: Drowsy or coma with or without confusion Palliative Performance Score: 10 % Consult Discharge Plan - Plan Referrals: Gabriella Simon [Advanced Practice Nurse] - 09/06/18 9:00 am
--- NOTE | 2018-08-29 15:06 | Electrocardiograph Report ---
[address] [address] Test Date: 2018-08-24 Pat Name: Gino Means Department: 109 Room: 2A48 Gender: M [employer]: : 1965 Requested By: Wilbert Ramos Order Number: [id number] Reading MD: Kamlesh Meek Measurements Intervals Richardson Rate: 109 P: 63 [place]: 154 QRS: 62 QRSD: 82 T: 72 QT: 256 QTc: 320 Interpretive Statements SINUS TACHYCARDIA NONSPECIFIC T-WAVE ABNORMALITY ABNORMAL RHYTHM ECG Electronically Signed On 08-29-2018 15:04:14 EDT by Kamlesh Meek
--- NOTE | 2018-08-29 15:11 | Internal Med Progress Note ---
Hospitalist Progress Note - Encounter Date of Encounter: 08/29/18 Time of Encounter: 11:00 - Subjective Interval History: Patient is a 52-year-old male with past medical history significant for drug abuse and COPD who was found down by family member and brought into the ER with altered mental status. Patient had to be intubated but continued to do poorly and was given a poor prognosis. Palliative care consulted and family has decided for terminal extubation as patient has been made a DNR CC. Had family discussion this morning for an update on patient's condition and will continue with palliative care/hospice due to patient's poor prognosis Patient is on oxygen mask this morning but not able to communicate; patient with involuntary postural movements on exam - Exam Vitals: Temp Pulse Resp BP Pulse Ox 98.2 F 152 18 117/74 93 08/29/18 07:02 08/29/18 07:02 08/29/18 10:45 08/29/18 07:02 08/29/18 10:45 Exam: Gen.: Patient alert but not oriented Cardiovascular: Normal S1 and S2 regular rate rhythm no murmurs rubs or gallops Abdomen: Soft, nontender and nondistended with positive bowel sounds Extremities: No lower extremity edema Skin: Normal color - Assessment and Plan (1) Goals of care, counseling/discussion Current Visit: Yes Status: Acute Assessment and Plan: Patient with terminal extubation due to poor prognosis. Palliative care consulted and family has decided for terminal extubation as patient has been made a DNR CC. Had family discussion this morning for an update on patient's condition and will continue with palliative care/hospice due to patient's poor prognosis (2) Altered mental status Current Visit: Yes Status: Acute Assessment and Plan: No change as patient is unresponsive (3) Acute hypoxemic respiratory failure Current Visit: Yes Status: Acute Assessment and Plan: Patient continues to require high flow oxygenation and will continue for comfort care. - Time Spent with Patient Total time spent is greater than 50% in coordination of care (as documented) at patient's floor/unit and/or counseling patient: Internal Medicine: Result - Labs CBC & Chem 7: 08/28/18 03:10 08/28/18 03:10 - ABG Interpretation ABG results: ABG ABG pH 7.48 pH Units (7.32-7.45) H 08/28/18 05:06 ABG pCO2 46 mmHg (35-45) H 08/28/18 05:06 ABG pO2 139 mmHg (85-104) H 08/28/18 05:06 ABG O2 Saturation 99 % (95-98) H 08/28/18 05:06 PT/INR, D-dimer PT 12.3 Seconds (9.4-12.1) H 08/27/18 03:40 Consult Discharge Plan - Plan Referrals: Gabriella Simon [Advanced Practice Nurse] - 09/06/18 9:00 am (2) Altered mental status Qualifiers: Altered mental status type: unspecified Qualified Code(s): R41.82 - Altered mental status, unspecified
--- NOTE | 2018-08-29 16:06 | Pulmonology Progress Note ---
Date of Encounter: 08/30/18 Time of Encounter: 11:00 Assessment and Plan (1) Acute hypoxemic respiratory failure Current Visit: Yes Status: Acute Patient was extubated yesterday in the ICU and he is comfort care. They have discussed with palliative care regarding titration of his sedative and narcotic for the comfort and they also discussed this at the bedside with the family and they seems to be satisfied. I have also discussed with primary team. Please call for any questions. Subjective Principal diagnosis: Patient seen in F/U for Neuroleptic malignant syndrome Interval history: Patient is not responsive Objective PUL Vital signs: Last Vital Signs Temp 98.2 F 08/29/18 07:02 Pulse 152 08/29/18 07:02 Resp 18 08/29/18 16:00 BP 117/74 08/29/18 07:02 Pulse Ox 94 08/29/18 16:00 General appearance: no acute distress ENT: oropharynx dry Effort: mildly labored Auscultation: bilateral: rhonchi Cardiovascular: regular rate and rhythm Gastrointestinal: normoactive bowel sounds Extremities: no edema unable to assess due to mental status Results - Laboratory Findings CBC and BMP: 08/28/18 03:10 08/28/18 03:10 ABG ABG pH 7.48 pH Units (7.32-7.45) H 08/28/18 05:06 ABG pCO2 46 mmHg (35-45) H 08/28/18 05:06 ABG pO2 139 mmHg (85-104) H 08/28/18 05:06 ABG O2 Saturation 99 % (95-98) H 08/28/18 05:06 PT/INR, D-dimer PT 12.3 Seconds (9.4-12.1) H 08/27/18 03:40 Abnormal lab findings: Abnormal lab results WBC 12.0 K/mcL (4.3-11.1) H 08/25/18 04:25 RBC 3.50 M/mcL (4.19-5.50) L 08/28/18 03:10 Hgb 10.8 g/dL (12.9-16.9) L D 08/28/18 03:10 Hct 33.3 % (37.5-50.1) L 08/28/18 03:10 RDW 14.9 % (11.5-14.5) H 08/24/18 03:35 Plt Count 133 K/mcL (140-400) L 08/22/18 06:02 MPV 9.3 fL (9.4-12.4) L 08/28/18 03:10 10.0 K/mcL (1.6-8.9) H 08/17/18 05:29 0.4 K/mcL (0.6-4.6) L 08/15/18 13:00 Decreased (Normal) L 08/20/18 07:58 PT 12.3 Seconds (9.4-12.1) H 08/27/18 03:40 ABG pH 7.48 pH Units (7.32-7.45) H 08/28/18 05:06 ABG pCO2 46 mmHg (35-45) H 08/28/18 05:06 ABG pO2 139 mmHg (85-104) H 08/28/18 05:06 ABG HCO3 34 mEq/L (21-27) H 08/28/18 05:06 ABG Total CO2 35 mEq/L (20-26) H 08/28/18 05:06 ABG O2 Saturation 99 % (95-98) H 08/28/18 05:06 ABG Base Excess 9 mEq/L (-2 to 3) H 08/28/18 05:06 ABG Hematocrit 35.0 % (37.5-50.1) L 08/24/18 11:19 Glucose 150 mg/dL (60-95) H 08/24/18 11:19 Lactate 0.5 mmol/L (0.7-2.1) L 08/24/18 11:19 Sodium 146 mEq/L (136-145) H 08/28/18 03:10 Potassium 3.0 mEq/L (3.5-5.1) L 08/27/18 03:40 Chloride 108 mEq/L (98-107) H 08/23/18 04:12 Carbon Dioxide 33 mEq/L (23-29) H 08/28/18 03:10 BUN 41 mg/dL (6-20) H 08/28/18 03:10 1.31 mg/dL (0.70-1.30) H 08/28/18 03:10 Est GFR ( Amer) 59 (> 60) L 08/26/18 08:20 Est GFR (Non-Af Amer) 58 (> 60) L 08/28/18 03:10 31 (6-26) H 08/28/18 03:10 Glucose 145 mg/dL (70-105) H 08/28/18 03:10 POC Glucose 130 mg/dL (70-99) H 08/29/18 05:09 6.2 % (-5.6) H 08/16/18 06:05 315 (280-300) H 08/28/18 03:10 Calcium 8.4 mg/dL (8.6-10.3) L 08/25/18 16:52 Venous Ioniz Calcium 1.14 mmol/L (1.15-1.35) L 08/28/18 03:23 AST 132 Units/L (13-39) H 08/16/18 06:05 337 Units/L (30-223) H 08/25/18 08:21 5.2 g/dL (6.4-8.9) L 08/18/18 05:38 3.1 g/dL (3.5-5.7) L 08/25/18 16:52 2.3 g/dL (2.4-3.5) L 08/18/18 05:38 0.9 (1.1-2.2) L 08/25/18 16:52 Beta-Hydroxybutyric Acd > 2.00 mmol/L (0.02-0.27) H 08/15/18 13:00 30 mg/dL (Neg-Trace) H 08/15/18 14:05 15 mg/dL (Negative) H 08/15/18 14:05 Large (Negative) H 08/15/18 14:05 Ur Squamous Epith Cells Many per lpf (None-Few) H 08/15/18 14:05 - Microbiology Findings Microbiology Findings: Microbiology, Last 48 Hours 08/27/18 14:10 Sputum Culture - Final Trachea Escherichia coli 08/25/18 13:46 Sputum Culture - Final Trachea Escherichia coli Strep agalactiae - (Group B) - Clinical Findings Intake & Output: Intake & Output 08/29/18 08/29/18 08/29/18 07:59 15:59 23:59 Intake Total 100 / 280 180 / 280 Output Total 450 / 450 Balance -350 / -170 180 / -170 Consult Discharge Plan - Plan Referrals: Gabriella Simon [Advanced Practice Nurse] - 09/06/18 9:00 am
[2018-08-30] MEDS: *HR* LORazepam 2 MG/ML VIAL IVP PRN ×3 (00:55→07:43)
[2018-08-30] MEDS: FentaNYL (PF) 1,000 MCG in 0.9 % Sodium Chloride 80 ML IVC SCH ×2 (02:44→09:09)
[2018-08-30] MEDS: *HR* Morphine 2 MG/ML SYRINGE IVP PRN ×6 (02:54→13:23)
[2018-08-30] MEDS: Levalbuterol Neb 0.63 MG/3 ML IH SCH ×2 (04:21→10:40)
[2018-08-30 07:09] VITALS: BP 129/83
[2018-08-30] MEDS: Pantoprazole 40 MG VIAL IVP SCH (07:43)
[2018-08-30] MEDS ORDERED: Haloperidol Lactate 5 MG/ML VIAL IVP ONE (09:07)
[2018-08-30] MEDS ORDERED: *HR* LORazepam 2 MG/ML VIAL IVP PRN (09:09)
--- NOTE | 2018-08-30 09:15 | Palliative Progress Note ---
Date of Encounter: 08/30/18 Time of Encounter: 09:00 - Assessment and plan (1) Dyspnea Current Visit: Yes Status: Acute Assessment and plan: Worsening this am. Will increase Morphine for breakthrough to 6mg. (2) Congestion of upper airway Current Visit: Yes Status: Acute Assessment and plan: Continue scopolamine and atropine drops PRN. (3) Restlessness and agitation Current Visit: Yes Status: Acute Assessment and plan: Patient is greatly agitated. He has had Lorazepam x 7 last 24 hours. He may respond better to Haloperidol. Will give Haloperidol 5mg one time dose this am and begin scheduled 1mg every 6 hours and monitor. (4) Respiratory failure Current Visit: Yes Status: Acute (5) Altered mental status Current Visit: Yes Status: Acute Qualifiers: Altered mental status type: unspecified Qualified Code(s): R41.82 - Altered mental status, unspecified (6) Neuroleptic malignant syndrome Current Visit: Yes Status: Resolved (7) Palliative care encounter Current Visit: Yes Status: Acute (8) Goals of care, counseling/discussion Current Visit: Yes Status: Acute Assessment and plan: Will speak with family when they arrive. Patient is not improving, and will likely pass away from his respiratory failure. He is still having severe symptoms and is appropriate for transition to inpatient hospice if family agreeable. Will f/u when they arrive - Time Spent With Patient Total time spent is greater than 50% in coordination of care (as documented) at patient's floor/unit and/or counseling patient: - Subjective Interval history: Patient appears in mild respiratory distress, + upper airway secretions, agitated, and tachycardic. No family present. - Constitutional Vitals: Abnormal lab results WBC 12.0 K/mcL (4.3-11.1) H 08/25/18 04:25 RBC 3.50 M/mcL (4.19-5.50) L 08/28/18 03:10 Hgb 10.8 g/dL (12.9-16.9) L D 08/28/18 03:10 Hct 33.3 % (37.5-50.1) L 08/28/18 03:10 RDW 14.9 % (11.5-14.5) H 08/24/18 03:35 Plt Count 133 K/mcL (140-400) L 08/22/18 06:02 MPV 9.3 fL (9.4-12.4) L 08/28/18 03:10 10.0 K/mcL (1.6-8.9) H 08/17/18 05:29 0.4 K/mcL (0.6-4.6) L 08/15/18 13:00 Decreased (Normal) L 08/20/18 07:58 PT 12.3 Seconds (9.4-12.1) H 08/27/18 03:40 ABG pH 7.48 pH Units (7.32-7.45) H 08/28/18 05:06 ABG pCO2 46 mmHg (35-45) H 08/28/18 05:06 ABG pO2 139 mmHg (85-104) H 08/28/18 05:06 ABG HCO3 34 mEq/L (21-27) H 08/28/18 05:06 ABG Total CO2 35 mEq/L (20-26) H 08/28/18 05:06 ABG O2 Saturation 99 % (95-98) H 08/28/18 05:06 ABG Base Excess 9 mEq/L (-2 to 3) H 08/28/18 05:06 ABG Hematocrit 35.0 % (37.5-50.1) L 08/24/18 11:19 Glucose 150 mg/dL (60-95) H 08/24/18 11:19 Lactate 0.5 mmol/L (0.7-2.1) L 08/24/18 11:19 Sodium 146 mEq/L (136-145) H 08/28/18 03:10 Potassium 3.0 mEq/L (3.5-5.1) L 08/27/18 03:40 Chloride 108 mEq/L (98-107) H 08/23/18 04:12 Carbon Dioxide 33 mEq/L (23-29) H 08/28/18 03:10 BUN 41 mg/dL (6-20) H 08/28/18 03:10 1.31 mg/dL (0.70-1.30) H 08/28/18 03:10 Est GFR ( Amer) 59 (> 60) L 08/26/18 08:20 Est GFR (Non-Af Amer) 58 (> 60) L 08/28/18 03:10 31 (6-26) H 08/28/18 03:10 Glucose 145 mg/dL (70-105) H 08/28/18 03:10 POC Glucose 130 mg/dL (70-99) H 08/29/18 05:09 6.2 % (-5.6) H 08/16/18 06:05 315 (280-300) H 08/28/18 03:10 Calcium 8.4 mg/dL (8.6-10.3) L 08/25/18 16:52 Venous Ioniz Calcium 1.14 mmol/L (1.15-1.35) L 08/28/18 03:23 AST 132 Units/L (13-39) H 08/16/18 06:05 337 Units/L (30-223) H 08/25/18 08:21 5.2 g/dL (6.4-8.9) L 08/18/18 05:38 3.1 g/dL (3.5-5.7) L 08/25/18 16:52 2.3 g/dL (2.4-3.5) L 08/18/18 05:38 0.9 (1.1-2.2) L 08/25/18 16:52 Beta-Hydroxybutyric Acd > 2.00 mmol/L (0.02-0.27) H 08/15/18 13:00 30 mg/dL (Neg-Trace) H 08/15/18 14:05 15 mg/dL (Negative) H 08/15/18 14:05 Large (Negative) H 08/15/18 14:05 Ur Squamous Epith Cells Many per lpf (None-Few) H 08/15/18 14:05 General appearance: Present: mild distress - Respiratory Additional comments: Rhonchi noted throughout all lung rios. + upper airway secretions - Cardiovascular Cardiovascular exam: Present: tachycardia - GI/Abdominal GI/Abdominal exam: Present: normal bowel sounds, soft - Extremities Exam Extremities exam: Present: normal capillary refill, normal inspection - Neurological Exam Additional comments: Eyes open - restless. Does not follow commands or make attempt to verbalize - Skin Skin exam: Present: dry, pallor, warm Palliative Quality Palliative Quality: Screen for Code Status: NA (No family present.), Screen for Goals of Care: NA (No family present.), Screen for Pain: Yes (No Nonverbal s/s of pain discomfort noted.), If Pain Regimen Started, Initiate Bowel Regimen: NA, Screen for Nausea/Vomitting: NA Code Status: 08/15/18 16:05 Resuscitation Status: Active [RES] Routine Comment: Resuscitation Status: Full Code 08/28/18 11:24 DNR [Resuscitation Status: Active] [RES] Routine Comment: Resuscitation Status: [id number] 08/28/18 15:18 DNR [Resuscitation Status: Active] [RES] Routine Comment: Resuscitation Status: DNR-Comfort Care - Labs CBC & Chem 7: 08/28/18 03:10 08/28/18 03:10 - ABG Interpretation ABG results: ABG ABG pH 7.48 pH Units (7.32-7.45) H 08/28/18 05:06 ABG pCO2 46 mmHg (35-45) H 08/28/18 05:06 ABG pO2 139 mmHg (85-104) H 08/28/18 05:06 ABG O2 Saturation 99 % (95-98) H 08/28/18 05:06 PT/INR, D-dimer PT 12.3 Seconds (9.4-12.1) H 08/27/18 03:40 Palliative Scale - Palliative Performance Scale How ambulatory is this patient?: Totally bed bound What is patient's level of activity and evidence of disease?: Unable to do any activity, Extensive disease How much self-care assistance does patient require?: Total care How much oral intake does the patient have?: Mouth care only What is this patient's level of consciousness?: Drowsy or coma with or without confusion Palliative Performance Score: 10 % Consult Discharge Plan - Plan Referrals: Gabriella Simon [Advanced Practice Nurse] - 09/06/18 9:00 am
[2018-08-30] MEDS: Budesonide Neb 0.5 MG/2 ML IH SCH (10:40)
--- NOTE | 2018-08-30 12:14 | Discharge Summary ---
Orders not resulted at time of discharge: Pending orders 08/25/18 12:05 Culture,Blood [BC] Stat Date of Encounter: 08/30/18 Time of Encounter: 12:10 - Discharge Diagnosis (1) Altered mental status Priority: Primary Status: Acute Qualifiers: Altered mental status type: unspecified Qualified Code(s): R41.82 - Altered mental status, unspecified (2) Acute hypoxemic respiratory failure Priority: Primary Status: Acute (3) Goals of care, counseling/discussion Priority: Secondary Status: Chronic (4) Metabolic encephalopathy Priority: Primary Status: Acute (5) Neuroleptic malignant syndrome Priority: Secondary Status: Suspected Hospital course: Mr. Means is a 52 year old male PMH of hx HTN, HLD, DM2, COPD, remote prescription drug abuse, who p/w AMS. Patient was found lying naked on the bathroom floor. In the ED, pt HR 110, RR 20s, SBP 160s. Labs remarkable for Hb 11, Plt 110, Na 128, Cl 94, Cr 1.5, BUN 37, AST 80, CK 2500, UA w blood and ketones but no RBCs. CXR and CT head both without any acute changes. Patient was admitted to the hospital due to Rhabdomyolysis, Hypovolemic hyponatremia and Acute encephalopathy. As patient was on multiple medications lexeril, buspar, fluoxetine, haldol, metaxalone, lyrica, and oxycodone. there was a belief that patient's symptoms could be related to neuroleptic malignant syndrome, and the patient was treated for it. Patient respiratory status worsened and patient required to be intubated for airways protection. Pulmonology and neurology consulted. EEG done: There is significant myogenic and technical artifact present throughout the entirety of the recording. I am able to identify theta frequencies bilaterally. This suggests a mild to moderate generalized encephalopathy. There is no evidence of seizure activity identified during the study however again it is a study marred by technical and muscle artifact. Patient was treated empirically with broad spectrum IV antibiotics for possible meningitis. /CT head/brain wo con MPRESSION: 1. No acute intracranial abnormality. 2. Mild global parenchymal volume loss. 3. Minimal scattered atherosclerosis. after a meeting with the family and patient with no meaningful neurological recovery palliative care was consulted and the family decided for terminal extubation as patient has been made a DNR CC. and decided to go with hospice. Patient is being discharged to the hospice unit. - Time Spent with Patient Total time spent providing and/or coordinating discharge services: Time spent: Greater than 30 minutes (40) - Discharge Medications Prescriptions: Discontinued Metoprolol [Lopressor] 50 mg PO BID Docusate Sodium [Dulcolax Stool Softener] 100 mg PO DAILY Haloperidol 15 mg PO DAILY amLODIPine [Norvasc] 10 mg PO DAILY Ferrous Sulfate [Iron] 325 mg PO BID Alogliptin Benzoate [Alogliptin] 25 mg PO DAILY Oxycodone HCl 10 mg PO Q8H PRN PRN Reason: Pain Divalproex (24 HR) [Depakote ER (24 HR)] 750 mg PO HS Omeprazole [PriLOSEC] 40 mg PO DAILY metFORMIN [Glucophage] 1,000 mg PO BIDWM Metaxalone [Skelaxin] 800 mg PO TID Loratadine [Allergy Relief] 10 mg PO DAILY Glimepiride [Amaryl] 1 mg PO DAILY FLUoxetine HCl [Fluoxetine HCl] 40 mg PO DAILY Pregabalin [Lyrica] 150 mg PO BID Albuterol Sulfate [Albuterol Inhaler] 2 puff IH Q4HR PRN PRN Reason: SOB/WHEEZING Losartan [Cozaar] 50 mg PO DAILY Ipratropium/Albuterol Neb [Duoneb] 3 ml IH Q4HR PRN PRN Reason: SOB/WHEEZING Mometasone/Formoterol [Dulera 100 Mcg/5 Mcg Inhaler] 2 inh IH BID Cyclobenzaprine [Flexeril] 10 mg PO TID RisperiDONE [Risperdal] 0.5 mg PO DAILY Atorvastatin [Lipitor] 20 mg PO HS Prazosin HCl [Minipress] 5 mg PO HS Melatonin 10 mg PO HS Buspirone HCl [Buspar] 10 mg PO TID Cholecalciferol (Vitamin D3) [Vitamin D] 400 unit PO BID Allergies/Adverse Reactions: Allergy/AdvReac Type Severity Reaction Status Date / Time NSAIDS (Non-Steroidal Allergy See Verified 05/10/17 13:26 Anti-Inflamma Comments Penicillins Allergy See Verified 05/10/17 13:26 Comments Date of admission: 08/15/18 17:27 Primary care physician: PCP NONE Consults: 08/16/18 15:16 Consult to Interpret Exam [CONS] Routine Consulting Provider: Neftali Oropeza Consult to Interpret Exam: Interpret EEG 08/17/18 14:17 Consult to Pulmonology [CONS] Routine Consulting Provider: [facility]i Reason for Consult: ventalator Call Completed: No 08/21/18 16:02 Consult to Interpret Exam [CONS] Routine Consulting Provider: Elza Tamayo Consult to Interpret Exam: Interpret EEG 08/25/18 13:39 Consult to Palliative Care [CONS] Routine Comment: Consulting Provider: Palliative Care Marti Reason for Consult: goals of care Call Completed: Yes - Constitutional Vitals: Temp Pulse Resp BP Pulse Ox 98.9 F 185 30 129/83 76 08/30/18 07:03 08/30/18 07:03 08/30/18 10:45 08/30/18 07:03 08/30/18 10:45 Exam: Vitals: Reviewed. General: Somnolent, not following commands Cardiovascular: Tachycardic, normal S1 & S2, no rubs, murmurs or gallops. Lungs: CTA b/l, no wheezes or crackles. Abdomen:Soft, non-tender, no rigidity. Extremities:No deformity, no edema Neurological: unable to perform due to AMS. Rest of the physical exam is non contributory - Patient Status Disposition: Hospice - Medical Facility Condition: Critical Functional capacity at discharge: bed bound Overall status at discharge: patient is not back to baseline - Discharge Instructions Follow Up With: Gabriella Simon [Advanced Practice Nurse] - 09/06/18 9:00 am Forms: ED Satisfaction Letter
--- NOTE | 2018-08-30 12:28 | Physician Discharge Referral ---
ExtendedCare Referral Info Transfer To: dc to hospice Provider in Charge after Transfer: Marketing Trainee - Diagnosis (1) Altered mental status Priority: Primary Status: Acute (2) Acute hypoxemic respiratory failure Priority: Primary Status: Acute (3) Goals of care, counseling/discussion Priority: Secondary Status: Chronic (4) Metabolic encephalopathy Priority: Secondary Status: Acute (5) Neuroleptic malignant syndrome Priority: Secondary Status: Suspected Prognosis: Poor Aware of Diagnosis: Family Aware of Prognosis: Family - Transfer Medications Allergies/Adverse Reactions: Allergy/AdvReac Type Severity Reaction Status Date / Time NSAIDS (Non-Steroidal Allergy See Verified 05/10/17 13:26 Anti-Inflamma Comments Penicillins Allergy See Verified 05/10/17 13:26 Comments - Respiratory Orders Oxygen / L per min Smoking Cessation: Smoking cessation has been advised. For more information, call the [employer] Tobacco Quit Line at 2-395-NHKGNOW. - Advance Directives Code Status: DNR-Comfort Care - Mobility Orders Bedrest - Rehabiliation Orders Rehab Potential: Poor CERTIFICATION: I certify that the transfer of the above named patient to an Extended Care Facility is necessary for the continuing treatment of the diagnosis listed. The above information is true and accurate reflection of patient's current condition. Confidential - Redisclosure prohibited without a patient's written consent.
[2018-08-30] MEDS ORDERED: Haloperidol Lactate 5 MG/ML VIAL IVP SCH (14:00)
[2018-08-31] MEDS ORDERED: Scopolamine Patch 1.5 MG PATCH.TD72 TD SCH (14:45)
== END 2018-08-30 14:32 | disposition hospice, inpatient (51) | DRG 52 ==
LOC: EMEROOARM 11:42 → 3ANU 11:42 → SUATTDRO 17:27 → 3ANU 17:52 → 2NNU 08-16 17:51 → ICNU 08-17 15:01 → 2ANU 08-28 18:23
PROVIDERS: ADMIT Internal Medicine; ATTEND Internal Medicine

== ENCOUNTER 2018-08-30 12:23 | Inpatient (IN) ==
[2018-08-30] MEDS ORDERED: Bisacodyl 10 MG RECTAL SUPPOSITORY RC PRN (13:17)
[2018-08-30] MEDS: *HR* LORazepam 2 MG/ML VIAL IVP PRN ×3 (14:15→22:09)
[2018-08-30] MEDS: FentaNYL (PF) 1,000 MCG in 0.9 % Sodium Chloride 80 ML IVC SCH ×2 (14:15→19:56)
[2018-08-30] MEDS: Haloperidol Lactate 5 MG/ML VIAL IVP SCH ×2 (15:26→20:06)
[2018-08-30] MEDS: *HR* Morphine 2 MG/ML SYRINGE IVP PRN (16:17)
[2018-08-30] MEDS: Levalbuterol Neb 0.63 MG/3 ML IH SCH ×2 (16:17→22:56)
[2018-08-30] MEDS: Scopolamine Patch 1.5 MG PATCH.TD72 TD SCH (16:30)
[2018-08-31] MEDS: Haloperidol Lactate 5 MG/ML VIAL IVP SCH ×5 (01:50→20:47)
[2018-08-31] MEDS: *HR* LORazepam 2 MG/ML VIAL IVP PRN ×8 (01:50→23:50)
[2018-08-31] MEDS: FentaNYL (PF) 2,500 MCG in EMPTY BAG 1 EACH IVC SCH ×2 (02:51→18:18)
[2018-08-31] MEDS: Levalbuterol Neb 0.63 MG/3 ML IH SCH ×4 (04:04→22:04)
[2018-08-31] MEDS: *HR* Morphine 2 MG/ML SYRINGE IVP PRN ×2 (07:46→10:34)
--- NOTE | 2018-08-31 09:22 | Pallative History & Physical ---
Date of Encounter: 08/31/18 Time of Encounter: 09:25 Assessment and Plan (1) Generalized pain Current visit: Yes Status: Acute Continue Fentanyl drip which is currently infusing at 200mcg/hr. Attempted to decrease this during hospital admission, and patient did not tolerate well. (2) Congestion of upper airway Current visit: No Status: Acute Continue scopolamine patch with atropine drops PRN. He has less upper airway noise this am. (3) Dyspnea Current visit: Yes Status: Acute He has been utilizing IV Morphine for breakthrough as well as the Fentanyl infusion. IV Morphine was increased to 6mg yesterday. This has been utilized x2 since increased. He does not appear as short of breath this am. Attempting to titrate oxygen down some as he appears less dyspneic. Monitor. Qualifiers: Dyspnea type: unspecified Qualified Code(s): R06.00 - Dyspnea, unspecified (4) Agitation Current visit: Yes Status: Acute He was started on scheduled Haloperidol yesterday, staff does not think it has been enough for his agitation. Will increase to 2mg every 6 hours and monitor. (5) Anxiety Current visit: Yes Status: Acute His Lorazepam required increasing to 2mg previously,, and nurse states that it is not lasting a full 3 hours. He is restless to the point he will try and throw his legs over the bed. Will increase frequency to every 2 hours PRN. (6) Metabolic encephalopathy Current visit: No Status: Acute (7) Acute hypoxemic respiratory failure Current visit: No Status: Acute (8) Neuroleptic malignant syndrome Current visit: No Status: Suspected (9) Palliative care encounter Current visit: No Status: Acute (10) Goals of care, counseling/discussion Current visit: No Status: Chronic Patient was admitted to general inpatient hospice late yesterday afternoon for symptom management. He is still requiring increase in medications for his restless and agitation. D/W Sridevi Paula, Hospice SW and Carmela Sharp, Hospice nurse at bedside. I doubt that he will survive this admission. Family have been at the bedside majority of time and are appreciative of his care. Internal Medicine - H&P: HPI Admitted From: Intrahospital Transfer Plans for Post Hospital Care: Hospice - Medical Facility History of present illness: Mr. Means is a 52 year old male who originally presented emergency Department on 08/15/2018, via EMS, with altered mental status, last known baseline 2 days prior to admission. His father and stepmother, who had been out of town found him down with altered mental status, with the house in disarray and broken faucet in bathroom. After workup, he was treated for neuroleptic malignant syndrome, rhabdomylolysis, JERMAIN, respiratory failure. He was intubated and maintained on the ventilator for approx 10 days. Extubation was attempted x1 during this time, however, pt had to be reintubated, and continued to fail weaning trials. During this time, meetings were held with family, including patient's father, who he resided with, and his 3 sons. Decision was made to compassionately extubate this pt and focus on keeping him comfortable. He was transitioned to [facility]. After extubation, patient continued to have respiratory distress. His mental status remained altered, unable to verbalize or follow commands, and he was very agitated. Symptomatic also with tachypnea and tachycardia. Fentanyl drip had to be restarted, and he required initiation also of Lorazepam and Haloperidol. He continued to decline. Family was met with yesterday and decided to transition to general inpatient hospice with the goal of keeping him as comfortable and calm as possible. His symptom were not controlled and requiring escalation of medications. Past Med Surg Social Fam HX - Past Medical History Medical history: diabetes, hyperlipidemia, hypertension Psychiatric history: other - Past Surgical History Surgical History: orthopedic, other Additional surgical history: back and neck surgeries, plate in back - Social History Smoking Status: Unknown if ever smoked Smokeless Tobacco Status: No Alcohol use: none Drug use: none Internal Medicine - H&P: Meds Allergy/AdvReac Type Severity Reaction Status Date / Time NSAIDS (Non-Steroidal Allergy See Verified 05/10/17 13:26 Anti-Inflamma Comments Penicillins Allergy See Verified 05/10/17 13:26 Comments ROS unobtainable: due to mental status Palliative Care-Exam - Constitutional Vitals: Temp Pulse Resp BP Pulse Ox 100.5 F H 118 12 131/68 97 08/31/18 08:32 08/31/18 08:32 08/31/18 08:32 08/31/18 08:32 08/31/18 08:32 General appearance: Present: mild distress - Head Head Exam: Present: normal inspection, normocephalic - Respiratory Additional comments: Few scattered rhonchi. Oxygen was at 15L - turned down to 10L this am. - Cardiovascular Cardiovascular exam: Present: irregular rhythm, tachycardia - GI/Abdominal Exam GI/Abdominal exam: Present: diminished bowel sounds, soft - Catheter Type: Urethral (Fuenets) - Extremities Exam Extremities exam: Present: normal capillary refill, normal inspection - Neurological Exam Additional comments: Eyes open, does not follow commands or verbalize. ELDER - Skin Skin exam: Present: dry, pallor, warm Palliative Quality Palliative Quality: Screen for Code Status: Yes, Screen for Goals of Care: Yes, Screen for Pain: Yes, If Pain Regimen Started, Initiate Bowel Regimen: Yes, Screen for Nausea/Vomitting: Yes Code Status: 08/30/18 13:17 Resuscitation Status: Active [RES] Routine Comment: Resuscitation Status: DNR-Comfort Care
[2018-08-31] MEDS: Atropine Sulfate 1% 40 DROP/2 ML BOTTLE SL PRN ×2 (18:23→23:50)
[2018-09-01] MEDS: *HR* LORazepam 2 MG/ML VIAL IVP PRN ×4 (03:11→23:21)
[2018-09-01] MEDS: Haloperidol Lactate 5 MG/ML VIAL IVP SCH ×4 (03:11→18:25)
[2018-09-01] MEDS: Levalbuterol Neb 0.63 MG/3 ML IH SCH ×4 (04:06→22:20)
[2018-09-01] MEDS: Atropine Sulfate 1% 40 DROP/2 ML BOTTLE SL PRN ×4 (04:21→22:11)
[2018-09-01] MEDS: *HR* Morphine 2 MG/ML SYRINGE IVP PRN ×2 (07:02→11:23)
[2018-09-01] MEDS: FentaNYL (PF) 2,500 MCG in EMPTY BAG 1 EACH IVC SCH ×2 (07:09→18:25)
--- NOTE | 2018-09-01 11:32 | Palliative Progress Note ---
Date of Encounter: 09/01/18 Time of Encounter: 09:30 - Assessment and plan (1) Hospice care Current Visit: Yes Status: Acute (2) Agitation Current Visit: Yes Status: Acute Assessment and plan: Scheduled Haldol 2mg q6hrs (3) Congestion of upper airway Current Visit: No Status: Acute Assessment and plan: Worsening. Scopolamine patch in place, received atropine x4 doses in 24h. Encouraged nurse to administer more frequently. (4) Dyspnea Current Visit: No Status: Acute Assessment and plan: Tachypneic today. Will increase fentanyl drip, continue prn morphine Oxygen was titrated down to 7L. Continue titration. (5) Generalized pain Current Visit: Yes Status: Acute Assessment and plan: Continue Fentanyl drip which is currently infusing at 200mcg/hr, will increase drip as patient remains tachypneic and requires several prn doses of morphine PO. (6) Goals of care, counseling/discussion Current Visit: No Status: Chronic Assessment and plan: Patient's parents present at the bedside, update on current medical condition, and prepared that patient is actively dying. Emotional support provided. (7) Metabolic encephalopathy Current Visit: No Status: Acute (8) Acute hypoxemic respiratory failure Current Visit: No Status: Acute (9) Neuroleptic malignant syndrome Current Visit: No Status: Suspected - Time Spent With Patient Total time spent is greater than 50% in coordination of care (as documented) at patient's floor/unit and/or counseling patient: - Subjective Interval history: Patient continue to decline, unresponsive, developed a rattling sound, lethargic. He spiked fever 103 overnight. He is tachypneic, symptoms still not well controlled. Legs are mottled. He is on fentanyl drip 200 mcg, will increase to 225mcg, received morphine x3 doses, Haldol x5 doses, Atropne x4 doses. - Constitutional Exam: General appearance: Present: mild distress - Head Head Exam: Present: normal inspection, normocephalic - Respiratory Additional comments: increased secretions. Tachypnea - Cardiovascular Cardiovascular exam: Present: irregular rhythm, tachycardia - GI/Abdominal Exam GI/Abdominal exam: Present: diminished bowel sounds, soft - Catheter Type: Urethral (Fuentes) - Extremities Exam Extremities exam: Present: normal capillary refill, normal inspection - Neurological Exam Additional comments: unresponsive, does not follow commands or verbalize. ELDER - Skin Skin exam: Present: Mottling of legs. Palliative Quality Palliative Quality: Screen for Code Status: Yes, Screen for Goals of Care: Yes, Screen for Pain: Yes, If Pain Regimen Started, Initiate Bowel Regimen: Yes, Screen for Nausea/Vomitting: Yes Code Status: 08/30/18 13:17 Resuscitation Status: Active [RES] Routine Comment: Resuscitation Status: DNR-Comfort Care Consult Discharge Plan - Plan Referrals: NONE,PCP [Primary Care Provider] -
--- NOTE | 2018-09-01 17:27 | Event Note ---
Date of Encounter: 09/01/18 Time of Encounter: 17:25 Patient re-evaluated in the afternoon, breathing is shallow, with apneas. Appear comfortable, actively dying. Family was updated. Emotional support provided.
[2018-09-02] MEDS: *HR* LORazepam 2 MG/ML VIAL IVP PRN (03:34)
[2018-09-02] MEDS: Haloperidol Lactate 5 MG/ML VIAL IVP SCH ×4 (03:35→21:35)
[2018-09-02] MEDS: Atropine Sulfate 1% 40 DROP/2 ML BOTTLE SL PRN (03:35)
[2018-09-02] MEDS: Levalbuterol Neb 0.63 MG/3 ML IH SCH ×4 (04:12→22:32)
[2018-09-02] MEDS: FentaNYL (PF) 2,500 MCG in EMPTY BAG 1 EACH IVC SCH ×2 (07:58→19:08)
[2018-09-02] MEDS: Acetaminophen 650 MG RECTAL SUPP RC PRN (11:27)
--- NOTE | 2018-09-02 11:28 | Palliative Progress Note ---
Date of Encounter: 09/02/18 Time of Encounter: 11:00 - Assessment and plan (1) Congestion of upper airway Current Visit: Yes Status: Acute Assessment and plan: Patient continues to have scattered rhonchi to bilateral upper lung rios. 1. Position with HOB up 2. Light oral suction PRN 3. Scopolomine & Atropine PRN 4. Albuteral tx PRN 5. Supplemental O2 PRN 6. Morphine for dyspnea (2) Agitation Current Visit: Yes Status: Acute Assessment and plan: Patient becomes agitated and lifts both legs to touch and assessment. Received dose of Haldol at 8am. Continue PRN need. (3) Anxiety Current Visit: Yes Status: Acute Assessment and plan: PRN Ativan. Dose given at 3am. (4) Generalized pain Current Visit: Yes Status: Acute Assessment and plan: Patient remains on Fentanyl gtt appears comfortable at present. Morphine for BTP. One dose given last PM (5) Dyspnea Current Visit: Yes Status: Acute Assessment and plan: Position with HOB up 2. Light oral suction PRN 3. Scopolomine & Atropine PRN 4. Albuteral tx PRN 5. Supplemental O2 PRN 6. Morphine for dyspnea Qualifiers: Dyspnea type: unspecified Qualified Code(s): R06.00 - Dyspnea, unspecified (6) Metabolic encephalopathy Current Visit: Yes Status: Acute (7) Goals of care, counseling/discussion Current Visit: Yes Status: Chronic Assessment and plan: Parents at bedside. Updated on current status and vital signs. Patient appears comfortable at present. Continue Fentanyl gtt and BTP pain medications. Patient is terminal. Color pale, lower legs warm. Current temp 99.4. Family support provided. (8) Fever Current Visit: Yes Status: Acute Assessment and plan: Patient with terminal fever. Tylenol PRN administered for comfort. Cool towel to forehead. Qualifiers: Fever type: unspecified Qualified Code(s): R50.9 - Fever, unspecified (9) Palliative care encounter Current Visit: No Status: Acute - Time Spent With Patient Total time spent is greater than 50% in coordination of care (as documented) at patient's floor/unit and/or counseling patient: Greater than 35 minutes - Subjective Interval history: Patient eyes open. Oxy mask at 7L and 90% sat. Patient sweaty and warm. Patient pulls lower extremities up with any physical touch. Parents at bedside. Assessment complete. Chart reviewed and vitals currently stable. Remains on Fent gtt. for comfort. - Constitutional Vitals: Stable General appearance: Present: febrile, no acute distress, thin - Head Head exam: Present: atraumatic, normal inspection - Eye Eye exam: Present: PERRL Pupils: Present: PERRL - ENT ENT exam: Present: mucous membranes moist - Respiratory Respiratory exam: Present: rhonchi (Bilateral upper Rhonchi) - Cardiovascular Cardiovascular exam: Present: RRR, +S1, +S2, tachycardia - GI/Abdominal GI/Abdominal exam: Present: hypoactive bowel sounds, soft - exam: Present: normal inspection (Fuentes draining dark yellow urine) - Extremities Exam Extremities exam: Present: normal inspection (active ROM to bilateral legs) - Neurological Exam Neurological exam: Present: altered (Patient unable to follow commands. PEARLLA. Nonverbal, mouth open, mouth breathing. ) - Psychiatric Psychiatric exam: Present: agitated (agitation with touch or movement) - Skin Skin exam: Present: pallor, warm Palliative Quality Palliative Quality: Screen for Code Status: Yes, Screen for Goals of Care: Yes, Screen for Pain: Yes, If Pain Regimen Started, Initiate Bowel Regimen: Yes, Screen for Nausea/Vomitting: Yes Code Status: 08/30/18 13:17 Resuscitation Status: Active [RES] Routine Comment: Resuscitation Status: DNR-Comfort Care Consult Discharge Plan - Plan Referrals: NONE,PCP [Primary Care Provider] -
[2018-09-02] MEDS: Scopolamine Patch 1.5 MG PATCH.TD72 TD SCH (16:15)
[2018-09-03] MEDS: Haloperidol Lactate 5 MG/ML VIAL IVP SCH ×4 (04:03→21:09)
[2018-09-03] MEDS: Levalbuterol Neb 0.63 MG/3 ML IH SCH ×4 (04:22→22:07)
[2018-09-03] MEDS: FentaNYL (PF) 2,500 MCG in EMPTY BAG 1 EACH IVC SCH ×2 (07:03→19:08)
--- NOTE | 2018-09-03 09:05 | Palliative Progress Note ---
Date of Encounter: 09/03/18 Time of Encounter: 08:45 - Assessment and plan (1) Congestion of upper airway Current Visit: Yes Status: Acute Assessment and plan: Patient continues to have scattered rhonchi to bilateral upper lung rios. 1. Position with HOB up 2. Light oral suction PRN 3. Scopolomine & Atropine PRN 4. Albuteral tx PRN 5. Supplemental O2 PRN 6. Morphine for dyspnea (2) Agitation Current Visit: Yes Status: Acute Assessment and plan: Patient becomes agitated and lifts both legs to touch and assessment. Received 5 doses of Haldol in past 24 hrs. Continue PRN need. (3) Anxiety Current Visit: Yes Status: Acute Assessment and plan: PRN Ativan. One dose in past 24 hrs. (4) Generalized pain Current Visit: Yes Status: Acute Assessment and plan: Patient remains on Fentanyl gtt appears comfortable at present. Morphine for BTP. No BTP meds given. (5) Dyspnea Current Visit: Yes Status: Acute Assessment and plan: Position with HOB up 2. Light oral suction PRN 3. Scopolomine & Atropine PRN 4. Albuteral tx PRN 5. Supplemental O2 PRN 6. Morphine for dyspnea Qualifiers: Dyspnea type: unspecified Qualified Code(s): R06.00 - Dyspnea, unspecified (6) Metabolic encephalopathy Current Visit: Yes Status: Acute (7) Goals of care, counseling/discussion Current Visit: Yes Status: Chronic Assessment and plan: Patient appears comfortable at present. Continue Fentanyl gtt and BTP pain medications. Patient is terminal. Color pale, lower legs warm. Current temp 98.8. (8) Fever Current Visit: Yes Status: Acute Assessment and plan: Patient with terminal fever. Tylenol PRN for comfort. Cool towel to forehead. AM temp 98.8. Qualifiers: Fever type: unspecified Qualified Code(s): R50.9 - Fever, unspecified (9) Palliative care encounter Current Visit: No Status: Acute - Time Spent With Patient Total time spent is greater than 50% in coordination of care (as documented) at patient's floor/unit and/or counseling patient: less than 15 minutes - Subjective Interval history: Patient eyes open. Oxy mask at 6L and 92% sat. Patient sweaty and warm. Nonverbal. Patient pulls lower extremities up with any physical touch. No family at bedside. Assessment complete. Remains on Fent gtt. for comfort. - Constitutional Vitals: Stable General appearance: Present: no acute distress - Head Head exam: Present: atraumatic, normal inspection - Eye Eye exam: Present: PERRL Pupils: Present: PERRL - ENT ENT exam: Present: mucous membranes moist - Respiratory Respiratory exam: Present: decreased breath sounds - Expanded Respiratory Exam Location: decreased breath sounds: Left, Right, Lower, rhonchi: Left, Right, Upper - Cardiovascular Cardiovascular exam: Present: RRR, +S1, +S2, tachycardia - Expanded Cardiovascular Exam Peripheral pulses: 1+: Femoral (L) PM, Femoral (R) PM, Posterior Tibialis (L), Posterior Tibialis (R), 2+: Carotid (L) PM, Carotid (R) PM, Radial (L), Radial (R), Dorsalis Pedis (L) PM, Dorsalis Pedis (R) PM - GI/Abdominal GI/Abdominal exam: Present: hypoactive bowel sounds, soft - exam: Present: normal inspection Additional comments: Fuentes draining dark yellow urine - Extremities Exam Extremities exam: Present: full ROM - Neurological Exam Neurological exam: Present: altered (Nonverbal) - Expanded Neurological Exam Coma Scale Eye Opening: Spontaneous Coma Scale Motor Response: Withdraws to Pain Coma Scale Verbal Response: None Coma Scale Total: 9 - Psychiatric Psychiatric exam: Present: agitated (Patient becomes agitated with touch or positioning) - Skin Skin exam: Present: pallor, warm Palliative Quality Palliative Quality: Screen for Code Status: Yes, Screen for Goals of Care: Yes, Screen for Pain: Yes, If Pain Regimen Started, Initiate Bowel Regimen: Yes, Screen for Nausea/Vomitting: Yes Code Status: 08/30/18 13:17 Resuscitation Status: Active [RES] Routine Comment: Resuscitation Status: DNR-Comfort Care Consult Discharge Plan - Plan Referrals: NONE,PCP [Primary Care Provider] -
[2018-09-03] MEDS: *HR* LORazepam 2 MG/ML VIAL IVP PRN (16:04)
[2018-09-04] MEDS: Levalbuterol Neb 0.63 MG/3 ML IH SCH ×4 (03:55→22:22)
[2018-09-04] MEDS: Haloperidol Lactate 5 MG/ML VIAL IVP SCH ×4 (04:21→21:11)
[2018-09-04] MEDS: FentaNYL (PF) 2,500 MCG in EMPTY BAG 1 EACH IVC SCH ×2 (07:36→18:27)
[2018-09-04] MEDS: Acetaminophen 650 MG RECTAL SUPP RC PRN (07:57)
[2018-09-04] MEDS: *HR* Morphine 2 MG/ML SYRINGE IVP PRN ×6 (08:09→23:30)
--- NOTE | 2018-09-04 09:45 | Palliative Progress Note ---
Date of Encounter: 09/04/18 Time of Encounter: 09:30 - Assessment and plan (1) Generalized pain Current Visit: Yes Status: Acute Assessment and plan: Continue Fentanyl drip that remains at 200mcg/hr. Monitor.. (2) Congestion of upper airway Current Visit: Yes Status: Acute Assessment and plan: Increased congestion this am. Scopolamine patch was off during the night, has been replaced. (3) Dyspnea Current Visit: Yes Status: Acute Assessment and plan: Contiinue supportive oxygen, currently at 4LPM. Morphine IV for breakthrough dyspnea - utilized x1 last 12 hours. Current in respiratory distress, D/W primary nurse Faith who will administer. Qualifiers: Dyspnea type: unspecified Qualified Code(s): R06.00 - Dyspnea, unspecified (4) Agitation Current Visit: Yes Status: Acute Assessment and plan: Continue Haloperiodol scheduled. (5) Anxiety Current Visit: Yes Status: Acute Assessment and plan: Continue Lorazepam PRN. Utilized x 1 last 24 hours. Does appear in some dist ress this am, Nurse will administer. (6) Metabolic encephalopathy Current Visit: Yes Status: Acute (7) Acute hypoxemic respiratory failure Current Visit: No Status: Acute (8) Neuroleptic malignant syndrome Current Visit: No Status: Suspected (9) Palliative care encounter Current Visit: No Status: Acute (10) Goals of care, counseling/discussion Current Visit: Yes Status: Chronic Assessment and plan: By report - patient had improved slightly over weekend,, and had some interactions with family. However, this am, appears to be declining again. Family has arrived at bedside and were updated. - Time Spent With Patient Total time spent is greater than 50% in coordination of care (as documented) at patient's floor/unit and/or counseling patient: - Subjective Interval history: Patient with eyes open and pupils fixed. Tachypneic and Tachycardic. Color slightly dusky. No response to verbal or tactile stimuli. Audible upper airway secretions. - Constitutional General appearance: Present: mild distress - Respiratory Additional comments: Rhonchi throughout. O2 at 4LPM. + upper airway secretions - Cardiovascular Cardiovascular exam: Present: +S1, +S2, tachycardia - GI/Abdominal GI/Abdominal exam: Present: normal bowel sounds, soft - Additional comments: Fuentes with clear yellow urine - Extremities Exam Extremities exam: Present: normal capillary refill, normal inspection - Neurological Exam Neurological exam: Present: altered (EYes open, does not follow commands or respond to verbal tactile stimuli) - Skin Skin exam: Present: dry, pallor, warm Additional comments: Slightly dusky Palliative Quality Palliative Quality: Screen for Code Status: Yes, Screen for Goals of Care: Yes, Screen for Pain: Yes, If Pain Regimen Started, Initiate Bowel Regimen: Yes, Screen for Nausea/Vomitting: Yes Code Status: 08/30/18 13:17 Resuscitation Status: Active [RES] Routine Comment: Resuscitation Status: DNR-Comfort Care Consult Discharge Plan - Plan Referrals: NONE,PCP [Primary Care Provider] -
[2018-09-04] MEDS ORDERED: Glycopyrrolate 0.2 MG/ML VIAL IVP ONE (09:57)
[2018-09-04] MEDS: *HR* LORazepam 2 MG/ML VIAL IVP PRN ×3 (13:20→21:11)
[2018-09-05] MEDS: *HR* LORazepam 2 MG/ML VIAL IVP PRN ×2 (00:47→06:48)
[2018-09-05] MEDS: Haloperidol Lactate 5 MG/ML VIAL IVP SCH ×2 (03:54→07:54)
[2018-09-05] MEDS: Levalbuterol Neb 0.63 MG/3 ML IH SCH ×2 (04:21→04:26)
[2018-09-05] MEDS: *HR* Morphine 2 MG/ML SYRINGE IVP PRN ×2 (04:51→07:55)
[2018-09-05] MEDS: FentaNYL (PF) 2,500 MCG in EMPTY BAG 1 EACH IVC SCH (07:28)
[2018-09-05 07:36] VITALS: BP 48/28
[2018-09-05] MEDS: Acetaminophen 650 MG RECTAL SUPP RC PRN (08:03)
--- NOTE | 2018-09-05 09:34 | Palliative Progress Note ---
Date of Encounter: 09/05/18 Time of Encounter: 08:50 - Assessment and plan (1) Generalized pain Current Visit: Yes Status: Acute Assessment and plan: Continue Fentanyl as currently ordered. (2) Congestion of upper airway Current Visit: Yes Status: Acute Assessment and plan: Continue Atropine/Scopolamine (3) Dyspnea Current Visit: Yes Status: Acute Assessment and plan: Oxygen has been turned off as was likely prolonging his dying process. Continue with IV Morphine PRN. Utilized x7 last 24 hours Qualifiers: Dyspnea type: unspecified Qualified Code(s): R06.00 - Dyspnea, unspecified (4) Agitation Current Visit: Yes Status: Acute Assessment and plan: Continue Haldol as scheduled (5) Anxiety Current Visit: Yes Status: Acute (6) Metabolic encephalopathy Current Visit: Yes Status: Acute (7) Acute hypoxemic respiratory failure Current Visit: No Status: Acute (8) Neuroleptic malignant syndrome Current Visit: No Status: Suspected (9) Palliative care encounter Current Visit: No Status: Acute (10) Goals of care, counseling/discussion Current Visit: Yes Status: Chronic Assessment and plan: Patient actively dying. MOst likely will not survive the day. D/W primary nurse family Faith left this am at 0500. Should return soon. - Time Spent With Patient Total time spent is greater than 50% in coordination of care (as documented) at patient's floor/unit and/or counseling patient: - Subjective Interval history: Patient appears to be imminently dying. B/P 40's/20's, febrile, respirations very shallow and gasping. No family present, but should be here shortly. Primary nurse at bedside. - Constitutional General appearance: Present: no acute distress - Respiratory Additional comments: Resp shallow, rate 26-30. Few audible rhonchi. Upper resp secretions improved from yesterday. - Cardiovascular Cardiovascular exam: Present: +S1, +S2, tachycardia - GI/Abdominal GI/Abdominal exam: Present: normal bowel sounds, soft - Additional comments: Fuentes with clear yellow urine - Extremities Exam Additional comments: Mottling noted to lower extremities, hands dusky and cool to touch - Neurological Exam Neurological exam: Present: alert Additional comments: Unresponsive to verbal/tactile stimuli - Skin Skin exam: Present: dry, mottled, pallor Palliative Quality Palliative Quality: Screen for Code Status: Yes, Screen for Goals of Care: Yes, Screen for Pain: Yes, If Pain Regimen Started, Initiate Bowel Regimen: Yes, Screen for Nausea/Vomitting: Yes Code Status: 08/30/18 13:17 Resuscitation Status: Active [RES] Routine Comment: Resuscitation Status: DNR-Comfort Care Consult Discharge Plan - Plan Referrals: NONE,PCP [Primary Care Provider] -
--- NOTE | 2018-09-05 10:56 | Death Note ---
Discharge Sum: Summary - Date and Time Date of admission: 08/30/18 14:33 Date of : 09/05/18 Time of : 10:15 - Summary Details: Patient was admitted for general inpatient hospice after a prolonged hospital stay after he was found down by family that had been out of down. He was treated for nwuroleptic malignant syndrome, Rhabdonylolysis, JERMAIN, and respiratory failure. He was not able to be weaned successfully off the ventilator and was transitioned to DNC and compassionately extubated. He continued to have respiratory compromise and encephalopathy, agitation and required initiation of Fentanyl drip, IV Morphine, Haldol, and Ativan to maintain his comfort. He this am peacefully. Family and hospice staff were notified. - Additional Data Confirmation of as documented by pronouncing clinician: no pulse, no respirations, no heart sounds Family: contacted Attending physician: Sabrina Muller MD Was code activated?: No Autopsy requested?: No Hospice patient?: Yes Discharge Sum: Diag - PCOD Probable Cause of : Respiratory arrest Discharge Sum: Prov - Provider Primary care physician: PCP NONE Admitting clinician: Sabrina Muller Consults: 08/30/18 13:18 Consult to Palliative Care [CONS] Routine Comment: Consulting Provider: Palliative Care Marti Reason for Consult: GIP Call Completed: No
== END 2018-09-05 10:15 | disposition expired | DRG 189 ==
LOC: 2ANU 14:33
PROVIDERS: ADMIT Internal Medicine Hospice and Palliative Medicine; ATTEND Internal Medicine Hospice and Palliative Medicine